=== PATIENT | female | born 1950 | race Caucasian/White ===

== ENCOUNTER 2017-06-04 15:52 | Emergency (ER) | payer MEDICARE ==
[2017-06-04] MEDS ORDERED: Amoxicillin/Clavulanate TAB* 875 MG PO ONE (16:38)
[2017-06-04] MEDS ORDERED: Tetan/Diph/Pertus SYR(Tdap)* 0.5 ML SYR(BOOSTRIX) use SYR IM ONE (16:38)
--- NOTE | 2017-06-04 16:38 | UC ---
Hand/Wrist HPI - HPI Summary HPI Summary: right 5th finger stepped on by a horse at 3pm after patient fell - History Of Current Complaint Chief Complaint: UCUpperExtremity Stated Complaint: FINGER LAC Time Seen by Provider: 06/04/17 16:20 Hx Obtained From: Patient ?: No Mechanism Of Injury: crush injury at 3pm today Onset/Duration: Sudden Onset Severity Initially: Moderate Severity Currently: Moderate Pain Intensity: 8 Pain Scale Used: 0-10 Numeric Character Of Pain: Aching, Throbbing Aggravating Factor(s): Movement Alleviating: Nothing Related History: Dominant Hand Right - Allergies/Home Medications Allergies/Adverse Reactions: Allergies Allergy/AdvReac Type Severity Reaction Status Date / Time No Known Allergies Allergy Verified 06/04/17 15:58 PMH/Surg Hx/FS Hx/Imm Hx Previously Healthy: No Psychological History: Anxiety, Other Other Psychological History: Chronic pain - Surgical History Surgical History: Yes Surgery Procedure, Year, and Place: 1983-ECTOPIC . 1984- BROKEN ARM. 1985- RECONSTRUCTION SURG FOR LUMBAR W/ RIB BONE. 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 Lives: With Family Alcohol Use: Occasionally Alcohol Amount: 3-4 PER WEEK Substance Use Type: None Substance Use Comment - Amount & Last Used: oxycodone Smoking Status (MU): Former Smoker Type: Cigarettes Amount Used/How Often: OFF AND ON - 1/2 PPD X 15 YEARS When Did the Patient Quit Smoking/Using Tobacco: 35 years ago - Immunization History Most Recent Influenza Vaccination: DOES NOT GET Most Recent Tetanus Shot: 7 YEARS AGO Most Recent Pneumonia Vaccination: 2014 Review of Systems Constitutional: Negative Skin: Negative Eyes: Negative ENT: Negative Respiratory: Negative Cardiovascular: Negative Gastrointestinal: Negative Genitourinary: Negative Motor: Negative Neurovascular: Negative Musculoskeletal: Arthralgia - right 5th finger Neurological: Negative Psychological: Negative Is Patient Immunocompromised?: No All Other Systems Reviewed And Are Negative: Yes Physical Exam Triage Information Reviewed: Yes Appearance: Well-Appearing, Well-Nourished, Pain Distress Vital Signs: Initial Vital Signs Temp 98 F 06/04/17 16:00 Pulse 77 06/04/17 16:00 Resp 16 06/04/17 16:00 Pulse Ox 99 06/04/17 16:00 Vital Signs Reviewed: Yes Eye Exam: Normal Eyes: Positive: Conjunctiva Clear ENT Exam: Normal ENT: Positive: Normal ENT inspection, Hearing grossly normal. Negative: Trismus , Muffled/hoarse voice Dental Exam: Normal Neck exam: Normal Neck: Positive: Supple, Nontender Respiratory Exam: Normal Respiratory: Positive: Chest non-tender, No respiratory distress, No accessory muscle use Cardiovascular Exam: Normal Cardiovascular: Positive: RRR, Pulses Normal, Brisk Capillary Refill Musculoskeletal Exam: Normal Musculoskeletal: Positive: ROM Intact, No Edema, Strength Limited @ - 5th finger , Other: - tip of finger missing Neurological Exam: Normal Neurological: Positive: Alert, Muscle Tone Normal Psychological Exam: Normal Skin Exam: Other Skin: Positive: Other - skin and left finger tip avulsion Diagnostics - Radiology No standard instances Xray Interpretation: Positive (See Comments) - distal soft tissue avulsion, no fracture Radiology Interpretation Completed By: ED Physician Re-Evaluation - Re-Evaluation First Eval Change: Improved - Dr. Escalante in to see patient--see Ortho Progress note, digital block with 5cc of 0.25% Marcaine with excellent pain control wound soaked in betadine and saline, xeroform gauze, and tube gauze dressing with splint for protection, patient tolerated well, no bleeding Hand/Wrist Course/Dx - Course Course Of Treatment: Up date tetanus, Augmentin, pain med keep dressing on and follow up with Dr. Ford on Wednesday for an appointment on Wednesday - Differential Dx/Diagnosis Differential Diagnosis/HQI/PQRI: Foreign Body, Infection, Sprain, Other - soft tissue avulsion Provider Diagnoses: soft tissue avulsion right 5th finger, exposed tuft - Physician Notifications Discussed Patient Care With: Rachel Escalante Time Discussed With Above Provider: 16:30 Instructed by Provider To: MD Will See In ED Discharge - Discharge Plan Condition: Stable Disposition: HOME Prescriptions: Amoxicillin/Clavulanate TAB* [Augmentin TAB 875*] 875 mg PO BID #19 tab Hydrocodone-Acetaminophen [Hydrocodone/Acetaminophen 5-325 mg] 1 tab PO Q4H #24 tab MDD 6 Patient Education Materials: Diphtheria/Acellular Pertussis/Tetanus Booster Vaccine (By injection), Skin Avulsion (ED) Referrals: Carlos Ford MD [Medical Doctor] - 06/07/17 Additional Instructions: Call Dr. Ford office on Wednesday for an appointment on Wednesday Do not change dressing reinforce if it bleeds through the gauze
[2017-06-04] MEDS ORDERED: Bupivacaine 0.5% SDV PF* 30 ML VIAL INJ ONE (16:53)
[2017-06-04] MEDS ORDERED: Bupivacaine 0.25% SDV* 30 ML INJ ONE (17:00)
[2017-06-04] MEDS ORDERED: Bupivacaine 0.25% MDV* 50 ML VIAL ONE (17:05)
--- NOTE | 2017-06-04 17:06 | RAD ---
Indication: Crush injury RIGHT fifth finger. Severe distal soft tissue injury. Comparison: No relevant prior exams available on the [facility] PACS for comparison. Technique: 3 views RIGHT fifth finger. Report: Significant distal soft tissue avulsion with open wound to the tuft of the distal phalanx. Negative for fracture. No conspicuous foreign body evident. Mild to moderate osteoarthritis at the interphalangeal joints. IMPRESSION: Distal soft tissue avulsion with open wound to the tuft of the distal phalanx without associated fracture.
[2017-06-04 18:06] VITALS: BP 136/78
--- NOTE | 2017-06-08 04:04 | CONS ---
CONSULTATION REPORT: DATE OF CONSULT: 06/04/17 - [facility] CHIEF COMPLAINT: Right pinky finger crush injury and pain. HISTORY OF PRESENT ILLNESS: Ms. 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 She immediately noted exposed bone and loss of her nail. She had 8/10 pain in the fingertip. She had increased pain with any movement of the finger and decreased pain with immobilization. She was seen at convenient care and they contacted me for further instruction. I was next door and agreed to come over to see the patient's finger in person. PAST MEDICAL HISTORY: Depression, osteoarthritis, colon polyps, GERD, chronic back pain, hypercholesterolemia, basal cell cancer right calf. PAST SURGICAL HISTORY: Right total knee arthroplasty in July 2015, lower lumbar surgery unspecified type, oophorectomy, lysis of adhesions, right knee arthroscopy. FAMILY HISTORY: None. 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 8 glasses of wine per week. No tobacco or recreational drug use. Right hand dominant. REVIEW OF SYSTEMS: Fourteen systems reviewed with the patient. Positive for some chronic back pain, depression, GERD, right pinky finger pain. Otherwise, the patient reports review of systems negative or not relevant. PHYSICAL EXAM: General: Patient is a well-nourished female, in no apparent distress. Alert and oriented x3. Pleasant mood and appropriate affect. Right upper extremity, patient's pinky finger has avulsion of the tip. She has no visible nail, no visible nail bed. Dorsally along the finger, there is an exposed distal phalanx. She can flex and extend the DIP joint without any obvious lag. Some decreased sensation to light touch along the very tip. Her fingertip along the palmar aspect distally has less than 3 seconds of cap refill but it is sluggish on the skin and has a slightly blue color. Proximally , no other tenderness to palpation with 2+ palpable radial pulse. DIAGNOSTIC STUDIES/LAB DATA: Radiographs: Multiple plain films of the right finger show no obvious distal fracture. It does show the soft tissue damage. ASSESSMENT AND PLAN: Ms. Lockhart is a 67-year-old right-hand dominant female with a right pinky finger avulsion injury of her fingertip. This is her dominant hand involving her pinky finger. I do think that the nail and nail bed are not salvageable at this point. Patient's finger was soaked in Betadine. I saw no gross dirt or debris. I did place 2 small nylon interrupted sutures to bring the lacerated fingertip pulp back together along the palmar surface. She is dressed with Xeroform and some dry sterile gauze. The patient asked whether she can work with the horses and I recommended strongly that she does not do this. She requests to see Dr. Ford in followup and this will be set up at his first available clinic appointment on Wednesday a.m., 06/08/17. The patient understands this. She is given an antibiotic today and does have up-to- date tetanus. She understands I defer to our hand specialists' recommendations regarding surgical debridement and revision of the fingertip injury. The patient questions were answered and she agrees with the treatment plan. [id number]/[facility] #: [id number] MTDD
== END 2017-06-04 17:56 | disposition home or self-care (01) ==
LOC: UCEAST 15:52
DX: S61.216A Laceration without foreign body of right little finger without damage to nail, initial encounter (principal); W55.19XA Other contact with horse, initial encounter; Y93.9 Activity, unspecified; Y92.79 Other farm location as the place of occurrence of the external cause; Y99.0 Civilian activity done for income or pay; Z23 Encounter for immunization; F41.9 Anxiety disorder, unspecified; Z87.891 Personal history of nicotine dependence
CPT/HCPCS: 12001; 73140; 90471; 90715; 99212; A9270-GY; G0463

== ENCOUNTER 2017-06-10 13:02 | Day surgery (SDC) | payer MEDICARE ==
[2017-06-10] MEDS ORDERED: Bupivacaine 0.25% SDV* 30 ML ONE ×2 (14:33→16:05)
[2017-06-10 17:30] VITALS: BP 128/72
--- NOTE | 2017-06-11 09:04 | OP ---
DATE OF OPERATION: 06/10/17 - [facility] DATE OF : 48 SURGEON: Carlos Ford MD FAMILY DENTIST: RL Mars ANESTHESIOLOGIST: None. ANESTHESIA: Local only with digital block with 0.25% plain Marcaine. PRE-OP DIAGNOSIS: Fingertip crush injury with significant soft tissue loss, right small finger. POST-OP DIAGNOSIS: Fingertip crush injury with significant soft tissue loss, right small finger. OPERATIVE PROCEDURE: Revision amputation, right small finger. INDICATIONS: Anette had a horse hoof come down on the right small finger tip and avulsed off the dorsal part of the soft tissue. I have seen her in the office and given the amount of hematoma, I was unable to get a sense of exactly how much soft tissue loss there was dorsally. I told her that we would assess in the operating room when we had it nice and clean and tourniquet on and if there was adequate soft tissue, we would just shorten the fingertip a little bit and close it, but if the majority of the dorsal soft tissue was gone, then I would do a reverse cross finger flap with skin grafting. We have talked about both surgery. She wanted to proceed. ESTIMATED BLOOD LOSS: 2 mL. COMPLICATIONS: None. FINDINGS: There was enough dorsal sterile matrix left that I could get the finger close simply by shortening it about 4 mm. DESCRIPTION OF PROCEDURE: Anette was seen in the preoperative holding area. The correct site, side, and procedure were identified. We had the time-out and we anesthetized the finger with 0.25% plain Marcaine. She was brought back to the operating room, and the finger was prepped and draped in the usual fashion. I exsanguinated the finger with the tourniquet and this was left on proximally as the tourniquet throughout the case. I then used a microcurette to debride off the hematoma and disorganized soft tissue. Once I had everything completely clean, I assessed the status of the dorsal soft tissue. There was enough sterile matrix that remained that was viable and healthy proximally that I could get the fingertip close simply by shortening it about 4 or 5 mm. She was wide awake and so I therefore talked to her about this and we decided to just shorten the finger slightly so that we get the volar flap of the soft tissue up and the wound closed. I went ahead and used a [place] blade to excise the distal shredded portion of the sterile matrix. The soft tissue was released circumferentially around the tip of the distal phalanx. I used the bone cutter to perform the osteotomy and the distal finger tip was sent off to the lab as a specimen. I removed a couple of the stitches that ran from her trip to the ED. The flap was raised. There was some contamination, this was all cut out sharply with tenotomy scissors. The skin margins were cut back sharply with a knife and with the scissors until nothing but clean, healthy, viable tissue remained. I contoured the skin flap. The flap was brought up and closed distally and radially with 4-0 nylon simple interrupted sutures. The central portion of the flap was then brought up and a 4-0 nylon suture was placed and this was brought back dorsal to the sterile matrix and through the nail fold exiting dorsally. Two stitches were placed and these were tied up to bring the central portion of the flap up and close the wound. I had previously opened the nail fold up with a Blain elevator as it gotten quite stuck down in it and was closing up. Once this was all cleaned up, I contoured a piece of the chromic gut suture wrapper and placed this into the nail fold. This was secured with two 4-0 nylon sutures, one proximally and one distally. Once I had the wound all closed and the nail fold splinted, I went ahead and let off the tourniquet, the finger pinked up immediately. The wound was dressed with Xeroform, some Bo, and Coban dressing. She was taken to the recovery room in stable condition. [id number]/[facility] #: [id number] LINDSAY
== END 2017-06-10 17:32 | disposition home or self-care (01) ==
LOC: OREAST 13:02
PROVIDERS: ATTEND Orthopaedic Surgery Hand Surgery
DX: S67.196A Crushing injury of right little finger, initial encounter (principal); W55.12XA Struck by horse, initial encounter; Y92.9 Unspecified place or not applicable; F41.9 Anxiety disorder, unspecified; K21.9 Gastro-esophageal reflux disease without esophagitis
CPT/HCPCS: 88304; 88311

== ENCOUNTER 2018-02-16 12:30 | Emergency (ER) | payer MEDICARE ==
[2018-02-16 13:30] VITALS: BP 130/65
--- NOTE | 2018-02-16 14:01 | UC ---
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 PT STEPPED FORWARD WELL AND ENDED UP STEPPING OFF THE PLATFORM. SHE LACERATED HER LEFT THIGH SUPERFICIALLY ON A STEP. WASHED IT OUT AND WRAPPED IT. UTD TETANUS WITHIN THE LAST YEAR. - History Of Current Complaint Chief Complaint: UCLaceration Stated Complaint: LEG LAC Time Seen by Provider: 02/16/18 13:44 Hx Obtained From: Patient Laceration Location: Thigh - LEFT LATERAL Mechanism Of Injury: Sharp Trauma Onset/Duration: Sudden Onset, Lasting Hours - 24 HRS Severity: Moderate Pain Intensity: 4 Pain Scale Used: 0-10 Numeric Aggravating Factors: Nothing - Allergies/Home Medications Allergies/Adverse Reactions: Allergies Allergy/AdvReac Type Severity Reaction Status Date / Time No Known Allergies Allergy Verified 02/16/18 13:30 PMH/Surg Hx/FS Hx/Imm Hx - Additional Past Medical History Additional PMH: CHRONIC BACK PAIN - Surgical History Surgical History: Yes Surgery Procedure, Year, and Place: 1983-ECTOPIC . 1984- BROKEN ARM. 1985- RECONSTRUCTION SURG FOR LUMBAR W/ RIB BONE. 2008-Rt KNEE ARTHROSCOPIC - Family History Known Family History: Positive: None Negative: Hypertension - Social History Alcohol Use: Weekly Alcohol Amount: 3 DRINKS Substance Use Type: None Substance Use Comment - Amount & Last Used: oxycodone Smoking Status (MU): Former Smoker Type: Cigarettes Amount Used/How Often: OFF AND ON - 1/2 PPD X 15 YEARS Have You Smoked in the Last Year: No When Did the Patient Quit Smoking/Using Tobacco: 35 years ago - Immunization History Most Recent Influenza Vaccination: DOES NOT GET Most Recent Tetanus Shot: 7 YEARS AGO Most Recent Pneumonia Vaccination: 2014 Review of Systems Constitutional: Negative Skin: Bruising, Other - LACERATION/ABRASION Respiratory: Negative Cardiovascular: Negative Gastrointestinal: Negative All Other Systems Reviewed And Are Negative: Yes Physical Exam Triage Information Reviewed: Yes Appearance: Well-Appearing, No Pain Distress, Well-Nourished Vital Signs: Initial Vital Signs Temp 98.2 F 02/16/18 13:25 Pulse 72 02/16/18 13:25 Resp 18 02/16/18 13:25 BP 130/65 02/16/18 13:25 Pulse Ox 98 02/16/18 13:25 Vital Signs Reviewed: Yes Eyes: Positive: Conjunctiva Clear ENT: Positive: Hearing grossly normal Neck: Positive: Supple Respiratory: Positive: No respiratory distress, No accessory muscle use Cardiovascular: Positive: Pulses Normal Abdomen Description: Positive: Soft Musculoskeletal: Positive: No Edema Neurological: Positive: Alert Psychological: Positive: Age Appropriate Behavior Skin: Positive: Other - 28CM X 17CM AREA OF BRUISING SURROUNDING 10CM X 6CM AREA OF ABRADED SKIN. 8CM SUPERFICIAL LINEAR LACERATION LOCATED CENTRAL TO THE WOUND. Laceration Course/Dx - Differential Dx - Laceration/Wound Provider Diagnoses: 1. LACERATION LEFT THIGH - NO REPAIR. 2. ABRASION Discharge - Sign-Out/Discharge Documenting (check all that apply): Discharge/Admit/Transfer - Discharge Plan Condition: Stable Disposition: HOME Prescriptions: Cephalexin CAP* [Keflex 500 CAP*] 1,000 mg PO BID #28 cap Patient Education Materials: Abrasion (ED), Laceration Without Closure (ED) Referrals: Jyoti Ocasio MD [Primary Care Provider] - If Needed Additional Instructions: YOUR WOUND LOOKS LIKE IT HAS ALREADY BEGUN THE HEALING PROCESS. NO INDICATION FOR CLOSURE TODAY. APPLY THIN LAYER ANTIBIOTIC OINTMENT UNDER NONSTICK BANDAGE. CHANGE BANDAGE DAILY AND NEEDED IF IT BECOMES SOILED OR WET. SEEK FOLLOW-UP IF YOU DEVELOP SPREADING REDNESS OF THE SKIN, PURULENT DRAINAGE, FEVER, INCREASED PAIN OR ANY OTHER CONCERNING SYMPTOMS. - Billing Disposition and Condition Condition: STABLE Disposition: HOME
== END 2018-02-16 14:35 | disposition home or self-care (01) ==
LOC: UCEAST 12:30
DX: S71.112A Laceration without foreign body, left thigh, initial encounter (principal); S70.312A Abrasion, left thigh, initial encounter; W26.8XXA Contact with other sharp object(s), not elsewhere classified, initial encounter; Y93.89 Activity, other specified; Y92.71 Barn as the place of occurrence of the external cause; Z87.891 Personal history of nicotine dependence
CPT/HCPCS: 99212; G0463

== ENCOUNTER 2019-05-04 05:19 | Emergency (ER) | payer MEDICARE ==
--- OUTSIDE RECORDS SUMMARY | 2019-05-04 05:29 | XMS REPORT | Continuity of Care Document ---
:1950 External Reference #:[id number] Author Name LoisAl alba Care Team Providers Name Role Phone Jyoti Ocasio MD Primary Care Physician Unavailable Payers Date Identification Numbers Payment Provider Subscriber Policy Number: [id number] [employer] Kathleen Downinge PayID: [id number] [address] [place] [address] Effective: 2015 Policy Number: [id number] Medicare Blue Ppo Kathleen Colindres Lowe Expires: 2018 Group Number: [id number] [address] PayID: [id number] [place] [address] Effective: 2011 Policy Number: [id number] Facets Kathleen Colindres Lowe Expires: 2013 PayID: [id number] [address] [place] [address] Effective: 2005 Policy Number: [id number] [facility] Ppo Kathleen Colindres Lowe Expires: 2011 Group Name: [employer] [place] [address] PayID: [id number] [place]in [address] Effective: 2013 Policy Number: [id number] BS Facets Kathleen Colindres Lowe Expires: 2014 PayID: [id number] [address] [address] [place] [address] Problems Active Problems Provider Date Gastroesophageal reflux disease Ela Peck NOdalys Onset: 08/14/2011 Depressive disorder Ela Peck N.P. Onset: 08/14/2011 Localized, primary osteoarthritis Rachel Escalante M.D. Onset: 08/12/2015 Localized, primary osteoarthritis of the Rachel Escalante M.D. Onset: 12/06/2015 pelvic region and thigh Crushing injury of finger Carlos Ford MD Onset: 06/08/2017 Tubular adenoma Jyoti Ocasio M.D. Onset: 03/15/2013 Note: repeat in 2019 showed no high grade dysplasia q 5 yr Family History Date Family Member(s) Observation Comments General Heart Disease General Breast Cancer General Thyroid Disease General Alzheimer's Disease Onset: (age 84 Years) Father Alzheimer's Disease Mother Thyroid Disease age 83 Siblings 1 Brother - - Suicide Social History Type Date Description Comments Sex Unknown Lives With Boyfriend Occupation [employer] ETOH Use Currently consumes 2 - 4 glasses of alcohol wine per week Tobacco Use Start: Unknown End: Patient is a former smoked from age 12 Unknown smoker to 27 Recreational Drug Use Denies Drug Use Smoking Status Reviewed: 04/18/19 Patient is a former smoked from age 12 smoker to 27 Exercise Type/Frequency 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 Capsules dental or gi procedure Naproxen Sodium ER 1 by mouth twice 60tabs Sid Jacob M.D. 02/11/2015 daily prn 500mg Tablets ER 24HR Prilosec OTC uses prn Unknown 20mg Tablets DR Vizcarra Unknown 30mg Tablets Miralax 17 grams by mouth Unknown Powder every day as needed Diclofenac Sodium apply 2 grams to Unknown 1% affected area Gel twice daily Tylenol as needed Unknown 325mg Tablets Clonazepam prn at bedtime Olesya, 0.5mg Ashanti Galindo, Tablets ROSA, RN Oxycodone HCL 1 tab by mouth Unknown 5mg twice a day as Tablets needed Gabapentin 1-3 capsules by 90caps Rachel Escalante, 100mg mouth up to 3 M.D. Capsules times per day. Propranolol HCL 1 tablet twice 30tabs Olesya, 10mg daily as needed Ashanti Galindo, Tablets for anxiety STREET [employer]GR[employer]-R, RN History Medications Cosyntropin 250mcg 1units R11.0 Lamine Hanna MD 08/17/2018 - 0.25mg intramuscular once 09/27/2018 Solution Rec in office Ventolin HFA 2 puffs 4 times a 8gm R05 Sri 06/24/2018 - day as needed Nirav Mays 09/27/2018 108(90Base) mcg/Act Aerosol Azithromycin 2 tabs by mouth on 6tabs R05 Sri 06/24/2018 - 250mg day 1; 1 tab by Nirav Mays 08/16/2018 Tablets mouth every day on days 2-5 Shingrix intramuscular x 1 1units Jyoti Ocasio, 04/12/2018 - 50mcg then repeat in 4 M.D. 05/23/2018 Suspension Rec months X1 Ranitidine 150 ( Not Taking) one 60tabs K21.9 Ela Peck, 08/04/2017 - Maximum Strength by mouth twice a N.P. 01/23/2019 day 150mg Tablets Amoxicillin/Clavulan 1 tab by mouth 14tabs Carlos Ford, 06/10/2017 - ate Potassium twice a day 06/24/2017 875-125mg Tablets Tramadol 1-2 tab by mouth 30tabs Carlos Ford, 06/10/2017 - Hydrochloride/Acetam every 4-6 hours as 03/22/2018 inophen needed 37.5-325mg Tablets Azithromycin 2 tabs by mouth 6tabs J20.9 Calvin Soriano NP 11/18/2016 - 250mg every day x1 day, 1 11/24/2016 Tablets tab by mouth every day x 4 days Ventolin HFA 1-2 puffs every 4-6 1units J20.9 Calvin Soriano NP 11/18/2016 - hours as needed for 11/24/2016 108(90Base) mcg/Act shortness of Aerosol breath. Nitrofurantoin 1 by mouth twice a 14caps N39.0 Jyoti Ocasio, 06/09/2016 - Macrocrystal day X 7 days M.D. 11/18/2016 100mg Capsules Nexium 1 by mouth every 90caps K21.9 Ela Calixeleazar, 06/09/2016 - 20mg Capsules day as needed N.P. 03/22/2018 DR Monreal 1 tab by mouth 2tabs B37.89 Jyoti Ocasio, 06/09/2016 - 100mg daily x 2 days M.D. 11/18/2016 Tablets Bonine Jyoti Ocasio, 01/28/2016 - 25mg Chewtabs M.D. 11/18/2016 Nexium 1 by mouth every 60caps K21.9 Jyoti Ocasio, 01/28/2016 - 40mg Capsules day M.D. 06/09/2016 DR Baugh HFA 2 puffs by mouth 8.5units J01.90 Keira Cortes, 12/27/2015 - four times a day as M.D. 01/28/2016 108(90Base) mcg/Act needed Aerosol Levaquin 1 by mouth everyday 10tabs J20.9 Keira Cortes, 12/27/2015 - 500mg M.D. 01/28/2016 Tablets Ventolin HFA 2 puffs by mouth 8.5units J20.9 Keira Cortes, 12/27/2015 - four times a day as M.D. 12/27/2015 108(90Base) mcg/Act needed Aerosol Levaquin 1 by mouth everyday 10tabs J20.9 Keira Cortes, 12/27/2015 - 500mg M.D. 12/27/2015 Tablets Nexium 1 by mouth every 30caps K21.9 Ela Calixeleazar, 12/11/2015 - 20mg Capsules day N.P. 01/28/2016 Percocet 1-2 by mouth every 90tabs Jackelin 08/19/2015 - 5-325mg 4 to 6 hours as KYAW Reece 10/28/2015 Tablets needed pain Oxycodone HCL 1-2 tabs by mouth 30caps Jackelin 08/19/2015 - 5mg q4-6 hours as KYAW Reece 09/30/2015 Capsules needed for breakthrough pain Coumadin take 1-3 tabs at 60tabs Kaylene 08/19/2015 - 2mg Tablets dinnertime as Nirav Meraz 10/28/2015 directed Omeprazole 1 by mouth every 90caps K21.9 Ela Calixeleazar, 08/02/2015 - 20mg day N.P. 12/11/2015 Capsules Sertraline HCL 1 by mouth every 30tabs F32.9 Other Ordering 08/02/2015 - 50mg day Provider 01/28/2016 Tablets Naproxen 1 tablet by mouth 60tabs 715.96 Sid Jacob, 02/11/2015 - 500mg twice a day as M.D. 02/11/[address] needed Naproxen Kit 1 tablet by mouth 60tabs 715.96 Sid Jacob, 02/11/2015 - 500mg twice a day as M.D. 01/28/2016 Tablets needed Voltaren apply twice a day 1tube Sid Jacob, 07/04/2014 - 1% Gel as needed to M.D. 01/28/2016 affected area Percocet 1/2 to 1 by mouth 80tabs Sid Jacob, 04/30/2014 - 5-325mg every 6 hours as M.D. 10/28/2015 Tablets needed pain Omeprazole one daily or twice 90caps Ene Shepard, 10/26/2011 - 20mg daily as needed M.D., FACP 08/30/2012 Capsules Celebrex 1 capsule twice a 60caps Ene Shepard, 08/14/2011 - 200mg day as needed M.D., FACP 08/30/2012 Capsules Clonazepam 1 po in am and 1 60tabs Unknown - 0.5mg po prn hs 11/08/2014 Tablets Cymbalta 1 po qd 30caps Unknown - 20mg Caps 07/16/2014 Part Oxcarbazepine 1/2 po am and 1 po 120tabs Unknown - 300mg hs 07/04/2014 Tablets Trubiotics qd Unknown - Capsules 07/24/2014 Magnesium po qd Unknown - Capsules 01/28/2016 Glucosamine po qd Unknown - Chondroitin Complex 08/30/2012 Capsules Krill Oil Milton-3 W/ po qd Unknown - D 01/28/2016 300mg Capsules Klonopin Unknown - 01/28/2015 Tramadol HCL Unknown - 10/03/2014 Tums as needed Unknown - 500mg Chewtabs 06/07/2017 Biotin per package Unknown - 8000mg instructions(last 08/16/2018 taken 05/23/18) Vitamin C 1 by mouth every Unknown - W/Vitamin E day 03/22/2018 [id number] Capsules Vit D take two Unknown - 1000Unit capsule/tablet 05/23/2018 Tablets daily by mouth as vitamin d3 Dexilant by mouth every day 30caps Ela Peck, - 60mg as needed N.P. 01/28/2015 Capsules Vitamin E 1 po qd Unknown - 100Unit 08/30/2012 Capsules Vitamin B Complex W/ 1 po qd Unknown - C 03/22/2018 Capsules Glucosamine 1-2 po qd Unknown - Chondroitin &MSM 01/28/[id number] Tablets [place] 3,6,9 1 po qd Unknown - 01/28/2016 Lorazepam 1/2 tablet tid prn 20tabs Unknown - 0.5mg 08/30/2012 Tablets Wellbutrin SR 1 po bid 180tabs Unknown - 200mg 08/30/2012 Tablets ER 12HR Lyrica 1 po tid 90caps Unknown - 50mg Capsules 08/30/2012 Nexium Take 1 Capsule By 90capmohit Shepard, - 40mg Capsules Mouth Once Daily M.D., FACP 08/14/2011 Nexium take 1 capsule by 90unted Shepard, - 40mg CPDR mouth once daily M.D., FACP 10/26/2011 Lamictal 1 tablet twice 30tabs Unknown - 25mg Tablets daily 08/14/2011 Cymbalta 1 tablet twice 34caps Unknown - 20mg Caps DR daily 08/14/2011 Part Gabapentin 1-6 daily 90caps Ene Shepard, - 300mg [place].DZenia, FACP 08/14/2011 Capsules Medications Administered in Office Medication SIG Qnty Indications Ordering Provider Date Depomedrol 40MG Rachel Escalante M.D. 06/29/2016 Injection Depomedrol 40MG Sid Jacob M.D. 04/08/2016 Injection Depomedrol 40MG Rachel Escalante M.D. 12/06/2015 Injection Depomedrol 80MG Sid Jacob M.D. 05/22/2015 Injection Synvisc Or Synvisc-One Sid Jacob M.D. 04/01/2015 Injection 1 MG Injection Depomedrol 80MG Sid Jacob M.D. 02/11/2015 Injection Depomedrol 80MG Sid Jacob M.D. 11/12/2014 Injection Depomedrol 80MG IVIS Coats 07/25/2014 Injection Depomedrol 80MG Sid Jacob M.D. 07/25/2014 Injection Depomedrol 80MG Sid Jacob M.D. 03/12/2014 Injection Depomedrol 80MG Sid Jacob M.D. 08/10/2013 Injection Depomedrol 80MG Sid Jacob M.D. 04/07/2013 Injection Depomedrol 80MG Sid Jacob M.D. 04/07/2013 Injection Depomedrol 80MG Sid Jacob M.D. 02/08/2012 Injection Depomedrol 80MG Sid Jacob M.D. 02/08/2012 Injection Depomedrol 40MG Sid Jacob M.D. 02/11/2011 Injection Depomedrol 80MG Santy Herrera, 06/26/2010 Injection R.S.A.-O Depomedrol 80MG Santy Herrera, 02/13/2010 Injection R.S.A.-O Depomedrol 40MG Santy Herrera, 02/13/2010 Injection R.S.A.-O Marybelomedrol 40MG Sid Jacob M.D. 11/22/2009 Injection Depomedrol 40MG Sid Jacob M.D. 09/18/2009 Injection Immunizations CPT Code Status Date Vaccine Lot # [id number] Given 11/18/2016 Pneumonia Vaccine [id number] Given 08/02/2015 Pneumococcal Conjugate Vaccine 13 Valent For [id number] Intramuscular Use 44821 Given 08/30/2012 Zoster (Zostavax) [id number] 10023 Given 02/08/2008 Tdap - Tetanus/Diptheria/Acellular Pertussis Vital Signs Date Vital Result Comment 04/18/2019 3:18pm Height 61.5 inches 5'1.50" Weight 140.00 lb BP Systolic 122 mmHg BP Diastolic 72 mmHg Respiratory Rate 20 /min Pain Level 8 BMI (Body Mass Index) 26.0 kg/m2 01/23/2019 2:23pm Height 61.5 inches 5'1.50" Weight 140.00 lb Heart Rate 71 /min BP Systolic 140 mmHg BP Diastolic 80 mmHg Body Temperature 99.0 F O2 % BldC Oximetry 98 % BMI (Body Mass Index) 26.0 kg/m2 11/10/2018 3:35pm Height 61.5 inches 5'1.50" Weight 131.00 lb Heart Rate 81 /min BP Systolic Sitting 105 mmHg BP Diastolic Sitting 67 mmHg Body Temperature 98.7 F O2 % BldC Oximetry 97 % BMI (Body Mass Index) 24.3 kg/m2 08/17/2018 9:01am Height 61.5 inches 5'1.50" Weight 137.00 lb w/ boots Heart Rate 71 /min BP Systolic Sitting 127 mmHg BP Diastolic Sitting 82 mmHg BMI (Body Mass Index) 25.5 kg/m2 06/24/2018 10:58am Height 61.5 inches 5'1.50" Weight 138.00 lb Heart Rate 63 /min BP Systolic 109 mmHg BP Diastolic 69 mmHg Body Temperature 98.1 F O2 % BldC Oximetry 97 % BMI (Body Mass Index) 25.6 kg/m2 05/24/2018 9:02am Height 61.5 inches 5'1.50" Weight 138.00 lb w/ shoes Heart Rate 73 /min BP Systolic Sitting 124 mmHg BP Diastolic Sitting 79 mmHg BMI (Body Mass Index) 25.6 kg/m2 04/12/2018 1:37pm Weight 134.00 lb Heart Rate 64 /min BP Systolic Sitting 104 mmHg BP Diastolic Sitting 62 mmHg O2 % BldC Oximetry 96 % 03/22/2018 12:21pm Height 59.25 inches 4'11.25" Weight 138.00 lb Heart Rate 73 /min BP Systolic Sitting 130 mmHg BP Diastolic Sitting 82 mmHg O2 % BldC Oximetry 97 % BMI (Body Mass Index) 27.6 kg/m2 02/28/2018 2:04pm Height 59.25 inches 4'11.25" Weight 138.00 lb Heart Rate 78 /min BP Systolic 132 mmHg BP Diastolic 74 mmHg Respiratory Rate 12 /min Pain Level 5 BMI (Body Mass Index) 27.6 kg/m2 08/13/2017 8:59am Height 59.25 inches 4'11.25" Weight 135.00 lb BP Systolic 120 mmHg BP Diastolic 76 mmHg Respiratory Rate 18 /min Pain Level 2 BMI (Body Mass Index) 27.0 kg/m2 08/04/2017 1:30pm Height 59.25 inches 4'11.25" Weight 135.00 lb Heart Rate 77 /min BP Systolic 128 mmHg BP Diastolic 84 mmHg Body Temperature 99.1 F O2 % BldC Oximetry 96 % BMI (Body Mass Index) 27.0 kg/m2 06/25/2017 9:57am Heart Rate 68 /min Respiratory Rate 16 /min Body Temperature 96.7 F 06/16/2017 3:37pm Height 51 inches 4'3" Weight 142.00 lb BP Systolic 112 mmHg BP Diastolic 72 mmHg Respiratory Rate 14 /min Body Temperature 97.7 F Pain Level 2 BMI (Body Mass Index) 38.4 kg/m2 06/08/2017 8:23am Height 51 inches 4'3" Weight 142.00 lb Heart Rate 74 /min BP Systolic Sitting 118 mmHg BP Diastolic Sitting 72 mmHg Respiratory Rate 12 /min Pain Level 6 BMI (Body Mass Index) 38.4 kg/m2 11/18/2016 4:35pm Weight 143.00 lb Heart Rate 68 /min BP Systolic 120 mmHg BP Diastolic 70 mmHg Body Temperature 98.1 F O2 % BldC Oximetry 98 % 06/29/2016 8:40am Heart Rate 71 /min BP Systolic 104 mmHg BP Diastolic 75 mmHg Pain Level 9 06/09/2016 1:36pm Weight 142.00 lb Heart Rate 75 /min BP Systolic Sitting 122 mmHg BP Diastolic Sitting 82 mmHg Body Temperature 99.4 F O2 % BldC Oximetry 97 % 04/08/2016 1:43pm Height 61 inches 5'1" Weight 140.00 lb Heart Rate 80 /min BP Systolic 119 mmHg BP Diastolic 84 mmHg BMI (Body Mass Index) 26.4 kg/m2 01/28/2016 2:45pm Weight 141.00 lb Heart Rate 80 /min BP Systolic Sitting 138 mmHg BP Diastolic Sitting 88 mmHg Body Temperature 98.4 F O2 % BldC Oximetry 98 % 12/27/2015 10:28am Weight 143.00 lb Heart Rate 63 /min BP Systolic Sitting 128 mmHg BP Diastolic Sitting 82 mmHg Respiratory Rate 15 /min Body Temperature 98.1 F O2 % BldC Oximetry 98 % 12/06/2015 2:37pm Height 59.5 inches 4'11.50" Weight 135.00 lb Pain Level 5 BMI (Body Mass Index) 26.8 kg/m2 10/30/2015 8:10am Height 59.5 inches 4'11.50" Weight 135.00 lb Pain Level 1 BMI (Body Mass Index) 26.8 kg/m2 09/16/2015 8:15am Height 59.75 inches 4'11.75" Weight 135.00 lb Pain Level 1 BMI (Body Mass Index) 26.6 kg/m2 08/28/2015 11:01am Height 59.75 inches 4'11.75" Weight 135.00 lb Body Temperature 96.3 F BMI (Body Mass Index) 26.6 kg/m2 08/12/2015 9:37am Height 59.75 inches 4'11.75" Weight 135.00 lb BMI (Body Mass Index) 26.6 kg/m2 08/07/2015 9:36am Height 59.75 inches 4'11.75" Weight 135.00 lb BMI (Body Mass Index) 26.6 kg/m2 08/02/2015 9:11am Height 59.75 inches 4'11.75" Weight 141.50 lb Heart Rate 63 /min BP Systolic Sitting 121 mmHg BP Diastolic Sitting 77 mmHg Body Temperature 98.2 F O2 % BldC Oximetry 98 % BMI (Body Mass Index) 27.9 kg/m2 05/22/2015 9:42am Height 61 inches 5'1" Weight 138.00 lb Pain Level 6 BMI (Body Mass Index) 26.1 kg/m2 05/06/2015 8:41am Height 61 inches 5'1" Weight 138.00 lb Pain Level 5 BMI (Body Mass Index) 26.1 kg/m2 04/25/2015 2:50pm Height 61 inches 5'1" Weight 138.00 lb Pain Level 4 BMI (Body Mass Index) 26.1 kg/m2 04/01/2015 3:07pm Height 61 inches 5'1" Weight 138.00 lb Pain Level 3 BMI (Body Mass Index) 26.1 kg/m2 02/11/2015 11:13am Height 61 inches 5'1" Weight 138.00 lb Pain Level 7 BMI (Body Mass Index) 26.1 kg/m2 01/28/2015 9:10am Height 61 inches 5'1" Weight 138.00 lb Heart Rate 82 /min BP Systolic 106 mmHg BP Diastolic 73 mmHg Body Temperature 99.1 F BMI (Body Mass Index) 26.1 kg/m2 11/19/2014 3:42pm Height 61 inches 5'1" Weight 133.00 lb Pain Level 8 BMI (Body Mass Index) 25.1 kg/m2 11/12/2014 10:29am Height 61 inches 5'1" Weight 133.00 lb Pain Level 6 BMI (Body Mass Index) 25.1 kg/m2 07/25/2014 3:34pm Height 61 inches 5'1" Weight 133.00 lb Heart Rate 69 /min BMI (Body Mass Index) 25.1 kg/m2 04/30/2014 2:28pm Height 61 inches 5'1" Weight 141.00 lb Heart Rate 59 /min BP Systolic 116 mmHg BP Diastolic 71 mmHg BMI (Body Mass Index) 26.6 kg/m2 03/12/2014 11:30am Height 61 inches 5'1" Weight 141.00 lb Heart Rate 66 /min BP Systolic 129 mmHg BP Diastolic 82 mmHg BMI (Body Mass Index) 26.6 kg/m2 01/12/2014 10:13am Height 61 inches 5'1" Weight 143.00 lb Heart Rate 69 /min BP Systolic 129 mmHg BP Diastolic 80 mmHg BMI (Body Mass Index) 27.0 kg/m2 09/05/2012 1:02pm Height 60.25 inches 5'0.25" Weight 142.50 lb Heart Rate 72 /min BP Systolic Sitting 124 mmHg BP Diastolic Sitting 70 mmHg BMI (Body Mass Index) 27.6 kg/m2 08/30/2012 10:53am Height 61.75 inches 5'1.75" Weight 145.00 lb Heart Rate 64 /min BP Systolic Sitting 138 mmHg BP Diastolic Sitting 82 mmHg BMI (Body Mass Index) 26.7 kg/m2 08/14/2011 9:02am Height 61.75 inches 5'1.75" Weight 141.00 lb Heart Rate 60 /min BP Systolic Sitting 120 mmHg l BP Diastolic Sitting 78 mmHg l BMI (Body Mass Index) 26.0 kg/m2 07/21/2010 9:11am Weight 150.00 lb Heart Rate 68 /min BP Systolic 124 mmHg BP Diastolic 80 mmHg Results Test Date Facility Test Result H/L Range Note Laboratory test [facility] Surgical SEE RESULT 1 finding [address] [place] [address] [phone] Laboratory test [facility] Cortisol 27.84 g/dL 2 finding [address] [place], [place] [id number] [phone] Urine Culture And [facility] Urine Culture SEE RESULT 3 Sensitivities [address] [place] [address] [phone] Drug Abuse 20 Urine [facility] Urine Negative [address] Amphetamine ng/mL [place], [place] [id number] [phone] Urine Barbiturates Negative ng/mL 5 Urine Benzodiazepines Negative ng/mL 6 Urine Cocaine Negative ng/mL 7 Urine Phencyclidine Negative ng/mL Cutoff: 25 Urine Tetrahydrocannabinol Presumptive Posi <SEE NOTE> Abnormal Cutoff: 50 8 ng/mL Creatinine, Urine 25.9 mg/dL Specific [place] 1.002 pH 7.4 Oxidants Negative 9 Adulterants Comment Normal Codeine, Ur Not Detected ng/mL Cutoff: 25 10 Zuyybvo-5-pwtm-glucuronide, Ur Not Detected ng/mL 11 Morphine, Ur Not Detected ng/mL Cutoff: 25 12 Woiohocq-4-zqaa-glucuronide, U Not Detected ng/mL 13 6-monoacetylmorphine, Ur Not Detected ng/mL Cutoff: 25 14 Hydrocodone, Ur Not Detected ng/mL Cutoff: 25 15 Norhydrocodone, Ur Not Detected ng/mL Cutoff: 25 16 Dihydrocodeine, Ur Not Detected ng/mL Cutoff: 25 17 Hydromorphone, Ur Not Detected ng/mL Cutoff: 25 18 Bzswuwddgtjuh6nixrrpqqsorkofb Not Detected ng/mL 19 Oxycodone, Ur Not Detected ng/mL Cutoff: 25 20 Noroxycodone, Ur Present ng/mL Abnormal Cutoff: 25 21 Oxymorphone, Ur Not Detected ng/mL Cutoff: 25 22 Fnvcoqrqdzf-6-coyx-glucuronide Present ng/mL Abnormal 23 Noroxymorphone, Ur Not Detected ng/mL Cutoff: 25 24 Fentanyl, Ur Not Detected ng/mL Cutoff: 2 25 Norfentanyl, Ur Not Detected ng/mL Cutoff: 2 26 Meperidine, Ur Not Detected ng/mL Cutoff: 25 27 Normeperidine, Ur Not Detected ng/mL Cutoff: 25 28 Naloxone, Ur Not Detected ng/mL Cutoff: 25 29 Fwzxsvyz-0-pfxm-glucuronide, U Not Detected ng/mL 30 Methadone, Ur Not Detected ng/mL Cutoff: 25 31 Eddp, Ur Not Detected ng/mL Cutoff: 25 32 Propoxyphene, Ur Not Detected ng/mL Cutoff: 25 33 Norpropoxyphene, Ur Not Detected ng/mL Cutoff: 25 34 Tramadol, Ur Not Detected ng/mL Cutoff: 25 35 O-desmethyltramadol, Ur Not Detected ng/mL Cutoff: 25 36 Tapentadol, Ur Not Detected ng/mL Cutoff: 25 37 N-desmethyltapentadol, Ur Not Detected ng/mL Cutoff: 50 38 Bopyspdjjh-zcrb-ebfwqzszusc, U Not Detected ng/mL 39 Buprenorphine, Ur See Comment ng/mL Cutoff: 5 40 Norbuprenorphine, Ur Not Detected ng/mL Cutoff: 5 41 Norbuprenorphine glucuronide Not Detected ng/mL Cutoff: 20 42 Opioid Interpretation See Comment 43 THC Confirmation 06/09/2018 [facility] Urine Carboxy 309 ng/mL [address] [place] [address] [phone] Urine THC Interpretation Positive. 45 Creatinine 24HR 05/26/2018 [facility] Urine Collection 24 hr Urine [address] [place] [address] [phone] Urine Total Volume 2200 mL Urine Random Creatinine 40.10 mg/dL Urine Creatinine/24HR 882.20 mg/24Hr N 600-1800 Calcium,24 05/26/2018 [facility] Urine Calcium 176 mg/24h < 200 46 Hour,Urine [address] [place] [address] [phone] Urine Collection Duration 24 h Urine Volume 2200 mL Urine Calcium Conc 8 mg/dL 47 Pthi 05/24/2018 [facility] Calcium (PTH Intact) 10.5 mg/dL High 8.6-10.[address] [place] [address] [phone] PTH Intact 6.5 pmol/L N 1.3-9.3 Laboratory test finding 05/24/2018 [facility] Albumin 4.1 g/dL N 3.2-5.[address] [place] [address] [phone] Magnesium 2.0 mg/dL N 1.9-2.7 Alkaline Phosphatase 89 U/L N 34-104 Phosphorus 2.4 mg/dL Low 2.5-5.0 Comp Metabolic Panel 05/24/2018 [facility] Sodium 136 mmol/L N 135-[address] [place] [address] [phone] Potassium 4.2 mmol/L N 3.5-5.0 Chloride 104 mmol/L N 101-111 Co2 Carbon Dioxide 25 mmol/L N 22-32 Anion Gap 7 mmol/L N 2-11 Glucose 136 mg/dL High 70-100 Blood Urea Nitrogen 13 mg/dL N 6-24 Creatinine 0.82 mg/dL N 0.51-0.95 BUN/Creatinine Ratio 15.9 N 8-20 Calcium 10.5 mg/dL High 8.6-10.3 Total Protein 6.7 g/dL N 6.4-8.9 Globulin 2.6 g/dL N 2-4 Albumin/Globulin Ratio 1.6 N 1-3 Total Bilirubin 0.40 mg/dL N 0.2-1.0 Alt 12 U/L N 7-52 Ast 20 U/L N 13-39 Egfr Non- 69.1 >60 Egfr 83.6 >60 48 Laboratory test 04/25/2018 [facility] PTH Related 0.6 pmol/L <2.[address] [place] [address] [phone] Vitamin D Total 25(Oh) 35.3 ng/mL N 20-50 Protein 04/25/2018 [facility] Total 7.0 g/dL 6.3 - Electrophoresis [address] Protein(Pep) 7.9 [place] [address] [phone] Albumin 3.3 g/dL Abnormal 3.4-4.7 Alpha-1 Globulin 0.3 g/dL 0.1-0.3 Alpha-2 Globulin 1.0 g/dL 0.6-1.0 Beta Globulin 1.4 g/dL Abnormal 0.7-1.2 Gamma Globulin 1.1 g/dL 0.6-1.6 Albumin/Globulin Ratio 0.87 Impression See Comment 50 Laboratory test 04/25/2018 [facility] Vitamin D, 76 pg/mL 18- 78 [address] 1,25 [place] [address] [phone] Pthi 04/18/2018 [facility] Calcium (PTH 10.8 High 8.6-10.[address] Intact) mg/[place] [address] [phone] PTH Intact 7.8 pmol/L N 1.3-9.3 Laboratory test 04/18/2018 [facility] Vitamin D 32.0 ng/mL N 20-[address] Total 25(Oh) [place] [address] [phone] TSH (Thyroid Stim Horm) 4.06 mcIU/mL N 0.34-5.60 Calcium Ionized 5.62 mg/dL High 4.65-5.28 T3 Free 3.50 pg/mL N 2.5-3.9 Free T4 (Free Thyroxine) 1.05 ng/dL N 0.61-1.12 CBC Auto Diff 03/23/2018 [facility] White Blood 8.4 10^3/uL N 3.5-10.[address] [place] [address] [phone] Red Blood Count 4.08 10^6/uL N 4.00-5.40 Hemoglobin 13.1 g/dL N 12.0-16.0 Hematocrit 38 % N 35-47 Mean Corpuscular Volume 92 fL N 80-97 Mean Corpuscular Hemoglobin 32 pg High 27-31 Mean Corpuscular HGB Conc 35 g/dL N 31-36 Red Cell Distribution Width 14 % N 10.5-15 Platelet Count 223 10^3/uL N 150-450 Mean Platelet Volume 11.6 um3 High 7.4-10.4 Abs Neutrophils 4.6 10^3/uL N 1.5-7.7 Abs Lymphocytes 2.6 10^3/uL N 1.0-4.8 Abs Monocytes 0.8 10^3/uL N 0-0.8 Abs Eosinophils 0.3 10^3/uL N 0-0.6 Abs Basophils 0.1 10^3/uL N 0-0.2 Abs Nucleated RBC 0 10^3/uL Granulocyte % 54.7 % N 38-83 Lymphocyte % 30.4 % N 25-47 Monocyte % 9.7 % High 0-7 Eosinophil % 4.0 % N 0-6 Basophil % 1.2 % N 0-2 Nucleated Red Blood Cells % 0 Laboratory test 03/23/2018 [facility] TSH (Thyroid 5.57 mcIU/mL N 0.34-5.60 [address] Stim Horm) [place] [address] [phone] Basic Metabolic 03/23/2018 [facility] Sodium 137 mmol/L N 135- [address] [place] [address] [phone] Potassium 4.6 mmol/L N 3.5-5.0 Chloride 103 mmol/L N 101-111 Co2 Carbon Dioxide 27 mmol/L N 22-32 Anion Gap 7 mmol/L N 2-11 Glucose 92 mg/dL N 70-100 Blood Urea Nitrogen 22 mg/dL N 6-24 Creatinine 0.72 mg/dL N 0.51-0.95 BUN/Creatinine Ratio 30.6 High 8-20 Calcium 10.7 mg/dL High 8.6-10.3 Egfr Non- 80.3 >60 Egfr 97.2 >60 53 Comp Metabolic Panel 08/02/2017 [facility] Sodium 135 mmol/L N 133-145 [address] [place] [address] [phone] Potassium 4.2 mmol/L N 3.5-5.0 Chloride 104 mmol/L N 101-111 Co2 Carbon Dioxide 27 mmol/L N 22-32 Anion Gap 4 mmol/L N 2-11 Glucose 95 mg/dL N 70-100 Blood Urea Nitrogen 17 mg/dL N 6-24 Creatinine 0.64 mg/dL N 0.51-0.95 BUN/Creatinine Ratio 26.6 High 8-20 Calcium 10.3 mg/dL N 8.6-10.3 Total Protein 6.8 g/dL N 6.4-8.9 Albumin 3.8 g/dL N 3.2-5.2 Globulin 3.0 g/dL N 2-4 Albumin/Globulin Ratio 1.3 N 1-3 Total Bilirubin 0.40 mg/dL N 0.2-1.0 Alkaline Phosphatase 70 U/L N 34-104 Alt 12 U/L N 7-52 Ast 16 U/L N 13-39 Egfr Non- 92.3 N >60 Egfr 118.7 N >60 54 Lipid Profile 08/02/2017 [facility] Triglycerides 125 mg/dL N 55 (Trig/Chol/HDL) [address] [place] [address] [phone] Cholesterol 171 mg/dL N 56 HDL Cholesterol 69.8 mg/dL N 57 LDL Cholesterol 76 mg/dL N 58 Laboratory test 06/10/2017 [facility] Surgical SEE RESULT 59, [address] [place] [address] [phone] Urine Culture And 06/09/2016 [facility] Urine Culture SEE RESULT [address] [place] [address] [phone] Ua Routine 06/09/2016 [facility] Ua Specific 1.000 [place] Ua PH 7 Ua Color lt yellow Ua Appera cloudy Ua WBC ++ Ua Protein neg Ua Glucose neg Ua Ketones neg Ua Bilirubin neg Ua Urobilinogen normal Ua Nitrite neg Ua Occult Blood large CBC Auto Diff 01/28/2016 [facility] White Blood 9.1 10^3/uL N 3.5-10.[address] [place] [address] [phone] Red Blood Count 4.39 10^6/uL N 4.0-5.4 Hemoglobin 13.2 g/dL N 12.0-16.0 Hematocrit 40 % N 35-47 Mean Corpuscular Volume 92 fL N 80-97 Mean Corpuscular Hemoglobin 30 pg N 27-31 Mean Corpuscular HGB Conc 33 g/dL N 31-36 Red Cell Distribution Width 15 % N 10.5-15 Platelet Count 254 10^3/uL N 150-450 Mean Platelet Volume 11 um3 High 7.4-10.4 Abs Neutrophils 5.2 10^3/uL N 1.5-7.7 Abs Lymphocytes 2.6 10^3/uL N 1.0-4.8 Abs Monocytes 0.8 10^3/uL N 0-0.8 Abs Eosinophils 0.3 10^3/uL N 0-0.6 Abs Basophils 0.1 10^3/uL N 0-0.2 Abs Nucleated RBC 0.01 10^3/uL N Granulocyte % 57.7 % N 38-83 Lymphocyte % 29.2 % N 25-47 Monocyte % 8.7 % N 1-9 Eosinophil % 3.2 % N 0-6 Basophil % 1.2 % N 0-2 Nucleated Red Blood Cells % 0.1 N Laboratory test 01/28/2016 [facility] Lipase 31 U/L N 11.0- 82.[address] [place] [address] [phone] Liver Function 01/28/2016 [facility] Total Protein 7.5 g/dL N 6.4-8.[address] [place] [address] [phone] Albumin 4.5 g/dL N 3.2-5.2 Globulin 3.0 g/dL N 2-4 Albumin/Globulin Ratio 1.5 N 1-3 Total Bilirubin 0.50 mg/dL N 0.2-1.0 Direct Bilirubin 0.10 mg/dL N 0.03-0.18 Indirect Bilirubin 0.4 mg/dL N 0.3-1.0 Alkaline Phosphatase 76 U/L N 34-104 Alt 18 U/L N 7-52 Ast 23 U/L N 13-39 Laboratory test 01/28/2016 [facility] Amylase 30 U/L N 29-[address] [place] [address] [phone] CBC Auto Diff 01/17/2016 [facility] White Blood 10.9 High 3.5- 10.[address] Count 10^3/[place] [address] [phone] Red Blood Count 4.65 10^6/uL N 4.0-5.4 Hemoglobin 13.9 g/dL N 12.0-16.0 Hematocrit 42 % N 35-47 Mean Corpuscular Volume 91 fL N 80-97 Mean Corpuscular Hemoglobin 30 pg N 27-31 Mean Corpuscular HGB Conc 33 g/dL N 31-36 Red Cell Distribution Width 14 % N 10.5-15 Platelet Count 318 10^3/uL N 150-450 Mean Platelet Volume 11 um3 High 7.4-10.4 Abs Neutrophils 8.9 10^3/uL High 1.5-7.7 Abs Lymphocytes 1.2 10^3/uL N 1.0-4.8 Abs Monocytes 0.7 10^3/uL N 0-0.8 Abs Eosinophils 0 10^3/uL N 0-0.6 Abs Basophils 0.1 10^3/uL N 0-0.2 Abs Nucleated RBC 0.01 10^3/uL N Granulocyte % 81.7 % N 38-83 Lymphocyte % 11.3 % Low 25-47 Monocyte % 6.1 % N 1-9 Eosinophil % 0.1 % N 0-6 Basophil % 0.8 % N 0-2 Nucleated Red Blood Cells % 0.1 N Comp Metabolic Panel 01/17/2016 [facility] Sodium 136 mmol/L N 133-[address] [place] [address] [phone] Potassium 3.3 mmol/L Low 3.5-5.0 Chloride 104 mmol/L N 101-111 Co2 Carbon Dioxide 19 mmol/L Low 22-32 Anion Gap 13 mmol/L High 2-11 Glucose 124 mg/dL High 70-100 Blood Urea Nitrogen 14 mg/dL N 6-24 Creatinine 0.70 mg/dL N 0.51-0.95 BUN/Creatinine Ratio 20.0 N 8-20 Calcium 10.3 mg/dL N 8.6-10.3 Total Protein 7.6 g/dL N 6.4-8.9 Albumin 4.5 g/dL N 3.2-5.2 Globulin 3.1 g/dL N 2-4 Albumin/Globulin Ratio 1.5 N 1-3 Total Bilirubin 1.10 mg/dL High 0.2-1.0 Alkaline Phosphatase 75 U/L N 34-104 Alt 15 U/L N 7-52 Ast 20 U/L N 13-39 Egfr Non- 83.7 N >60 Egfr 107.7 N >60 62 Urinalysis Profile 01/17/2016 [facility] Urine Color Yellow N [address] [facility] [address] [phone] Urine Appearance Clear N Urine Specific [place] 1.016 N 1.010-1.030 Urine pH 8.0 N 5-9 Urine Urobilinogen Negative N Negative Urine Ketones 2+ Abnormal Negative Urine Protein 1+(30 mg/dL) Abnormal Negative Urine Leukocytes Negative N Negative Urine Blood Negative N Negative Urine Nitrite Negative N Negative Urine Bilirubin Negative N Negative Urine Glucose Negative N Negative Urine White Blood Cell Trace(0-5/hpf) N Absent Urine Red Blood Cell Trace(0-2/hpf) N Absent Urine Bacteria Absent N Absent Urine Squamous Epithelial Cell Present Abnormal Absent Urinalysis Profile 08/07/2015 [facility] Urine Color Straw N [address] [place] [address] [phone] Urine Appearance Clear N Urine Specific [place] 1.004 Low 1.010-1.030 Urine pH 6.0 N 5-9 Urine Urobilinogen Negative N Negative Urine Ketones Negative N Negative Urine Protein Negative N Negative Urine Leukocytes Negative N Negative Urine Blood Negative N Negative Urine Nitrite Negative N Negative Urine Bilirubin Negative N Negative Urine Glucose Negative N Negative Type & Screen 08/07/2015 [facility] Patient Blood Type A Positive N [address] [place] [address] [phone] Antibody Screen NEGATIVE N Basic Metabolic Panel 08/07/2015 [facility] Sodium 135 mmol/L N 133-145 [address] [place] [address] [phone] Potassium 3.9 mmol/L N 3.5-5.0 Chloride 101 mmol/L N 101-111 Co2 Carbon Dioxide 27 mmol/L N 22-32 Anion Gap 7 mmol/L N 2-11 Glucose 86 mg/dL N 70-100 Blood Urea Nitrogen 16 mg/dL N 6-24 Creatinine 0.63 mg/dL N 0.51-0.95 BUN/Creatinine Ratio 25.4 High 8-20 Calcium 10.4 mg/dL High 8.6-10.3 Egfr Non- 94.5 N >60 Egfr 121.6 N >60 63 Inr/Protime 08/07/2015 [facility] Inr 0.90 N 0.89-1.11 64 [address] [place] [address] [phone] CBC No Diff 08/07/2015 [facility] White Blood 7.8 10^3/uL N 4.8-10.[address] [place] [address] [phone] Red Blood Count 4.01 10^6/uL N 4.0-5.4 Hemoglobin 12.0 g/dL N 12.0-16.0 Hematocrit 37 % N 35-47 Mean Corpuscular Volume 92 fL N 80-97 Mean Corpuscular Hemoglobin 30 pg N 27-31 Mean Corpuscular HGB Conc 33 g/dL N 31-36 Red Cell Distribution Width 13 % N 10.5-15 Platelet Count 228 10^3/uL N 150-450 Mean Platelet Volume 11 um3 High 7.4-10.4 Laboratory test 04/26/2015 [facility] Erythrocyte Sed 47 mm/Hr High 0-[address] [place] [address] [phone] CRP High Sensitivity 23.71 mg/L N 65 Lyme Disease Serology Negative N Negative 66 CBC Auto Diff 04/26/2015 [facility] White Blood 8.6 10^3/uL N 4.8-10.[address] [place] [address] [phone] Red Blood Count 3.89 10^6/uL Low 4.0-5.4 Hemoglobin 11.7 g/dL Low 12.0-16.0 Hematocrit 36 % N 35-47 Mean Corpuscular Volume 92 fL N 80-97 Mean Corpuscular Hemoglobin 30 pg N 27-31 Mean Corpuscular HGB Conc 33 g/dL N 31-36 Red Cell Distribution Width 13 % N 10.5-15 Platelet Count 296 10^3/uL N 150-450 Mean Platelet Volume 10 um3 N 7.4-10.4 Abs Neutrophils 4.8 10^3/uL N 1.5-7.7 Abs Lymphocytes 2.3 10^3/uL N 1.0-4.8 Abs Monocytes 0.8 10^3/uL N 0-0.8 Abs Eosinophils 0.5 10^3/uL N 0-0.6 Abs Basophils 0.1 10^3/uL N 0-0.2 Abs Nucleated RBC 0.01 10^3/uL N Granulocyte % 56.3 % N 38-83 Lymphocyte % 27.3 % N 25-47 Monocyte % 9.3 % High 1-9 Eosinophil % 6.0 % N 0-6 Basophil % 1.1 % N 0-2 Nucleated Red Blood Cells % 0.1 N Laboratory 01/28/2015 [facility] TSH (Thyroid 3.06 N 0.34- 5.[address] Stimulating Horm) IU/[place] [address] [phone] Lipid Profile 01/23/2015 [facility] Triglycerides 218 N 67, (Trig/Chol/HDL DRIVE mg/dL 68 ) [place] [address] [phone] Cholesterol 169 mg/dL N 69 HDL Cholesterol 47.5 mg/dL N 70 LDL Cholesterol 78 mg/dL N 71 Comp Metabolic Panel 01/23/2015 [facility] Sodium 138 mmol/L N 133-[address] [place] [address] [phone] Potassium 4.5 mmol/L N 3.5-5.0 Chloride 102 mmol/L N 101-111 Co2 Carbon Dioxide 31 mmol/L N 22-32 Anion Gap 5 mmol/L N 2-11 Glucose 77 mg/dL N 70-100 Blood Urea Nitrogen 16 mg/dL N 6-24 Creatinine 0.67 mg/dL N 0.51-0.95 BUN/Creatinine Ratio 23.9 High 8-20 Calcium 10.2 mg/dL N 8.6-10.3 Total Protein 6.6 g/dL N 6.4-8.9 Albumin 4.0 g/dL N 3.2-5.2 Globulin 2.6 g/dL N 2-4 Albumin/Globulin Ratio 1.5 N 1-3 Total Bilirubin 0.20 mg/dL N 0.2-1.0 Alkaline Phosphatase 80 U/L N 34-104 Alt 17 U/L N 7-52 Ast 20 U/L N 13-39 Egfr Non- 88.3 N >60 Egfr 113.6 N >60 72 Surgical Pathology 09/22/2013 [facility] S RUN DATE: [address] 09/25/ <[place] [address] NOTE> [phone] Comp Metabolic 10/17/2012 [facility] Sodium 139 mmol/L 133- [address] [place] [address] [phone] Potassium 4.2 mmol/L 3.5-5.0 Chloride 108 mmol/L 101-111 Co2 Carbon Dioxide 26.0 mmol/L 22-32 Anion Gap 5.0 mmol/L 2-11 Glucose 88 mg/dL 70-100 Blood Urea Nitrogen 12 mg/dL 6-24 Creatinine 0.70 mg/dL 0.50-1.40 BUN/Creatinine Ratio 17.1 8-20 Calcium 9.8 mg/dL 8.1-9.9 Total Protein 5.9 g/dL Low 6.2-8.1 Albumin 3.7 g/dL 3.2-5.2 Globulin 2.2 g/dL 2-4 Albumin/Globulin Ratio 1.7 1-3 Total Bilirubin 0.6 mg/dL 0.4-1.5 Alkaline Phosphatase 74 U/L 30-110 Alt 14 U/L 14-54 Ast 18 U/L 12-42 Egfr Non- 84.5 >60 Egfr 108.7 >60 74 Laboratory 10/17/2012 [facility] TSH (Thyroid 3.15 0.34-5.[address] Stimulating Horm) miu/[place] [address] [phone] Lipid Profile 10/17/2012 [facility] Triglycerides 118 mg/dL 40-200 (Trig/Chol/HDL [address] ) [place], [place] [address] [phone] Cholesterol 186 mg/dL Less than 200 HDL Cholesterol 60 mg/dL 40-60 76 Cholesterol/HDL Ratio 3.1 Average 1-4.44 LDL Cholesterol 102.4 mg/dL High Less Than 100 77 Ua Routine 09/05/2012 [facility] Ua Specific [place] 1.005 Ua PH 6 Ua Color pale Ua Appera clear Ua WBC neg Ua Protein neg Ua Glucose neg Ua Ketones neg Ua Bilirubin neg Ua Urobilinogen neg Ua Nitrite neg Ua Occult Blood neg Laboratory test 09/05/2012 [facility] Cytology RUN DATE: [address] <[place] [address] NOTE> [phone] Clotest 11/02/2011 [facility] [address] ---- <[place] [address] NOTE> [phone] Surgical 11/02/2011 [facility] Surgical [address] Pathology ---- <[place] [address] NOTE> [phone] Laboratory test 09/17/2011 [facility] TSH 3.89 MIU/ML 0.34-[address] [place] [address] [phone] Comp Metabolic 09/17/2011 [facility] Sodium 139 mmol/L 135- [address] 5 [place] [address] [phone] Potassium 4.5 mmol/L 3.5-5.0 Chloride 106 mmol/L 101-111 Co2 (Carbon Dioxide) 26.0 mmol/L 22-32 Anion Gap 7.0 mmol/L 2-11 81 Glucose 100 mg/dL 70-100 BUN 16 mg/dL 6-24 Creatinine 0.7 mg/dL 0.50-1.40 One Over Creatinine 1.42 BUN/Creatinine Ratio 22.9 High 8-20 Calcium 9.6 mg/dL 8.1-9.9 Total Protein 6.7 GM/DL 6.2-8.1 Albumin 3.8 GM/DL 3.2-5.2 Globulin 2.9 GM/DL 2-4 Albumin/Globulin Ratio 1.3 1-3 Bilirubin Total 0.8 mg/dL 0.4-1.5 82 Alkaline Phosphatase 87 U/L 30-110 Alt (SGPT) 19 U/L 14-54 Ast (Sgot) 23 U/L 12-42 eGFR Non- 84.8 > 60 eGFR 109.0 > 60 83 Lipid Profile 09/17/2011 [facility] Triglyceride 65 mg/dL 40- 200 (Trig/Chol/HDL) [address] [place] [address] [phone] Cholesterol 209 mg/dL High Less Than 200 84 High Density Lipoprotein 83 mg/dL High 40-60 85 Low Density Lipoprotein 113 mg/dL High Less Than 100 86 Cholesterol/HDL Ratio 2.52 AVERAGE 1-4.44 Laboratory test 08/14/2011 [facility] Cytology <SEE [address] NOTE> [place] [address] [phone] 1 SEE RESULT BELOW Name: NAGIKATHLEEN S : [address]: Katia Goodwin MD Acct: [id number] Unit: [id number] AGE: 68 Location: ENDO Re10/12/18 SEX: F Status: DEP REF SPEC: [id number] HARIKA: 10/12/[address] [facility] DR: Katia Unger MD REQ: [id number] RECD: 10/12/18 STATUS: LINDA CROWELL DR: Jyoti Ocasio MD _ ORDERED: LEVEL 4/2 THIS IS A CORRECTED REPORT 10/17/18-1110 Corrected Report FINAL DIAGNOSIS 1. Colon, ascending, biopsy: --Sessile serrated adenomatous polyp. -- No high-grade dysplasia identified. 2. Colon, sigmoid, biopsy: -- Benign colonic mucosa with no significant pathologic abnormalities. -- No evidence of active, chronic, or microscopic colitis. Comment: Multiple level sections were examined in the evaluation of part 1. CLINICAL HISTORY History of polyp POST-OPERATIVE DIAGNOSIS Colonoscopy: internal and external hemorrhoids; to terminal ileum; good prep ; 8 mm- 10 mm ascending flat polyp piece meal cold snare and jumbo; moderate diverticulosis - very sensitive erythema spots - biopsy; with luminal distortion; unknown hematoma GROSS DESCRIPTION 1. The specimen is received in formalin labeled, Ascending Colon Polyp, and consists of a 0.9 x 0.9 x 0.4 cm aggregate of pabon-pink irregular to polypoid soft tissue fragments which is submitted entirely in one cassette. CONTINUED ON NEXT PAGE DEPARTMENT OF PATHOLOGY, [address] [place] [address] Jl Zhang M.D. Director [facility] # [id number] RUN DATE: 10/17/18 [facility] LAB LIVE PAGE 2 Patient: KATHLEEN LOCKHART [id number] (Continued) GROSS DESCRIPTION (Continued) 2. The specimen is received in formalin labeled, Biopsy Sigmoid Mucosa, and consists of two pabon-pink irregular to polypoid soft tissue fragments measuring 0.3 x 0.2 x 0.1 cm and 0.3 x 0.3 x 0.2 cm which are submitted entirely in one cassette. Signed by and Reported on: Jl Zhang MD 1112 END OF REPORT DEPARTMENT OF PATHOLOGY, [address] [place] [address] Jl Zhang M.D. Director [facility] # [id number] 2 AM 8.7-22.4 PM <10 3 SEE RESULT BELOW Name: KATHLEEN LOCKHART : [address]: Lamine Hanna MD Acct: [id number] Unit: [id number] AGE: 68 Location: LAB Re08/17/18 SEX: F Status: REG REF SPEC: [id number] HARIKA: 08/17/18-[address]: Lamine Hanna MD REQ: [id number] RECD: 08/17/185 STATUS: COMP _ SOURCE: URINE SPDESC: ORDERED: Urine Culture QUERIES: Urine Source: Clean Catch Procedure Result Reported Site Urine Culture Final 08/26/18- 1444 ML Organism 1 STREP GROUP B [place] Count 50-75,000 (Many) CFU/ML Organism 2 NORMAL PRINCE [place] Count 10-25,000 (Moderate) CFU/ML Susceptibility testing of penicillins and other B-lactams approved by FDA for treatment of Streptococcus pyogenes (Group A Strep) and Streptococcus agalactiae (Group B Strep) is not necessary for clinical purposes and need not be done routinely, since as with vancomycin, resistant strains have not been recognized. (CLSI J843-N46;p.66) Positive isolates will be saved for one week. Please call the Microbiology Laboratory if further susceptibility testing is needed. * ML - Main Lab . END OF REPORT DEPARTMENT OF PATHOLOGY, [address] [place] [address] Jl Zhang M.D. Director [facility] # [id number] 4 REFERENCE VALUE Cutoff: 500 5 REFERENCE VALUE Cutoff: 200 6 REFERENCE VALUE Cutoff: 100 7 REFERENCE VALUE Cutoff: 150 8 Presumptive Positive Drug confirmation to follow. Presumptive Positive means that the screening method is positive, but the test needs to be run by a confirmatory method before being finalized. ADDITIONAL INFORMATION This report is intended for use in clinical monitoring or management of patients. It is not intended for use in employment-related testing. 9 REFERENCE VALUE Cutoff: 200 mg/L 10 Tylenol 3 11 Metabolite of codeine REFERENCE VALUE Cutoff: 100 12 Prisca Sr, Contin; Also a minor metabolite (10%) of codeine and can be seen in low concentrations (<2,000 ng/mL) with poppy seed ingestion. 13 Metabolite of morphine REFERENCE VALUE Cutoff: 100 14 Metabolite of heroin 15 Lortab, [place], Vicodin; Also a very minor metabolite of codeine and impurity (<1%) of oxycodone. 16 Metabolite of hydrocodone 17 Metabolite of hydrocodone 18 Dilaudid, Exalgo; Also a metabolite of hydrocodone and a minor (<5%) metabolite of morphine. 19 Metabolite of hydromorphone REFERENCE VALUE Cutoff: 100 20 Endocet, Percocet, Oxycontin 21 Metabolite of oxycodone 22 Numorphan, Opana; Also a metabolite of oxycodone. 23 Metabolite of oxymorphone REFERENCE VALUE Cutoff: 100 24 Metabolite of oxymorphone 25 Actiq, Duragesic, Fentora 26 Metabolite of fentanyl 27 Demerol 28 Metabolite of meperidine 29 Narcan 30 Metabolite of naloxone REFERENCE VALUE Cutoff: 100 31 Dolophine 32 Metabolite of methadone 33 Darvon, Darvocet 34 Metabolite of propoxyphene 35 Tradol, Ultram, Ultracet 36 Metabolite of tramadol 37 Nucynta 38 Metabolite of tapentadol 39 Metabolite of tapentadol REFERENCE VALUE Cutoff: 100 40 Buprenorphine results not available due to analyte specific failure. 41 Metabolite of buprenorphine 42 Metabolite of buprenorphine 43 Test detected the presence of [id number]-glucuronide (metabolite of oxymorphone) and noroxycodone (metabolite of oxycodone). Suspect use of oxymorphone and oxycodone within the past three days. ADDITIONAL INFORMATION This test was developed and its performance characteristics determined by [facility] in a manner consistent with CLIA requirements. This test has not been cleared or approved by the U.S. Food and Drug Administration. Test Performed by: [facility] - [address] [address] 44 REFERENCE VALUE Cutoff: 3.0 45 ADDITIONAL INFORMATION This report is intended for use in clinical monitoring and management of patients. It is not intended for use in employment-related testing. This test was developed and its performance characteristics determined by [facility] in a manner consistent with CLIA requirements. This test has not been cleared or approved by the U.S. Food and Drug Administration. Test Performed by: [facility] - [address] [address] 46 ADDITIONAL INFORMATION This test has been modified from the eligibility and occupancy interviewer's instructions. Its performance characteristics were determined by [facility] in a manner consistent with CLIA requirements. This test has not been cleared or approved by the U.S. Food and Drug Administration. 47 Test Performed by: [facility] - [address] [address] 48 Because ethnic data is not always readily available, this report includes an eGFR for both -Americans and non- Americans. The National Kidney Disease Education Program (NKDEP) does not endorse the use of the MDRD equation for patients that are not between the ages of 18 and 70, are , have extremes of body size, muscle mass, or nutritional status, or are non- or non-. According to the National Kidney Foundation, irrespective of diagnosis, the stage of the disease is based on the level of kidney function: Stage Description GFR(mL/min/1.73 m(2)) 1 Kidney damage with normal or decreased GFR 90 2 Kidney damage with mild decrease in GFR 60-89 3 Moderate decrease in GFR 30-59 4 Severe decrease in GFR 15-29 5 Kidney failure <15 (or dialysis) 49 ADDITIONAL INFORMATION This test was developed and its performance characteristics determined by [facility] in a manner consistent with CLIA requirements. This test has not been cleared or approved by the U.S. Food and Drug Administration. Test Performed by: [facility] - [address] [address] 50 RESULT: No apparent monoclonal protein on serum electrophoresis. Test Performed by: [facility] - [address] [address] 51 ADDITIONAL INFORMATION This test was developed and its performance characteristics determined by [facility] in a manner consistent with CLIA requirements. This test has not been cleared or approved by the U.S. Food and Drug Administration. Test Performed by: [facility] - [address] [address] 52 FASTING 10 HOUR 53 Because ethnic data is not always readily available, this report includes an eGFR for both -Americans and non- Americans. The National Kidney Disease Education Program (NKDEP) does not endorse the use of the MDRD equation for patients that are not between the ages of 18 and 70, are , have extremes of body size, muscle mass, or nutritional status, or are non- or non-. According to the National Kidney Foundation, irrespective of diagnosis, the stage of the disease is based on the level of kidney function: Stage Description GFR(mL/min/1.73 m(2)) 1 Kidney damage with normal or decreased GFR 90 2 Kidney damage with mild decrease in GFR 60-89 3 Moderate decrease in GFR 30-59 4 Severe decrease in GFR 15-29 5 Kidney failure <15 (or dialysis) 54 Because ethnic data is not always readily available, this report includes an eGFR for both -Americans and non- Americans. The National Kidney Disease Education Program (NKDEP) does not endorse the use of the MDRD equation for patients that are not between the ages of 18 and 70, are , have extremes of body size, muscle mass, or nutritional status, or are non- or non-. According to the National Kidney Foundation, irrespective of diagnosis, the stage of the disease is based on the level of kidney function: Stage Description GFR(mL/min/1.73 m(2)) 1 Kidney damage with normal or decreased GFR 90 2 Kidney damage with mild decrease in GFR 60-89 3 Moderate decrease in GFR 30-59 4 Severe decrease in GFR 15-29 5 Kidney failure <15 (or dialysis) 55 Desirable: <150 Borderline High: 150-199 High: 200-499 Very High: >500 56 Desirable: <200 Borderline High: 200-239 High: >239 57 Low: <40 Desirable: 40-60 High: >60 58 Desirable: <100 Near Optimal: 100-129 Borderline High: 130-159 High: 160-189 Very High: >189 59 [id number] SEE RESULT BELOW Name: KATHLEEN LOCKHART : [address]: Carlos Ford MD Acct: [id number] Unit: [id number] AGE: 67 Location: [facility] Re06/10/17 SEX: F Status: MARYBEL GARCIA SPEC: [id number] HARIKA: 06/10/17-[address] [facility] DR: Carlos Ford MD REQ: [id number] RECD: 06/11/17 STATUS: SOUT _ ORDERED: Ananth, LEVEL 3 COMMENTS: [id number] FINAL DIAGNOSIS Bone, right small finger distal phalanx, resection: -- Devitalized bone and soft tissue with reactive bone and marrow changes. PRE-OPERATIVE DIAGNOSIS Right small finger crush injury. GROSS DESCRIPTION The specimen is received in formalin labeled, Right Small Finger Distal Phalanx, and consists of a 0.6 x 0.4 x 0.4 cm pabon-pink shaggy irregular bone fragment which is bisected and submitted entirely in one cassette following decalcification. Signed (signature on file) Jl Zhang MD 1538 END OF REPORT * ML=Testing performed at Main Lab DEPARTMENT OF PATHOLOGY, [address] [place] [address] Jl Zhang M.D. Director [facility] # [id number] 61 SEE RESULT BELOW Name: KATHLEEN LOCKHART : [address]: Jyoti Ocasio MD Acct: [id number] Unit: [id number] AGE: 66 Location: [facility] Re06/09/16 SEX: F Status: REG REF SPEC: [id number] HARIKA: 06/09/16-[address] [facility] DR: Jyoti Ocasio MD REQ: [id number] RECD: 06/09/16 STATUS: COMP _ SOURCE: URINE SPDESC: ORDERED: Urine Culture COMMENTS: [id number] Procedure Result Reported Site Urine Culture Final 06/11/16- 0822 ML Organism 1 ESCHERICHIA COLI [place] Count 50-75,000 (Many) CFU/ML 1. ESCHERICHIA COLI M.I.C. RX --------- ------ Ampicillin <=2 S Cefazolin <=4 S Cefepime <=1 S Ceftriaxone <=1 S Ciprofloxacin <=0.25 S Gentamicin <=1 S Levofloxacin <=0.12 S Meropenem <=0.25 S Nitrofurantoin <=16 S Tetracycline <=1 S Pipercillin/Tazobactam <=4 S Trimethoprim/Sulfamethoxazole <=20 S Amoxicillin/Clavulanic Acid <=2 S Aztreonam <=1 S Contact the Microbiology Department for any additional antibiotic reporting. * ML - MAIN LAB ([facility]) . END OF REPORT * ML=Testing performed at Main Lab DEPARTMENT OF PATHOLOGY, [address] [place] [address] Jl Zhang M.D. Director [facility] # [id number] 62 Because ethnic data is not always readily available, this report includes an eGFR for both -Americans and non- Americans. The National Kidney Disease Education Program (NKDEP) does not endorse the use of the MDRD equation for patients that are not between the ages of 18 and 70, are , have extremes of body size, muscle mass, or nutritional status, or are non- or non-. According to the National Kidney Foundation, irrespective of diagnosis, the stage of the disease is based on the level of kidney function: Stage Description GFR(mL/min/1.73 m(2)) 1 Kidney damage with normal or decreased GFR 90 2 Kidney damage with mild decrease in GFR 60-89 3 Moderate decrease in GFR 30-59 4 Severe decrease in GFR 15-29 5 Kidney failure <15 (or dialysis) 63 Because ethnic data is not always readily available, this report includes an eGFR for both -Americans and non- Americans. The National Kidney Disease Education Program (NKDEP) does not endorse the use of the MDRD equation for patients that are not between the ages of 18 and 70, are , have extremes of body size, muscle mass, or nutritional status, or are non- or non-. According to the National Kidney Foundation, irrespective of diagnosis, the stage of the disease is based on the level of kidney function: Stage Description GFR(mL/min/1.73 m(2)) 1 Kidney damage with normal or decreased GFR 90 2 Kidney damage with mild decrease in GFR 60-89 3 Moderate decrease in GFR 30-59 4 Severe decrease in GFR 15-29 5 Kidney failure <15 (or dialysis) 64 Effective immediately, due to a laboratory mean normal Protime change, the reference range for the INR has changed. 65 Low risk: <1.00 Average risk: 1.00-3.00 High risk: >3.00 66 Serologic response to B. burgdorferi infection is not detected, but cannot rule out early infection during which low or undetectable antibody levels to B. burgdorferi may be present. If clinically indicated, a new serum specimen should be submitted in 7-14 days. Test Performed by: [place] [address] Chief Wheelage Clerk: Sp Lara II, M.D., Ph.D. 67 FASTING 10 HOUR 68 Desirable <150 Borderline high 150-199 High 200-499 Very High >500 69 Desirable <200 Borderline high 200-239 High >239 70 Low <40 Desirable: 40-60 High: >60 71 Desirable: <100 mg/dL Near Optimal: 100-129 mg/dL Borderline High: 130-159 mg/dL High: 160-189 mg/dL Very High: >189 mg/dL 72 Because ethnic data is not always readily available, this report includes an eGFR for both -Americans and non- Americans. The National Kidney Disease Education Program (NKDEP) does not endorse the use of the MDRD equation for patients that are not between the ages of 18 and 70, are , have extremes of body size, muscle mass, or nutritional status, or are non- or non-. According to the National Kidney Foundation, irrespective of diagnosis, the stage of the disease is based on the level of kidney function: Stage Description GFR(mL/min/1.73 m(2)) 1 Kidney damage with normal or decreased GFR 90 2 Kidney damage with mild decrease in GFR 60-89 3 Moderate decrease in GFR 30-59 4 Severe decrease in GFR 15-29 5 Kidney failure <15 (or dialysis) 73 RUN DATE: 09/25/13 [facility] LAB LIVE PAGE 1 RUN TIME: 1443 [address] [facility], [place], [place] [address] Specimen Inquiry Name: KATHLEEN LOCKHART : [address]: Gonzalez Currie MD Acct: [id number] Unit: [id number] AGE: 63 Location: ENDO Re09/22/13 SEX: F Status: REG REF SPEC: [id number] HARIKA: 09/22/13- SUBM DR: Gonzalez Currie MD REQ: [id number] RECD: 09/22/131428 STATUS: LINDA CROWELL DR: Ela Shepard MD _ ORDERED: LEVEL IV FINAL DIAGNOSIS Colon, cecum, biopsy: A. Tubular adenoma. B. No high grade dysplasia or malignancy. CLINICAL HISTORY Screening colonoscopy with change in bowel habits POST-OPERATIVE DIAGNOSIS Screening colonoscopy into cecum, prep good - small cecal polyp removed, mild sigmoid diverticulosis GROSS DESCRIPTION The specimen is received in formalin labeled Kathleen Changsri, Biopsy Cecal Polyp, and consists of two pabon, irregular soft tissue fragments measuring 0.3 x 0.2 x 0.2 cm. and 0.6 x 0.3 x 0.3 cm. Submitted entirely, one cassette. Signed (signature on file) Jl Zhang MD 1449 END OF REPORT * ML=Testing performed at Main Lab DEPARTMENT OF PATHOLOGY, [facility] [address], [place] [address] Jl Zhang M.D. Director [facility] Permit #[id number] 74 Because ethnic data is not always readily available, this report includes an eGFR for both -Americans and non- Americans. The National Kidney Disease Education Program (NKDEP) does not endorse the use of the MDRD equation for patients that are not between the ages of 18 and 70, are , have extremes of body size, muscle mass, or nutritional status, or are non- or non-. According to the National Kidney Foundation, irrespective of diagnosis, the stage of the disease is based on the level of kidney function: Stage Description GFR(mL/min/1.73 m(2)) 1 Kidney damage with normal or decreased GFR 90 2 Kidney damage with mild decrease in GFR 60-89 3 Moderate decrease in GFR 30-59 4 Severe decrease in GFR 15-29 5 Kidney failure <15 (or dialysis) 75 PT IS FASTING 76 HDL Interpretation: Undesirable: High Risk: Less than 40 MG/DL Desirable: Low Risk: Greater than 60 MG/DL 77 LDL Interpretation: Low Risk Optimal Level: LDL Less than 100 MG/DL Near or Above Optimal: LDL 100-129 MG/DL Borderline High Risk: LDL 130-159 MG/DL High Risk: LDL 160-189 MG/DL Very High Risk: LDL Greater than 189 MG/DL 78 RUN DATE: 09/06/12 [facility] LAB LIVE PAGE 1 RUN TIME: 1231 [address] [place], [place] [address] Specimen Inquiry Name: KATHLEEN LOCKHART : [address]: Ela Peck Acct: [id number] Unit: [id number] AGE: 62 Location: [facility] Re09/05/12 SEX: F Status: REG REF SPEC: [id number] HARIKA: 09/05/12-[address]: Ela Peck REQ: [id number] RECD: 09/06/12 STATUS: SOUT _ ORDERED: IMAGE ANALYSIS Negative for Intraepithelial lesion or Malignancy A. Ectocervical/Endocervical Specimen Adequacy: Satisfactory of evaluation Transformation zone component cannot be definitely identified due to presence of atrophy or other hormonal changes Patient Information: HPV: Thin Layer Pap Test w/reflex to high risk HPV DNA testing when ASCUS Actual Specimen Date: 09/05/12 LMP If Unknown: age 49 Cautery: N IUD: N ?: N Post Menopausal?: N Hysterectomy?: N Lesion, grossly demonstrate: N Previous Abnormal Pap Smears?:N Signed (signature on file) CANDELARIA Flores (ASCP) 09/06/12 1231 This Pap test was evaluated with the assistance of the Jasper WirelessPrep Test Imaging System. Due to cytologic findings at the customer experience professional microscope, comprehensive manual rescreening by a Oxidation Operator may be required. The Pap Smear is a screening test designed to aid in the detection of premalignant and malignant conditions of the uterine cervix. It is not a diagnostic procedure and should not be used as the sole means of detecting cervical cancer. Both false- positive and false- negative reports do occur. Depending on your risk status, a Pap smear shoudl be obtained and evaluated every 1-3 years. END OF REPORT * ML=Testing performed at Main Lab DEPARTMENT OF PATHOLOGY, [address] [place] [address] Jl Zhang M.D. Director [facility] Permit #[id number] RUN DATE: 11/03/11 [facility] NMI LIVE PAGE 1 RUN TIME: 08 Specimen Inquiry RUN USER: INTERFACE Name: CHANGSriKATHLEEN S Status: REG REF Re11/02/11 Age/Sex: 61/F Unit#: [id number] Location: END : [birth year] SPEC #: [id number] HARIKA: 11/02/11 STATUS: COMP REQ #: [id number] RECD: 11/02/[address] [facility] DR: Kush KC,Gonzalez Valladares SOURCE: CLOTEST ENTR: 11/02/[address]: Ela Mora [facility]: ORDERED: CLOTEST ACT WKST: MISC 11/03/11 #1 Procedure Result Verified Site > CLOTEST Final 11/03/11- 0805 ML CLOTEST NEGATIVE ML - [facility] Permit #[id number] [address] [place], [place] [id number] DEPARTMENT OF PATHOLOGY, [address] [place] [address] [facility] Permit #[id number] Nirav Sinha M.D. Hydraulics Teacher 80 ---- RUN DATE: 11/03/11 [facility] NMI LIVE PAGE 1 RUN TIME: 1409 Specimen Inquiry RUN USER: INTERFACE -- Name[id number] Status: REG REF Re11/02/11 Age/Sex: 61/F Unit#: [id number] Location: [facility]. : [birth year] -- Specimen: [id number] SOUT Spec Date: 11/02/[address]: Gonzalez sams MD Spec Type: SURGICAL P Received: 11/02/11-3949 Copies to: Ela Peck [facility] SPECIMEN BIOPSY ANTRAL GASTRITIS HISTORY POST-OP DIAGNOSIS: Esophagus - normal, no erosions; stomach - mild antral gastritis, biopsied; duodenum - small erosions in duodenal bulb, normal 2nd and 3rd portions CLINICAL INFORMATION: Gastroesophageal reflux disease GROSS DESCRIPTION The specimen is received in formalin labelled Kathleen Lockhart, Biopsy Antral Gastritis, and consists of multiple pabon, soft tissue fragments measuring 0.5 x 0.3 x 0.2 cm. in aggregate. Submitted entirely, one cassette. DIAGNOSIS Stomach, antrum, biopsy: A. Gastric antral type mucosa with mild to moderate diffuse chronic inflammation with eosinophilia. B. No active gastritis nor Helicobacter pylori-like organisms are identified. Signed Electronically by: JL ZHANG MD 11/03/11 1406 -- -- DEPARTMENT OF PATHOLOGY, [address] [place] [address] [facility] Permit #[id number] Jl Zhang M.D. Director Toño García M.D. Supervisor Denture Department Dir jose -- 81 Anion gap measurement may be of limited value in the presence of any alkalosis, especially in a combined acid base disorder. . 82 A metabolite of Naproxen, O-desmethylnaproxen, has been shown to interfere with the [place]rass[place] method for measuring total bilirubin. Samples from patients who have taken Naproxen have shown spurious elevation in total bilirubin levels. 83 Because ethnic data is not always readily available, this report includes an eGFR for both -Americans and non- Americans. The National Kidney Disease Education Program (NKDEP) does not endorse the use of the MDRD equation for patients that are not between the ages of 18 and 70, are , have extremes of body size, muscle mass, or nutritional status, or are non- or non-. According to the National Kidney Foundation, irrespective of diagnosis, the stage of the disease is based on the level of kidney function: Stage Description GFR(mL/min/1.73 m(2)) 1 Kidney damage with normal or decreased GFR 90 2 Kidney damage with mild decrease in GFR 60-89 3 Moderate decrease in GFR 30-59 4 Severe decrease in GFR 15-29 5 Kidney failure <15 (or dialysis) 84 CHOLESTEROL INTERPRETATION: Desirable: Less than 200 MG/DL Borderline-High Risk: 200-239 MG/DL High-Risk: 240 MG/DL and over 85 HDL INTERPRETATION: Undesirable: High Risk: Less than 40 MG/DL Desirable: Low Risk: Greater than 60 MG/DL 86 LDL INTERPRETATION: Low Risk Optimal Level: LDL Less than 100 MG/DL Near or Above Optimal: LDL 100-129 MG/DL Borderline High Risk: LDL 130-159 MG/DL High Risk: LDL 160-189 MG/DL Very High Risk: LDL Greater than 189 MG/DL 87 ---- RUN DATE: 08/17/11 [facility] NMI LIVE PAGE 1 RUN TIME: 1223 Specimen Inquiry RUN USER: INTERFACE -- Name: KATHLEEN LOCKHART Status: REG REF Re08/15/11 Age/Sex: 61/F Unit#: [id number] Location: [facility] : [birth year] -- Specimen: [id number] SOUT Spec Date: 08/14/[address]: Ela BLANK Spec Type: CYTOLOGY Received: 08/17/11-0858 Copies to: SOURCE ECTOCERVICAL/ENDOCERVICAL Thin Prep with Reflex HPV Test PATIENT INFORMATION ACTUAL COLLECTION DATE: 08/14/11 ? No POST MENOPAUSAL? Yes HYSTERECTOMY? No PREVIOUS ABNORMAL PAP SMEARS No PATIENT HISTORY: Last menstrual period at age 51, Prior not available. ADEQUACY OF SPECIMEN Satisfactory for evaluation * Transformation zone component identified * Scanty epithelial component * See note. DIAGNOSIS NEGATIVE FOR INTRAEPITHELIAL LESION OR MALIGNANCY * NOTE Lubricant-like material (personal use versus used during examination) present hampering specimen cellularity. Lubricant use is not recommended. This Pap test was evaluated with the assistance of the Jasper WirelessPrep Pap Test Imaging System. The Pap Smear is a screening test designed to aid in the detection of premalign ant and malignant conditions of the uterine cervix. It is not a diagnostic procedure a nd should not be used as the sole means of detecting cervical cancer. Both false- positiv e and false-negative reports do occur. Depending on your risk status, a Pap smear jose carlos uld be obtained and evaluated every one to three years. -- DEPARTMENT OF PATHOLOGY, [address] [place] [address] [facility] Permit #[id number] Jl Zhang M.D. Director Toño García M.D. Supervisor Denture Department Dir jose -- -- RUN DATE: 08/17/11 [facility] NMI LIVE PAGE 2 RUN TIME: 1223 Specimen Inquiry RUN USER: INTERFACE -- Name: KATHLEEN LOCKHART Status: REG REF Re08/15/11 Age/Sex: 61/F Unit#: [id number] Location: [facility]. : [birth year] -- -- CONTINUED -- Final Interpretation electronically signed by: Juhi FONTANEZ([facility]) 08/17/11 122 2 -- -- DEPARTMENT OF PATHOLOGY, [address] [place] [address] [facility] Permit #[id number] Jl Zhang M.D. Director Toño García M.D. Supervisor Denture Department jose -- Procedures Date Code Description Status 04/18/2019 Inject/Drain Joint/Bursa Major W/O US Completed 10/12/2018 [id number] Colonoscopy Completed 06/09/2018 [id number] Bone Mineral Density Test Completed 12/27/2017 [id number] Mammogram Completed 06/10/2017 43701 Amputation,Finger Or Thumb,Prim Or Secondary Any JT Or Completed Phalanx 06/10/2017 37076 Amputation,Finger Or Thumb,Prim Or Secondary Any JT Or Completed Phalanx 06/29/2016 Inject/Drain Joint/Bursa Major W/O US Completed 04/08/2016 Inject/Drain Joint/Bursa Major W/O US Completed 12/06/2015 Inject/Drain Joint/Bursa Major W/O US Completed 08/15/2015 03959 TKR Total Knee Replacement Completed 08/15/2015 14663 TKR Total Knee Replacement Completed 08/15/2015 56408 TKR Total Knee Replacement Completed 08/07/2015 96411 EKG, Interpretation Only Completed 05/22/2015 Inject/Drain Joint/Bursa Major W/O US Completed 04/01/2015 Inject/Drain Joint/Bursa Major W/O US Completed 04/01/2015 Inject/Drain Joint/Bursa Major W/O US Completed 02/11/2015 Inject/Drain Joint/Bursa Major W/O US Completed 11/12/2014 Inject/Drain Joint/Bursa Major W/O US Completed 09/22/2014 [id number] Colonoscopy Completed 07/25/2014 Inject/Drain Joint/Bursa Major W/O US Completed 07/25/2014 Inject/Drain Joint/Bursa Major W/O US Completed 03/12/2014 70077 Xray Knee 3 Views Completed 03/12/2014 65886 Rad Exam; Knee, Ap&L Completed 03/12/2014 Inject/Drain Joint/Bursa Major W/O US Completed 08/10/2013 Inject/Drain Joint/Bursa Major W/O US Completed 04/07/2013 Inject/Drain Joint/Bursa Major W/O US Completed 04/07/2013 Inject/Drain Joint/Bursa Major W/O US Completed 04/07/2013 17872 Rad Exam; Both Knees, Standing Ap Completed 03/02/2013 77910 Rad Exam; Fingers Completed 10/27/2012 [id number] Mammogram Completed 02/08/2012 75092 Xray Knee 3 Views Completed 02/08/2012 33754 Xray Knee 3 Views Completed 02/08/2012 50861 Rad Exam; Knee, Ap&L Completed 02/08/2012 75757 Rad Exam; Knee, Ap&L Completed 02/08/2012 Inject/Drain Joint/Bursa Major W/O US Completed 02/08/2012 Inject/Drain Joint/Bursa Major W/O US Completed 09/17/2011 [id number] Mammogram Completed 08/14/2011 14345 EKG Tracing & Interpretation Completed 02/11/2011 Inject/Drain Joint/Bursa Major W/O US Completed 07/23/2010 55091 Rad Exam; Knee, Ap&L Completed 07/23/2010 55375 Xray Knee 3 Views Completed 07/23/2010 10005 Rad Exam; Knee Comp Completed 06/26/2010 Inject/Drain Joint/Bursa Major W/O US Completed 06/26/2010 Inject/Drain Joint/Bursa Major W/O US Completed 02/13/2010 Inject/Drain Joint/Bursa Major W/O US Completed 02/13/2010 Inject/Drain Joint/Bursa Major W/O US Completed 02/13/2010 Inject/Drain Joint/Bursa Major W/O US Completed 11/22/2009 Inject/Drain Joint/Bursa Major W/O US Completed 11/22/2009 73976 Rad Exam; Knee Comp Completed 09/18/2009 23802 Rad Shoulder Comp, Min. 2 Views Completed 09/18/2009 Inject/Drain Joint/Bursa Major W/O US Completed 07/30/2009 90423 Arthroscopy,Knee,Meniscectomy Medial Or Lateral Completed 09/03/2008 [id number] Colonoscopy Completed 08/31/2008 37200 EKG Tracing & Interpretation Completed 08/07/2008 20227523 Mammogram Completed 01/25/2006 658203447 Bone Mineral Density Test Completed 04/23/2005 35646 Echocardiogram Completed 04/23/2005 87798 Pulse Doppler & Continuous Wave Completed 04/23/2005 43479 Color Doppler Completed 01/26/2003 53839 Echocardiogram Completed 01/26/2003 70858 Pulse Doppler & Continuous Wave Completed 01/26/2003 77195 Color Doppler Completed Encounters Type Date Location Provider Dx Diagnosis Office Visit 01/23/2019 [facility] Internal Sebastian Jenkins Z01.818 Encounter for other 2:20p Santosh Lawrence M.D. preprocedural examination M51.36 Other intervertebral disc degeneration, lumbar region K21.9 Gastro-esophageal reflux disease without esophagitis E83.52 Hypercalcemia M54.5 Low back pain Office Visit 11/10/2018 [facility] Internal Sri J18.9 Pneumonia, 3:40p Santosh Mays M.D. unspecified organism Office Visit 08/17/2018 James Hanna E83.52 Hypercalcemia 9:20a and Endocrinology of [facility] R11.0 Nausea Office Visit 06/24/2018 [facility] Internal Sri R05 Cough 10:40a Santosh Mays M.D. Office Visit 05/24/2018 James Hanna E83.52 Hypercalcemia 9:00a and Endocrinology of [facility] Office Visit 04/12/2018 DoNotUse [facility] Jyoti H81.13 Benign paroxysmal 1:40p Internal Nirav Ocasio vertigo, bilateral MedicineShantal E83.52 Hypercalcemia Office Visit 03/22/2018 [employer] [facility] Internal Jyoti H81.13 Benign 12:10p Jazmin Ocasio M.D. paroxysmal vertigo, bilateral F43.0 Acute stress reaction F51.02 Adjustment insomnia R42 Dizziness and giddiness Z86.010 Personal history of colonic polyps Office Visit 02/28/2018 1:15p Orthopedic Bert Browne S70.12xA Contusion of Services Of MD Erin left thigh, C.M.A. initial encounter S71.112A Laceration without foreign body, left thigh, init encntr Office Visit 06/08/2017 8:00a Orthopedic Carlos S67.196A Crushing injury Services Of [facility] MD Liliana of right little AT [place] finger, initial encounter Office Visit 06/04/2017 8:30a Orthopedic Rachel Escalante S67.196A Crushing injury Services Of Nirav of right little C.M.A. 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 M.DZenia knee M25.561 Pain in right knee M17.12 Unilateral primary osteoarthritis, left knee Z96.651 Presence of right artificial knee joint M25.462 Effusion, left knee Office Visit 06/09/2016 Jean-Pierre [facility] Internal Jyoti N39.0 Urinary tract 1:20p Jazmin Ocasio M.D. infection, site not specified R35.0 Frequency of micturition K21.9 Gastro-esophageal reflux disease without esophagitis B37.89 Other sites of candidiasis K59.09 Other constipation Office Visit 04/08/2016 1:30p Orthopedic Sid Jacob, M75.31 Calcific Services Of M.D. tendinitis of C.M.A. right shoulder Office Visit 01/28/2016 2:20p [facility] Internal Jyoti R11.0 Nausea Medicine - Amalia Ocasio M.D. K21.9 Gastro-esophageal reflux disease without esophagitis Office Visit 12/27/2015 10:20a [facility] Internal Keira Cortes, J01.90 Acute sinusitis, Medicine - Nirav unspecified Ccmob J20.9 Acute bronchitis, unspecified Office Visit 12/06/2015 2:15p Orthopedic Services Rachel Escalante, M25.552 Pain in left Of C.M.A. M.D. hip M16.12 Unilateral primary osteoarthritis, left hip M70.62 Trochanteric bursitis, left hip Office Visit 08/12/2015 Orthopedic Rachel M17.11 Unilateral primary 9:45a Services Of Nirav Escalante osteoarthritis, right C.M.A. knee M25.561 Pain in right knee M25.461 Effusion, right knee Office Visit 05/06/2015 Orthopedic Sid Jacob 715.96 Osteoarthrosis 8:15a Services Of Nirav Unspec Genlzd Or C.M.A. Localized Lower Leg Office Visit 04/25/2015 Orthopedic Azul 715.96 Osteoarthrosis 2:15p Services Of IVIS Tavares Unspec Genlzd Or C.M.A. Localized Lower Leg 719.06 Effusion Joint Lower Leg Office Visit 02/11/2015 11:45a Orthopedic Sid Jacob 715.96 Osteoarthrosis Services Of Nirav Unspec Genlzd Or C.M.A. Localized Lower Leg 715.16 Osteoarthrosis Localized Prim Lower Leg Office Visit 01/28/2015 9:00a [facility] Internal Ela Liv, 272.4 Hyperlipidemia Other Medicine - N.P. 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 Office Visit 07/25/2014 Orthopedic Azul 715.96 Osteoarthrosis 10:00a Services Of TIARA TavaresC Unspec Genlzd Or C.M.A. Localized Lower Leg 844.9 Sprains & Strains Knee & Leg Unspec 719.46 Pain Joint Lower Leg 719.06 Effusion Joint Lower Leg Office Visit 04/30/2014 2:00p Orthopedic Sid Jacob 715.96 Osteoarthrosis Services Of [place].DZenia Unspec Genlzd Or C.M.A. Localized Lower Leg 844.9 Sprains & Strains Knee & Leg Unspec 719.46 Pain Joint Lower Leg Office Visit 03/12/2014 11:00a Orthopedic Sid Jacob 715.96 Osteoarthrosis Services Of [place].Tegan Unspec Genlzd Or C.M.A. Localized Lower Leg 844.9 Sprains & Strains Knee & Leg Unspec 719.46 Pain Joint Lower Leg Office Visit 01/12/2014 Orthopedic Carlos 719.47 Pain Joint Ankle & 9:30a Services Of Nirav Ortiz Foot C.M.A. Office Visit 08/10/2013 Jon Jacob 715.96 Osteoarthrosis 1:15p Services Of Nirav Unspec Genlshannon Or C.M.A. Localized Lower Leg 716.96 Arthropathy Unspec Lower Leg Office Visit 04/07/2013 10:00a Orthopedic Sid Jacob 715.96 Osteoarthrosis Services Of Nirav Unspec Genlzd Or C.M.A. Localized Lower Leg 716.96 Arthropathy Unspec Lower Leg Office Visit 03/02/2013 Orthopedic Kaylene 842.13 Sprains & Strains 8:45a Services Of Nirav eMraz Hand Interphalangeal C.M.A. (Joint) Office Visit 09/05/2012 [facility] Internal Ela Peck, V70.0 Examination General 1:00p Medicine - Ccmob N.P. Medical Routine AT Health Care Facility V72.31 Routine Humid System Operator Examination V76.10 Screening For Malignant Neoplasm Breast 530.81 Esophageal Reflux 311 Depressive Disorder Not Elsewhere Spec 272.4 Hyperlipidemia Other Unspec Office Visit 08/30/2012 10:40a [facility] Internal Ela Peck, 724.5 Backache Unspec Medicine - Ccmob N.P. V04.89 Need For Prophylactic Vaccination & Inoculation Other Virus Office Visit 02/08/2012 8:30a Orthopedic Sid Jacob 715.96 Osteoarthrosis Services Of M.D. Unspec Genlzd Or C.M.A. Localized Lower Leg 716.96 Arthropathy Unspec Lower Leg Office Visit 08/14/2011 DO Not Use Ela Peck, V70.0 Examination 9:00a Tanya N.P. General Medical Routine AT Health Care Facility V72.31 Routine Humid System Operator Examination 530.81 Esophageal Reflux 311 Depressive Disorder Not Elsewhere Spec V76.10 Screening For Malignant Neoplasm Breast 272.4 Hyperlipidemia Other Unspec Office Visit 02/11/2011 8:45a Orthopedic Sid Jacob 716.96 Arthropathy Unspec Services Of M.DZenia Lower Leg C.M.A. 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 R.S.A.-O 726.2 Shoulder Region Affections Other Not Elsewhere Class Office Visit 04/30/2010 8:45a DO Not Use Ela Peck, 723.1 Cervicalgia Tanya N.P. 724.2 Lumbago Office Visit 02/13/2010 Orthopedic Javier 726.2 Shoulder Region 2:00p Services Of Santy, Affections Other C.M.A. R.S.A.-O Not Elsewhere Class 716.96 Arthropathy Unspec Lower Leg Office Visit 11/22/2009 12:15p Orthopedic Services Sid Jacob, 844.9 Sprains & Of C.M.A. M.D. Strains Knee & Leg Unspec 716.96 Arthropathy Unspec Lower Leg Office Visit 09/18/2009 1:30p Orthopedic Sid Jacob, 726.10 Bursae & Tendon Services Of C.M.A. M.D. Disorders Shoulder Region Unspec 840.9 Sprains & Strains Shoulder & Upper Arm Unspec Office Visit 09/04/2009 9:15a DO Not Use Ela Peck, 719.41 Pain Joint Heel [facility] N.PZenia Shoulder Region 786.52 Painful Respiration 724.2 Lumbago Office Visit 07/22/2009 9:30a Orthopedic Sharona Yun, 836.0 Dislocation Knee Services Of Emilia SHINE Tear Of Medial Cartilage Or Meniscus Curr Office Visit 07/12/2009 10:00a Orthopedic Sid Jacob, 836.0 Dislocation Knee Services Of Emilia Gastelum Tear Of Medial Cartilage Or Meniscus Curren 724.4 Neuritis Or Radiculitis Thoracic Or Lumbosacral Unspec 716.96 Arthropathy Unspec Lower Leg 729.5 Pain In Limb Office Visit 04/23/2009 Neurosurgery Michael Gautam 719.46 Pain Joint Lower 2:15p Services Of Tip Holman M.D. Leg Office Visit 04/08/2009 DO Not Use Brooke 724.3 Sciatica 2:00p Tanya Jane M.D. Office Visit 08/31/2008 DO Not Use Ela Vareleazar, V70.0 Examination 10:30a [facility] N.P. General Medical Routine AT [facility] 424.0 Mitral Valve Disorder Office Visit 04/04/2008 DO Not Use Ela Varn, 882.0 Open Wound Hand 10:30a [facility] [facility] Except Finger(S) W/O Complication Office Visit 02/08/2008 DO Not Use Ela Varn, 882.0 Open Wound Hand 11:30a [facility] [facility] Except Finger(S) W/O Complication Office Visit 09/05/2007 Neurosurgery Heron Lawton 724.2 Lumbago 3:00p Services Of Tip Bales M.D. Office Visit 08/02/2007 DO Not Use Ene Shepard 724.2 Lumbago 11:45a Tanya Gastelum, FACP Office Visit 01/11/2007 DO Not Use Ela Varn, 466.0 Bronchitis Acute 4:00p [facility] [facility] Office Visit 12/23/2006 DO Not Use Ela Varn, 461.9 Sinusitis Acute 11:00a [facility] [facility] Unspec 466.0 Bronchitis Acute Office Visit 09/06/2006 11:00a DO Not Use Ela Peck, 719.41 Pain Joint [facility] N.PZenia Shoulder Region 723.1 Cervicalgia 724.1 Pain Thoracic Spine Plan of Treatment 04/18/2019 - Rita Ortega, MDM25.562 Pain in left kneeNew Xrays:Knee Left 4+ VWS , Ordered: 04/18/19M17.12 Unilateral primary osteoarthritis, left kneeFollow up: Follow up: as needed
[2019-05-04] MEDS ORDERED: NS 0.9% 1000 ML** 1,000 ML IV ONE (05:42)
[2019-05-04] MEDS ORDERED: Ondansetron INJ* 2 MG/ML VIAL IV ONE ×2 (05:43→10:00)
--- NOTE | 2019-05-04 05:55 | ED ---
Abdominal Pain/Female - HPI Summary HPI Summary: Pt. is a 69 y.o female who presents to the ER for diffuse abdominal pain/ distention x several weeks. Pt. noted two episodes of vomiting today. Pt. notes she has a hx of back surgery and chronic pain and has been taking oxycodone usp. She notes intermittent constipation. She denies fever, cp, sob. Pt. denies significant past medical hx. Pt. reportedly had an colonoscopy in September and had polyps removed. Pt. states she was suppose to go back for follow up with GI, but never did. Sxs are moderate in severity. No current modifying factors. - History of Current Complaint Chief Complaint: EDAbdPain Stated Complaint: ABD PAIN PER PT Time Seen by Provider: 05/04/19 05:37 Hx Obtained From: Patient Pain Intensity: 3 Allergies/Adverse Reactions: Allergies Allergy/AdvReac Type Severity Reaction Status Date / Time No Known Allergies Allergy Verified 01/17/19 09:07 Home Medications: Home Medications Gabapentin [Neurontin] 200 mg PO Q4HR 05/04/19 [History Confirmed 05/04/19] PMH/Surg Hx/FS Hx/Imm Hx Previously Healthy: Yes Endocrine/Hematology History: Denies: Hx Diabetes, Hx Thyroid Disease Cardiovascular History: Denies: Hx Hypertension, Hx Pacemaker/ICD Respiratory History: Denies: Hx Asthma, Hx Chronic Obstructive Pulmonary Disease (COPD) GI History: Reports: Hx Gastroesophageal Reflux Disease, Other GI Disorders - CONSTIPATION- MIRALAX NEEDED Denies: Hx Ulcer History: Denies: Hx Renal Disease Musculoskeletal History: Reports: Hx Arthritis, Hx Back Problems, Hx Osteoporosis Sensory History: Reports: Hx Cataracts - BILATERAL, Hx Contacts or Glasses Denies: Hx Hearing Aid Opthamlomology History: Reports: Hx Cataracts - BILATERAL, Hx Contacts or Glasses Neurological History: Reports: Other Neuro Impairments/Disorders - PAIN CLINIC PATIENT Psychiatric History: Reports: Hx Anxiety - PYSCHIATRIC NURSE- COUNSELING- SEEING HER FOR 8 YEARS, Hx Depression, Hx Panic Disorder - TAKES MEDICATION FOR ANXIETY, Hx Bipolar Disorder - Cancer History Hx Chemotherapy: No Hx Radiation Therapy: No - Surgical History Surgery Procedure, Year, and Place: 1983-ECTOPIC . 1984- BROKEN ARM. 1985- RECONSTRUCTION SURG FOR LUMBAR W/ RIB BONE. 2008-Rt KNEE ARTHROSCOPIC. right knee replacement Hx Anesthesia Reactions: Yes - VOMITING Infectious Disease History: No Infectious Disease History: Denies: Hx Clostridium Difficile, Hx Hepatitis, Hx Human Immunodeficiency Virus (HIV), Hx of Known/Suspected MRSA, Hx Shingles, Hx Tuberculosis, Hx Known/ Suspected VRE, Hx Known/Suspected VRSA, History Other Infectious Disease, Traveled Outside the [place] in Last 30 Days - Family History Known Family History: Positive: None, Non-Contributory Negative: Hypertension - Social History Occupation: Retired Lives: With Family Alcohol Use: Weekly Alcohol Amount: 5 glasses of wine a week Substance Use Type: Reports: None Substance Use Comment - Amount & Last Used: oxycodone Smoking Status (MU): Former Smoker Type: Cigarettes Amount Used/How Often: OFF AND ON - 1/2 PPD X 15 YEARS Have You Smoked in the Last Year: No Review of Systems Constitutional: Negative Negative: Fever, Chills Cardiovascular: Negative Negative: Palpitations, Chest Pain Respiratory: Negative Negative: Shortness Of Breath, Cough Positive: Abdominal Pain, Vomiting, Nausea, Other - constipation Genitourinary: Negative Negative: dysuria Neurological: Negative All Other Systems Reviewed And Are Negative: Yes Physical Exam Triage Information Reviewed: Yes Vital Signs On Initial Exam: Initial Vitals Temp Pulse Resp BP Pulse Ox 97.6 F 73 20 128/85 98 05/04/19 05:20 05/04/19 05:20 05/04/19 05:20 05/04/19 05:20 05/04/19 05:20 Vital Signs Reviewed: Yes Appearance: Positive: Well-Appearing - Pt. lying in bed in NAD. Anxious. Tearful at times. Skin: Positive: Warm, Dry Head/Face: Positive: Normal Head/Face Inspection Eyes: Positive: Normal, EOMI Neck: Positive: Supple Respiratory/Lung Sounds: Positive: Clear to Auscultation, Breath Sounds Present Cardiovascular: Positive: Normal, RRR Abdomen Description: Positive: Other: - Mildly distended. Hypoactive bowel sounds. Diffuse pain on palpation. Musculoskeletal: Positive: Normal, Strength/ROM Intact Neurological: Positive: Normal, CN Intact II-III Psychiatric: Positive: Affect/Mood Appropriate Diagnostics - Vital Signs Vital Signs Temp Pulse Resp BP Pulse Ox 05/04/19 05:20 97.6 F 73 20 128/85 98 - Laboratory Result Diagrams: 05/04/19 05:52 05/04/19 05:52 Lab Statement: Any lab studies that have been ordered have been reviewed, and results considered in the medical decision making process. Abdominal Pain Fem Course/Dx - Course Course Of Treatment: Pt. presenting with abd. pain and distention. Vomiting started today. She is afebrile with stable VS. Pt. started on IV fluids and zofran. Pt. takes oxycodone for chronic back pain and does not want any further pain meds in ED. Labs and CT ordered. ECG done at 0550 shows a sinus rhtyhm of 72bpm, left axis deviation, no STEMI. Blood work is unremarkable. CT read per radiology: IMPRESSION: 1. THICKENING OF THE WALL OF THE DISTAL ESOPHAGUS SEEN ON THE UPPERMOST IMAGES OF THIS. SCAN. RECOMMEND A CT OF THE CHEST AND CONSIDER ENDOSCOPY FOR FURTHER EVALUATION. 2. MODERATE SIZE HIATAL HERNIA. 3. MODERATE AMOUNT OF ASCITES WITH MESENTERIC EDEMA. THE POSSIBILITY OF OMENTAL CAKING. CANNOT BE RULED OUT. CT findings concerning for a metastatic process. Results discussed with pt. She is crying in bed secondary to pain. She now agrees to pain medication and was given morphine. Case discussed with GI, Dr. Benavides, and he feels pt. will need an endoscopy to start but feels this can be done on an outpt. basis if pain is controlled. Pt. still in pain after morphine , another dose of pain meds ordered. Case discussed with Dr. Flores, hospitalist , and she does not feel pt. meets admission criteria for pain control at this time. She recommends trying GI medications. Pt. give GI cocktail and pepcid which did improve her pain. Pt. walked to bathroom without difficulty. Pt. comfortable going home. Will rx zofran and protonix. Can continue home pain medication. Pt. to call GI today for an apt. SARIKA. To return to ER if sxs change or worsen. Pt. understands and agrees with plan. - Diagnoses Differential Diagnosis: Positive: Appendicitis, Bowel Obstruction, Constipation , Diverticulitis, Hepatitis Provider Diagnoses: Ascites, Abdominal pain Discharge - Sign-Out/Discharge Documenting (check all that apply): Patient Departure Patient Received Moderate/Deep Sedation with Procedure: No - Discharge Plan Condition: Improved Disposition: HOME Prescriptions: Ondansetron TAB* [Zofran 4 MG Tab*] 4 mg PO Q6H PRN #12 tab PRN Reason: Nausea Pantoprazole TAB * [Protonix TAB*] 40 mg PO DAILY #30 tab Patient Education Materials: Gastritis (ED), Ascites (ED) Referrals: Erick Benavides MD [Medical Doctor] - Jyoti Ocasio MD [Primary Care Provider] - Additional Instructions: Call Dr. Benavides's office today to schedule a follow up appointment as soon as possible for further evaluation Take medication as directed Can continue home medications as directed Return to ER if symptoms change or worsen - Billing Disposition and Condition Condition: IMPROVED Disposition: Home
[2019-05-04 06:06] LABS: ABS Basophils 0.1 10^3/ul (0-0.2); ABS Eosinophils 0.1 10^3/ul (0-0.6); ABS Lymphocytes 1.2 10^3/ul (1.0-4.8); ABS Monocytes 0.9 10^3/ul (0-0.8); Eosinophil % 1.4 %; Hematocrit 36 % (35-47); Hemoglobin 12.2 g/dL (12.0-16.0); Lymphocyte % 11.8 %; Mean Corpuscular HGB Conc 34 g/dL (31-36); Mean Corpuscular Hemoglobin 31 pg (27-31); Mean Corpuscular Volume 90 fL (80-97); Mean Platelet Volume 9.9 fL (7.4-10.4); Platelet Count 289 10^3/uL (150-450); Red Blood Count 3.97 10^6 /uL (3.70-4.87); Red Cell Distribution Width 13 % (10-15); White Blood Count 10.3 10^3/uL (3.5-10.8)
[2019-05-04 06:26] LABS: Albumin 3.5 g/dL (3.2-5.2); Albumin/Globulin Ratio 1.2 (1-3); BUN/Creatinine Ratio 22.6 (8-20); C Reactive Protein 53.2 mg/L (<8.01); Calcium 9.6 mg/dL (8.6-10.3); EGFR African American 115.1 (>60); EGFR Non-African American 95.2 (>60); Globulin 2.9 g/dL (2-4); Magnesium 2.2 mg/dL (1.9-2.7); Potassium 3.8 mmol/L (3.5-5.0); Total Bilirubin 0.4 mg/dL (0.2-1.0); Total Protein 6.4 g/dL (6.4-8.9)
[2019-05-04 06:28] LABS: Troponin I 0.01 ng/mL (<0.04)
[2019-05-04] MEDS ORDERED: Iohexol 300* (CONTRAST) 10 ML SDV IV ONE (08:05)
[2019-05-04 08:33] LABS: Urine Appearance Clear; Urine Bilirubin Negative (Negative); Urine Blood Negative (Negative); Urine Color Straw; Urine Glucose Negative (Negative); Urine Ketones Negative (Negative); Urine Nitrite Negative (Negative); Urine Protein Negative (Negative); Urine Specific Gravity 1.003 (1.010-1.030); Urine Urobilinogen Negative (Negative)
[2019-05-04] MEDS ORDERED: Morphine 4 MG/ML VIAL (1 ml) 4 MG/ML VIAL IV ONE (09:50)
[2019-05-04] MEDS ORDERED: HYDROmorphone INJ1* 1 MG/ML SYRINGE IV ONE (10:33)
[2019-05-04] MEDS ORDERED: Al Hydrox/Mg Hydrox/Simet LIQ* 30 ML UDC PO ONE (10:55)
[2019-05-04] MEDS ORDERED: Lidocaine 2% VISCOUS* 15 ML UDC PO ONE (10:55)
[2019-05-04] MEDS ORDERED: Famotidine TAB* 20 MG PO ONE (10:56)
[2019-05-04 12:40] VITALS: BP 132/64
== END 2019-05-04 12:38 | disposition home or self-care (01) ==
LOC: ED 05:19
DX: R18.8 Other ascites (principal); R10.9 Unspecified abdominal pain; K21.9 Gastro-esophageal reflux disease without esophagitis; Z87.891 Personal history of nicotine dependence; Z79.899 Other long term (current) drug therapy; K44.9 Diaphragmatic hernia without obstruction or gangrene
CPT/HCPCS: 36415; 74177; 80053; 81003; 83605; 83690; 83735; 84484; 85025; 86140; 86304; 93005; 96361; 96374; 96375; 96376; 99285; A9270-GY; J1170; J2270; J2405; Q9967

== ENCOUNTER 2019-05-12 14:46 | Emergency (ER) | payer MEDICARE ==
[2019-05-12 17:10] LABS: ABS Basophils 0.1 10^3/ul (0-0.2); ABS Eosinophils 0.2 10^3/ul (0-0.6); ABS Lymphocytes 1.5 10^3/ul (1.0-4.8); ABS Monocytes 0.9 10^3/ul (0-0.8); Eosinophil % 2.3 %; Hematocrit 37 % (35-47); Hemoglobin 12.5 g/dL (12.0-16.0); Lymphocyte % 15.2 %; Mean Corpuscular HGB Conc 34 g/dL (31-36); Mean Corpuscular Hemoglobin 30 pg (27-31); Mean Corpuscular Volume 90 fL (80-97); Nucleated Red Blood Cells % 0.1; Platelet Count 294 10^3/uL (150-450); Red Blood Count 4.11 10^6 /uL (3.70-4.87); Red Cell Distribution Width 13 % (10-15); White Blood Count 9.7 10^3/uL (3.5-10.8)
[2019-05-12 18:01] LABS: Albumin 3.2 g/dL (3.2-5.2); CO2 Carbon Dioxide 21 mmol/L (22-32); Calcium 9.9 mg/dL (8.6-10.3); Chloride 104 mmol/L (101-111); Sodium 133 mmol/L (135-145)
[2019-05-12 18:07] LABS: ALT 9 U/L (7-52); Albumin/Globulin Ratio 1.2 (1-3); Alkaline Phosphatase 72 U/L (34-104); BUN/Creatinine Ratio 13.3 (8-20); Blood Urea Nitrogen 10 mg/dL (6-24); C Reactive Protein 58.86 mg/L (<8.01); EGFR African American 92.4 (>60); EGFR Non-African American 76.4 (>60); Globulin 2.6 g/dL (2-4); Glucose 85 mg/dL (70-100); Total Protein 5.8 g/dL (6.4-8.9)
[2019-05-12 18:09] LABS: Anion Gap 8 mmol/L (2-11)
[2019-05-12 18:55] LABS: Activated Partial Thrombo Time 32.8 seconds (26.0-38.0); INR 0.96 (0.82-1.09)
[2019-05-12 18:59] LABS: Potassium Redraw 4.4 mmol/L (3.5-5.0)
--- NOTE | 2019-05-12 20:02 | ED ---
Abdominal Pain/Female - HPI Summary HPI Summary: This pt is a 69 Y/O F presenting to [facility] accompanied by her and a CC of diffuse abdominal pain. She states that she had a colonoscopy on 01/06/[address] scan of her abdomen on 05/10/19. The colonoscopy was normal but the CT scan showed that she had fluid retention. On 05/10/19 she had bile removed from her stomach. She stated that she called the x-ray administrative support technician on 01/09/19 and wasnt able to find any new findings. Buddy recommended that the pt came in today for further work-ups. She states that she has abdominal pain which is rated a 6/10 in severity and is described as a shooting and burning sensation. She states that she has bile filling up in her stomach. She also reports SOB. She denies any CP, N/V, fevers, coughs, and headaches. She stated that after the fluid got removed she lost 4 pounds but recently has been gaining the weight back. - History of Current Complaint Chief Complaint: Sheri Stated Complaint: FLUID ON TOP OF ABDOMEN/PAIN PER PT Time Seen by Provider: 05/12/19 19:27 Hx Obtained From: Patient Onset/Duration: Gradual Onset, Lasting Weeks - 1, Still Present Timing: Constant Severity Initially: Mild Severity Currently: Moderate Pain Intensity: 7 Pain Scale Used: 0-10 Numeric Location: Diffuse Radiates: No Character: Sharp, Burning Aggravating Factor(s): Movement, Other: - palpation Alleviating Factor(s): Nothing Associated Signs and Symptoms: Positive: Negative - headaches, Other: - POSITIVE : SOB. Negative: Fever, Cough, Chest Pain, Nausea, Vomiting Allergies/Adverse Reactions: Allergies Allergy/AdvReac Type Severity Reaction Status Date / Time No Known Allergies Allergy Verified 05/12/19 15:35 Home Medications: Home Medications Gabapentin CAP(*) [Neurontin 100 mg CAP(*)] 200 mg PO Q4HR 05/12/19 [History Confirmed 05/12/19] Multivitamins/Minerals TAB* [Theragran/minerals TAB*] 1 tab PO MOWEFR 05/12/19 [ History Confirmed 05/12/19] PMH/Surg Hx/FS Hx/Imm Hx Previously Healthy: No Endocrine/Hematology History: Denies: Hx Diabetes, Hx Thyroid Disease Cardiovascular History: Denies: Hx Hypertension, Hx Pacemaker/ICD Respiratory History: Denies: Hx Asthma, Hx Chronic Obstructive Pulmonary Disease (COPD) GI History: Reports: Hx Gastroesophageal Reflux Disease, Other GI Disorders - CONSTIPATION- MIRALAX NEEDED Denies: Hx Ulcer History: Denies: Hx Renal Disease Musculoskeletal History: Reports: Hx Arthritis, Hx Back Problems, Hx Osteoporosis Sensory History: Reports: Hx Cataracts - BILATERAL, Hx Contacts or Glasses Denies: Hx Hearing Aid Opthamlomology History: Reports: Hx Cataracts - BILATERAL, Hx Contacts or Glasses Neurological History: Reports: Other Neuro Impairments/Disorders - PAIN CLINIC PATIENT Psychiatric History: Reports: Hx Anxiety - PYSCHIATRIC NURSE- COUNSELING- SEEING HER FOR 8 YEARS, Hx Depression, Hx Panic Disorder - TAKES MEDICATION FOR ANXIETY, Hx Bipolar Disorder - Cancer History Hx Chemotherapy: No Hx Radiation Therapy: No - Surgical History Surgery Procedure, Year, and Place: 1983-ECTOPIC . 1984- BROKEN ARM. 1985- RECONSTRUCTION SURG FOR LUMBAR W/ RIB BONE. 2008-Rt KNEE ARTHROSCOPIC. right knee replacement Hx Anesthesia Reactions: Yes - VOMITING - Immunization History Immunizations Up to Date: Yes Infectious Disease History: No Infectious Disease History: Denies: Hx Clostridium Difficile, Hx Hepatitis, Hx Human Immunodeficiency Virus (HIV), Hx of Known/Suspected MRSA, Hx Shingles, Hx Tuberculosis, Hx Known/ Suspected VRE, Hx Known/Suspected VRSA, History Other Infectious Disease, Traveled Outside the [place] in Last 30 Days - Family History Known Family History: Negative: Hypertension - Social History Alcohol Use: Occasionally Alcohol Amount: 5 glasses of wine a week Substance Use Type: Reports: Marijuana Substance Use Comment - Amount & Last Used: oxycodone Smoking Status (MU): Former Smoker Type: Cigarettes Amount Used/How Often: OFF AND ON - 1/2 PPD X 15 YEARS Have You Smoked in the Last Year: No Review of Systems Negative: Fever Negative: Chest Pain Positive: Shortness Of Breath. Negative: Cough Positive: Abdominal Pain - diffuse. Negative: Vomiting, Nausea Negative: Headache All Other Systems Reviewed And Are Negative: Yes Physical Exam - Summary Physical Exam Summary: Appearance: Well appearing, no pain distress Skin: warm, dry, reflects adequate perfusion Head/face: normal Eyes: EOMI, FELISA ENT: normal Neck: supple, non-tender Respiratory: CTA, breath sounds present Cardiovascular: RRR, pulses symmetrical Abdomen: Diffuse tenderness of the abdomen, soft Musculoskeletal: normal, strength/ROM intact Neuro: normal, sensory motor intact, A&Ox3 Triage Information Reviewed: Yes Vital Signs On Initial Exam: Initial Vitals Temp Pulse Resp BP Pulse Ox 98.1 F 80 16 139/90 97 05/12/19 15:28 05/12/19 15:28 05/12/19 15:28 05/12/19 15:28 05/12/19 15:28 Vital Signs Reviewed: Yes Diagnostics - Vital Signs Vital Signs Temp Pulse Resp BP Pulse Ox 05/12/19 19:21 76 114/78 94 05/12/19 19:00 79 96 05/12/19 18:51 85 122/93 96 05/12/19 17:17 98.2 F 82 16 135/83 94 05/12/19 15:28 98.1 F 80 16 139/90 97 - Laboratory Lab Results: Lab Results 05/12/19 05/12/19 05/12/19 Range/Units 17:03 17:03 17:03 WBC 9.7 (3.5-10.8) 10^3/uL RBC 4.11 (3.70-4.87) 10^6 /uL Hgb 12.5 (12.0-16.0) g/dL Hct 37 (35-47) % MCV 90 (80-97) fL MCH 30 (27-31) pg MCHC 34 (31-36) g/dL RDW 13 (10-15) % Plt Count 294 (150-450) 10^3/uL MPV 10.0 (7.4-10.4) fL Neut % (Auto) 72.3 % Lymph % (Auto) 15.2 % [place] % (Auto) 9.3 % Eos % (Auto) 2.3 % Baso % (Auto) 0.9 % Absolute Neuts (auto) 7.0 (1.5-7.7) 10^3/ul Absolute Lymphs (auto) 1.5 (1.0-4.8) 10^3/ul Absolute Monos (auto) 0.9 H (0-0.8) 10^3/ul Absolute Eos (auto) 0.2 (0-0.6) 10^3/ul Absolute Basos (auto) 0.1 (0-0.2) 10^3/ul Absolute Nucleated RBC 0.0 10^3/ul Nucleated RBC % 0.1 INR (Anticoag Therapy) (0.82-1.09) APTT (26.0-38.0) seconds Sodium 133 L (135-145) mmol/L Potassium TNP Chloride 104 (101-111) mmol/L Carbon Dioxide 21 L (22-32) mmol/L Anion Gap 8 (2-11) mmol/L BUN 10 (6-24) mg/dL Creatinine 0.75 (0.51-0.95) mg/dL Est GFR ( Amer) 92.4 (>60) Est GFR (Non-Af Amer) 76.4 (>60) BUN/Creatinine Ratio 13.3 (8-20) Glucose 85 (70-100) mg/dL Lactic Acid 0.6 (0.5-2.0) mmol/L Calcium 9.9 (8.6-10.3) mg/dL Total Bilirubin 0.30 (0.2-1.0) mg/dL AST TNP ALT 9 (7-52) U/L Alkaline Phosphatase 72 (34-104) U/L C-Reactive Protein 58.86 H (<8.01) mg/L Total Protein 5.8 L (6.4-8.9) g/dL Albumin 3.2 (3.2-5.2) g/dL Globulin 2.6 (2-4) g/dL Albumin/Globulin Ratio 1.2 (1-3) Lipase 12 (11.0-82.0) U/L 05/12/19 05/12/19 Range/Units 18:37 18:37 WBC (3.5-10.8) 10^3/uL RBC (3.70-4.87) 10^6 /uL Hgb (12.0-16.0) g/dL Hct (35-47) % MCV (80-97) fL MCH (27-31) pg MCHC (31-36) g/dL RDW (10-15) % Plt Count (150-450) 10^3/uL MPV (7.4-10.4) fL Neut % (Auto) % Lymph % (Auto) % [place] % (Auto) % Eos % (Auto) % Baso % (Auto) % Absolute Neuts (auto) (1.5-7.7) 10^3/ul Absolute Lymphs (auto) (1.0-4.8) 10^3/ul Absolute Monos (auto) (0-0.8) 10^3/ul Absolute Eos (auto) (0-0.6) 10^3/ul Absolute Basos (auto) (0-0.2) 10^3/ul Absolute Nucleated RBC 10^3/ul Nucleated RBC % INR (Anticoag Therapy) 0.96 (0.82-1.09) APTT 32.8 (26.0-38.0) seconds Sodium (135-145) mmol/L Potassium 4.4 Chloride (101-111) mmol/L Carbon Dioxide (22-32) mmol/L Anion Gap (2-11) mmol/L BUN (6-24) mg/dL Creatinine (0.51-0.95) mg/dL Est GFR ( Amer) (>60) Est GFR (Non-Af Amer) (>60) BUN/Creatinine Ratio (8-20) Glucose (70-100) mg/dL Lactic Acid (0.5-2.0) mmol/L Calcium (8.6-10.3) mg/dL Total Bilirubin (0.2-1.0) mg/dL AST 15 ALT (7-52) U/L Alkaline Phosphatase (34-104) U/L C-Reactive Protein (<8.01) mg/L Total Protein (6.4-8.9) g/dL Albumin (3.2-5.2) g/dL Globulin (2-4) g/dL Albumin/Globulin Ratio (1-3) Lipase (11.0-82.0) U/L Result Diagrams: 05/12/19 17:03 05/12/19 18:37 Lab Statement: Any lab studies that have been ordered have been reviewed, and results considered in the medical decision making process. Re-Evaluation - Re-Evaluation First Eval Re-Evaluation Time: 20:27 Change: Improved Comment: Pt was informed that Dr. Cline wanted to schedule an appointment on Wednesday and that she should consider being admitted to [facility] [place]. She denied addmittance but stated that she would follow up on Wednesday. 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 Abdominal Pain Fem Course/Dx - Course Course Of Treatment: This pt is a 69 Y/O F presenting to [facility] accompanied by her and a CC of abdominal pain. She states that she has abdominal pain which is rated a 6/10 in severity and is described as a shooting and burning sensation. Her PE found that she had diffuse abdominal tenderness. Dr. Berlin Unger, Gastroenterology, was contacted at 2001 and stated that the on-call doctor for Oncology should be contacted. Dr. Cline, Oncology, was contacted at 2014 and he stated that the pt should see be admitted and then see Dr. Cline on Wednesday. The pt was informed of Dr. Cline's decision and that she had maligment cells in her abdomen. The pt stated that she did not want to be admitted and would rather just see Dr. Cline on Wednesday. Pt will be discahrged home with a Dx of abdominal pain. - Diagnoses Provider Diagnoses: Abdominal pain Discharge - Sign-Out/Discharge Documenting (check all that apply): Patient Departure - discharged Patient Received Moderate/Deep Sedation with Procedure: No - Discharge Plan Condition: Stable Disposition: HOME Patient Education Materials: Abdominal Pain (ED) Referrals: Jyoti Ocasio MD [Primary Care Provider] - 2 Days Chato Cline MD [Medical Doctor] - 05/15/19 Additional Instructions: Please follow up with Dr. Cline on Wednesday and with your primary care physician in 1-3 days. Return to the emergency department for any new or worsening symptoms. - Billing Disposition and Condition Condition: STABLE Disposition: Home - Attestation Statements Document Initiated by Paulina: Yes Documenting Scribe: Brody Leo Provider For Whom Paulina is Documenting (Include Credential): Sagar Teran MD Scribe Attestation: Brody Malhotra, scribed for Sagar Teran MD on 05/12/19 at 2113. Scribe Documentation Reviewed: Yes Provider Attestation: The documentation as recorded by the Brody ortiz accurately reflects the service I personally performed and the decisions made by Sagar higginbotham MD Status of Scribe Document: Viewed Consult Consult: Dr. Goodwin, Gastroenterology, was contacted at 2001 and stated that the on- call doctor for Oncology should be contacted. Dr. Cline, Oncology, was contacted at 2014 and he stated that the pt should see be admitted and then see Dr. Cline on Wednesday.
[2019-05-12 20:44] VITALS: BP 149/95
== END 2019-05-12 20:43 | disposition home or self-care (01) ==
LOC: ED 14:46
DX: R10.84 Generalized abdominal pain (principal); R06.02 Shortness of breath; F41.9 Anxiety disorder, unspecified; Z96.651 Presence of right artificial knee joint; Z87.891 Personal history of nicotine dependence
CPT/HCPCS: 36415; 80053; 83605; 83690; 85025; 85610; 85730; 86140; 99283

== ENCOUNTER 2019-05-26 07:41 | Emergency (ER) | payer MEDICARE ==
--- NOTE | 2019-05-26 08:10 | ED ---
Abdominal Pain/Female - HPI Summary HPI Summary: Patient is a 69 y/o F presenting to ED with complaints of lower abdominal pain and nausea. Vomiting is denied. Per medical records, she was seen by Dr. Calvillo on 05/16/19 for paracentesis, Hx of ascites. There are concerns that the patient may have ovarian cancer. She states that she went to [facility] for evaluation in the past few weeks and states that her plan of care is still to be determined. Patient notes that the last time she was evaluated at [facility] [place], it was found that she had a hiatal hernia. Patient reports that her nausea and abdominal pain had worsened today. Patient states that she has been compliant with her nausea and pain medications. She states that it is as if she has a "goldfish bowl" on her abdomen. Pain is at lower abdomen and is rated 8-9/10 in intensity. Patient notes that she is to follow up again with Stan on May 31. On triage, nothing is noted to aggravate/alleviate Sx and it is reported that the patient took oxycodone prior to arrival. Home medications and allergies are reviewed. - History of Current Complaint Chief Complaint: EDAbdPain Stated Complaint: STOMACH PAIN, WEAKNESS PER PT Time Seen by Provider: 05/26/19 07:50 Hx Obtained From: Patient Onset/Duration: Still Present, Worse Since Timing: Constant Severity Initially: Moderate Severity Currently: Severe Pain Intensity: 9 Pain Scale Used: 0-10 Numeric Location: Other - lower Aggravating Factor(s): Nothing Alleviating Factor(s): Nothing Associated Signs and Symptoms: Positive: Nausea. Negative: Vomiting Allergies/Adverse Reactions: Allergies Allergy/AdvReac Type Severity Reaction Status Date / Time morphine Allergy Nausea Verified 05/26/19 07:50 Home Medications: Home Medications Pantoprazole TAB * [Protonix TAB*] 40 mg PO QAM 05/26/19 [History Confirmed ] clonazePAM TAB(*) [KlonoPIN TAB(*)] 0.25 mg PO QAM 05/26/19 [History Confirmed 05/26/19] PMH/Surg Hx/FS Hx/Imm Hx Endocrine/Hematology History: Denies: Hx Diabetes, Hx Thyroid Disease Cardiovascular History: Denies: Hx Hypertension, Hx Pacemaker/ICD Respiratory History: Denies: Hx Asthma, Hx Chronic Obstructive Pulmonary Disease (COPD) GI History: Reports: Hx Gastroesophageal Reflux Disease, Other GI Disorders - CONSTIPATION- MIRALAX NEEDED Denies: Hx Ulcer History: Denies: Hx Renal Disease Musculoskeletal History: Reports: Hx Arthritis, Hx Back Problems, Hx Osteoporosis Sensory History: Reports: Hx Cataracts - BILATERAL, Hx Contacts or Glasses Denies: Hx Hearing Aid Opthamlomology History: Reports: Hx Cataracts - BILATERAL, Hx Contacts or Glasses Neurological History: Reports: Other Neuro Impairments/Disorders - PAIN CLINIC PATIENT Psychiatric History: Reports: Hx 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 1984- BROKEN ARM. 1985- RECONSTRUCTION SURG FOR LUMBAR W/ RIB BONE. 2008-Rt KNEE ARTHROSCOPIC. right knee replacement Hx Anesthesia Reactions: Yes - VOMITING Infectious Disease History: No Infectious Disease History: Denies: Hx Clostridium Difficile, Hx Hepatitis, Hx Human Immunodeficiency Virus (HIV), Hx of Known/Suspected MRSA, Hx Shingles, Hx Tuberculosis, Hx Known/ Suspected VRE, Hx Known/Suspected VRSA, History Other Infectious Disease, Traveled Outside the [place] in Last 30 Days - Family History Known Family History: Negative: Hypertension - Social History Alcohol Use: Occasionally Alcohol Amount: 5 glasses of wine a week Substance Use Type: Reports: Marijuana Substance Use Comment - Amount & Last Used: oxycodone Smoking Status (MU): Former Smoker Type: Cigarettes Amount Used/How Often: OFF AND ON - 1/2 PPD X 15 YEARS Have You Smoked in the Last Year: No Review of Systems Negative: Fever - on vitals, temp is 98 F Positive: Abdominal Pain, Nausea. Negative: Vomiting All Other Systems Reviewed And Are Negative: Yes Physical Exam - Summary Physical Exam Summary: VITAL SIGNS: Reviewed. GENERAL: Patient is a well-developed and nourished female who is lying comfortable in the stretcher. Patient is not in any acute respiratory distress. HEAD AND FACE: No signs of trauma. No ecchymosis, hematomas or skull depressions. No sinus tenderness. EYES: PERRLA, EOMI x 2, No injected conjunctiva, no nystagmus. EARS: Hearing grossly intact. Ear canals and tympanic membranes are within normal limits. MOUTH: Oropharynx within normal limits. NECK: Supple, trachea is midline, no adenopathy, no JVD, no carotid bruit, no c- spine tenderness, neck with full ROM. CHEST: Symmetric, no tenderness at palpation. LUNGS: Clear to auscultation bilaterally. No wheezing or crackles. CVS: Regular rate and rhythm, S1 and S2 present, no murmurs or gallops appreciated. ABDOMEN: Soft. Lower abdominal tenderness is noted. No signs of distention. No rebound, no guarding, and no masses palpated. Bowel sounds are normal. EXTREMITIES: FROM in all major joints, no edema, no cyanosis or clubbing. NEURO: Alert and oriented x 3. No acute neurological deficits. Speech is normal and follows commands. SKIN: Dry and warm. Triage Information Reviewed: Yes Vital Signs On Initial Exam: Initial Vitals Temp Pulse Resp BP Pulse Ox 98 F 98 16 133/88 96 05/26/19 07:44 05/26/19 07:44 05/26/19 07:44 05/26/19 07:44 05/26/19 07:44 Vital Signs Reviewed: Yes Diagnostics - Vital Signs Vital Signs Temp Pulse Resp BP Pulse Ox 05/26/19 07:44 98 F 98 16 133/88 96 - Laboratory Result Diagrams: 05/26/19 08:39 05/26/19 08:39 Lab Statement: Any lab studies that have been ordered have been reviewed, and results considered in the medical decision making process. - Radiology Abdomen XR Radiology Interpretation Completed By: Radiologist Summary of Radiographic Findings: Nonobstructive bowel gas pattern. Dr. Zuleta has reviewed this radiology report. - EKG 0907 Cardiac Rate: NL - 84 BPM EKG Rhythm: Sinus Rhythm ST Segment: Normal Ectopy: None Summary of EKG Findings: NSR at 84 BPM, no ST elevations. Re-Evaluation - Re-Evaluation First Eval Re-Evaluation Time: 11:00 Change: Improved Comment: Discussed results with patient. Patient reports feeling better. Patient will be discharged home w dx of lower abdominal pain and instructions to follow-up with Dr. Calvillo in his office. Patient understands and agrees with this plan. Abdominal Pain Fem Course/Dx - Course Course Of Treatment: Patient is a 69 y/o F presenting to ED with complaints of lower abdominal pain and nausea. Vomiting is denied. Per medical records, she was seen by Dr. Calvillo on 05/16/19 for paracentesis, Hx of ascites. There are concerns that the patient may have ovarian cancer. She states that she went to [facility] for evaluation in the past few weeks and states that her plan of care is still to be determined. Patient notes that the last time she was evaluated at [facility] [place], it was found that she had a hiatal hernia. Patient reports that her nausea and abdominal pain had worsened today. Patient states that she has been compliant with her nausea and pain medications. She states that it is as if she has a "goldfish bowl" on her abdomen. Pain is at lower abdomen and is rated 8-9/ 10 in intensity. Patient notes that she is to follow up again with [facility] on May 31. On triage, nothing is noted to aggravate/alleviate Sx and it is reported that the patient took oxycodone prior to arrival. Home medications and allergies are reviewed. Bloodwork revealed WBCs of 12.1, sodium 133, glucose is 110, magnesium 1.6, CRP of 121. In the ED course the patient was given IV fluids for rehydration, magnesium IV for the hypomagnesemia, she was given Zofran for nausea and fentanyl for the pain. Abdomen x-ray impression: Non- obstructive bowel gas pattern. I discussed my physical exam and findings with Dr. Kwong covering for Dr. Calvillo from oncology and since the patient is feeling better, she is hungry and she wants to eat and he recommends for the patient to be discharged home on follow-up with Dr. Calvillo in the next couple days. I discussed the findings test results and the plan with the patient and she agrees. She reports that she is feeling better. At this time the patient is hemodynamically stable alert and oriented 3. - Diagnoses Provider Diagnoses: Lower abdominal pain - Provider Notifications Discussed Care Of Patient With: Matthew Kwong Time Discussed With Above Provider: 10:56 Instructed by Provider To: Have Pt Call For Appt. - Discussed patient case with Dr. Kwong, heme/onc, who stated that the patient can be discharged home to follow up with Dr. Calvillo. Discharge ED - Sign-Out/Discharge Documenting (check all that apply): Patient Departure - Discharge Patient Received Moderate/Deep Sedation with Procedure: No - Discharge Plan Condition: Stable Disposition: HOME Patient Education Materials: Acute Abdominal Pain (ED) Referrals: Jyoti Ocasio MD [Primary Care Provider] - 3 Days Chato Calvillo MD [Medical Doctor] - 3 Days Additional Instructions: FOLLOW UP WITH YOUR PRIMARY CARE PROVIDER IN [address]LLOW UP WITH DR. CALVILLO, ONCOLOGIST, IN 3 DAYS. RETURN TO THE ED FOR ANY WORSENING OR NEW SYMPTOMS. - Billing Disposition and Condition Condition: STABLE Disposition: Home - Attestation Statements Document Initiated by Scribe: Yes Documenting Scribe: Aubrey Sherwood Provider For Whom Paulina is Documenting (Include Credential): Sebastian Zuleta MD Scribe Attestation: IAubrey, scribed for Sebastian Zuleta MD on 05/26/19 at 1842. Scribe Documentation Reviewed: Yes Provider Attestation: The documentation as recorded by the Aubrey ortiz accurately reflects the service I personally performed and the decisions made by me, Sebastian Zuleta MD Status of Scribe Document: Viewed
[2019-05-26] MEDS ORDERED: NS 0.9% 1000 ML** 1,000 ML IV ONE (08:13)
[2019-05-26] MEDS ORDERED: Ondansetron INJ* 2 MG/ML VIAL IV ONE (08:13)
[2019-05-26] MEDS ORDERED: fentaNYL* 50 MCG/ML 2 ML VIAL (100 MCG VIAL) IV SLOW PU ONE ×2 (08:14→11:40)
[2019-05-26 08:56] LABS: ABS Eosinophils 0.1 10^3/ul (0-0.6); ABS Lymphocytes 1.1 10^3/ul (1.0-4.8); ABS Monocytes 1.3 10^3/ul (0-0.8); ABS Neutrophils 9.6 10^3/ul (1.5-7.7); Eosinophil % 0.9 %; Hematocrit 38 % (35-47); Hemoglobin 12.6 g/dL (12.0-16.0); Mean Corpuscular HGB Conc 33 g/dL (31-36); Mean Corpuscular Hemoglobin 29 pg (27-31); Mean Corpuscular Volume 87 fL (80-97); Mean Platelet Volume 10.2 fL (7.4-10.4); Nucleated Red Blood Cells % 0.1; Platelet Count 314 10^3/uL (150-450); Red Blood Count 4.33 10^6 /uL (3.70-4.87); Red Cell Distribution Width 13 % (10-15); White Blood Count 12.1 10^3/uL (3.5-10.8)
[2019-05-26 09:19] LABS: ALT 8 U/L (7-52); AST 17 U/L (13-39); Albumin 2.7 g/dL (3.2-5.2); Alkaline Phosphatase 77 U/L (34-104); Anion Gap 5 mmol/L (2-11); BUN/Creatinine Ratio 14.7 (8-20); Blood Urea Nitrogen 10 mg/dL (6-24); C Reactive Protein 121.25 mg/L (<8.01); CO2 Carbon Dioxide 27 mmol/L (22-32); Calcium 9.5 mg/dL (8.6-10.3); Chloride 101 mmol/L (101-111); Creatine Kinase 175 U/L (10-223); EGFR African American 103.5 (>60); EGFR Non-African American 85.5 (>60); Globulin 2.6 g/dL (2-4); Glucose 110 mg/dL (70-100); Magnesium 1.6 mg/dL (1.9-2.7); Potassium 4.5 mmol/L (3.5-5.0); Sodium 133 mmol/L (135-145); Total Protein 5.3 g/dL (6.4-8.9)
[2019-05-26 10:52] LABS: Urine Appearance Cloudy; Urine Bilirubin Negative (Negative); Urine Blood Negative (Negative); Urine Color Yellow; Urine Glucose Negative (Negative); Urine Ketones 2+ (Negative); Urine Nitrite Negative (Negative); Urine Protein Negative (Negative); Urine Specific Gravity 1.018 (1.010-1.030); Urine Urobilinogen Negative (Negative)
[2019-05-26] MEDS ORDERED: Magnesium Sulfate 1 GM IV* 1 GM/100 ML BAG IV ONE (11:11)
[2019-05-26 12:20] VITALS: BP 114/74
== END 2019-05-26 12:19 | disposition home or self-care (01) ==
LOC: ED 07:41
DX: R10.30 Lower abdominal pain, unspecified (principal); K21.9 Gastro-esophageal reflux disease without esophagitis; F41.9 Anxiety disorder, unspecified; F31.9 Bipolar disorder, unspecified; Z87.891 Personal history of nicotine dependence; Z79.899 Other long term (current) drug therapy; Z79.891 Long term (current) use of opiate analgesic; Z88.5 Allergy status to narcotic agent
CPT/HCPCS: 36415; 74019; 80053; 81003; 82550; 83605; 83690; 83735; 85025; 86140; 93005; 96361; 96365; 96375; 96376; 99283; J2405; J3010; J3475

== ENCOUNTER 2019-06-03 07:28 | Emergency (ER) | payer MEDICARE ==
--- NOTE | 2019-06-03 08:14 | ED ---
Abdominal Pain/Female - HPI Summary HPI Summary: This patient is a 69 year old F presenting to ED with a chief complaint of abdominal pain since one month ago. The CC is described as aching and sharp. Patient recently had a biopsy done in [place] for potential ovarian cancer. Patient states shes been having this pain for the past four weeks. During these weeks, she has had the abdominal pain, is unable to eat without vomiting, and has had to have paracentesis, drawing 1-4L each time. She reports the last time she had a paracentesis, they "saw cancer cells." Patient reports having "little, tiny bowel movements, approaching on constipation" with the last movement happening yesterday. She states she has not had a bowel blockage before but was "close" after having back surgery. The patient rates the pain 8/ 10 in severity. Symptoms aggravated by nothing. Symptoms alleviated by oxycodone. Patient denies fevers, chills. - History of Current Complaint Chief Complaint: EDAbdPain Stated Complaint: ABD PAIN PER PT Time Seen by Provider: 06/03/19 07:45 Hx Obtained From: Patient Onset/Duration: Lasting Weeks - Since 4 weeks, Still Present Timing: Constant Severity Initially: Severe Severity Currently: Severe Pain Intensity: 8 Pain Scale Used: 0-10 Numeric Character: Sharp, Other: - Aching Aggravating Factor(s): Nothing Alleviating Factor(s): Medications - Oxycodone Associated Signs and Symptoms: Positive: Negative - Chills, Constipation, Decreased Appetite. Negative: Fever Allergies/Adverse Reactions: Allergies Allergy/AdvReac Type Severity Reaction Status Date / Time morphine AdvReac Severe Nausea Verified 06/03/19 07:34 Home Medications: Home Medications Propranolol TAB* 10 mg BID 06/03/19 [History Confirmed 06/03/19] PMH/Surg Hx/FS Hx/Imm Hx Endocrine/Hematology History: Denies: Hx Diabetes, Hx Thyroid Disease Cardiovascular History: Denies: Hx Hypertension, Hx Pacemaker/ICD Respiratory History: Denies: Hx Asthma, Hx Chronic Obstructive Pulmonary Disease (COPD) GI History: Reports: Hx Gastroesophageal Reflux Disease, Hx Hiatal Hernia, Other GI Disorders - CONSTIPATION- MIRALAX NEEDED Denies: Hx Ulcer History: Denies: Hx Renal Disease Musculoskeletal History: Reports: Hx Arthritis, Hx Back Problems, Hx Osteoporosis Sensory History: Reports: Hx Cataracts - BILATERAL, Hx Contacts or Glasses Denies: Hx Hearing Aid Opthamlomology History: Reports: Hx Cataracts - BILATERAL, Hx Contacts or Glasses Neurological History: Reports: Other Neuro Impairments/Disorders - PAIN CLINIC PATIENT Psychiatric History: Reports: Hx 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 1984- BROKEN ARM. 1985- RECONSTRUCTION SURG FOR LUMBAR W/ RIB BONE. 2008-Rt KNEE ARTHROSCOPIC. right knee replacement. bilateral laminectomy Hx Anesthesia Reactions: Yes - VOMITING Infectious Disease History: No Infectious Disease History: Denies: Hx Clostridium Difficile, Hx Hepatitis, Hx Human Immunodeficiency Virus (HIV), Hx of Known/Suspected MRSA, Hx Shingles, Hx Tuberculosis, Hx Known/ Suspected VRE, Hx Known/Suspected VRSA, History Other Infectious Disease, Traveled Outside the [place] in Last 30 Days - Family History Known Family History: Negative: Hypertension - Social History Alcohol Use: Occasionally Alcohol Amount: 5 glasses of wine a week Hx Substance Use: Yes Substance Use Type: Reports: Marijuana Substance Use Comment - Amount & Last Used: oxycodone Hx Tobacco Use: Yes Smoking Status (MU): Former Smoker Type: Cigarettes Amount Used/How Often: OFF AND ON - 1/2 PPD X 15 YEARS Have You Smoked in the Last Year: No Review of Systems Negative: Fever, Chills Gastrointestinal: Other - Decreased appetite Positive: Abdominal Pain All Other Systems Reviewed And Are Negative: Yes Physical Exam - Summary Physical Exam Summary: GENERAL: Patient is a well-developed and nourished F who is lying comfortable in the stretcher. Patient is not in any acute respiratory distress. HEAD AND FACE: Normocephalic EYES: PERRLA, EOMI x 2. EARS: Hearing grossly intact. MOUTH: Oropharynx within normal limits. NECK: Supple, trachea is midline, no adenopathy, no JVD, no carotid bruit. CHEST: Symmetric, no tenderness at palpation LUNGS: Clear to auscultation bilaterally. No wheezing or crackles. CVS: Regular rate and rhythm, S1 and S2 present, no murmurs or gallops appreciated. ABDOMEN: Diffuse tender to palpation, worse in the mid-abdomen, no rebound or guarding. EXTREMITIES: Full ROM in all major joints, no edema, no cyanosis or clubbing. NEURO: Alert and oriented x 3. No acute neurological deficits. Speech is normal and follows commands. SKIN: Dry and warm Triage Information Reviewed: Yes Vital Signs On Initial Exam: Initial Vitals Temp Pulse Resp BP Pulse Ox 97.4 F 83 16 137/92 96 06/03/19 07:29 06/03/19 07:29 06/03/19 07:29 06/03/19 07:29 06/03/19 07:29 Vital Signs Reviewed: Yes Diagnostics - Vital Signs Vital Signs Temp Pulse Resp BP Pulse Ox 06/03/19 07:29 97.4 F 83 16 137/92 96 - Laboratory Result Diagrams: 06/03/19 08:38 06/03/19 08:38 Lab Statement: Any lab studies that have been ordered have been reviewed, and results considered in the medical decision making process. - CT A/P CT Interpretation Completed By: Radiologist Summary of CT Findings: #. Circumferential mural thickening of the visualized distal thoracic esophagus without significant change. #. Negative for bowel obstruction. #. Colonic diverticulosis primarily at the sigmoid colon without suggestion of acute inflammatory change. Moderately large volume of ascites similar to the prior exam. Negative for free air. #. Heterogeneous density at the greater omentum and gastrosplenic ligament similar to the prior exam concerning for potential metastatic implants. #. Negative for obstructive uropathy. Dr. Velasquez has reviewed this radiology report. - EKG 0800 Cardiac Rate: NL - 77 BPM EKG Rhythm: Sinus Rhythm EKG Comparison: No Significant Change Summary of EKG Findings: NSR 77 BPM, LAFB, similar to EKG done on 05/26/19. Re-Evaluation - Re-Evaluation First Eval Re-Evaluation Time: 12:27 Change: Improved Comment: Patient reports feeling better after the paracentesis. Discussed results with patient. Patient has an appointment with oncology scheduled for 06/05. Strict return precautions were given (fevers, chills, etc.). Patient feels comfortable going home. Patient will be discharged home with dx of generalized abdominal pain and ascites. Patient understands and agrees with this plan. Abdominal Pain Fem Course/Dx - Course Course Of Treatment: This patient is a 69 year old F presenting to ED with a chief complaint of abdominal pain since one month ago. Patient potentially has ovarian cancer and is awaiting biopsy results. She has previously been treated with paracentesis. In the ED course, patient received fentanyl, Zofran, and fluids. EKG at 0800 revealed NSR 77 BPM, LAFB, similar to EKG done on 05/26/19. Blood work obtained without abnormality except for WBC 13.5, Hgb 11.5, absolute neutrophils 10.5, absolute monocytes 1.3, glucose 101, CRP 103.17, total protein 5.0, albumin 2.5, sodium 134. UA without abnormality except 1+ urine protein, trace ketones, trace leukocyte esterase, 2+ urine RBC, and present squamous epithelial cells. CT A/P revealed #. Circumferential mural thickening of the visualized distal thoracic esophagus without significant change. #. Negative for bowel obstruction. #. Colonic diverticulosis primarily at the sigmoid colon without suggestion of acute inflammatory change. Moderately large volume of ascites similar to the prior exam. Negative for free air. #. Heterogeneous density at the greater omentum and gastrosplenic ligament similar to the prior exam concerning for potential metastatic implants. #. Negative for obstructive uropathy. Discussed patient case with RL Sen, who performed the patient's last paracentesis. She will perform the paracentesis here. At 1210, discussed patient case with Akhil Tang, who performed a paracentesis in the ED. She jak off 1.5L of fluid. Patient tolerated the procedure well and will follow-up with oncology as an outpatient. I discussed results with patient, and she reports feeling better. She is hemodynamically stable and safe for discharge. Strict return precautions given and she will otherwise follow up with her PCP. Patient will be discharged home with dx of abdominal pain and ascites. Patient understands and agrees with this plan. - Diagnoses Provider Diagnoses: Abdominal pain, Ascites - Provider Notifications Discussed Care Of Patient With: Akhil Tang Time Discussed With Above Provider: 08:59 Instructed by Provider To: Other - Discussed patient case with RL Sen, who performed the patient's last paracentesis. She stated she will look out for the patient's CT. At 1210, discussed patient case with Akhil Tang, who performed a paracentesis in the ED. She jak off 1.5L of fluid. Patient tolerated the procedure well and will follow-up with oncology as an outpatient. Patient already has an appointment scheduled with oncology. Discharge ED - Sign-Out/Discharge Documenting (check all that apply): Patient Departure - Discharge Patient Received Moderate/Deep Sedation with Procedure: No - Discharge Plan Condition: Stable Disposition: HOME Patient Education Materials: Ascites (ED), Abdominal Pain (ED), Paracentesis ( DC) Referrals: Jyoti Ocasio MD [Primary Care Provider] - - Billing Disposition and Condition Condition: STABLE Disposition: Home - Attestation Statements Document Initiated by Scribe: Yes Documenting Scribe: Aubrey Sherwood Provider For Whom Scribe is Documenting (Include Credential): Reji Velasquez MD Scribe Attestation: Aubrey Malhotra, scribed for Reji Velasquez MD on 06/03/19 at 1556. Scribe Documentation Reviewed: Yes Provider Attestation: The documentation as recorded by the Aubrey ortiz accurately reflects the service I personally performed and the decisions made by , Reji Velasquez MD Status of Scribe Document: Viewed
[2019-06-03] MEDS ORDERED: Ondansetron INJ* 2 MG/ML VIAL IV ONE (08:20)
[2019-06-03] MEDS ORDERED: fentaNYL* 50 MCG/ML 2 ML VIAL (100 MCG VIAL) IV SLOW PU ONE ×2 (08:20→11:34)
[2019-06-03] MEDS ORDERED: NS 0.9% 1000 ML** 1,000 ML IV ONE (08:20)
[2019-06-03 09:00] LABS: ABS Basophils 0.1 10^3/ul (0-0.2); ABS Eosinophils 0.2 10^3/ul (0-0.6); ABS Lymphocytes 1.5 10^3/ul (1.0-4.8); ABS Monocytes 1.3 10^3/ul (0-0.8); ABS Neutrophils 10.5 10^3/ul (1.5-7.7); Eosinophil % 1.4 %; Hematocrit 35 % (35-47); Hemoglobin 11.5 g/dL (12.0-16.0); Lymphocyte % 10.8 %; Mean Corpuscular HGB Conc 33 g/dL (31-36); Mean Corpuscular Hemoglobin 29 pg (27-31); Mean Corpuscular Volume 87 fL (80-97); Mean Platelet Volume 9.3 fL (7.4-10.4); Nucleated Red Blood Cells % 0.1; Platelet Count 303 10^3/uL (150-450); Red Blood Count 4.02 10^6 /uL (3.70-4.87); Red Cell Distribution Width 13 % (10-15); White Blood Count 13.5 10^3/uL (3.5-10.8)
[2019-06-03 09:08] LABS: Activated Partial Thrombo Time 26.5 seconds (26.0-38.0); INR 1.01 (0.82-1.09)
[2019-06-03 09:13] LABS: Albumin 2.5 g/dL (3.2-5.2); BUN/Creatinine Ratio 15.9 (8-20); C Reactive Protein 103.17 mg/L (<8.01); Calcium 8.9 mg/dL (8.6-10.3); EGFR Non-African American 93.4 (>60); Globulin 2.5 g/dL (2-4); Magnesium 1.9 mg/dL (1.9-2.7); Potassium 3.8 mmol/L (3.5-5.0); Total Bilirubin 0.2 mg/dL (0.2-1.0)
[2019-06-03] MEDS ORDERED: Iohexol 300* (CONTRAST) 10 ML SDV IV ONE (09:36)
[2019-06-03 09:49] LABS: Urine Appearance Cloudy; Urine Bacteria Absent (Absent); Urine Bilirubin Negative (Negative); Urine Blood Negative (Negative); Urine Color Amber; Urine Glucose Negative (Negative); Urine Ketones Trace (Negative); Urine Nitrite Negative (Negative); Urine Protein 1+(30 mg/dL) (Negative); Urine Red Blood Cell 2+(6-10/hpf) (Absent); Urine Specific Gravity 1.023 (1.010-1.030); Urine Squamous Epithelial Cell Present (Absent); Urine Urobilinogen Negative (Negative); Urine White Blood Cell Trace(0-5/hpf) (Absent)
--- NOTE | 2019-06-03 12:14 | BRIEFOPN ---
Brief Operative/Procedure Note - Operation Details Pre-Op Diagnosis: malignant ascites Post-Op Diagnosis: malignant ascites Procedures: therapeutic paracentesis Surgeon(s)/Proceduralists: Akhil Tang PA-C Anesthesia: 1% lidocaine, 3ml Estimated Blood Loss: <1ml Findings: blood tinged peritoneal fluid Specimen(s)/Culture(s) Description: ~1.2 peritoneal fluid - sent for cell count , culture Complications: None
[2019-06-03 12:22] VITALS: BP 127/72
--- NOTE | 2019-06-03 12:23 | PN ---
Progress Note - Progress Note Date of Service: 06/03/19 SOAP: Subjective: [Anette presented to the ER with c/o abd pain and inability to tolerate much by mouth. She has required freq paracentesis over the last couple of weeks for symptomatic malignant ascites. She was seen at [facility] earlier this week for peritoneal bx which she states was successful. Over the last couple of days she has developed increased abd pain and distention. Unable to keep solid foods down. No fevers. Symptoms feels similar to when she has required paracentesis in the past.] Objective: [ Vital Signs: Temp Pulse Resp BP Pulse Ox 97.4 F 86 20 117/76 96 06/03/19 07:29 06/03/19 11:40 06/03/19 11:39 06/03/19 09:48 06/03/19 11:40 Laboratory Results - last 24 hr 06/03/19 06/03/19 06/03/19 08:17 08:38 08:38 WBC 13.5 H RBC 4.02 Hgb 11.5 L Hct 35 MCV 87 MCH 29 MCHC 33 RDW 13 Plt Count 303 MPV 9.3 Neut % (Auto) 77.7 Lymph % (Auto) 10.8 Rolette % (Auto) 9.4 Eos % (Auto) 1.4 Baso % (Auto) 0.7 Absolute Neuts (auto) 10.5 H Absolute Lymphs (auto) 1.5 Absolute Monos (auto) 1.3 H Absolute Eos (auto) 0.2 Absolute Basos (auto) 0.1 Absolute Nucleated RBC 0.0 Nucleated RBC % 0.1 INR (Anticoag Therapy) 1.01 APTT 26.5 Sodium Potassium Chloride Carbon Dioxide Anion Gap BUN Creatinine Est GFR ( Amer) Est GFR (Non-Af Amer) BUN/Creatinine Ratio Glucose Lactic Acid 0.7 Calcium Magnesium Total Bilirubin AST ALT Alkaline Phosphatase Ammonia Troponin I C-Reactive Protein Total Protein Albumin Globulin Albumin/Globulin Ratio Lipase Urine Color Urine Appearance Urine pH Ur Specific Burke Urine Protein Urine Ketones Urine Blood Urine Nitrate Urine Bilirubin Urine Urobilinogen Ur Leukocyte Esterase Urine WBC (Auto) Urine RBC (Auto) Ur Squamous Epith Cells Urine Bacteria Urine Glucose 06/03/19 06/03/19 06/03/19 08:38 08:38 09:21 WBC RBC Hgb Hct MCV MCH MCHC RDW Plt Count MPV Neut % (Auto) Lymph % (Auto) Rolette % (Auto) Eos % (Auto) Baso % (Auto) Absolute Neuts (auto) Absolute Lymphs (auto) Absolute Monos (auto) Absolute Eos (auto) Absolute Basos (auto) Absolute Nucleated RBC Nucleated RBC % INR (Anticoag Therapy) APTT Sodium 134 L Potassium 3.8 Chloride 102 Carbon Dioxide 27 Anion Gap 5 BUN 10 Creatinine 0.63 Est GFR ( Amer) 113.0 Est GFR (Non-Af Amer) 93.4 BUN/Creatinine Ratio 15.9 Glucose 101 H Lactic Acid Calcium 8.9 Magnesium 1.9 Total Bilirubin 0.20 AST 13 ALT 7 Alkaline Phosphatase 81 Ammonia 37 Troponin I 0.00 C-Reactive Protein 103.17 H Total Protein 5.0 L Albumin 2.5 L Globulin 2.5 Albumin/Globulin Ratio 1.0 Lipase 61 Urine Color Fartun Urine Appearance Cloudy Urine pH 5.0 Ur Specific Burke 1.023 Urine Protein 1+(30 mg/dl) A Urine Ketones Trace A Urine Blood Negative Urine Nitrate Negative Urine Bilirubin Negative Urine Urobilinogen Negative Ur Leukocyte Esterase Trace A Urine WBC (Auto) Trace(0-5/hpf) Urine RBC (Auto) 2+(6-10/hpf) A Ur Squamous Epith Cells Present A Urine Bacteria Absent Urine Glucose Negative Exam: Gen: mildly uncomfortable appearing 69 yo female CV: RRR Resp: CTA Abd: distended, diffusely TTP Ext: no edema] Assessment: [This is a 69 yo female with a 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 Review of labs and imaging shows no new acute process, but she does have a significant amount of ascites noted on imaging and is quite symptomatic on exam. Recommended therapeutic paracentesis which was performed at bedside.] Plan: [1. Malignant ascites - therapeutic paracentesis performed at bedside, 1.2L of blood tinged peritoneal fluid successfully drained (see separate procedure report) - fluid sent for cell count and culture, but low suspicion for SBP - no empiric abx recommended Dispo: patient is appropriate for dc from the ER. She has follow up next week in the oncology clinic. She can call the oncology service with new/worsening symptoms. Case reviewed with ER physician, Dr Velasquez.]
[2019-06-03 12:56] LABS: Body Fluid Source Peritonial Fluid
[2019-06-03 14:52] LABS: Body Fluid Mono 49 %
--- NOTE | 2019-06-05 17:35 | PN ---
Progress Note - Progress Note Date of Service: 06/03/19 Note: Urine culture growing small amount of GBS, 25-50k. Pt. without urinary complaints according to ER note. Pt. seen for ascites. Will note treat at this time. Pt. f.u with oncology.
== END 2019-06-03 12:45 | disposition home or self-care (01) ==
LOC: ED 07:28
DX: R10.9 Unspecified abdominal pain (principal); R18.8 Other ascites; Z87.891 Personal history of nicotine dependence
CPT/HCPCS: 36415; 49082; 74177; 80053; 81003; 81015; 82140; 83605; 83690; 83735; 84484; 85025; 85610; 85730; 86140; 87040; 87077; 87086; 87205; 89051; 93005; 96361; 96374; 96375; 99232; 99283; J2405; J3010; Q9967

== ENCOUNTER 2019-06-21 08:35 | Inpatient (IN) | payer MEDICARE ==
[2019-06-21] MEDS ORDERED: Ondansetron INJ* 2 MG/ML VIAL IV ONE (09:02)
[2019-06-21] MEDS ORDERED: fentaNYL* 50 MCG/ML 2 ML VIAL (100 MCG VIAL) IV SLOW PU ONE (09:02)
[2019-06-21 09:26] LABS: Hematocrit 36 % (35-47); Mean Corpuscular HGB Conc 33 g/dL (31-36); Mean Corpuscular Hemoglobin 29 pg (27-31); Mean Corpuscular Volume 86 fL (80-97); Mean Platelet Volume 9.4 fL (7.4-10.4); Platelet Count 611 10^3/uL (150-450); Red Blood Count 4.21 10^6 /uL (3.70-4.87); Red Cell Distribution Width 14 % (10-15); White Blood Count 13.2 10^3/uL (3.5-10.8)
--- NOTE | 2019-06-21 09:26 | ED ---
Abdominal Pain/Female - HPI Summary HPI Summary: Patient is a 69-year-old female with newly diagnosed malignancy of unknown origin presenting by EMS with CC of abdominal pain, n/v. She has been seen by Dr. Cline and RL Sen at [facility]. She has required therpeutic paracentesis in the process, last one was Wednesday at [facility]. On arrival into the ED, pt appears confused, unable to answer questions appropriately and continues to need redirection. C/o abd pain, nausea and vomiting. Denies eating anything in the past 24 hours. States she is SOB. Denies fevers, sweats or chills. Denies urinary symptoms or back pain, hematuria. Denies cough or congestion. Has been feeling unwell x 2 weeks, however has not called her oncologist. Pt unsure of next appt or last paracentesis. Denies ever having these symptoms before. - History of Current Complaint Chief Complaint: EDAbdPain Stated Complaint: GENERAL ILLNESS PER EMS Time Seen by Provider: 06/21/19 08:41 Hx Obtained From: Patient ?: No Onset/Duration: Sudden Onset Timing: Constant Severity Initially: Severe Severity Currently: Severe Pain Intensity: 10 Pain Scale Used: 0-10 Numeric Location: Diffuse Radiates: No Character: Cramping Aggravating Factor(s): Nothing Alleviating Factor(s): Nothing Associated Signs and Symptoms: Positive: Negative - Risk Factors Ectopic Risk Factor: Negative Allergies/Adverse Reactions: Allergies Allergy/AdvReac Type Severity Reaction Status Date / Time morphine AdvReac Severe Nausea Verified 06/03/19 07:34 Home Medications: Home Medications Gabapentin CAP(*) [Neurontin 100 mg CAP(*)] 100 mg PO TID 06/21/19 [History Confirmed 06/21/19] Naproxen Sodium [Naproxen 220 mg] 220 mg PO DAILY 06/21/19 [History Confirmed ] Ondansetron HCl [Zofran 4 MG TAB] 4 mg PO Q4HR PRN 06/21/19 [History Confirmed 06/21/19] Propranolol HCl 10 mg PO BID 06/21/19 [History Confirmed 06/21/19] PMH/Surg Hx/FS Hx/Imm Hx Previously Healthy: Yes Endocrine/Hematology History: Denies: Hx Diabetes, Hx Thyroid Disease Cardiovascular History: Denies: Hx Hypertension, Hx Pacemaker/ICD Respiratory History: Denies: Hx Asthma, Hx Chronic Obstructive Pulmonary Disease (COPD) GI History: Reports: Hx Gastroesophageal Reflux Disease, Hx Hiatal Hernia, Other GI Disorders - CONSTIPATION- MIRALAX NEEDED Denies: Hx Ulcer History: Denies: Hx Renal Disease Musculoskeletal History: Reports: Hx Arthritis, Hx Back Problems, Hx Osteoporosis Sensory History: Reports: Hx Cataracts - BILATERAL, Hx Contacts or Glasses Denies: Hx Hearing Aid Opthamlomology History: Reports: Hx Cataracts - BILATERAL, Hx Contacts or Glasses Neurological History: Reports: Other Neuro Impairments/Disorders - PAIN CLINIC PATIENT Psychiatric History: Reports: Hx 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 1984- BROKEN ARM. 1985- RECONSTRUCTION SURG FOR LUMBAR W/ RIB BONE. 2008-Rt KNEE ARTHROSCOPIC. right knee replacement. bilateral laminectomy Hx Anesthesia Reactions: Yes - VOMITING - Immunization History Hx Pertussis Vaccination: No Immunizations Up to Date: Yes Infectious Disease History: No Infectious Disease History: Denies: Hx Clostridium Difficile, Hx Hepatitis, Hx Human Immunodeficiency Virus (HIV), Hx of Known/Suspected MRSA, Hx Shingles, Hx Tuberculosis, Hx Known/ Suspected VRE, Hx Known/Suspected VRSA, History Other Infectious Disease, Traveled Outside the [place] in Last 30 Days - Family History Known Family History: Negative: Hypertension - Social History Occupation: Employed Full-time Lives: With Family Alcohol Use: Occasionally Alcohol Amount: 5 glasses of wine a week Hx Substance Use: Yes Substance Use Type: Reports: Marijuana Substance Use Comment - Amount & Last Used: oxycodone Hx Tobacco Use: Yes Smoking Status (MU): Former Smoker Type: Cigarettes Amount Used/How Often: OFF AND ON - 1/2 PPD X 15 YEARS Have You Smoked in the Last Year: No Review of Systems Negative: Fever, Chills, Fatigue, Skin Diaphoresis Negative: Palpitations, Chest Pain Negative: Shortness Of Breath, Cough Positive: Abdominal Pain, Vomiting, Diarrhea, Nausea Genitourinary: Negative Positive: no symptoms reported, see HPI Negative: Arthralgia, Myalgia Neurological: Negative All Other Systems Reviewed And Are Negative: Yes Physical Exam Triage Information Reviewed: Yes Vital Signs On Initial Exam: Initial Vitals Temp Pulse Resp BP Pulse Ox 98.7 F 88 25 160/95 99 06/21/19 08:38 06/21/19 08:38 06/21/19 08:38 06/21/19 08:38 06/21/19 08:38 Vital Signs Reviewed: Yes Appearance: Positive: Ill-Appearing Skin: Positive: Warm, Skin Color Reflects Adequate Perfusion Head/Face: Positive: Normal Head/Face Inspection Eyes: Positive: EOMI, FELISA, Conjunctiva Clear Neck: Positive: Supple, No Lymphadenopathy Respiratory/Lung Sounds: Positive: Other - tachypnic Cardiovascular: Positive: RRR, Pulses are Symmetrical in both Upper and Lower Extremities Abdomen Description: Positive: Distended, Guarding, Peritoneal Signs Bowel Sounds: Positive: Present Musculoskeletal: Positive: Normal, Strength/ROM Intact Neurological: Positive: Other - confused Diagnostics - Vital Signs Vital Signs Temp Pulse Resp BP Pulse Ox 06/21/19 09:18 30 06/21/19 08:38 98.7 F 88 25 160/95 99 - Laboratory Result Diagrams: 06/22/19 06:10 06/22/19 06:10 Lab Statement: Any lab studies that have been ordered have been reviewed, and results considered in the medical decision making process. Abdominal Pain Fem Course/Dx - Course Course Of Treatment: Course of treatment, the patient's evaluated for severe abdominal pain, nausea, vomiting. Patient appears confused on arrival and states she has never had this abdominal pain in the past. However upon rereading her previous records, she has had multiple complaints of abdominal pain, nausea, vomiting which has required therapeutic paracentesis. She is a metastatic cancer patient, but states she is unsure what kind of cancer. She is currently been diagnosed and is currently being treated. She is not on chemotherapy at this time. She has received treatment through [facility] [place] as well as our [facility] oncology. Current patient of Dr. Cline. She is given fentanyl and Zofran without much relief. On reexamination, she was given Reglan as well as a sentinel patch. She continues to endorse nausea, however has not had any vomiting. She is also stating she feels that she must have a bowel movement, but continues to not be able to. Denies any urinary symptoms or back pain. On physical examination, patient appears ill, nondiaphoretic, however pale in appearance. Lungs CTA, RRR. She is very tachypneic. Breath sounds equal bilaterally. Abdomen soft but distended with some guarding. She does have some peritoneal signs. Discussed case with Dr. Kwong. Cecelia trivedi to see patie attempted many times to get the patient up and over to the clinic for paracentesis. We were unable to do so. Patient will be admitted at this time through oncology. - Diagnoses Provider Diagnoses: Abdominal pain - Provider Notifications Discussed Care Of Patient With: Matthew Kwong Instructed by Provider To: Admit As Inpatient Discharge ED - Sign-Out/Discharge Documenting (check all that apply): Patient Departure All imaging exams completed and their final reports reviewed: Yes Patient Received Moderate/Deep Sedation with Procedure: No - Discharge Plan Condition: Fair Disposition: ADMITTED TO [facility] - Billing Disposition and Condition Condition: FAIR Disposition: Admitted to [facility]
[2019-06-21 09:37] LABS: Albumin 2.7 g/dL (3.2-5.2); BUN/Creatinine Ratio 18.5 (8-20); C Reactive Protein 35.99 mg/L (<8.01); Calcium 9.3 mg/dL (8.6-10.3); EGFR Non-African American 111.6 (>60); Globulin 2.8 g/dL (2-4); Magnesium 1.9 mg/dL (1.9-2.7); Total Bilirubin 0.5 mg/dL (0.2-1.0); Total Protein 5.5 g/dL (6.4-8.9)
[2019-06-21 09:39] LABS: Troponin I 0.01 ng/mL (<0.04)
[2019-06-21 10:02] LABS: ABS Lymphocytes 1.3 10^3/ul (1.0-4.8); ABS Monocytes 0.8 10^3/ul (0-0.8); Lymphocyte % 10.1 %; Nucleated Red Blood Cells % 0.1
[2019-06-21] MEDS ORDERED: Metoclopramide IV* 5 MG/ML 2 ML VIAL IV ONE (10:38)
[2019-06-21] MEDS ORDERED: fentaNYL PATCH 50 MCG/HR TRANSDERM ONE (11:10)
[2019-06-21] MEDS ORDERED: fentaNYL PATCH 25 MCG/HR TRANSDERM ONE (11:13)
[2019-06-21] MEDS ORDERED: fentaNYL PATCH 12 MCG/HR TRANSDERM ONE (11:36)
[2019-06-21] MEDS ORDERED: NS 0.9% 1000 ML** 1,000 ML IV.FLUID IV ONE (12:09)
[2019-06-21] MEDS ORDERED: Piperacillin/Tazobac ADVAN(*) 3.375 GM in NS 0.9% 100 ML* 100 ML IVPB ONE (12:09)
[2019-06-21] MEDS ORDERED: LORazepam INJ* 2 MG/ML 1 ML VIAL IV PUSH ONE (13:36)
[2019-06-21] MEDS ORDERED: Lorazepam PYXIS KEY PRN (13:36)
[2019-06-21] MEDS ORDERED: KCL 20 MEQ/100 ML IVPREMIX* 20 MEQ/100 ML BAG IV ONE (13:40)
[2019-06-21] MEDS ORDERED: Morphine INJ* 2 MG/ML 1 ML SYRINGE (TWO MG - NEW SYRINGE VERSION) IV PRN (13:41)
[2019-06-21] MEDS ORDERED: Lorazepam PYXIS KEY ONE (13:47)
[2019-06-21 14:30] LABS: Urine Appearance Cloudy; Urine Bilirubin Negative (Negative); Urine Blood Negative (Negative); Urine Color Straw; Urine Glucose Negative (Negative); Urine Ketones 1+ (Negative); Urine Nitrite Negative (Negative); Urine Protein Negative (Negative); Urine Specific Gravity 1.008 (1.010-1.030); Urine Urobilinogen Negative (Negative)
[2019-06-21] MEDS: NS 0.9% w/ 40 Meq KCL 1000 ML* 1,000 ML IV SCH (15:48)
[2019-06-21] MEDS: fentaNYL Patch Check Q Shift 1 NOTE FOLLOW UP SCH (18:54)
[2019-06-21] MEDS: Propranolol TAB* 10 MG PO SCH (22:09)
[2019-06-21] MEDS: Famotidine IV* 10 MG/ML 2 ML (20 mg) IV SLOW PU SCH (22:10)
[2019-06-22] MEDS: NS 0.9% w/ 40 Meq KCL 1000 ML* 1,000 ML IV SCH ×3 (01:39→16:16)
[2019-06-22] MEDS: fentaNYL Patch Check Q Shift 1 NOTE FOLLOW UP SCH ×2 (05:53→19:28)
[2019-06-22 06:24] LABS: Hematocrit 30 % (35-47); Hemoglobin 9.9 g/dL (12.0-16.0); Mean Corpuscular HGB Conc 34 g/dL (31-36); Mean Corpuscular Hemoglobin 29 pg (27-31); Mean Corpuscular Volume 86 fL (80-97); Mean Platelet Volume 9.2 fL (7.4-10.4); Platelet Count 432 10^3/uL (150-450); Red Blood Count 3.42 10^6 /uL (3.70-4.87); Red Cell Distribution Width 14 % (10-15); White Blood Count 10.5 10^3/uL (3.5-10.8)
[2019-06-22 06:40] LABS: Albumin 2.1 g/dL (3.2-5.2); BUN/Creatinine Ratio 12.8 (8-20); Calcium 8.1 mg/dL (8.6-10.3); EGFR African American 158.5 (>60); Globulin 2.2 g/dL (2-4); Magnesium 1.7 mg/dL (1.9-2.7); Potassium 3.5 mmol/L (3.5-5.0); Total Bilirubin 0.3 mg/dL (0.2-1.0); Total Protein 4.3 g/dL (6.4-8.9)
[2019-06-22] MEDS ORDERED: Magnesium Sulfate 2 GM IV* 2 GM/50 ML BAG IVPB ONE (08:52)
[2019-06-22] MEDS: Famotidine IV* 10 MG/ML 2 ML (20 mg) IV SLOW PU SCH ×2 (09:21→20:41)
[2019-06-22] MEDS: Ondansetron ODT TAB* 4 MG SL PRN ×2 (09:23→20:49)
[2019-06-22] MEDS: Propranolol TAB* 10 MG PO SCH ×2 (09:25→20:41)
--- NOTE | 2019-06-22 10:36 | PN ---
Progress Note - Progress Note Date of Service: 06/22/19 SOAP: Subjective: [Anette was admitted yesterday with intractable nausea and diarrhea with confusion yesterday following an exploratory laparoscopy of her abdomen at [facility] on Wednesday of this week. She reportedly had a large burden of disease within the abdomen with pathology pending. Pathology from ascites was reported as adenocarcinoma with suspicion for ovarian v primary peritoneal carcinoma. Per patient and her significant other she appears better today. Less confusion , but she has become very disoriented according to nursing staff on 2 occasions this morning. The first was she requested help back in to bed while she was lying in bed and it look the nurse several minutes to convince her she was in bed. The second occasion was when she was trying to drink from a spoon in a cup as if it was a straw. She adamantly denies any confusion and feels like she is mentally sharp. No nausea. Some abdominal pain. She also reports that she has been coughing and thought she may have had hemoptysis this morning. No cough or hemoptysis was observed by nursing staff. Her SO reported a cough at home the last few days when lying down, but thought it was better today.] Objective: [ Famotidine (Pepcid Iv*) 20 mg IV SLOW PU BID [facility] Last Admin: 06/22/19 09:21 Dose: 20 mg Fentanyl (Duragesic Patch 12 Mcg/Hr *) 12 mcg TRANSDERM Q72H [facility] Potassium Chloride/Sodium Chloride (Ns 0.9% W/ 40 Meq Kcl 1000 Ml*) 1,000 mls @ 60 mls/hr IV PER RATE [facility] Lorazepam (Ativan Inj*) 0.5 mg IV PUSH Q4H PRN PRN Reason: Anxiety/uncontrolled nausea Miscellaneous (Ativan Pyxis Weston) 1 ea N/A .ATIVAN IV WESTON PRN PRN Reason: PYXIS WESTON Morphine Sulfate (Morphine Inj (Syringe))*) 2 mg IV Q2H PRN PRN Reason: PAIN - SEVERE Last Admin: 06/21/19 23:20 Dose: 2 mg Ondansetron HCl (Zofran Odt Tab*) 4 mg SL Q6H PRN PRN Reason: NAUSEA/VOMITING Last Admin: 06/22/19 09:23 Dose: 4 mg Pharmacy Profile Note (Fentanyl Patch Check Q Shift) 1 note FOLLOW UP 0700, 1900 [facility] Last Admin: 06/22/19 05:53 Dose: 1 note Prochlorperazine Edisylate (Compazine Inj*) 5 mg IV Q6H PRN PRN Reason: NAUSEA/VOMITING Propranolol HCl (Inderal Tab*) 10 mg PO BID [facility] Last Admin: 06/22/19 09:25 Dose: 10 mg Laboratory Results - last 24 hr 06/21/19 06/22/19 06/22/19 14:19 06:10 06:10 WBC 10.5 RBC 3.42 L Hgb 9.9 L Hct 30 L MCV 86 MCH 29 MCHC 34 RDW 14 Plt Count 432 MPV 9.2 Sodium 136 Potassium 3.5 Chloride 107 Carbon Dioxide 25 Anion Gap 4 BUN 6 Creatinine 0.47 L Est GFR ( Amer) 158.5 Est GFR (Non-Af Amer) 131.0 BUN/Creatinine Ratio 12.8 Glucose 88 Calcium 8.1 L Magnesium 1.7 L Total Bilirubin 0.30 AST 12 L ALT 6 L Alkaline Phosphatase 66 Total Protein 4.3 L Albumin 2.1 L Globulin 2.2 Albumin/Globulin Ratio 1.0 Urine Color Straw Urine Appearance Cloudy Urine pH 8.0 Ur Specific [place] 1.008 L Urine Protein Negative Urine Ketones 1+ A Urine Blood Negative Urine Nitrate Negative Urine Bilirubin Negative Urine Urobilinogen Negative Ur Leukocyte Esterase Negative Urine Glucose Negative Vital Signs: Temp Pulse Resp BP Pulse Ox 98.1 F 71 18 129/76 97 06/22/19 07:54 06/22/19 07:54 06/22/19 08:00 06/22/19 07:54 06/22/19 07:54 Exam: Gen: comfortable appearing 69 yo female lying in bed and in NAD, accompanied by her HEENT: MMM CV: RRR, no m/r/g Resp: CTA, no w/c/r Abd: soft, mildly distended, diffusely TTP Ext: trace LE edema Skin: no rash Psych: alert, oriented and appropriate in conversation but does not remember much of the details of the last several days] Assessment: [This is a 69 yo female with a new malignancy of unclear etiology who was admitted for intractable nausea and confusion following an exploratory laparoscopy earlier this week at [facility]. She has had similar, intermittent symptoms over the last few weeks. No clinical signs of infection, she appears slightly improved with hydration overnight. No signs of an obstructive pattern on XR. ] Plan: [1. Delirium - she has no focal neurologic deficits, but has been intermittently confused over the last couple of weeks - it was difficult to discern whether this was medication v acute illness related, but evaluation for MAINTENANCE CRAFTSMAN malignancy has not been completed as of yet - check MRI brain with and without contrast to eval for MAINTENANCE CRAFTSMAN disease - if MRI negative can consider LP if delirium continues 2. Nausea/ascites - her GI complaints are likely due to peritoneal disease appreciated on recent ex lap - cont supportive measures and will attempt to advance her diet today 3. Malignancy - final pathology pending from [facility] - will consider inpatient treatment based on final pathology and clinical course 4. Anemia - likely dilutional, but will check stool for occult blood given recent c/o diarrhea and known malignancy Dispo: cont inpatient level care, clear discharge plan has not been established at this time]
[2019-06-22] MEDS ORDERED: Gadoteridol* (CONTRAST) 279.3 MG/ML 10 ML IV ONE (11:18)
[2019-06-22] MEDS: PROCHLORPERAZINE INJ 5 MG/ML 2 ML VIAL IV PRN (12:27)
[2019-06-22] MEDS: Pantoprazole IV* 40 MG IV SCH ×2 (12:54→20:41)
[2019-06-23] MEDS: Ondansetron ODT TAB* 4 MG SL PRN ×2 (01:49→09:46)
[2019-06-23 06:08] LABS: Hematocrit 33 % (35-47); Hemoglobin 11.2 g/dL (12.0-16.0); Mean Corpuscular HGB Conc 34 g/dL (31-36); Mean Corpuscular Hemoglobin 29 pg (27-31); Mean Corpuscular Volume 86 fL (80-97); Mean Platelet Volume 9.2 fL (7.4-10.4); Platelet Count 472 10^3/uL (150-450); Red Blood Count 3.87 10^6 /uL (3.70-4.87); Red Cell Distribution Width 14 % (10-15); White Blood Count 10.5 10^3/uL (3.5-10.8)
[2019-06-23 06:22] LABS: Albumin 2.2 g/dL (3.2-5.2); Albumin/Globulin Ratio 0.9 (1-3); Calcium 8.5 mg/dL (8.6-10.3); EGFR African American 147.6 (>60); Globulin 2.4 g/dL (2-4); Magnesium 2.1 mg/dL (1.9-2.7); Potassium 3.8 mmol/L (3.5-5.0); Total Bilirubin 0.4 mg/dL (0.2-1.0); Total Protein 4.6 g/dL (6.4-8.9)
[2019-06-23] MEDS: fentaNYL Patch Check Q Shift 1 NOTE FOLLOW UP SCH ×2 (07:18→19:46)
--- NOTE | 2019-06-23 09:27 | PN ---
Progress Note - Progress Note Date of Service: 06/23/19 SOAP: Subjective: []Still with abdominal pain and nausea. Nothing is good to eat, nausea all the time. Abdominal pain is sever. Has diarrhea. Urinating frequently. Famotidine (Pepcid Iv*) 20 mg IV SLOW PU BID [facility] Last Admin: 06/22/19 20:41 Dose: 20 mg Fentanyl (Duragesic Patch 12 Mcg/Hr *) 12 mcg TRANSDERM Q72H [facility] Potassium Chloride/Sodium Chloride (Ns 0.9% W/ 40 Meq Kcl 1000 Ml*) 1,000 mls @ 60 mls/hr IV PER RATE [facility] Last Admin: 06/22/19 16:16 Dose: 60 mls/hr Lorazepam (Ativan Inj*) 0.5 mg IV PUSH Q4H PRN PRN Reason: Anxiety/uncontrolled nausea Miscellaneous (Ativan Pyxis Weston) 1 ea N/A .ATIVAN IV WESTON PRN PRN Reason: PYXIS WESTON Morphine Sulfate (Morphine Inj (Syringe))*) 2 mg IV Q2H PRN PRN Reason: PAIN - SEVERE Last Admin: 06/21/19 23:20 Dose: 2 mg Ondansetron HCl (Zofran Odt Tab*) 4 mg SL Q6H PRN PRN Reason: NAUSEA/VOMITING Last Admin: 06/23/19 01:49 Dose: 4 mg Pantoprazole Sodium (Protonix Iv*) 40 mg IV BID [facility] Last Admin: 06/22/19 20:41 Dose: 40 mg Pharmacy Profile Note (Fentanyl Patch Check Q Shift) 1 note FOLLOW UP 0700, 1900 [facility] Last Admin: 06/23/19 07:18 Dose: 1 note Prochlorperazine Edisylate (Compazine Inj*) 5 mg IV Q6H PRN PRN Reason: NAUSEA/VOMITING Last Admin: 06/22/19 12:27 Dose: 5 mg Propranolol HCl (Inderal Tab*) 10 mg PO BID [facility] Last Admin: 06/22/19 20:41 Dose: 10 mg Exam: Gen: no distress HEENT: MMM CV: RRR, no m/r/g Resp: CTA, no w/c/r Abd: soft, mildly distended, diffusely TTP. no discrete masses Ext: trace LE edema Skin: no rash Psych: alert, oriented and appropriate in conversation, poor recall but able to recount symptoms and evaluation to date. 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 MRI: small lesions, question embolic infarcts. no metastatic disease Assessment: [This is a 69 yo female with a new malignancy of unclear etiology who was admitted for intractable nausea and confusion following an exploratory laparoscopy earlier this week at [facility]. Pathology with a low grade ovarian cancer. Discussed diagnosis and her symptoms of disease. Cancer not curable but goal of therapy is to improve QOL. There are multiple therapies that can be used. First line treatment is Carbo/Taxol. SE and risks discussed, hair loss , nausea, low blood counts and infection, neuropathy. 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 2. Serous/clear cell cancer - Carbo AUC 6 and Taxol 175 mg/m2 stating today. 3. Nausea. - Aloxi and Dex with chemotherapy - Zofran not working - Try Reglan prn 4. Diarrhea. - Mandoley second to her cancer, PPI may be contributing - Follow for now, change protonix to 40 mg po daily 5. Anemia - stool guiac pending and follow. 6. Disp possible d/c after chemotherapy. - change to po prn pain medication, Dilaudid.
[2019-06-23] MEDS ORDERED: Metoclopramide TAB* 10 MG PO PRN (09:31)
[2019-06-23] MEDS ORDERED: Aspirin 81 mg CHEW TAB* 81 MG TAB.CHEW ONE (09:43)
[2019-06-23] MEDS: Propranolol TAB* 10 MG PO SCH ×2 (09:46→19:37)
[2019-06-23] MEDS: Famotidine IV* 10 MG/ML 2 ML (20 mg) IV SLOW PU SCH ×3 (09:47→19:37)
[2019-06-23] MEDS: HYDROmorphone TAB* 4 MG PO PRN (09:48)
[2019-06-23] MEDS: Aspirin 81 mg CHEW TAB* 81 MG TAB.CHEW PO ONE ×2 (10:56→14:20)
[2019-06-23] MEDS: PROCHLORPERAZINE INJ 5 MG/ML 2 ML VIAL IV PRN ×2 (11:22→19:37)
[2019-06-23] MEDS ORDERED: Famotidine IV * 20 MG in PREMIX* 0 ML IVPB ONE (11:30)
[2019-06-23] MEDS ORDERED: diPHENhydraMINE IV* 50 MG in PREMIX* 0 ML IVPB ONE (11:30)
[2019-06-23] MEDS ORDERED: Palonosetron* 0.25 MG in PREMIX* 0 ML IVPB ONE (11:30)
[2019-06-23] MEDS ORDERED: DEXAMETHASONE IVPB ONE (11:30)
[2019-06-23] MEDS ORDERED: APREPITANT IV* 130 MG in PREMIX* 0 ML IVPB ONE (11:30)
[2019-06-23] MEDS ORDERED: PACLITAXEL IVPB ONE (12:00)
[2019-06-23] MEDS ORDERED: NS 0.9% IVPB ONE ×2 (12:00→15:00)
[2019-06-23] MEDS: Pantoprazole IV* 40 MG IV SCH (13:56)
[2019-06-23] MEDS ORDERED: fentaNYL PATCH 12 MCG/HR ONE (14:16)
[2019-06-23] MEDS: Pantoprazole TAB * 40 MG TAB PO SCH (14:20)
[2019-06-23] MEDS: fentaNYL PATCH 12 MCG/HR TRANSDERM SCH (14:21)
[2019-06-23] MEDS ORDERED: CARBOPLATIN IVPB ONE (15:00)
--- NOTE | 2019-06-23 15:23 | ECHO ---
*[facility]* [place] [address] Fax #: [phone] Transthoracic Echocardiogram Patient: Anette Lockhart : 1950 Study Date: 06/23/2019 Age: 69 Gender: F HR: 64 bpm Height: 61 in /154.9 cm BSA: 1.57 m^2 Weight: 129.7 lb /59 kg BMI: 24.6 kg/m^2 *Folder Stitcher Operator: * Casie Baeza [facility] *Referring Physician: * Chato Cline *Reading Physician: * Ab Cabello MD Indications: CVA. History: The patient has a malignancy and is undergoingchemotherapy. Hiatal hernia. Risk factors: Current tobacco use. Conclusions Summary: - Left ventricle: The cavity size is normal. Wall thickness is normal. Systolic function is at the lower limits of normal. The estimated ejection fraction is 50-55%. - Left atrium: The atrium is moderately dilated. - Right atrium: The atrium is mildly dilated. - Mitral valve: There is mild to moderate regurgitation. - Tricuspid valve: There is mild regurgitation. - No previous echocardiogram available. Study data: Transthoracic echocardiogram. Procedure: Transthoracic echocardiography was performed. Image quality was fair. The study was technically limited due to poor acoustic window availability. Complete 2D, spectral Doppler, and color flow Doppler. Location: Bedside. Patient status: Inpatient. Patient room number: 416-1. Rhythm: Normal sinus rhythm. Findings Left ventricle: The cavity size is normal. Wall thickness is normal. Systolic function is at the lower limits of normal. The estimated ejection fraction is 50-55%. Wall motion is normal; there are no regional wall motion abnormalities. There is no consistent Doppler evidence of clinically significant diastolic dysfunction. Right ventricle: The cavity size is mildly dilated. Systolic function is normal. Systolic pressure is within the normal range. Left atrium: The atrium is moderately dilated. Right atrium: The atrium is mildly dilated. Mitral valve: The leaflets are mildly thickened. There is no evidence of stenosis. There is mild to moderate regurgitation. Aortic valve: The valve is trileaflet. The leaflets are mildly thickened. There is no evidence of stenosis. There is trace regurgitation. Tricuspid valve: The leaflets are normal thickness. There is no evidence of stenosis. There is mild regurgitation. Pulmonic valve: The leaflets are normal thickness. There is no evidence of stenosis. There is trace regurgitation. Aorta: Ascending aorta: The ascending aorta is appears normal. The aortic root appears normal. The aortic arch appears normal. Pericardium: There is no significant pericardial effusion. Pulmonary arteries: The main pulmonary artery is normal-sized. Systolic pressure is within the normal range. Systemic veins: Inferior vena cava: The vessel is normal in size. There is (>= 50%) respiratory change in the IVC dimension. Measurements Left ventricle Value Ref Aortic valve continued Value Ref TYLER, LAX 4.8 cm 3.8 - 5.2 VTI, S 31.9 cm ----- ESD, LAX 3.1 cm 2.2 - 3.5 Mean grad, S 5.0 mm Hg ----- FS, LAX 35 % 27 - 45 Peak grad, S 10.0 mm Hg ----- PW, ED, LAX 0.8 cm 0.6 - 0.9 LVOT/AV, VTI ratio 0.72 ----- FS 35 % 27 - 45 PW, ED 0.8 cm 0.6 - 0.9 Mitral valve Value Ref E', lat mynor, TDI 10.8 cm/sec >=10.0 Peak E 0.77 m/sec - ---- E/e', lat mynor, 7 Peak A 0.89 m/sec ---- - TDI Decel time 257 ms ----- E', med mynor, TDI 7.5 cm/sec >=7.0 Peak grad, D 2.4 mm Hg - ---- E/e', med mynor, 10 Peak E/A ratio 0.9 ---- - TDI MR alias velocity 0.46 m/sec ----- E', avg, TDI 9.2 cm/sec MR PISA radius 0.4 cm ---- - E/e', avg, TDI 8 <=14 Max MR v 5.31 m/sec - ---- Regurg VTI 205.0 cm ----- LVOT Value Ref ERO, PISA 0.09 cm^2 ----- Peak roldan, S 1.13 m/sec MR vol, PISA 17 ml ----- VTI, S 23.0 cm Peak grad, S 5 mm Hg Pulmonic valve Value Ref Mean grad, S 2 mm Hg Peak v, S 0.77 m/sec ----- Peak grad, S 2.0 mm Hg ----- Ventricular septum Value Ref IVS, ED 0.8 cm 0.6 - 0.9 Tricuspid valve Value Ref TR peak v 2.6 m/sec <=2.8 Right ventricle Value Ref Peak RV-RA grad, S 27 mm Hg ----- TYLER, LAX 1.8 cm TYLER minor ax, A4C (H) 4.5 cm 1.9 - 3.5 Aortic root Value Ref mid Root diam 2.6 cm <3.8 Pressure, S 30 mm Hg Ascending aorta Value Ref Left atrium Value Ref AAo AP diam, S 2.7 cm ----- AP dim, ES 3.20 cm 2.70 - 3.80 Aortic arch Value Ref ML dim, A4C 4.1 cm Arch diam 2.7 cm ----- SI dim, A4C 6.0 cm Vol/bsa, ES, 1-p 37 ml/m^2 11 - 40 Decending aorta Value Ref A4C Viktor peak roldan 0.69 m/sec ----- Vol/bsa, ES, A/L (H) 43 ml/m^2 16 - 34 Pulmonary artery Value Ref Right atrium Value Ref Pressure, S 28.0 mm Hg ----- SI dim, ES 4.9 cm 3.4 - 5.3 ML dim, ES, A4C (H) 4.6 cm 2.6 - 4.4 Inferior vena cava Value Ref SI dim, ES, A4C 4.9 cm 3.4 - 5.3 Diam 1.5 cm ----- Estimated RAP 3 mm Hg Aortic valve Value Ref Mynor diam, ED 1.7 cm Peak v, S 1.59 m/sec Legend: (L) and (H) parris values outside specified reference range. Prepared and electronically signed by Ab Cabello MD 06/23/2019 15:23
[2019-06-23] MEDS: LORazepam INJ* 2 MG/ML 1 ML VIAL IV PUSH PRN (17:03)
[2019-06-23] MEDS ORDERED: Haloperidol INJ IV/IM* 5 MG/ML AMP IV SLOW PU ONE ×2 (18:40→19:02)
[2019-06-23] MEDS ORDERED: Haloperidol INJ IV/IM* 5 MG/ML AMP ONE (18:47)
[2019-06-24] MEDS ORDERED: Haloperidol INJ IV/IM* 5 MG/ML AMP IV SLOW PU ONE (00:10)
[2019-06-24] MEDS: LORazepam INJ* 2 MG/ML 1 ML VIAL IV PUSH PRN ×4 (00:30→21:45)
--- NOTE | 2019-06-24 01:19 | PROCNOTE ---
- Assessment for Patient Restraint Evaluation of the Patient's Immediate Situation: Pt is in 4 point restraints, lying in bed, appears comfortable. 1:[address] Patient's Reaction to Intervention: see above Evaluate Need for Continued Restraint: Continue
[2019-06-24] MEDS: HYDROmorphone TAB* 4 MG PO PRN ×3 (05:40→12:56)
[2019-06-24 06:53] LABS: Albumin 2.4 g/dL (3.2-5.2); CO2 Carbon Dioxide 17 mmol/L (22-32); Calcium 8.6 mg/dL (8.6-10.3); Chloride 102 mmol/L (101-111); Sodium 130 mmol/L (135-145)
[2019-06-24 06:58] LABS: BUN/Creatinine Ratio 14.3 (8-20); Blood Urea Nitrogen 8 mg/dL (6-24); EGFR African American 129.5 (>60); Glucose 137 mg/dL (70-100)
--- NOTE | 2019-06-24 07:14 | PN ---
Progress Note - Progress Note Date of Service: 06/24/19 SOAP: Subjective: very rough 24 hours requiring both chemical and physical restraints to safely keep patient in hospital this am very calm but clearly confused. does not know what building she is in. can give some details on why, but vague. cooperative this am. reports abdominal discomfort. wants to try to eat today. in further questioning, admits a long standing history of bipolar disorder that she sees Dr. Ashanti Ellis for. She reports they have tried mood stabilizers in the past but she has not "tolerated" them. In speaking with nursing, her boyfriend "Adrian" and friend yesterday reported that she has been "crazy" for a long time. when called about her agitation last night they even recommended "just sedating her". Objective: Vital Signs Temp Pulse Resp BP Pulse Ox 97.3 F 78 18 157/86 100 06/24/19 03:15 06/24/19 03:15 06/24/19 05:40 06/24/19 03:15 06/24/19 03:15 sitting up, clearly confused but calm perr eomi op moist cta s1 s2 nl relatively soft and nontender, well healing port site no le edema alert, oriented to "portable building with wood gao", grossly nonfunctional Laboratory Results - last 24 hr 06/24/19 06:09 Sodium 130 L Chloride 102 Carbon Dioxide 17 L BUN 8 Creatinine 0.56 Est GFR ( Amer) 129.5 Est GFR (Non-Af Amer) 107.0 BUN/Creatinine Ratio 14.3 Glucose 137 H Calcium 8.6 Total Bilirubin 0.40 Albumin 2.4 L Famotidine (Pepcid Iv*) 20 mg IV SLOW PU BID [facility] Last Admin: 06/23/19 19:37 Dose: 20 mg Fentanyl (Duragesic Patch 12 Mcg/Hr *) 12 mcg TRANSDERM Q72H [facility] Last Admin: 06/23/19 14:21 Dose: 12 mcg Hydromorphone HCl (Dilaudid Tab*) 4 mg PO Q4H PRN PRN Reason: PAIN - SEVERE Last Admin: 06/24/19 05:40 Dose: 4 mg Potassium Chloride/Sodium Chloride (Ns 0.9% W/ 40 Meq Kcl 1000 Ml*) 1,000 mls @ 60 mls/hr IV PER RATE [facility] Last Admin: 06/22/19 16:16 Dose: 60 mls/hr Lorazepam (Ativan Inj*) 0.5 mg IV PUSH Q4H PRN PRN Reason: Anxiety/uncontrolled nausea Last Admin: 06/24/19 00:30 Dose: 0.5 mg Metoclopramide HCl (Reglan Tab*) 10 mg PO Q6H PRN PRN Reason: NAUSEA Last Admin: 06/23/19 11:23 Dose: 10 mg Miscellaneous (Ativan Pyxis Kennedy) 1 ea N/A .ATIVAN IV KENNEDY PRN PRN Reason: PYXIS KENNEDY Ondansetron HCl (Zofran Odt Tab*) 4 mg SL Q6H PRN PRN Reason: NAUSEA/VOMITING Last Admin: 06/23/19 09:46 Dose: 4 mg Pantoprazole Sodium (Protonix Tab*) 40 mg PO DAILY [facility] Last Admin: 06/23/19 14:20 Dose: 40 mg Pharmacy Profile Note (Fentanyl Patch Check Q Shift) 1 note FOLLOW UP 0700, 1900 [facility] Last Admin: 06/23/19 19:46 Dose: 1 note Prochlorperazine Edisylate (Compazine Inj*) 5 mg IV Q6H PRN PRN Reason: NAUSEA/VOMITING Last Admin: 06/23/19 19:37 Dose: 5 mg Propranolol HCl (Inderal Tab*) 10 mg PO BID [facility] Last Admin: 06/23/19 19:37 Dose: 10 mg Assessment: 69 yo F w newly diagnosed advanced ovarian cancer, admitted with intractable abdominal pain, nausea and inability to tolerate PO. Hospital course complicated by "waxing and waning" mental status, now better defined as confusion and periods of nichole agitation (rather than fluctuating levels of consciousness). She clearly cannot make appropriate medical decisions this am ( she cannot even tell me where she is). I suspect there is a level of underlying psychiatric illness exacerbated by toxic metabolic encephalopathy. At this time she is calm enough to be removed from physical restraints. She will clearly need a psych consult and better medication management. Plan: Ovarian Cancer: had cycle 1 of carbo/taxol yesterday. If she can tolerate POs reliably (which she has not) and pain is controlled (which it is), she could probably be discharged home tomorrow from a medical perspective diarrhea: likely functional from cancer anemia: she was guaiac positive, though has had stable Hb. will d/w Dr. Cline on Wednesday if he wants to pursue GI evaluation. At this point with stable Hb I do not want to expose her to anesthesia with her confusion cont PPI AMS: as per above 1:1 for safety does not have consent to leave hospital urgent psych consult full code no DVt prophylaxis given guaiac positive stools
[2019-06-24] MEDS: fentaNYL Patch Check Q Shift 1 NOTE FOLLOW UP SCH ×2 (07:30→18:50)
[2019-06-24 08:06] LABS: Hematocrit 38 % (35-47); Hemoglobin 12.9 g/dL (12.0-16.0); Mean Corpuscular HGB Conc 34 g/dL (31-36); Mean Corpuscular Hemoglobin 29 pg (27-31); Mean Corpuscular Volume 86 fL (80-97); Red Blood Count 4.45 10^6 /uL (3.70-4.87); Red Cell Distribution Width 14 % (10-15); White Blood Count 10.8 10^3/uL (3.5-10.8)
[2019-06-24 08:08] LABS: Anion Gap 11 mmol/L (2-11)
[2019-06-24 08:16] LABS: ABS Lymphocytes 0.9 10^3/ul (1.0-4.8); ABS Monocytes 0.3 10^3/ul (0-0.8); ABS Neutrophils 9.5 10^3/ul (1.5-7.7); Eosinophil % 0.1 %; Lymphocyte % 8.7 %
[2019-06-24] MEDS: Propranolol TAB* 10 MG PO SCH ×2 (08:17→21:42)
[2019-06-24] MEDS: Pantoprazole TAB * 40 MG TAB PO SCH (08:17)
[2019-06-24] MEDS: Ondansetron ODT TAB* 4 MG SL PRN (08:17)
[2019-06-24] MEDS: Famotidine IV* 10 MG/ML 2 ML (20 mg) IV SLOW PU SCH ×2 (08:19→21:45)
[2019-06-24 08:38] LABS: Albumin 3.1 g/dL (3.2-5.2); Calcium 9.6 mg/dL (8.6-10.3); Potassium 4.4 mmol/L (3.5-5.0); Total Bilirubin 0.5 mg/dL (0.2-1.0)
[2019-06-24 08:44] LABS: Albumin/Globulin Ratio 1.1 (1-3); BUN/Creatinine Ratio 14.8 (8-20); EGFR African American 117.3 (>60); Globulin 2.9 g/dL (2-4)
[2019-06-24] MEDS: fentaNYL PATCH 12 MCG/HR TRANSDERM SCH (10:34)
[2019-06-24] MEDS: Haloperidol INJ IV/IM* 5 MG/ML AMP IV SLOW PU PRN (16:03)
[2019-06-25 06:52] LABS: ABS Lymphocytes 1.4 10^3/ul (1.0-4.8); ABS Monocytes 0.3 10^3/ul (0-0.8); ABS Neutrophils 10.2 10^3/ul (1.5-7.7); Eosinophil % 0.1 %; Hematocrit 31 % (35-47); Hemoglobin 10.2 g/dL (12.0-16.0); Mean Corpuscular HGB Conc 33 g/dL (31-36); Mean Corpuscular Hemoglobin 29 pg (27-31); Mean Corpuscular Volume 86 fL (80-97); Mean Platelet Volume 10.5 fL (7.4-10.4); Platelet Count 278 10^3/uL (150-450); Red Blood Count 3.55 10^6 /uL (3.70-4.87); Red Cell Distribution Width 14 % (10-15)
[2019-06-25 06:54] LABS: Albumin 2.3 g/dL (3.2-5.2); BUN/Creatinine Ratio 21.1 (8-20); Calcium 8.6 mg/dL (8.6-10.3); EGFR African American 126.9 (>60); EGFR Non-African American 104.9 (>60); Globulin 2.4 g/dL (2-4); Potassium 3.6 mmol/L (3.5-5.0); Total Bilirubin 0.4 mg/dL (0.2-1.0); Total Protein 4.7 g/dL (6.4-8.9)
--- NOTE | 2019-06-25 07:25 | PN ---
Progress Note - Progress Note Date of Service: 06/25/19 SOAP: Subjective: continues to be very confused, but calmer yesterday than the day before and only needed one dose of haldol. mild abdominal pain. unfortunately never seen by psychiatry Objective: Vital Signs Temp Pulse Resp BP Pulse Ox 97.6 F 75 20 102/67 100 06/25/19 03:10 06/25/19 03:10 06/25/19 03:10 06/25/19 03:10 06/24/19 19:33 lying on side in nad perr eomi op moist cta bl s1 s2 nl soft, +port sites w scar tissue, min ttp, +bs no le edema oriented to "i am in a [employer]" b/c "i suppose we are trying to buy it". pleasant and cooperative Laboratory Results - last 24 hr 06/24/19 06/24/19 06/24/19 06:09 07:57 08:09 WBC 10.8 RBC 4.45 Hgb 12.9 Hct 38 MCV 86 MCH 29 MCHC 34 RDW 14 Plt Count MPV [employer] Neut % (Auto) 88.3 Lymph % (Auto) 8.7 [place] % (Auto) 2.5 Eos % (Auto) 0.1 Baso % (Auto) 0.4 Absolute Neuts (auto) 9.5 H Absolute Lymphs (auto) 0.9 L Absolute Monos (auto) 0.3 Absolute Eos (auto) 0.0 Absolute Basos (auto) 0.0 Absolute Nucleated RBC 0.0 Nucleated RBC % 0.0 Sodium 130 L 132 L Potassium TNP 4.4 Chloride 102 98 L Carbon Dioxide 17 L 26 Anion Gap 11 8 BUN 8 9 Creatinine 0.56 0.61 Est GFR ( Amer) 129.5 117.3 Est GFR (Non-Af Amer) 107.0 97.0 BUN/Creatinine Ratio 14.3 14.8 Glucose 137 H 160 H Calcium 8.6 9.6 Magnesium TNP 2.0 Total Bilirubin 0.40 0.50 AST TNP 20 ALT TNP 10 Alkaline Phosphatase TNP 97 Total Protein TNP 6.0 L Albumin 2.4 L 3.1 L Globulin TNP 2.9 Albumin/Globulin Ratio TNP 1.1 06/25/19 06/25/19 06:13 06:13 WBC 12.0 H RBC 3.55 L Hgb 10.2 L Hct 31 L MCV 86 MCH 29 MCHC 33 RDW 14 Plt Count 278 MPV 10.5 H Neut % (Auto) 85.1 Lymph % (Auto) 12.0 [place] % (Auto) 2.6 Eos % (Auto) 0.1 Baso % (Auto) 0.2 Absolute Neuts (auto) 10.2 H Absolute Lymphs (auto) 1.4 Absolute Monos (auto) 0.3 Absolute Eos (auto) 0.0 Absolute Basos (auto) 0.0 Absolute Nucleated RBC 0.0 Nucleated RBC % 0.0 Sodium 136 Potassium 3.6 Chloride 104 Carbon Dioxide 28 Anion Gap 4 BUN 12 Creatinine 0.57 Est GFR ( Amer) 126.9 Est GFR (Non-Af Amer) 104.9 BUN/Creatinine Ratio 21.1 H Glucose 90 Calcium 8.6 Magnesium 2.0 Total Bilirubin 0.40 AST 13 ALT 7 Alkaline Phosphatase 64 Total Protein 4.7 L Albumin 2.3 L Globulin 2.4 Albumin/Globulin Ratio 1.0 Famotidine (Pepcid Iv*) 20 mg IV SLOW PU BID [facility] Last Admin: 06/24/19 21:45 Dose: 20 mg Fentanyl (Duragesic Patch 12 Mcg/Hr *) 12 mcg TRANSDERM Q72H [facility] Last Admin: 06/24/19 10:34 Dose: Not Given Haloperidol Lactate (Haldol Inj Iv/Im*) 1 mg IV SLOW PU Q8H PRN PRN Reason: AGITATION Last Admin: 06/24/19 16:03 Dose: 1 mg Hydromorphone HCl (Dilaudid Tab*) 4 mg PO Q4H PRN PRN Reason: PAIN - SEVERE Last Admin: 06/24/19 12:56 Dose: 4 mg Lorazepam (Ativan Inj*) 0.5 mg IV PUSH Q4H PRN PRN Reason: Anxiety/uncontrolled nausea Last Admin: 06/24/19 21:45 Dose: 0.5 mg Metoclopramide HCl (Reglan Tab*) 10 mg PO Q6H PRN PRN Reason: NAUSEA Last Admin: 06/23/19 11:23 Dose: 10 mg Miscellaneous (Ativan Pyxis Kennedy) 1 ea N/A .ATIVAN IV KENNEDY PRN PRN Reason: PYXIS KENNEDY Ondansetron HCl (Zofran Odt Tab*) 4 mg SL Q6H PRN PRN Reason: NAUSEA/VOMITING Last Admin: 06/24/19 08:17 Dose: 4 mg Pantoprazole Sodium (Protonix Tab*) 40 mg PO DAILY [facility] Last Admin: 06/24/19 08:17 Dose: 40 mg Pharmacy Profile Note (Fentanyl Patch Check Q Shift) 1 note FOLLOW UP 0700, 1900 [facility] Last Admin: 06/24/19 18:50 Dose: 1 note Prochlorperazine Edisylate (Compazine Inj*) 5 mg IV Q6H PRN PRN Reason: NAUSEA/VOMITING Last Admin: 06/23/19 19:37 Dose: 5 mg Propranolol HCl (Inderal Tab*) 10 mg PO BID [facility] Last Admin: 06/24/19 21:42 Dose: 10 mg Assessment: 69 yo F w newly diagnosed advanced ovarian cancer, admitted with intractable abdominal pain, nausea and inability to tolerate PO. Hospital course complicated by "waxing and waning" mental status, now better defined as confusion and periods of nichole agitation (rather than fluctuating levels of consciousness). Unfortunately she has not been seen by psych as of yet. From a medical standpoint I do think she would be stable for discharge, but she has no capacity or clear ability to care for self. I have left messages for Dr. Waddell to see patient today for some guidance and medical medication management. Plan: Ovarian Cancer: C1D3 Carbo/Taxol diarrhea: likely functional from cancer anemia: she was guaiac positive, though has had stable Hb. will d/w Dr. Cline on Wednesday if he wants to pursue GI evaluation. At this point with stable Hb I do not want to expose her to anesthesia with her confusion cont PPI AMS, h/o bipolar disorder: as per above 1:1 for safety does not have consent to leave hospital urgent psych consult pending full code no DVt prophylaxis given guaiac positive stools
[2019-06-25] MEDS: fentaNYL Patch Check Q Shift 1 NOTE FOLLOW UP SCH ×2 (07:59→18:40)
[2019-06-25] MEDS: Famotidine IV* 10 MG/ML 2 ML (20 mg) IV SLOW PU SCH ×2 (11:09→22:10)
[2019-06-25] MEDS: Pantoprazole TAB * 40 MG TAB PO SCH (11:10)
[2019-06-25] MEDS: Propranolol TAB* 10 MG PO SCH ×2 (11:10→22:09)
[2019-06-25] MEDS: LORazepam INJ* 2 MG/ML 1 ML VIAL IV PUSH PRN (22:10)
[2019-06-26] MEDS: fentaNYL Patch Check Q Shift 1 NOTE FOLLOW UP SCH ×2 (07:27→19:14)
[2019-06-26] MEDS ORDERED: Acetaminophen TAB* 325 MG PO PRN (08:14)
--- NOTE | 2019-06-26 09:33 | PN ---
Progress Note - Progress Note Date of Service: 06/26/19 SOAP: Subjective: []Admitted 06/21 with confusion and abd. pain following Laparotomy @ [place]. On presentation complained of severe abd. pain which has been on-going for the last several weeks with work-up for advanced ovarian cancer (confirmed with path @ [facility]). On admission infection ruled out and no episode for SBO. On admission we added a low dose Fentanyl patch. An MRI of the head on 06/22 revealed no evidence for cancer, however question of emboli and echo 06/23 was essentially negative. On 06/23 she received C1D1 Carbo/Taxol and by that evening she developed significant agitation and confusion. Psych consult pending this AM. This AM she is still complaining of abd. discomfort, but denies nausea. Medications: Acetaminophen (Tylenol Tab*) 650 mg PO Q6H PRN PRN Reason: PAIN - MILD Famotidine (Pepcid Iv*) 20 mg IV SLOW PU BID [facility] Last Admin: 06/25/19 22:10 Dose: 20 mg Fentanyl (Duragesic Patch 12 Mcg/Hr *) 12 mcg TRANSDERM Q72H [facility] Last Admin: 06/24/19 10:34 Dose: Not Given Haloperidol Lactate (Haldol Inj Iv/Im*) 1 mg IV SLOW PU Q8H PRN PRN Reason: AGITATION Last Admin: 06/24/19 16:03 Dose: 1 mg Hydromorphone HCl (Dilaudid Tab*) 4 mg PO Q4H PRN PRN Reason: PAIN - SEVERE Last Admin: 06/24/19 12:56 Dose: 4 mg Lorazepam (Ativan Inj*) 0.5 mg IV PUSH Q4H PRN PRN Reason: Anxiety/uncontrolled nausea Last Admin: 06/25/19 22:10 Dose: 0.5 mg Metoclopramide HCl (Reglan Tab*) 10 mg PO Q6H PRN PRN Reason: NAUSEA Last Admin: 06/23/19 11:23 Dose: 10 mg Miscellaneous (Ativan Pyxis [place]on) 1 ea N/A .ATIVAN IV WESTON PRN PRN Reason: PYXIS WESTON Ondansetron HCl (Zofran Odt Tab*) 4 mg SL Q6H PRN PRN Reason: NAUSEA/VOMITING Last Admin: 06/24/19 08:17 Dose: 4 mg Pantoprazole Sodium (Protonix Tab*) 40 mg PO DAILY [facility] Last Admin: 06/25/19 11:10 Dose: 40 mg Pharmacy Profile Note (Fentanyl Patch Check Q Shift) 1 note FOLLOW UP 0700, 1900 [facility] Last Admin: 06/26/19 07:27 Dose: 1 note Prochlorperazine Edisylate (Compazine Inj*) 5 mg IV Q6H PRN PRN Reason: NAUSEA/VOMITING Last Admin: 06/23/19 19:37 Dose: 5 mg Propranolol HCl (Inderal Tab*) 10 mg PO BID [facility] Last Admin: 06/25/19 22:09 Dose: 10 mg Objective: [] Vital Signs Temp Pulse Resp BP Pulse Ox 98.1 F 73 16 120/81 98 06/26/19 07:31 06/26/19 07:31 06/26/19 07:31 06/26/19 07:31 06/26/19 07:31 Alert and oriented to self, location, and majority of situation. Had difficulty with time, but recalls president and re-orients easily. HRR, S1S2 LS clear, resp. even and non-labored +BS, soft with mild tenderness to RLQ, no diffuse tenderness or rebound tenderness Assessment: []69 yo female with newly diagnosed ovarian cancer now s/p C1 Carbo/Taxol (day 4 today) with course complicated by acute confusion with history of mood disorder and question of manic episode secondary to Benadryl and Dexamethasone and possibly exacerbated by Reglan given the same day. I do not feel her confusion and agitation was from the Fentanyl patch due to the sudden agitation with prior psychiatric history as well as the combination of steroid and anti- cholinergics. Plan: []- d/c Reglan (has not been receiving anyway) - PT/OT consults to assist with dispo planning - psych consult pending, appreciate input - repeat labs in AM Dispo: medically stable for d/c, however remains confused and I'm concerned about her mental state and ability to manage independently therefore we need to cont. to monitor as inpt.
[2019-06-26] MEDS: Pantoprazole TAB * 40 MG TAB PO SCH (10:20)
[2019-06-26] MEDS: Propranolol TAB* 10 MG PO SCH (10:20)
[2019-06-26] MEDS: Famotidine IV* 10 MG/ML 2 ML (20 mg) IV SLOW PU SCH (10:21)
[2019-06-26] MEDS: QUEtiapine TAB* 25 MG PO SCH (10:21)
[2019-06-26] MEDS: PROCHLORPERAZINE INJ 5 MG/ML 2 ML VIAL IV PRN (10:44)
--- NOTE | 2019-06-26 12:22 | CONS ---
PSYCHIATRIC CONSULTATION REPORT: DATE OF CONSULT: 06/26/19 ATTENDING PHYSICIAN: Dr. Lesa Ramirez. CONSULTING PHYSICIAN: Dr. Gage Pelaez. REASON FOR CONSULT: Agitated behavior and capacity to decline subacute rehab placement. 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 In addition to agitation, she also displays confusion and there are questions about her ability to take care of herself in the home setting. The primary team is wondering about perhaps pursuing placement temporarily in a subacute rehab setting. When I meet with the patient, she has no recollection of her agitative behaviors, which occurred late on the evening of 06/23/19 and early on the morning of 06/24/19. She was given several doses of Haldol as well as Ativan at that time and at one point required physical restraint to keep staff members safe. The patient appears embarrassed about these behaviors and I should say that throughout our visit she is calm and cooperative, although she makes vague unrelated statements when asked particular questions about her history. For example, when I ask her simply what her diagnosis is, she cannot identify ovarian cancer as her main pathology. Interestingly, although she is completely disoriented to time, stating that today is Wednesday, July 16 and year that she does not know, she is actually quite oriented to place, knowing the hospital, town, county, state and 4th floor that she is on. I called her current boyfriend, whose name is Adrian, who states that he has known her to be emotionally labile in the past and can be verbally aggressive towards others, but he never knew her to be physically assaultive or out of control with her behavior. He feels that she is going through a lot including hospitalization, not being able to take care of her horses and an ongoing cancer diagnosis. The patient has had chemotherapy, although her cancer appears to be spreading. There are now questions related to an MRI of her brain that perhaps she may have metastatic brain lesions, although these are poorly described. Apparently, Ms. Lockhart had revealed to the primary team that she has a diagnosis of bipolar and has tried medications such as lithium in the past, but tends not to take them because of troubling side effects. I did try to reach out to her psychiatric nurse practitioner, Ashanti Dacosta and I left several messages for this clinician. The patient denies suicidal or homicidal ideations. She mostly presents as fatigued and confused and I did not get the sense that she understood the necessity of subacute rehab placement given the fact that she could not identify her diagnosis, nor the treatment that she needs at this time, nor how she would take care of herself in an independent setting within her own home. PAST PSYCHIATRIC HISTORY: The patient states that she has received diagnoses of "mild" bipolar disorder as well as borderline personality disorder. She states that she has been on several medications, but when I asked her to identify any of these, she could not recall them. I asked about suicidal behavior in the past and she indicates that during her teens and early 20s there were several intentional overdoses that she states were mostly to gather attention. She denies ever being psychiatrically hospitalized in the past. Currently, she sees Ashanti Ellis and states that she has a followup appointment with this clinician next week, although I am unable to confirm that at this time. SUBSTANCE ABUSE HISTORY: Significant for remote abuse of alcohol which she stopped doing several decades ago. She also states that she has tried cannabis in the past, but does not tend to use this regularly. She quit cigarette smoking approximately 30 years ago. PAST MEDICAL HISTORY: Significant for chronic back pain, osteoarthritis, and peritoneal adenocarcinoma. HOME MEDICATIONS: Include: 1. Propranolol. 2. Protonix. 3. Oxycodone. 4. Klonopin. 5. Zofran. 6. Naprosyn. 7. Neurontin. ALLERGIES: She is allergic to MORPHINE. FAMILY HISTORY: She states that her mother was diagnosed with manic depressive disorder which was a precursor to the bipolar diagnosis. SOCIAL HISTORY: The patient was born and raised in [place], [place]. At a very young age, her mother left her father and wanted to someone else , so she sent the patient to live with her maternal grandmother. The patient moved with her grandmother to the [facility] at the age of 7. 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 She has been 3 times, twice, and she is currently from her current [place]. Simultaneously, she has been dating a man named Adrian for several years now. The patient has 1 son who is age 50 and has 2 grandchildren. She has no significant history of legal problems, was never in the , and identifies as spiritual but not rastafari. MENTAL STATUS EXAM: The patient is a fatigued-looking white female with long brown hair with graying streaks, who was dressed in a patient gown, lying down on her side. She was initially sleeping, but is fairly easy to arouse. She repositions herself in the bed several times to get comfortable. The patient is calm and cooperative throughout our conversation, although at times she makes odd statements, for example telling me at one time about a bizarre episode in which she was in [place] but did not realize where she was. Speech is slow and halting at times, but otherwise is fluent in [place]. Mood appears to be euthymic currently with a full affect. Thought process is organized, but nonlinear at times. Thought content is significant for her desire to see her boyfriend, Adrian. She is denying suicidal or homicidal ideations. She auditory or visual hallucinations. She does not appear to be overtly paranoid. Insight and judgement are limited given her difficulty acknowledging problems with activities of daily living where she to return to her home setting. Cognitively she is awake, but lethargic. She is completely disoriented to time , although fully oriented to place. She has deficits in attention and delayed recall as well as mild deficits in command following. DIAGNOSES: [place] I: Delirium secondary to metastatic cancer. Bipolar disorder by history. [place] II: Deferred. 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 Additional concerns are that she wants to go home, but there is limited support to help with ADLs in that setting and the primary team is feeling like subacute rehab will be helpful. I do not believe that the patient has capacity to refuse subacute rehab at this time given her lack of knowledge about her diagnosis and her inability to identify the risks associated with refusing [facility] placement. RECOMMENDATIONS: The patient appears better in terms of agitation and I do not believe that she requires one-to-one observations at this time. I do not think BSU hospitalization would be particularly helpful. Psychiatry does feel like low-dose Seroquel for her underlying mood disorder as well as for delirium would be helpful and we will start a trial of Seroquel 50 mg p.o. twice daily which the patient agreed to. I am still awaiting collateral information from outpatient provider, Ashanti Dacosta, to see if there are any other interventions that may be helpful. Psychiatry is recommending subacute rehab placement given the patient's demonstrated deficits in terms of self care and cognitive functioning. Psychiatry will continue to follow the patient with you. Thank you for the interesting consult. [id number]/[id number] #: [id number] LINDSAY
[2019-06-27] MEDS: Propranolol TAB* 10 MG PO SCH ×3 (00:07→22:52)
[2019-06-27] MEDS: QUEtiapine TAB* 25 MG PO SCH ×3 (00:08→22:53)
[2019-06-27] MEDS: PROCHLORPERAZINE INJ 5 MG/ML 2 ML VIAL IV PRN ×2 (00:09→15:30)
[2019-06-27] MEDS: Famotidine IV* 10 MG/ML 2 ML (20 mg) IV SLOW PU SCH ×3 (00:10→22:52)
[2019-06-27] MEDS: fentaNYL Patch Check Q Shift 1 NOTE FOLLOW UP SCH (07:07)
[2019-06-27 09:37] LABS: ABS Basophils 0.1 10^3/ul (0-0.2); ABS Eosinophils 0.3 10^3/ul (0-0.6); ABS Lymphocytes 1.2 10^3/ul (1.0-4.8); ABS Monocytes 0.1 10^3/ul (0-0.8); ABS Neutrophils 8.8 10^3/ul (1.5-7.7); Eosinophil % 2.8 %; Hematocrit 32 % (35-47); Hemoglobin 10.9 g/dL (12.0-16.0); Lymphocyte % 11.1 %; Mean Corpuscular HGB Conc 34 g/dL (31-36); Mean Corpuscular Hemoglobin 29 pg (27-31); Mean Corpuscular Volume 86 fL (80-97); Mean Platelet Volume 10.5 fL (7.4-10.4); Platelet Count 252 10^3/uL (150-450); Red Blood Count 3.79 10^6 /uL (3.70-4.87); Red Cell Distribution Width 14 % (10-15); White Blood Count 10.4 10^3/uL (3.5-10.8)
--- NOTE | 2019-06-27 09:51 | PN ---
Progress Note - Progress Note Date of Service: 06/27/19 SOAP: Subjective: []She is not agitated today. Has little memory of weekend, "only the most horrible things". Reports continued pain and pain medication is not working well at all. She is not hungry, trying to eat a little, did not want breakfast this am. Acetaminophen (Tylenol Tab*) 650 mg PO Q6H PRN PRN Reason: PAIN - MILD Last Admin: 06/26/19 10:20 Dose: 650 mg Famotidine (Pepcid Iv*) 20 mg IV SLOW PU BID [facility] Last Admin: 06/27/19 00:10 Dose: 20 mg Fentanyl (Duragesic Patch 12 Mcg/Hr *) 12 mcg TRANSDERM Q72H [facility] Last Admin: 06/24/19 10:34 Dose: Not Given Haloperidol Lactate (Haldol Inj Iv/Im*) 1 mg IV SLOW PU Q8H PRN PRN Reason: AGITATION Last Admin: 06/24/19 16:03 Dose: 1 mg Hydromorphone HCl (Dilaudid Tab*) 4 mg PO Q4H PRN PRN Reason: PAIN - SEVERE Last Admin: 06/24/19 12:56 Dose: 4 mg Ondansetron HCl (Zofran Odt Tab*) 4 mg SL Q6H PRN PRN Reason: NAUSEA/VOMITING Last Admin: 06/24/19 08:17 Dose: 4 mg Pantoprazole Sodium (Protonix Tab*) 40 mg PO DAILY [facility] Last Admin: 06/26/19 10:20 Dose: 40 mg Pharmacy Profile Note (Fentanyl Patch Check Q Shift) 1 note FOLLOW UP 0700, 1900 [facility] Last Admin: 06/27/19 07:07 Dose: 1 note Prochlorperazine Edisylate (Compazine Inj*) 5 mg IV Q6H PRN PRN Reason: NAUSEA/VOMITING Last Admin: 06/27/19 00:09 Dose: 5 mg Propranolol HCl (Inderal Tab*) 10 mg PO BID [facility] Last Admin: 06/27/19 00:07 Dose: 10 mg Quetiapine Fumarate (Seroquel Tab*) 50 mg PO BID [facility] Last Admin: 06/27/19 00:08 Dose: 50 mg Objective: [] Vital Signs Temp Pulse Resp BP Pulse Ox 98.0 F 72 16 102/66 94 06/27/19 03:32 06/27/19 03:32 06/27/19 03:32 06/27/19 03:32 06/27/19 03:[address], time or condition, can be oriented no hallucinations, delusions. HEENT : pale, OM dry, no lesions HRR, S1S2 LS clear, resp. even and non-labored ABD: +BS, soft with mild tenderness to RLQ, no diffuse tenderness or rebound tenderness Assessment: []69 yo female with newly diagnosed ovarian cancer now s/p C1 Carbo/Taxol (day 5 today) with course complicated by acute delirium, question of manic episode. Likely secondary to Benadryl and Dexamethasone as well as narcotic pain medication and Ativan. Today she is cooperative but not oriented. Plan: 1. Delirium/Pain control. Psychiatrist input appreciated. - Continue Seroquel. - Stop Ativan - Decrease Dilaudid to 2 mg prn - Use Haldol for agitation - Stop Fentanyl and try Oxycontin 10 mg po bid - Celebrex 100 mg po bid - Open window shades, orient frequently - Currently lacks capacity. 2. Ovarian Cancer - Follow after C1 chemotherapy - Check CA 125 3. Anemia. Check iron and B12 4. Disp. Current acute stay for uncontrolled pain and delirium. No candidate for NHP, plan for d/c home with [facility].
[2019-06-27 09:56] LABS: Albumin 2.5 g/dL (3.2-5.2); BUN/Creatinine Ratio 19.1 (8-20); Calcium 8.6 mg/dL (8.6-10.3); EGFR African American 158.5 (>60); Globulin 2.4 g/dL (2-4); Potassium 3.4 mmol/L (3.5-5.0); Total Bilirubin 0.6 mg/dL (0.2-1.0); Total Protein 4.9 g/dL (6.4-8.9)
[2019-06-27] MEDS: oxyCODONE SR TAB(*) 10 MG TAB.SR PO SCH ×2 (10:23→22:53)
[2019-06-27] MEDS: Pantoprazole TAB * 40 MG TAB PO SCH (10:23)
[2019-06-27] MEDS: celeCOXIB CAP* 100 MG PO SCH ×2 (10:24→22:52)
--- NOTE | 2019-06-27 11:35 | CONSULT ---
Identification - Patient Identification Reason for Psychiatric Consultation: Violent Behavior -: Patient is a 69 year old, F admitted on 06/22/19. - MHU Identification Employment Status: Employed Hx Psychiatric Hospitalization: No History - Objective HPI: Alexandra is seen with her current boyfriend, Adrian Francisco, and , [place], from whom she is legally . They mutually indicate that she is doing better today compared to yesterday and seems to be getting back to her baseline in terms of her thinking and behavior. She is still somewhat disoriented to time, believing the date to be August 27. 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 Adrian notes that she has many bottles of old medications at home that are disorganized and not current. He is advised to discard these in the hospital's medicine receptacle adjacent to the front entrance. This clinician did speak with outpatient psychiatric nurse practitioner Ashanti Dacosta, who reports that the patient's most recent psychotropics included low dose gabapentin, clonazepam and propranolol, all for anxiety. The patient can f/u with Ashanti after discharge. There have been no further episodes of agitation and she appears to be tolerating quetiapine well. Exam Appearance: Well Developed/Nourished Hygiene: Normal Grooming: Well Kept Psychomotor Activities: Normal Exhibits Abnormal Movement: No Attitude and Relatedness: Cooperative Eye Contact: Good - Speech Quality: Unpressured Latencies: Long Quantity: Terse Patient's Decription of Mood: "Okay" Observed Affect: Fair Affect Consistent with: Euthymia Patient's Thought Process: Coherent Thought Content: No Passive Wish, No Suicidal Planning, No Homicidal Ideation, No Paranoid Ideation Experiencing Hallucinations: No, Sensorium is Clear Type of Hallucinations: Visual: No, Auditory: No, Command: No Level of Consciousness: Lethargic Orientation: Yes Orientated to Place, Yes Orientated to Person, No Intact, No Orientated to Time Impulse Control: Tenuous Insight and Judgement: Fair Impression - Impression Clinical Impression: 69 y.o. , white female with a history of bipolar disorder and ovarian cancer admitted to the medical service for pelvic pain who developed delirium and agitation during hospitalization. Inpatient DSM-V Dx: F41.0 Merits Inpatient Hospitalization: No BSU: Problem List - Patient Problems (1) Delirium Current Visit: Yes Status: Acute Priority: Medium Code(s): R41.0 - DISORIENTATION, UNSPECIFIED SNOMED Code(s): 5199753 Plan - Treatment Plan Treatment Plan: We have started a trial of quetiapine 50mg PO BID for both mood stabilization and improvement of encephalopathy. Agree with d/c of benzodiazepines and corticosteroids. Her outpatient psychiatric f/u will be with [facility], Ashanti Dacosta. Psychiatry will continue to follow. Continued Medication Management: Different Medication Medications: Current Medications Acetaminophen (Tylenol Tab*) 650 mg PO Q6H PRN PRN Reason: PAIN - MILD Last Admin: 06/26/19 10:20 Dose: 650 mg Celecoxib (Celebrex Cap*) 100 mg PO BID [facility] Last Admin: 06/27/19 10:24 Dose: 100 mg Famotidine (Pepcid Iv*) 20 mg IV SLOW PU BID [facility] Last Admin: 06/27/19 10:24 Dose: 20 mg Haloperidol Lactate (Haldol Inj Iv/Im*) 1 mg IV SLOW PU Q8H PRN PRN Reason: AGITATION Last Admin: 06/24/19 16:03 Dose: 1 mg Hydromorphone HCl (Dilaudid Tab*) 2 mg PO Q4H PRN PRN Reason: PAIN - SEVERE Ondansetron HCl (Zofran Odt Tab*) 4 mg SL Q6H PRN PRN Reason: NAUSEA/VOMITING Last Admin: 06/24/19 08:17 Dose: 4 mg Oxycodone HCl (Oxycontin(*)) 10 mg PO BID [facility] Last Admin: 06/27/19 10:23 Dose: 10 mg Pantoprazole Sodium (Protonix Tab*) 40 mg PO DAILY [facility] Last Admin: 06/27/19 10:23 Dose: 40 mg Pharmacy Profile Note (Fentanyl Patch Check Q Shift) 1 note FOLLOW UP 0700, 1900 [facility] Last Admin: 06/27/19 07:07 Dose: 1 note Prochlorperazine Edisylate (Compazine Inj*) 5 mg IV Q6H PRN PRN Reason: NAUSEA/VOMITING Last Admin: 06/27/19 00:09 Dose: 5 mg Propranolol HCl (Inderal Tab*) 10 mg PO BID [facility] Last Admin: 06/27/19 10:24 Dose: 10 mg Quetiapine Fumarate (Seroquel Tab*) 50 mg PO BID [facility] Last Admin: 06/27/19 10:24 Dose: 50 mg - Discharge Plan Discharge Plan: Outpatient Follow Up Outpatient Program: Private Clinician(s)
[2019-06-27 12:21] LABS: % Iron Saturation 54 % (15-55); Iron 100 ug/dL (50-212); Total Iron Binding Capacity 186 mcg/dL (250-450); Transferrin 133 mg/dL (203-362)
[2019-06-27 12:42] LABS: Ferritin 530.5 ng/mL (11-307)
[2019-06-27] MEDS: HYDROmorphone TAB* 2 MG PO PRN (15:27)
[2019-06-27] MEDS: Haloperidol INJ IV/IM* 5 MG/ML AMP IV SLOW PU PRN (17:34)
[2019-06-27] MEDS ORDERED: Haloperidol INJ IV/IM* 5 MG/ML AMP ONE (18:43)
[2019-06-27] MEDS ORDERED: Haloperidol INJ IV/IM* 5 MG/ML AMP IV SLOW PU ONE (19:00)
[2019-06-28] MEDS: HYDROmorphone TAB* 2 MG PO PRN ×2 (04:00→14:30)
[2019-06-28] MEDS: PROCHLORPERAZINE INJ 5 MG/ML 2 ML VIAL IV PRN (04:02)
[2019-06-28 07:34] LABS: ABS Basophils 0.1 10^3/ul (0-0.2); ABS Eosinophils 0.2 10^3/ul (0-0.6); ABS Lymphocytes 0.9 10^3/ul (1.0-4.8); ABS Monocytes 0.2 10^3/ul (0-0.8); ABS Neutrophils 6.6 10^3/ul (1.5-7.7); Eosinophil % 2.8 %; Hematocrit 30 % (35-47); Hemoglobin 9.9 g/dL (12.0-16.0); Lymphocyte % 11.7 %; Mean Corpuscular HGB Conc 34 g/dL (31-36); Mean Corpuscular Hemoglobin 29 pg (27-31); Mean Corpuscular Volume 85 fL (80-97); Mean Platelet Volume 10.8 fL (7.4-10.4); Platelet Count 214 10^3/uL (150-450); Red Blood Count 3.47 10^6 /uL (3.70-4.87); Red Cell Distribution Width 14 % (10-15)
[2019-06-28 07:46] LABS: Albumin 2.5 g/dL (3.2-5.2); Albumin/Globulin Ratio 1.1 (1-3); BUN/Creatinine Ratio 23.3 (8-20); Calcium 8.6 mg/dL (8.6-10.3); EGFR African American 175.7 (>60); EGFR Non-African American 145.2 (>60); Globulin 2.2 g/dL (2-4); Potassium 3.5 mmol/L (3.5-5.0); Total Bilirubin 0.6 mg/dL (0.2-1.0); Total Protein 4.7 g/dL (6.4-8.9)
[2019-06-28] MEDS: Pantoprazole TAB * 40 MG TAB PO SCH (08:38)
[2019-06-28] MEDS: QUEtiapine TAB* 25 MG PO SCH ×2 (08:39→20:04)
[2019-06-28] MEDS: Famotidine IV* 10 MG/ML 2 ML (20 mg) IV SLOW PU SCH ×2 (08:39→20:06)
[2019-06-28] MEDS: oxyCODONE SR TAB(*) 10 MG TAB.SR PO SCH ×2 (08:39→20:04)
[2019-06-28] MEDS: Propranolol TAB* 10 MG PO SCH ×2 (08:39→20:04)
[2019-06-28] MEDS: celeCOXIB CAP* 100 MG PO SCH ×2 (09:18→20:05)
--- NOTE | 2019-06-28 11:20 | CONSULT ---
Identification - Patient Identification Reason for Psychiatric Consultation: Incapacitating Symptoms -: Patient is a 69 year old, F admitted on 06/22/19. - MHU Identification Employment Status: Employed Hx Psychiatric Hospitalization: No History - Objective HPI: Alexandra is seen for f/u on the 4th floor where she is ambulating along the hallway in the presence of an aide and trying to get her strength back. I read the nursing notes from last night which documented an episode of confusion and agitation last night when she attempted to enter a peer's room. She received prn haldol and was thereafter unarousable for HS meds. This morning she is polite and cooperative, not seeming to have any recollection of the prior evening's events. She also cannot recall seeing the Oncology attending, Akhil Tang, despite having just met with that clinician. She continues to demonstrate deficits in delayed recall and situational/temporal orientation. Exam Appearance: Well Developed/Nourished Hygiene: Normal Grooming: Well Kept Psychomotor Activities: Normal Exhibits Abnormal Movement: No Attitude and Relatedness: Cooperative Eye Contact: Good - Speech Quality: Unpressured Latencies: Long Quantity: Terse Patient's Decription of Mood: "Okay" Observed Affect: Fair Affect Consistent with: Euthymia Patient's Thought Process: Coherent Thought Content: No Passive Wish, No Suicidal Planning, No Homicidal Ideation, No Paranoid Ideation Experiencing Hallucinations: No, Sensorium is Clear Type of Hallucinations: Visual: No, Auditory: No, Command: No Level of Consciousness: Lethargic Orientation: Yes Orientated to Place, Yes Orientated to Person, No Intact, No Orientated to Time Impulse Control: Tenuous Insight and Judgement: Fair Impression - Impression Clinical Impression: 69 y.o. , white female with a history of bipolar disorder and ovarian cancer admitted to the medical service for pelvic pain who developed delirium and agitation during hospitalization. Inpatient DSM-V Dx: F41.0 Merits Inpatient Hospitalization: No BSU: Problem List - Patient Problems (1) Delirium Current Visit: Yes Status: Acute Priority: Medium Code(s): R41.0 - DISORIENTATION, UNSPECIFIED SNOMED Code(s): 5277161 Plan - Treatment Plan Treatment Plan: The patient remains encephalopathic, likely from some combination of stress, ovarian cancer leading to probable metastatic brain disease and receipt of anticholinergic and corticosteroid medications earlier in this hospitalization. We have started a trial of quetiapine 50mg PO BID for both mood stabilization and improvement of encephalopathy. We still await med-effect. Her outpatient psychiatric f/u will be with Ashanti CARVAJAL. Psychiatry will continue to follow. Continued Medication Management: Start Medication Medications: Current Medications Acetaminophen (Tylenol Tab*) 650 mg PO Q6H PRN PRN Reason: PAIN - MILD Last Admin: 06/26/19 10:20 Dose: 650 mg Celecoxib (Celebrex Cap*) 100 mg PO BID [facility] Last Admin: 06/28/19 09:18 Dose: 100 mg Famotidine (Pepcid Iv*) 20 mg IV SLOW PU BID [facility] Last Admin: 06/28/19 08:39 Dose: 20 mg Haloperidol Lactate (Haldol Inj Iv/Im*) 1 mg IV SLOW PU Q8H PRN PRN Reason: AGITATION Last Admin: 06/27/19 17:34 Dose: 1 mg Hydromorphone HCl (Dilaudid Tab*) 2 mg PO Q4H PRN PRN Reason: PAIN - SEVERE Last Admin: 06/28/19 04:00 Dose: 2 mg Ondansetron HCl (Zofran Odt Tab*) 4 mg SL Q6H PRN PRN Reason: NAUSEA/VOMITING Last Admin: 06/24/19 08:17 Dose: 4 mg Oxycodone HCl (Oxycontin(*)) 10 mg PO BID [facility] Last Admin: 06/28/19 08:39 Dose: 10 mg Pantoprazole Sodium (Protonix Tab*) 40 mg PO DAILY [facility] Last Admin: 06/28/19 08:38 Dose: 40 mg Prochlorperazine Edisylate (Compazine Inj*) 5 mg IV Q6H PRN PRN Reason: NAUSEA/VOMITING Last Admin: 06/28/19 04:02 Dose: 5 mg Propranolol HCl (Inderal Tab*) 10 mg PO BID [facility] Last Admin: 06/28/19 08:39 Dose: 10 mg Quetiapine Fumarate (Seroquel Tab*) 50 mg PO BID [facility] Last Admin: 06/28/19 08:39 Dose: 50 mg - Discharge Plan Discharge Plan: Outpatient Follow Up
--- NOTE | 2019-06-28 11:28 | PN ---
Progress Note - Progress Note Date of Service: 06/28/19 SOAP: Subjective: [Reports she is feeling well today. Pain is well controlled. Remains confused. Nursing notes from this overnight reports she was difficult to orient and wandering around the unit. No agitation.] Objective: [ Vital Signs: Temp Pulse Resp BP Pulse Ox 97 F 78 16 124/68 99 06/28/19 07:15 06/28/19 07:15 06/28/19 08:39 06/28/19 07:15 06/28/19 07:15 Acetaminophen (Tylenol Tab*) 650 mg PO Q6H PRN PRN Reason: PAIN - MILD Last Admin: 06/26/19 10:20 Dose: 650 mg Celecoxib (Celebrex Cap*) 100 mg PO BID [facility] Last Admin: 06/28/19 09:18 Dose: 100 mg Famotidine (Pepcid Iv*) 20 mg IV SLOW PU BID [facility] Last Admin: 06/28/19 08:39 Dose: 20 mg Haloperidol Lactate (Haldol Inj Iv/Im*) 1 mg IV SLOW PU Q8H PRN PRN Reason: AGITATION Last Admin: 06/27/19 17:34 Dose: 1 mg Hydromorphone HCl (Dilaudid Tab*) 2 mg PO Q4H PRN PRN Reason: PAIN - SEVERE Last Admin: 06/28/19 04:00 Dose: 2 mg Ondansetron HCl (Zofran Odt Tab*) 4 mg SL Q6H PRN PRN Reason: NAUSEA/VOMITING Last Admin: 06/24/19 08:17 Dose: 4 mg Oxycodone HCl (Oxycontin(*)) 10 mg PO BID [facility] Last Admin: 06/28/19 08:39 Dose: 10 mg Pantoprazole Sodium (Protonix Tab*) 40 mg PO DAILY [facility] Last Admin: 06/28/19 08:38 Dose: 40 mg Prochlorperazine Edisylate (Compazine Inj*) 5 mg IV Q6H PRN PRN Reason: NAUSEA/VOMITING Last Admin: 06/28/19 04:02 Dose: 5 mg Propranolol HCl (Inderal Tab*) 10 mg PO BID [facility] Last Admin: 06/28/19 08:39 Dose: 10 mg Quetiapine Fumarate (Seroquel Tab*) 50 mg PO BID [facility] Last Admin: 06/28/19 08:39 Dose: 50 mg Laboratory Results - last 24 hr 06/27/19 06/27/19 06/28/19 09:07 09:07 06:28 WBC 8.0 RBC 3.47 L Hgb 9.9 L Hct 30 L MCV 85 MCH 29 MCHC 34 RDW 14 Plt Count 214 MPV 10.8 H Neut % (Auto) 82.7 Lymph % (Auto) 11.7 [place] % (Auto) 2.1 Eos % (Auto) 2.8 Baso % (Auto) 0.7 Absolute Neuts (auto) 6.6 Absolute Lymphs (auto) 0.9 L Absolute Monos (auto) 0.2 Absolute Eos (auto) 0.2 Absolute Basos (auto) 0.1 Absolute Nucleated RBC 0.0 Nucleated RBC % 0.0 Sodium Potassium Chloride Carbon Dioxide Anion Gap BUN Creatinine Est GFR ( Amer) Est GFR (Non-Af Amer) BUN/Creatinine Ratio Glucose Calcium Iron 100 TIBC 186 L % Saturation 54 Unsat Iron Binding < 171 Transferrin 133 L Ferritin 530.5 H Total Bilirubin AST ALT Alkaline Phosphatase Total Protein Albumin Globulin Albumin/Globulin Ratio CA 125 Antigen 295 H Vitamin B12 325 06/28/19 06:28 WBC RBC Hgb Hct MCV MCH MCHC RDW Plt Count MPV Neut % (Auto) Lymph % (Auto) [place] % (Auto) Eos % (Auto) Baso % (Auto) Absolute Neuts (auto) Absolute Lymphs (auto) Absolute Monos (auto) Absolute Eos (auto) Absolute Basos (auto) Absolute Nucleated RBC Nucleated RBC % Sodium 134 L Potassium 3.5 Chloride 102 Carbon Dioxide 28 Anion Gap 4 BUN 10 Creatinine 0.43 L Est GFR ( Amer) 175.7 Est GFR (Non-Af Amer) 145.2 BUN/Creatinine Ratio 23.3 H Glucose 100 Calcium 8.6 Iron TIBC % Saturation Unsat Iron Binding Transferrin Ferritin Total Bilirubin 0.60 AST 20 ALT 11 Alkaline Phosphatase 68 Total Protein 4.7 L Albumin 2.5 L Globulin 2.2 Albumin/Globulin Ratio 1.1 CA 125 Antigen Vitamin B12 Exam: Gen: appears well, working with PT to go for a walk - she needs constant re- direction to participate in putting on her socks, shoes and exit the room HEENT : pale, OM dry, no lesions HRR, S1S2 LS clear, resp. even and non-labored ABD: +BS, soft with mild tenderness to RLQ, no diffuse tenderness or rebound tenderness Assessment: []69 yo female with newly diagnosed ovarian cancer now s/p C1 Carbo/Taxol (day 6 today) with course complicated by acute delirium, question of manic episode. Likely secondary to Benadryl and Dexamethasone as well as narcotic pain medication and Ativan. Today she is much more cooperative, but is not oriented and frequently distracted. Plan: 1. Delirium - Psychiatrist input appreciated. - Continue Seroquel. - benzos discontinued - Decreased Dilaudid to 2 mg prn - cont Haldol prn for acute agitation - cont Oxycontin 10 mg po bid for pain control - Celebrex 100 mg po bid - Open window shades, orient frequently - Currently lacks capacity. 2. Ovarian Cancer - C1D1 carbo/taxol 06/23 3. Anemia. - adequate iron and B12 Dispo: Cont inpatient stay, anticipate dc home in the near future
[2019-06-28] MEDS: Haloperidol INJ IV/IM* 5 MG/ML AMP IV SLOW PU PRN (14:30)
[2019-06-28] MEDS ORDERED: LORazepam INJ* 2 MG/ML 1 ML VIAL IV PUSH ONE ×2 (16:30→17:05)
[2019-06-28] MEDS ORDERED: Haloperidol INJ IV/IM* 5 MG/ML AMP IV SLOW PU ONE ×2 (16:30→17:05)
[2019-06-28] MEDS ORDERED: Lorazepam PYXIS KEY PRN (17:03)
[2019-06-28] MEDS ORDERED: diPHENhydraMINE IV* 50 MG/ML 1 ml VIAL (BENADRYL) IV ONE (17:05)
[2019-06-29] MEDS: oxyCODONE SR TAB(*) 10 MG TAB.SR PO SCH ×2 (09:40→22:32)
[2019-06-29] MEDS: Pantoprazole TAB * 40 MG TAB PO SCH (09:41)
[2019-06-29] MEDS: Famotidine IV* 10 MG/ML 2 ML (20 mg) IV SLOW PU SCH ×2 (09:41→22:32)
[2019-06-29] MEDS: celeCOXIB CAP* 100 MG PO SCH ×2 (09:41→22:36)
[2019-06-29] MEDS: QUEtiapine TAB* 25 MG PO SCH ×2 (09:41→22:31)
[2019-06-29] MEDS: Propranolol TAB* 10 MG PO SCH ×2 (09:41→22:31)
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
[2019-06-29] MEDS ORDERED: Haloperidol INJ IV/IM* 5 MG/ML AMP IV SLOW PU PRN (10:36)
[2019-06-29 12:22] LABS: Activated Partial Thrombo Time 25.9 seconds (26.0-38.0); INR 0.94 (0.82-1.09)
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
[2019-06-29] MEDS ORDERED: Midazolam* 1 MG/ML 5 ML VIAL (5 MG) ONE (12:53)
[2019-06-29 14:46] LABS: Body Fluid Source Cerebral Spinal
[2019-06-29 16:23] LABS: TSH (Thyroid Stimulating Horm) 4.57 mcIU/mL (0.34-5.60)
--- NOTE | 2019-06-29 17:29 | CONS ---
NEUROLOGY CONSULTATION NOTE: DATE OF CONSULT: 06/29/19 CONSULTING PROVIDER: Cecelia Ansari NP REASON FOR CONSULT: Confusion and abnormal MRI. CHIEF COMPLAINT: "I've had memory problems." HISTORY OF PRESENT ILLNESS: Ms. Anette Lockhart is a 69-year-old right-handed female who has had multiple ER visits and hospitalizations over the period of 6 weeks. The patient presented initially to the ED on 05/04/19 with abdominal pain and vomiting. She presented again on 05/12/19 with the same complaint. 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 She presented multiple times again on 06/03/19 and eventually she was hospitalized on 06/21/19 with abdominal pain, nausea, vomiting, and confusion. Dr. Zuleta evaluated the patient in the ED and described the patient to be confused and having memory problems. Dr. Pelaez was consulted and he evaluated the patient on 06/26/19 for episodes of delirium. Antipsychotic therapy with Seroquel and intermittently with Haldol has been initiated. Today, the patient is awake and alert. She is very pleasant. She knows that she is in [facility], today is , and the month is June. She did confuse the year and said it was 191, but then quickly corrected herself and said 2019. She recognized that she was extremely agitated over the last few days. She underwent a lumbar puncture to check for any [employer] infection, leptomeningeal disease, or paraneoplastic and autoimmune disorders. The patient does not have any complaints currently. 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 She is and has had a boyfriend for 4 years. She has noticed trouble with her memory and word- finding over the last few weeks. She does not have any abdominal pain or nausea , vomiting lately. 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 The patient had an MRI completed on 06/22/19 that showed scattered punctate foci of restricted diffusion within the cerebral hemisphere bilaterally, malignant disease in the differential, but this is most likely related to acute to subacute embolic strokes. There is a 0.8 cm enhancing lesion in the left falx consistent with a meningioma. There are multifocal elevated T2/FLAIR signal within the periventricular and subcortical white matter. PAST MEDICAL HISTORY: Chronic back pain, osteoarthritis, peritoneal adenocarcinoma. HOME MEDICATIONS: 1. Clonazepam 0.5 mg p.o. b.i.d. 2. Oxycodone 5 mg p.o. q.4 hours as needed. 3. Pantoprazole 40 mg p.o. q.a.m. 4. Gabapentin 100 mg p.o. t.i.d. 5. Naproxen 220 mg p.o. daily. 6. Ondansetron 4 mg p.o. every 4 hours. 7. Propranolol 10 mg p.o. b.i.d. ALLERGIES: MORPHINE. FAMILY HISTORY: No family history of stroke or seizures. Mother was diagnosed with manic depressive disorder. SOCIAL HISTORY: The patient is and she currently stays with her boyfriend. She denied tobacco use. She drinks 2 glasses of wine or vodka every other day. REVIEW OF SYSTEMS: A 14-point review of systems was obtained and otherwise negative except for what was mentioned in the HPI. PHYSICAL EXAM: Temperature of 98.9, heart rate of 78, respiratory rate of 20, oxygen saturation of 99%, blood pressure of 128/77. General: Well-nourished, well- developed, frail female who has mild psychomotor slowing, but no agitation. Head: Atraumatic, normocephalic without any obvious abnormality. Neck is supple and symmetrical without any carotid bruits. Eyes: Conjunctivae/ corneas are clear. Cardiovascular: Regular rate and rhythm with normal S1, S2. Respiratory: Clear to auscultation bilaterally with no wheezing or rhonchi. Extremities: Normal range of motion with no cyanosis or edema. The patient does have deformed hands. Skin: No skin lesions or lacerations. Psych: Flat affect and slightly depressed mood. She denied any suicidal or homicidal ideation. Neurological Examination: Mental Status: Awake, alert, and oriented to person, place, time, and general circumstances. The patient has mild aphasia with word-finding difficulty and mild psychomotor slowing. Cranial Nerves: Pupils are equal, round, and reactive to light. Extraocular muscles are intact. There is no facial asymmetry. Tongue is symmetrical and midline with no atrophy or fasciculation. Normal sensation in the face bilaterally. Motor Examination: 5/5 strength in the upper and lower extremities bilaterally. Reflexes 2+ in the upper extremities, 1+ in the lower extremities , 0 at the ankles bilaterally. Downgoing plantar responses. Sensation intact to light touch throughout. Coordination: Normal [id number] and heel-to- batista testing. Gait: Slightly unsteady, but wide based, required 1 person assist. No ataxia. No falls. LABORATORY DATA: WBC of 8.0, hemoglobin of 9, hematocrit of 30. INR is 0.94. Sodium of 134, chloride of 102, carbon dioxide of 28, BUN of 10, creatinine 0.43 , glucose of 100, magnesium of 2. Vitamin B12 of 325. Cerebrospinal fluid is pending, but the fluid WBC is 1 with clear appearing fluid. ASSESSMENT AND RECOMMENDATIONS: Ms. Anette Lockhart is a 69-year-old female with a history of intraperitoneal malignancy, suspected ovarian cancer, status post carbo and Taxol day 7 treatment, who has had increased episodes of agitation and delirium. 1. Acute encephalopathy manifesting as cognitive impairment and hyperactive delirium - she is slowly responding to antipsychotic therapy. I was amazed on the differences between the described behavior in the progress notes compared to the patient's interview. It was a significant difference. I suspect the delirium is multifactorial and can be related to paradoxical effect of medications that she has received during this hospitalization, hospital-related delirium, stroke, as well as an underlying paraneoplastic disorder. The latter is less likely since she seems to be hopefully improving without any steroid therapy. She does not have any ophthalmoplegia to suspect thiamine deficiency. Continue recommendations per Psychiatry. 2. Diffuse acute and chronic embolic strokes seen on MRI- ESUS (embolic stroke of undetermined significance). Patients with malignancy can have a hypercoagulable state of malignancy, but usually their strokes are much larger and involve the supra and infratentorium. She does have a moderately dilated left atrium; therefore, cardioembolic source of emboli is a consideration. However, I would be reluctant and less inclined to start her on anticoagulation therapy at this time. I would recommend starting her on aspirin 81 mg therapy. I have ordered a lipid panel. I would hold off on any aggressive statin therapy given her fragile state, ongoing intraperitoneal malignancy, and the concern that there could be some interaction with statin therapy. Plus, there are reports that statin therapy can induce and worsen delirium in a small group of hospitalized patients. I would recommend repeating a TTE to obtain a bubble study (did not see a bubble study done). This would be important to rule out any potential paradoxical emboli for the strokes. Ultimately, a transesophageal echo would be a better study to look at the left atrium. I would hold off on any further aggressive testing at this time though given her overall morbidity. Other differential diagnosis include vasculitis, but she does not have any headaches.. I do not think these are malignant metastases since they do not enhance on MRI and there is no evidence of vasogenic edema. I will continue to follow. Continue PT/OT to evaluate and treat. Please perform a bedside dysphagia screen. Stroke education completed with the patient at bedside. 3. Intraperitoneal malignancy - the patient is at risk of paraneoplastic autoimmune NMDA receptor encephalitis. However, these patients typically manifest with seizures, and therefore, it is less likely the cause of the patient's confusion. Leptomeningeal carcinomatosis usually manifests with isolated cranial neuropathies, headaches, and will not improve with antipsychotic therapy. However, pending further LP evaluation which is the appropriate step to do to further evaluate the patient's encephalopathy. I have ordered serum paraneoplastic as well as CSF paraneoplastic workup. I also ordered a TSH, MIGUEL, and ESR to further evaluate for any reversible causes of encephalopathy. I have ordered an EEG to be done tomorrow to evaluate the degree of the encephalopathy. Continue neuro checks every 4 hours. If she continues to improve cognitively, then most likely her symptoms are either related again to delirium related to the hospitalization, medication reaction, and in addition to the small embolic strokes. Neurology will continue to follow. [id number]/[facility] #: [id number] LINDSAY
[2019-06-29 19:06] LABS: HDL Cholesterol 52.7 mg/dL
[2019-06-30 01:16] LABS: CSF Glucose 63 mg/dL (40-70)
[2019-06-30 07:43] VITALS: BP 97/70
[2019-06-30] MEDS: oxyCODONE SR TAB(*) 10 MG TAB.SR PO SCH (09:12)
[2019-06-30] MEDS: Pantoprazole TAB * 40 MG TAB PO SCH (09:13)
[2019-06-30] MEDS: Propranolol TAB* 10 MG PO SCH (09:13)
[2019-06-30] MEDS: QUEtiapine TAB* 25 MG PO SCH (09:13)
[2019-06-30] MEDS: Famotidine IV* 10 MG/ML 2 ML (20 mg) IV SLOW PU SCH (09:13)
[2019-06-30] MEDS: celeCOXIB CAP* 100 MG PO SCH (09:27)
--- NOTE | 2019-06-30 10:33 | PN ---
Subjective Date of Service: 06/30/19 Length of Stay: 9 Days Neurology is following for confusion and stroke. Interval History: She feels well today. She remembered from yesterday. She feels slightly unsteady and requires minimal assistance. She looks forward to going home to ride her horses. She denied any headaches, visual disturbance, focal weakness or paresthesia. CSF analysis: glucose: 63 Protein: 44 WBC: 1 Pending paraneoplastic panel LDL: 71 Review of Systems: Denied CP, SOB, or palpitations. Objective Active Medications: Acetaminophen (Tylenol Tab*) 650 mg PO Q6H PRN PRN Reason: PAIN - MILD Last Admin: 06/26/19 10:20 Dose: 650 mg Celecoxib (Celebrex Cap*) 100 mg PO BID [facility] Last Admin: 06/30/19 09:27 Dose: Not Given Famotidine (Pepcid Iv*) 20 mg IV SLOW PU BID [facility] Last Admin: 06/30/19 09:13 Dose: 20 mg Haloperidol Lactate (Haldol Inj Iv/Im*) 3 mg IV SLOW PU Q8H PRN PRN Reason: AGITATION Hydromorphone HCl (Dilaudid Tab*) 2 mg PO Q4H PRN PRN Reason: PAIN - SEVERE Last Admin: 06/28/19 14:30 Dose: 2 mg Miscellaneous (Ativan Pyxis Weston) 1 ea N/A .ATIVAN IV WESTON PRN PRN Reason: PYXIS WESTON Ondansetron HCl (Zofran Odt Tab*) 4 mg SL Q6H PRN PRN Reason: NAUSEA/VOMITING Last Admin: 06/24/19 08:17 Dose: 4 mg Oxycodone HCl (Oxycontin(*)) 10 mg PO BID [facility] Last Admin: 06/30/19 09:12 Dose: 10 mg Pantoprazole Sodium (Protonix Tab*) 40 mg PO DAILY [facility] Last Admin: 06/30/19 09:13 Dose: 40 mg Prochlorperazine Edisylate (Compazine Inj*) 5 mg IV Q6H PRN PRN Reason: NAUSEA/VOMITING Last Admin: 06/28/19 04:02 Dose: 5 mg Propranolol HCl (Inderal Tab*) 10 mg PO BID [facility] Last Admin: 06/30/19 09:13 Dose: 10 mg Quetiapine Fumarate (Seroquel Tab*) 100 mg PO BID [facility] Last Admin: 06/30/19 09:13 Dose: 100 mg Vital Signs 06/30/19 06/30/19 06/30/19 07:15 08:00 09:12 Temperature 97.8 F Pulse Rate 74 Respiratory 20 16 16 Rate Blood Pressure 97/70 (mmHg) O2 Sat by Pulse 100 Oximetry Intake and Output Last 24 Hours 06/28/19 06/29/19 06/30/19 07/01/19 06:59 06:59 06:59 06:59 Intake Total 120 400 120 120 Balance 120 400 120 120 Intake: Oral 120 400 120 120 Other: Estimated Void Large Large Large Date of Last Bowel [id number] Movement # Bowel Movements 1 0 Estimated Stool Amount Medium # Voids 2 2 0 Oxygen Devices in Use Now: None Neurology Exam: General: Frail chronically ill appearing female in no distress. HEENT: Normocephelic/atraumatic, sclera anicteric, mucous membranes moist Neck: Supple Chest: Clear to auscultation bilaterally Cardiovascular: Regular rate and rhythm without murmurs, rubs, gallops Extremities: No clubbing, cyanosis, or edema Neurological Findings: Awake, alert, and oriented to person, place, and time. Speech: fluent without dysarthria, repetition intact Cranial Nerve: PERRL, EOM intact, VFF, no nystagmus, face symmetric bilaterally , facial sensation intact, hearing intact to finger rub bilaterally, palate elevates symmetrically, tongue midline, SCM and Trapezius s/s. Motor: s/s throughout, proximal and distal extremities x4 tone/bulk normal Sensation: intact to LT/PP bilaterally upper and lower extremities Deep Tendon Reflex: 2+ symmetric in the upper/lower extremities, Babinski - down going Finger to nose, rapid alternating movements intact without tremor, no dysdiadochokinesia Gait: required minimal assist with a walker. No ataxia. Result Diagrams: 06/28/19 06:28 06/28/19 06:28 Microbiology and Other Data: Microbiology 06/29/19 13:37 CSF Gram Stain (Tube 3) - Final Cerebral Spinal Fluid 06/21/19 13:00 Aerobic Blood Culture - Final Blood Venous No Growth Day 5 Anaerobic Blood Culture - Final No Growth Day 5 06/21/19 12:55 Aerobic Blood Culture - Final Blood Venous Staphylococcus Epidermidis Anaerobic Blood Culture - Final No Growth Day 5 Blood MRSA/MSSA (PCR) - Final Mrsa Negative S.aureus Negative 06/22/19 09:42 Stool Culture - Final Stool Stool Gross Appearance - Final Shiga Toxin I & II - Final Stool Occult Blood (JOIE) - Final Assessment/Plan Mrs. Anette Lockhart is a 69-year-old female with a history of intrapereitoneal malignancy, suspected ovarian cancer, s/p carbo and taxol theray, who has had increased episodes of agitation and delirium. She had received steroids and Benadryl on admission which may have exacerbated her confusion. MRI brain showed diffuse acute and chronic embolic strokes of undetermined etiology. 1. Acute encephalopathy- resolved. Etiology: multifactorial and related to medication effect, undiagnosed psychiatric condition, hospital related delirium , and stroke. Given the normal CSF analysis and clinical improvement, I don't suspect a paraneoplastic syndrome or leptomeningeal disease. Continue recommendation per psychiatry. 2. Acute and chronic embolic strokes of undetermined significance: she needs a TTE w bubble to rule out PFO. Since she will be discharged today, this can be done as an outpatient. If it is positive for PFO, then please obtain a lower extremity venous duplex to check for DVTs. If positive, she will need anticoagulation therapy. Clinically, she does not have any calf tenderness. For now, the patient is on aspirin 81 mg daily (started during this hospitalization). She declined statin therapy once she heard of the potential side effects. I do recommend a follow-up with neurology. We will arrange an appointment. Stroke education was completed. We did not investigate for an LVO since her strokes appear embolic in nature. I encouraged her to come back to the ED immediately if she has any new signs of stroke which include: slurred speech, facial or limb weakness, headaches, visual disturbance, or paresthesias. 3. Intraperitoneal malignancy- please follow-up with CSF cytology and the serum /CSF paraneoplastic panel. I will sign off. Please contact me for any questions or concerns.
--- NOTE | 2019-06-30 12:35 | DS ---
CC: Dr. Ocasio; Ashanti Dacosta; Dr. Martinez * DISCHARGE SUMMARY: DATE OF ADMISSION: 06/21/19 DATE OF DISCHARGE: 06/30/19 PRIMARY CARE PROVIDER: Dr. Ocasio. PRIMARY ONCOLOGIST AND ATTENDING PHYSICIAN: Dr. Chato Cline.* (DICTATED BY RL PHELPS) CONSULTING PSYCHIATRIST: Dr. Pelaez. PRIMARY PSYCHIATRIC PROVIDER: Ashanti Dacosta. CONSULTING NEUROLOGIST: Dr. Martinez. DISCHARGING PROVIDER: RL Phelps PRIMARY DISCHARGE DIAGNOSES: 1. Acute encephalopathy with agitated delirium. 2. Ovarian cancer, status post cycle 1 carboplatin and Taxol, day 1, 06/23/19. 3. Anemia with adequate iron and B12 source. 4. 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 DISCHARGE MEDICATIONS: 1. Zofran 4 mg p.o. q.4 hours as needed for nausea and vomiting. 2. Oxycodone 5 mg p.o. q.4 hours as needed for pain. 3. Protonix 40 mg p.o. daily. 4. Propranolol 10 mg p.o. twice daily. 5. Aspirin 81 mg p.o. daily. 6. OxyContin 10 mg p.o. twice daily. 7. Seroquel 100 mg p.o. twice daily. HOSPITAL IMAGIN. Chest x-ray 06/21/19 shows no acute process. 2. Abdominal x-ray shows a nonobstructive bowel gas pattern and a large amount of stool throughout the colon. 3. MRI brain shows scattered punctate foci of restricted diffusion within the cerebral hemispheres bilaterally. Differential includes subacute nonhemorrhagic embolic infarct, although metastatic is within the differential thought to be less likely was an 8 mm enhancing lesion of the left anterior falx , most likely representing a small meningioma and multifocal elevated T2 signal within the periventricular and subcortical white matter without associated abnormal enhancement indicative of chronic small vessel ischemia. 4. Transthoracic echocardiogram shows a normal left ventricular ejection fraction and no valvular disease noted. HOSPITAL COURSE: This is a 69-year-old female who now has a new diagnosis of ovarian cancer but has been under the care of Dr. Cline with complaints of abdominal pain and bloating associated with ascites and adenocarcinoma seen on cytology of peritoneal fluid. The patient had no primary tumor on CT scan and was referred to [place], eventually receiving exploratory laparoscopy on . There was relatively large burden of disease appreciated on surgical exam and biopsy was successfully performed, which confirms diagnosis of ovarian cancer. The patient subsequently presented to the emergency department with increased confusion and abdominal pain. The patient had been having increased episodes of confusion over the preceding couple of weeks leading up to this hospitalization, but symptoms got to the point that she was unable to be managed at home. In addition to this, she had frequent episodes of nausea and vomiting. Initial labs were remarkable really only for mild anemia and hypokalemia. Initial chest x-ray and abdominal x-ray showed nonspecific findings and the patient received appropriate supportive measures, which did seem to improve at least her pain, nausea, and vomiting, although she did remain confused. Decision was made to initiate chemotherapy as an inpatient once her pathology from recent laparoscopy from [place] was confirmed and she received carboplatin and Taxol on 06/23/19. Over the subsequent couple of days, the patient developed agitated delirium and was quite combative with hospital staff and required chemical restraint. The patient was evaluated by psychiatry and underwent an MRI of the brain. She reportedly had a history of bipolar disorder , which was being managed by psychiatric nurse practitioner and she was receiving gabapentin and propranolol as well as p.r.n. benzodiazepines as an outpatient. The patient was subsequently started on Seroquel under the direction of Psychiatry. MRI of her brain demonstrated what appeared to be a small meningioma and a pattern of what was likely thought to be a small burden of multifocal infarct likely representing a subacute embolic CVA. She was seen by Neurology, who recommended starting an aspirin. She had a transthoracic echocardiogram, which was within normal limits but no bubble study done. Bubble study is recommended as an outpatient. Benzodiazepines use were limited as well as other medications that may contribute to encephalopathy, but patient continued to be quite agitated intermittently. She underwent lumbar puncture with concern regarding the possibility of leptomeningeal carcinomatosis contributing to her acute neurologic symptoms. Cell counts, protein, and glucose were all unremarkable. Cytology and perineoplastic panel are pending at the time of discharge. DISPOSITION AND FOLLOWUP PLAN: The patient is being discharged to home in stable condition. Her delirium appears to have improved in significant way and appears to be appropriate for outpatient management. We plan to continue Seroquel as listed above. She will follow up with her psychiatric nurse practitioner for additional psychiatric care. Aspirin has been started per the recommendation of Neurology with concern of subacute embolic CVA. Recommendation for bubble study, echocardiogram with bubble study and if PFO is found, then lower extremity Doppler to evaluate for DVT. If DVT is found, then certainly the patient's aspirin will be converted to anticoagulation but otherwise we will plan to continue aspirin indefinitely. Statin therapy was not recommended at this time as it can contribute to confusion. The patient will follow up with oncologist Dr. Cline on 07/03/19. We will plan to continue treatment for her newly diagnosed ovarian cancer with cycle 2 scheduled to start 07/14/19. She appears to have tolerated her first cycle with carboplatin and Taxol with few side effects apart from the delirium, which may or may not have been related as listed above. RL PHELPS [id number]/[facility] #: [id number] LINDSAY
--- NOTE | 2019-06-30 13:00 | CONSULT ---
Identification - Patient Identification Reason for Psychiatric Consultation: Incapacitating Symptoms -: Patient is a 69 year old, F admitted on 06/22/19. - MHU Identification Employment Status: Employed Hx Psychiatric Hospitalization: No History - Objective HPI: Anette is seen for follow up on the 4th floor where she presents as dramatically better oriented and less confused. She is able to state the date and location, as well as her diagnosis and recent treatment plan. Her boyfriend, Adrian, is present and feels like this is her baseline cognitively. I reviewed the notes from 4th floor staff for over the past 24-hour period and they reflect no episodes of agitation or confusion. I spoke with Oncology attending Akhil Tang, who feels the patient is medically ready for discharge and family is supportive of this. Anette agrees to f/u with outpatient psychiatric nurse practitioner Ashanti Dacosta within two weeks of discharge. Exam Appearance: Well Developed/Nourished Hygiene: Normal Grooming: Well Kept Psychomotor Activities: Normal Exhibits Abnormal Movement: No Attitude and Relatedness: Cooperative Eye Contact: Good - Speech Quality: Unpressured Latencies: Normal Quantity: Appropriate Patient's Decription of Mood: "Okay" Observed Affect: Fair Affect Consistent with: Euthymia Patient's Thought Process: Coherent Thought Content: No Passive Wish, No Suicidal Planning, No Homicidal Ideation, No Paranoid Ideation Experiencing Hallucinations: No, Sensorium is Clear Type of Hallucinations: Visual: No, Auditory: No, Command: No Level of Consciousness: Alert Orientation: Yes Intact, Yes Orientated to Time, Yes Orientated to Place, Yes Orientated to Person Impulse Control: Intact Insight and Judgement: Good Impression - Impression Clinical Impression: 69 y.o. , white female with a history of bipolar disorder and ovarian cancer admitted to the medical service for pelvic pain who developed delirium and agitation during hospitalization. Inpatient DSM-V Dx: F41.0 Merits Inpatient Hospitalization: No BSU: Problem List - Patient Problems (1) Delirium Status: Acute Priority: Medium Code(s): R41.0 - DISORIENTATION, UNSPECIFIED SNOMED Code(s): 7063133 Plan - Treatment Plan Treatment Plan: The patient's delirium has improved on 100mg PO BID and this will work as a mood stabilizer for her existing bipolar condition as well. Her outpatient psychiatric f/u will be with NPP, Ashanti Dacosta. Psychiatry is signing off. Thank you for allowing us to help you care for this patient. Continued Medication Management: Different Medication - Discharge Plan Discharge Plan: Outpatient Follow Up
[2019-06-30 15:17] LABS: Fluid Type, Glucose CSF
[2019-07-01 15:12] LABS: HSV 1 PCR, CSF Negative (Negative); HSV 2 PCR, CSF Negative (Negative)
[2019-07-03 16:27] LABS: CSF VDRL Negative (Negative)
[2019-07-10 11:56] LABS: Anti-Glial/Neuronal Nuc Ab-1 A Negative titer (<1:240); Anti-Neuronal Nuclear Ab Type1 Negative titer (<1:240); Anti-Neuronal Nuclear Ab Type2 Negative titer (<1:240); Anti-Neuronal Nuclear Ab Type3 Negative titer (<1:240); Anti-Striated Muscle Antibody Negative titer (<1:120); CRMP-5 IgG Antibody Negative titer (<1:240); Purkinje Cell Cytoplasm Typ Tr Negative titer (<1:240); Purkinje Cell Cytoplasm Type 1 Negative titer (<1:240); Purkinje Cell Cytoplasm Type 2 Negative titer (<1:240)
== END 2019-06-30 11:45 | disposition home health service (06) | DRG 70 ==
LOC: ED 08:35 → MED 13:36 → OBSVTOIN 06-22 10:36 → MED 06-27 17:55
PROVIDERS: ADMIT Internal Medicine Hematology & Oncology; ATTEND Internal Medicine Hematology & Oncology
PROC: 3E03305 Introduction of Other Antineoplastic into Peripheral Vein, Percutaneous Approach (ICD-10-PCS; 2019-06-23)
PROC: 009U3ZX Drainage of Spinal Canal, Percutaneous Approach, Diagnostic (ICD-10-PCS; principal; 2019-06-29 13:40)
DX: G93.40 Encephalopathy, unspecified (principal); I63.9 Cerebral infarction, unspecified; C78.6 Secondary malignant neoplasm of retroperitoneum and peritoneum; R18.0 Malignant ascites; C56.9 Malignant neoplasm of unspecified ovary; K21.9 Gastro-esophageal reflux disease without esophagitis; K44.9 Diaphragmatic hernia without obstruction or gangrene; M19.90 Unspecified osteoarthritis, unspecified site; M81.0 Age-related osteoporosis without current pathological fracture; F31.9 Bipolar disorder, unspecified; F41.0 Panic disorder [episodic paroxysmal anxiety]; H26.9 Unspecified cataract; M54.9 Dorsalgia, unspecified; E87.6 Hypokalemia; Z96.651 Presence of right artificial knee joint; D64.9 Anemia, unspecified; R19.7 Diarrhea, unspecified; G89.29 Other chronic pain; Z85.43 Personal history of malignant neoplasm of ovary; Z88.5 Allergy status to narcotic agent; Z72.89 Other problems related to lifestyle; Z87.891 Personal history of nicotine dependence; Z90.721 Acquired absence of ovaries, unilateral; Z78.1 Physical restraint status; Z79.82 Long term (current) use of aspirin
CPT/HCPCS: 36415; 62270; 70553; 71045; 74019; 80053; 80061; 81003; 82150; 82272; 82607; 82728; 82945; 83519; 83520; 83540; 83550; 83605; 83690; 83735; 84157; 84443; 84484; 85025; 85027; 85060; 85610; 85730; 86038; 86140; 86255; 86256; 86304; 86592; 87040; 87045; 87046; 87070; 87077; 87150; 87205; 87529; 87899; 89051; 93005; 93306; 96374; 96375; 99219; 99232; 99233; 99239; 99284; 99406; A9270-GY; A9579; G8978-GP-CJ; G8979-GP-CI; G8987-GO-CI; G8988-GO-CI; G8989-GO-CI; J0185; J0780; J1100; J1200; J1630; J2060; J2250; J2270; J2405; J2469; J2543; J2765; J3010; J3475; J3480; J9045; J9267

== ENCOUNTER 2019-07-19 09:11 | Inpatient (IN) | payer MEDICARE ==
--- NOTE | 2019-07-19 09:47 | ED ---
Complex/Multi-Sys Presentation - HPI Summary HPI Summary: 69 year old F brought in by EMS to [facility] complains of worsening abdominal pain, and nausea/vomiting for "a couple days." Pt is actively receiving chemotherapy for peritoneal cancer - increased confusion, level 5 caveat. Per nurse, patient is vomiting coffee-colored emesis. Pt reports constipation. States that last normal bowel movement was "a long time ago." Denies diarrhea. Nurse reports decreased appetite per EMS. States she hasn't taken any medications for the pain. Denies any other pain. Reports shortness of breath for "long enough." EMS reports increased confusion in the last several days. The patient rates the pain 10/10 in severity per nurse triage note. Symptoms aggravated by nothing. Symptoms alleviated by nothing. Recently diagnosed with cancer on 05/15/19. Patients medication reviewed this visit. - History Of Current Complaint Time Seen by Provider: 07/19/19 09:15 Hx Obtained From: Patient, EMS, Medical Records, Other: - nurse Onset/Duration: Lasting Days, Still Present Timing: Constant Severity Currently: Severe - 10/10 per nurse triage note Aggravating Factor(s): Nothing Alleviating Factor(s): Nothing Associated Signs And Symptoms: Positive: Other - coffee-colored emesis, constipation, decreased appetite shortness of breath, increased confusion; NEG: diarrhea - Allergies/Home Medications Allergies/Adverse Reactions: Allergies Allergy/AdvReac Type Severity Reaction Status Date / Time morphine AdvReac Severe Nausea Verified 06/03/19 07:34 Home Medications: Home Medications Quetiapine Fumarate [Seroquel 50 mg tab] 100 mg PO BEDTIME 07/19/19 [History Confirmed 07/19/19] Tapentadol(NF) [Nucynta(NF)] 50 mg PO BID 07/19/19 [History Confirmed 07/19/19] PMH/Surg Hx/FS Hx/Imm Hx Previously Healthy: No Endocrine/Hematology History: Denies: Hx Diabetes, Hx Thyroid Disease Cardiovascular History: Denies: Hx Hypertension, Hx Pacemaker/ICD Respiratory History: Denies: Hx Asthma, Hx Chronic Obstructive Pulmonary Disease (COPD) GI History: Reports: Hx Gastroesophageal Reflux Disease, Hx Hiatal Hernia, Other GI Disorders - CONSTIPATION- MIRALAX NEEDED Denies: Hx Ulcer History: Denies: Hx Renal Disease Musculoskeletal History: Reports: Hx Arthritis, Hx Back Problems, Hx Osteoporosis Sensory History: Reports: Hx Cataracts - BILATERAL, Hx Contacts or Glasses Denies: Hx Hearing Aid Opthamlomology History: Reports: Hx Cataracts - BILATERAL, Hx Contacts or Glasses Neurological History: Reports: Other Neuro Impairments/Disorders - PAIN CLINIC PATIENT Psychiatric History: Reports: Hx 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 1984- BROKEN ARM. 1985- RECONSTRUCTION SURG FOR LUMBAR W/ RIB BONE. 2008-Rt KNEE ARTHROSCOPIC. right knee replacement. bilateral laminectomy Hx Anesthesia Reactions: Yes - VOMITING Infectious Disease History: No Infectious Disease History: Denies: Hx Clostridium Difficile, Hx Hepatitis, Hx Human Immunodeficiency Virus (HIV), Hx of Known/Suspected MRSA, Hx Shingles, Hx Tuberculosis, Hx Known/ Suspected VRE, Hx Known/Suspected VRSA, History Other Infectious Disease, Traveled Outside the [place] in Last 30 Days - Family History Known Family History: Negative: Hypertension - Social History Alcohol Use: Occasionally Alcohol Amount: 5 glasses of wine a week Hx Substance Use: Yes Substance Use Type: Reports: Marijuana Substance Use Comment - Amount & Last Used: oxycodone Hx Tobacco Use: Yes Smoking Status (MU): Former Smoker Type: Cigarettes Amount Used/How Often: OFF AND ON - 1/2 PPD X 15 YEARS Have You Smoked in the Last Year: No Review of Systems - ROS Summary Review of Systems Summary: level V caveat - confusion Positive: Other - increased confusion Positive: Shortness Of Breath Positive: Abdominal Pain, Vomiting, Nausea, Other - coffee-colored emesis, constipation, decreased appetite. Negative: Diarrhea All Other Systems Reviewed And Are Negative: Yes Physical Exam - Summary Physical Exam Summary: Vital Signs Reviewed: Yes Alert to name and place - not president, no date, tired appearing, discomfort Eyes: Conjunctiva Clear, FELISA. EOM intact and full ENT: Hearing grossly normal , mmpasty, uvula midline, no exudate, no erythema Neck: Positive: Supple Respiratory: Positive: No respiratory distress, No accessory muscle use + CTA throughout no w/r Cardiovascular: RRR nl s1, s2 no m/r CBT <2 sec abd soft + diffusely distended and reports discomfort, decreased BS, TTP lower quad R>L, no guarding Musculoskeletal Exam: DERAS x 4 without difficulty Strength Intact, ROM Intact Neurological: Positive: Alert, no oriented, responds to voice Psychological: Positive: responds, to voice, not oriented - confusion Skin: Positive: no rash, no ecchymosis Triage Information Reviewed: Yes Vital Signs On Initial Exam: Initial Vitals Temp Pulse Resp BP Pulse Ox 98.4 F 82 25 147/91 100 07/19/19 09:25 07/19/19 09:25 07/19/19 09:25 07/19/19 09:25 07/19/19 09:25 Vital Signs Reviewed: Yes Procedures - Sedation Patient Received Moderate/Deep Sedation with Procedure: No Diagnostics - Vital Signs Vital Signs Temp Pulse Resp BP Pulse Ox 07/19/19 09:25 98.4 F 82 25 147/91 100 - Laboratory Result Diagrams: 07/21/19 06:23 07/21/19 06:23 Lab Statement: Any lab studies that have been ordered have been reviewed, and results considered in the medical decision making process. - Radiology CXR Radiology Interpretation Completed By: Radiologist Summary of Radiographic Findings: NO ACTIVE CARDIOPULMONARY DISEASE. ED physician has reviewed this report. - CT Abdomen/Pelvis CT Interpretation Completed By: Radiologist Summary of CT Findings: 1. LARGE AMOUNT OF ASCITES WITH OMENTAL NODULARITY CONSISTENT WITH PERITONEAL IMPLANTATION GIVEN THE HISTORY OF MALIGNANCY. 2. THERE IS A CALCIFIED MASS ADJACENT TO THE CECUM MEASURING UP TO 3 CM IN SIZE. RECOMMEND COMPARISON TO PREVIOUS IMAGING. 3. HIATAL HERNIA. ED physician has reviewed this report. Brain CT Interpretation Completed By: Radiologist Summary of CT Findings: NO ACUTE INTRACRANIAL PATHOLOGY. ED physician has reviewed this report. - EKG 0933 Cardiac Rate: NL - 79 BPM EKG Rhythm: Sinus Rhythm Summary of EKG Findings: no STEMI compared to 06/21/19 Re-Evaluation - Re-Evaluation First Eval Re-Evaluation Time: 11:20 Change: Unchanged Comment: patient vomited again. spoke to radiology. will do IV contrast when her labwork returns, no oral. pt's ex and friend present- reviewed plan. anticipate pt will be admitted today Second Eval Re-Evaluation Time: 11:29 Change: Unchanged Comment: labwork shows potassium and magnesium are low. will order potassium and magnesium replenishment. also ordered non contrast head CT for confusion for confusion. review of previous hospitalizations - pt has had episodes of confusion past admission Third Eval Re-Evaluation Time: 11:52 Change: Unchanged Comment: was asked by nurse to re-assess patient - concern for increased confusion. upon re-exam, patient has good strength, good ROM, limited ability to name objects, answer questions - not concern for significant change from other interactions today - head CT pending. finger stick BG 107. family members at bedside with patient. they were updated on plan of care. they state patient sees Dr. Cline. no hx ulcers. states patient has been getting fluid drained from abdomen. Bill states confusion started after her first round of chemotherapy. states patient was confused before dx cancer. Fourth Eval Re-Evaluation Time: 12:51 Change: Unchanged Comment: patient got out of bed and urinated in commode with assistance. patient had more coffee-colored emesis - awaiting gastrocult. await CT result Complex Multi-Symp Course/Dx Course Of Treatment: Pt presents to ED with reported increased abdominal pain, distension, confusion x 2-3 days per EMS / . Pt actively receiving chemotherapy for peritoneal cancer - last treatment approx 2 weeks ago, no fever. + emesis. On exam pt tired appearing with confusion. VSS - afebrile. Pt with abd distension with discomfort lower quad R>L. Pt with emesis - appears coffeeground. will check labs, gastrocult, abd imaging. antiemetic, analgesia. anticipate will need admission. not currently at bedside - Diagnoses Provider Diagnoses: Confusion, Weakness, Vomiting, Hypomagnesemia, Hypokalemia - Physician Notifications Discussed Care Of Patient With: Lesa Ramirez Time Discussed With Above Provider: 13:07 Instructed by Provider To: Other - Dr. Ramirez, oncology, recommends admission - Critical Care Time Critical Care Time: 30-74 min - 30 Discharge ED - Sign-Out/Discharge Documenting (check all that apply): Patient Departure - Admit - Discharge Plan Condition: Stable Disposition: ADMITTED TO [facility] - Billing Disposition and Condition Condition: STABLE Disposition: Admitted to [facility] - Attestation Statements Document Initiated by Scribe: Yes Documenting Scribe: Albertina Rendon Provider For Whom Scribe is Documenting (Include Credential): Ronda Nguyen MD Scribe Attestation: I, Albertina Rendon, scribed for Ronda Nguyen MD on 07/23/19 at 1621. Scribe Documentation Reviewed: Yes Provider Attestation: The documentation as recorded by the scribe, Albertina Rendon accurately reflects the service I personally performed and the decisions made by me, Ronda Nguyen MD Status of Scribe Document: Viewed
[2019-07-19] MEDS ORDERED: NS 0.9% 1000 ML** 1,000 ML IV ONE (10:13)
[2019-07-19] MEDS ORDERED: Ondansetron INJ* 2 MG/ML VIAL IV ONE (10:18)
[2019-07-19] MEDS ORDERED: Iohexol 300* (CONTRAST) 10 ML SDV IV ONE (10:29)
[2019-07-19 10:58] LABS: ABS Lymphocytes 0.6 10^3/ul (1.0-4.8); ABS Neutrophils 2.2 10^3/ul (1.5-7.7); Eosinophil % 0.2 %; Hematocrit 30 % (35-47); Hemoglobin 9.9 g/dL (12.0-16.0); Lymphocyte % 19.6 %; Mean Corpuscular HGB Conc 34 g/dL (31-36); Mean Corpuscular Hemoglobin 29 pg (27-31); Mean Corpuscular Volume 85 fL (80-97); Mean Platelet Volume 9.1 fL (7.4-10.4); Nucleated Red Blood Cells % 0.1; Platelet Count 265 10^3/uL (150-450); Red Blood Count 3.46 10^6 /uL (3.70-4.87); Red Cell Distribution Width 15 % (10-15); White Blood Count 2.8 10^3/uL (3.5-10.8)
[2019-07-19 11:16] LABS: Troponin I 0.01 ng/mL (<0.04)
[2019-07-19 11:21] LABS: Albumin/Globulin Ratio 0.9 (1-3); BUN/Creatinine Ratio 20.4 (8-20); Calcium 9.2 mg/dL (8.6-10.3); EGFR African American 151.1 (>60); EGFR Non-African American 124.9 (>60); Globulin 3.2 g/dL (2-4); Magnesium 1.5 mg/dL (1.9-2.7); Potassium 2.8 mmol/L (3.5-5.0); Total Bilirubin 0.7 mg/dL (0.2-1.0); Total Protein 6.2 g/dL (6.4-8.9)
[2019-07-19] MEDS ORDERED: Magnesium Sulfate 2 GM IV* 2 GM/50 ML BAG IVPB ONE ×2 (11:28→14:27)
[2019-07-19] MEDS ORDERED: Pantoprazole IV* 40 MG IV ONE (11:29)
[2019-07-19 11:57] LABS: Activated Partial Thrombo Time 27.7 seconds (26.0-38.0); INR 0.91 (0.82-1.09)
[2019-07-19] MEDS: KCL 20 MEQ/100 ML IVPREMIX* 20 MEQ/100 ML BAG IV SCH ×2 (13:04→15:08)
[2019-07-19 13:38] LABS: Urine Appearance Clear; Urine Bilirubin Negative (Negative); Urine Blood Negative (Negative); Urine Color Yellow; Urine Glucose Negative (Negative); Urine Ketones 2+ (Negative); Urine Nitrite Negative (Negative); Urine Protein Negative (Negative); Urine Specific Gravity 1.023 (1.010-1.030); Urine Urobilinogen Negative (Negative)
[2019-07-19] MEDS ORDERED: Magnesium Sulf 4 GM/100 ML IV* 4,000 MG/100 ML BAG IVPB ONE (13:49)
[2019-07-19] MEDS ORDERED: Enoxaparin(*) 40 MG/0.4 ML SYR SUBCUT SCH (14:00)
[2019-07-19 16:17] LABS: ABS Lymphocytes 0.6 10^3/ul (1.0-4.8); ABS Neutrophils 1.5 10^3/ul (1.5-7.7); Eosinophil % 0.7 %; Hematocrit 27 % (35-47); Hemoglobin 9.1 g/dL (12.0-16.0); Lymphocyte % 28.9 %; Mean Corpuscular HGB Conc 34 g/dL (31-36); Mean Corpuscular Hemoglobin 29 pg (27-31); Mean Corpuscular Volume 86 fL (80-97); Mean Platelet Volume 8.6 fL (7.4-10.4); Nucleated Red Blood Cells % 0.3; Platelet Count 224 10^3/uL (150-450); Red Blood Count 3.12 10^6 /uL (3.70-4.87); Red Cell Distribution Width 16 % (10-15); White Blood Count 2.2 10^3/uL (3.5-10.8)
[2019-07-19] MEDS: Pantoprazole* 80 mg IN NS 80 MG/250 ML BAG IV SCH (18:04)
[2019-07-19] MEDS: HYDROmorphone INJ* 0.5 MG/0.5 ML SYRINGE IV SLOW PU PRN (18:05)
[2019-07-19] MEDS: NS 0.9% w/ 40 Meq KCL 1000 ML* 1,000 ML IV SCH (18:27)
[2019-07-19] MEDS: Ondansetron INJ* 2 MG/ML VIAL IV PRN (18:33)
[2019-07-19 20:10] LABS: ABS Lymphocytes 0.8 10^3/ul (1.0-4.8); ABS Neutrophils 1.6 10^3/ul (1.5-7.7); Eosinophil % 0.8 %; Hematocrit 28 % (35-47); Hemoglobin 9.4 g/dL (12.0-16.0); Lymphocyte % 32.6 %; Mean Corpuscular HGB Conc 34 g/dL (31-36); Mean Corpuscular Hemoglobin 29 pg (27-31); Mean Corpuscular Volume 85 fL (80-97); Mean Platelet Volume 8.6 fL (7.4-10.4); Nucleated Red Blood Cells % 0.2; Platelet Count 231 10^3/uL (150-450); Red Blood Count 3.24 10^6 /uL (3.70-4.87); Red Cell Distribution Width 16 % (10-15); White Blood Count 2.5 10^3/uL (3.5-10.8)
[2019-07-19] MEDS ORDERED: QUEtiapine TAB* 100 MG PO SCH (21:00)
--- NOTE | 2019-07-19 22:20 | CONS ---
GASTROENTEROLOGY CONSULT REPORT: DATE OF CONSULT: 07/19/19 REASON FOR CONSULT: Hematemesis. HISTORY OF PRESENT ILLNESS: Ms. Lockhart is a 69-year-old woman with a history of peritoneal carcinomatosis, who is admitted from the ED for nausea, vomiting, and coffee-ground emesis. The patient was previously seen by GI in April. This was in the setting of new ascites and abdominal pain. A CT abdomen and pelvis during that time revealed ascites with possible omental caking. That was also made of esophageal thickening. She was scheduled for EGD and colonoscopy, which occurred in April. EGD demonstrated tortuous esophagus and faint gastric antral erosions. The patient was placed on b.i.d. PPI. Subsequently, she had a paracentesis that confirmed peritoneal carcinomatosis. She has been undergoing chemotherapy through Dr. Cline's office. Last chemotherapy was Wednesday. The patient was reportedly stable until several days ago when she had increasing abdominal pain. Pain was diffuse. Associated with nausea and vomiting. Emesis described as coffee-ground in consistency/color, although there were a few episodes where nichole blood was seen in the emesis. The patient has been fairly constipated recently. She has not seen any diarrhea or blood in the stool. Ascites remains an issue, although it is bit improved on chemotherapy. The patient's family has noted increased confusion recently. PAST MEDICAL HISTORY: 1. Peritoneal carcinomatosis. 2. Arthritis. 3. Osteoporosis. 4. GERD. 5. Anxiety, depression, panic, bipolar disorder. PAST SURGICAL HISTORY: Per H and P. The patient with history of an ectopic , broken arm, reconstructive surgery for lumbar spine, knee arthroscopy , knee replacements, and bilateral laminectomy. MEDICATIONS: Include: 1. Zofran 4 mg as needed. 2. Oxycodone 5 mg every 4 hours as needed. 3. Protonix 40 mg daily. 4. Propranolol 10 mg twice daily. 5. Seroquel 100 mg at bedtime. 6. Nucynta 50 mg twice daily. 7. Aspirin 81 mg daily. ALLERGIES: She is allergic to MORPHINE. FAMILY HISTORY: No known GI or liver disease. SOCIAL HISTORY: Occasional alcohol use. Marijuana use reported per H and P. Former smoker. PHYSICAL EXAM: Vital Signs: Afebrile, heart rate in 80s, blood pressure 130s to 140s systolic over 70s to 90s diastolic. General: Chronically ill-appearing woman, in mild distress. HEENT: Mucous membranes are moist. No dry blood seen around the patient's mouth or nose. Cardiovascular: Regular rate and rhythm. Pulmonary: Breathing comfortably. Abdomen: Softly distended with ascites. Mild tenderness diffusely, although this is more noticeable in the upper quadrant. No rebound tenderness or guarding. Extremities: No significant edema. Neuro: A and O x3, although the patient is a bit distractible and vague in responses. DIAGNOSTIC STUDIES/LAB DATA: Labs reviewed. White count 2.5, hemoglobin 9.4, hematocrit 28, platelet count 231. INR 0.91. Sodium 132, potassium 2.8, BUN 10 , creatinine 0.49, lactic acid 1.4, albumin is 3. Imaging: CT abdomen and pelvis performed this morning in the ED demonstrated large amount of ascites with omental nodularity consistent with peritoneal implantation. Calcified mass adjacent to the cecum measuring up to 3 cm. Hiatal hernia also seen. IMPRESSION AND RECOMMENDATION: Ms. Lockhart is a 69-year-old woman with a history of peritoneal carcinomatosis on chemotherapy, who is admitted with increasing abdominal pain, nausea, vomiting, and hematemesis. The patient is hemodynamically stable. Hemoglobin is in the 9 range, which is only slightly lower than it has been earlier this month. Last few Hgb levels since presenting to ED have been relatively stable, which is encouraging. Description of emesis is largely coffee-ground with some red blood having been seen at various times. Presentation is consistent with an upper gastrointestinal bleed. Differential is fairly broad at this point. A prior endoscopy in April did demonstrate faint erosions. It is possible she has had evolution into ulcers. Esophagitis possible. She did not have any varices on April EGD. - Would recommend PPI IV drip or push every 12 hours with an EGD tomorrow. - Please keep the patient n.p.o. with IV fluids. - In regard to the ascites, this is related to her peritoneal carcinomatosis. There is no rebound tenderness on exam. I do not have any suspicion for bacterial peritonitis at this point. - In regard to possible mass adjacent to the cecum noted on the CT abdomen and pelvis, I would recommend reviewing this with Radiology to see if a similar finding was present on prior studies. Unclear significance of this mass at this point. Thank you very much for the consult. GI will continue to follow. [id number]/[facility] #: [id number] [facility]
[2019-07-19] MEDS: PROCHLORPERAZINE INJ 5 MG/ML 2 ML VIAL IV PRN (22:55)
[2019-07-20 00:16] LABS: ABS Monocytes 0.1 10^3/ul (0-0.8); ABS Neutrophils 1.6 10^3/ul (1.5-7.7); Eosinophil % 1.3 %; Hematocrit 28 % (35-47); Hemoglobin 9.3 g/dL (12.0-16.0); Lymphocyte % 37.6 %; Mean Corpuscular HGB Conc 33 g/dL (31-36); Mean Corpuscular Hemoglobin 29 pg (27-31); Mean Corpuscular Volume 86 fL (80-97); Mean Platelet Volume 8.9 fL (7.4-10.4); Nucleated Red Blood Cells % 0.1; Platelet Count 222 10^3/uL (150-450); Red Blood Count 3.27 10^6 /uL (3.70-4.87); Red Cell Distribution Width 16 % (10-15); White Blood Count 2.8 10^3/uL (3.5-10.8)
[2019-07-20] MEDS: HYDROmorphone INJ* 0.5 MG/0.5 ML SYRINGE IV SLOW PU PRN (04:45)
[2019-07-20 05:55] LABS: ABS Lymphocytes 0.6 10^3/ul (1.0-4.8); ABS Neutrophils 1.2 10^3/ul (1.5-7.7); Eosinophil % 1.9 %; Hematocrit 26 % (35-47); Hemoglobin 8.9 g/dL (12.0-16.0); Lymphocyte % 31.3 %; Mean Corpuscular HGB Conc 34 g/dL (31-36); Mean Corpuscular Hemoglobin 29 pg (27-31); Mean Corpuscular Volume 85 fL (80-97); Mean Platelet Volume 8.6 fL (7.4-10.4); Nucleated Red Blood Cells % 0.1; Platelet Count 206 10^3/uL (150-450); Red Blood Count 3.07 10^6 /uL (3.70-4.87); Red Cell Distribution Width 16 % (10-15); White Blood Count 1.9 10^3/uL (3.5-10.8)
[2019-07-20 06:07] LABS: Magnesium 2.1 mg/dL (1.9-2.7)
[2019-07-20] MEDS: Pantoprazole* 80 mg IN NS 80 MG/250 ML BAG IV SCH ×2 (06:19→11:44)
[2019-07-20 07:48] LABS: Albumin 2.5 g/dL (3.2-5.2); Albumin/Globulin Ratio 0.9 (1-3); BUN/Creatinine Ratio 16.7 (8-20); Calcium 8.1 mg/dL (8.6-10.3); EGFR African American 180.5 (>60); EGFR Non-African American 149.2 (>60); Globulin 2.7 g/dL (2-4); Potassium 3.2 mmol/L (3.5-5.0); Total Bilirubin 0.4 mg/dL (0.2-1.0); Total Protein 5.2 g/dL (6.4-8.9)
--- NOTE | 2019-07-20 10:22 | PN ---
Progress Note - Progress Note Date of Service: 07/20/19 SOAP: Subjective: [Feeling better this morning. Minimal abdominal pain and no nausea at the moment. She acknowledges that she has not been doing well at home. She is home alone the majority of the day and unable to adequately take manage prn medications for management of chemotherapy related side effects. She would be willing to consider placement at a nursing facility as a temporary measure.] Objective: [ Vital Signs: Temp Pulse Resp BP Pulse Ox 98.3 F 73 20 145/82 100 07/20/19 07:11 07/20/19 07:11 07/20/19 07:17 07/20/19 07:11 07/20/19 07:11 Hydromorphone HCl (Dilaudid Inj*) 0.5 mg IV SLOW PU Q4H PRN PRN Reason: Pain - Moderate or severe Last Admin: 07/20/19 04:45 Dose: 0.5 mg Potassium Chloride/Sodium Chloride (Ns 0.9% W/ 40 Meq Kcl 1000 Ml*) 1,000 mls @ 100 mls/hr IV PER RATE [facility] Last Admin: 07/19/19 18:27 Dose: 100 mls/hr Pantoprazole Sodium (Protonix Iv Bag*) 80 mg in 250 mls @ 25 mls/hr IV Q10H [facility] Last Admin: 07/20/19 06:19 Dose: Not Given Potassium Chloride (Potassium Chloride 10 Meq/50 Ml Ivpremix*) 10 meq in 50 mls @ 50 mls/hr IV Q1H [facility] Stop: 07/20/19 12:59 Ondansetron HCl (Zofran Inj*) 4 mg IV Q4H PRN PRN Reason: NAUSEA/VOMITING Last Admin: 07/19/19 18:33 Dose: 4 mg Prochlorperazine Edisylate (Compazine Inj*) 5 mg IV Q6H PRN PRN Reason: NAUSEA/VOMITING Last Admin: 07/19/19 22:55 Dose: 5 mg Quetiapine Fumarate (Seroquel Tab*) 100 mg PO BEDTIME [facility] Laboratory Results - last 24 hr 07/19/19 07/19/19 07/19/19 10:39 10:39 10:39 WBC 2.8 L RBC 3.46 L Hgb 9.9 L Hct 30 L MCV 85 MCH 29 MCHC 34 RDW 15 Plt Count 265 MPV 9.1 Neut % (Auto) 78.1 Lymph % (Auto) 19.6 Osborne % (Auto) 1.5 Eos % (Auto) 0.2 Baso % (Auto) 0.6 Absolute Neuts (auto) 2.2 Absolute Lymphs (auto) 0.6 L Absolute Monos (auto) 0.0 Absolute Eos (auto) 0.0 Absolute Basos (auto) 0.0 Absolute Nucleated RBC 0.0 Nucleated RBC % 0.1 INR (Anticoag Therapy) APTT Sodium 132 L Potassium 2.8 L Chloride 94 L Carbon Dioxide 23 Anion Gap 15 H BUN 10 Creatinine 0.49 L Est GFR ( Amer) 151.1 Est GFR (Non-Af Amer) 124.9 BUN/Creatinine Ratio 20.4 H Glucose 116 H POC Glucose (mg/dL) Lactic Acid 1.4 Calcium 9.2 Magnesium 1.5 L Total Bilirubin 0.70 AST 26 ALT 12 Alkaline Phosphatase 104 Ammonia Troponin I 0.01 Total Protein 6.2 L Albumin 3.0 L Globulin 3.2 Albumin/Globulin Ratio 0.9 L Urine Color Urine Appearance Urine pH Ur Specific [place] Urine Protein Urine Ketones Urine Blood Urine Nitrate Urine Bilirubin Urine Urobilinogen Ur Leukocyte Esterase Urine Glucose 07/19/19 07/19/19 07/19/19 11:38 11:53 12:50 WBC RBC Hgb Hct MCV MCH MCHC RDW Plt Count MPV Neut % (Auto) Lymph % (Auto) Osborne % (Auto) Eos % (Auto) Baso % (Auto) Absolute Neuts (auto) Absolute Lymphs (auto) Absolute Monos (auto) Absolute Eos (auto) Absolute Basos (auto) Absolute Nucleated RBC Nucleated RBC % INR (Anticoag Therapy) 0.91 APTT 27.7 Sodium Potassium Chloride Carbon Dioxide Anion Gap BUN Creatinine Est GFR ( Amer) Est GFR (Non-Af Amer) BUN/Creatinine Ratio Glucose POC Glucose (mg/dL) 107 H Lactic Acid Calcium Magnesium Total Bilirubin AST ALT Alkaline Phosphatase Ammonia Troponin I Total Protein Albumin Globulin Albumin/Globulin Ratio Urine Color Yellow Urine Appearance Clear Urine pH 6.0 Ur Specific [place] 1.023 Urine Protein Negative Urine Ketones 2+ A Urine Blood Negative Urine Nitrate Negative Urine Bilirubin Negative Urine Urobilinogen Negative Ur Leukocyte Esterase Negative Urine Glucose Negative 07/19/19 07/19/19 07/19/19 13:01 13:03 16:06 WBC 2.2 L RBC 3.12 L Hgb 9.1 L Hct 27 L MCV 86 MCH 29 MCHC 34 RDW 16 H Plt Count 224 MPV 8.6 Neut % (Auto) 67.4 Lymph % (Auto) 28.9 Osborne % (Auto) 2.1 Eos % (Auto) 0.7 Baso % (Auto) 0.9 Absolute Neuts (auto) 1.5 Absolute Lymphs (auto) 0.6 L Absolute Monos (auto) 0.0 Absolute Eos (auto) 0.0 Absolute Basos (auto) 0.0 Absolute Nucleated RBC 0.0 Nucleated RBC % 0.3 INR (Anticoag Therapy) APTT Sodium Potassium Chloride Carbon Dioxide Anion Gap BUN Creatinine Est GFR ( Amer) Est GFR (Non-Af Amer) BUN/Creatinine Ratio Glucose POC Glucose (mg/dL) Lactic Acid 1.1 Calcium Magnesium Total Bilirubin AST ALT Alkaline Phosphatase Ammonia 19 Troponin I Total Protein Albumin Globulin Albumin/Globulin Ratio Urine Color Urine Appearance Urine pH Ur Specific [place] Urine Protein Urine Ketones Urine Blood Urine Nitrate Urine Bilirubin Urine Urobilinogen Ur Leukocyte Esterase Urine Glucose 07/19/19 07/19/19 07/20/19 20:05 23:55 05:42 WBC 2.5 L 2.8 L 1.9 L RBC 3.24 L 3.27 L 3.07 L Hgb 9.4 L 9.3 L 8.9 L Hct 28 L 28 L 26 L MCV 85 86 85 MCH 29 29 29 MCHC 34 33 34 RDW 16 H 16 H 16 H Plt Count 231 222 206 MPV 8.6 8.9 8.6 Neut % (Auto) 64.1 57.9 63.9 Lymph % (Auto) 32.6 37.6 31.3 Osborne % (Auto) 1.9 2.7 2.4 Eos % (Auto) 0.8 1.3 1.9 Baso % (Auto) 0.6 0.5 0.5 Absolute Neuts (auto) 1.6 1.6 1.2 L Absolute Lymphs (auto) 0.8 L 1.0 0.6 L Absolute Monos (auto) 0.0 0.1 0.0 Absolute Eos (auto) 0.0 0.0 0.0 Absolute Basos (auto) 0.0 0.0 0.0 Absolute Nucleated RBC 0.0 0.0 0.0 Nucleated RBC % 0.2 0.1 0.1 INR (Anticoag Therapy) APTT Sodium Potassium Chloride Carbon Dioxide Anion Gap BUN Creatinine Est GFR ( Amer) Est GFR (Non-Af Amer) BUN/Creatinine Ratio Glucose POC Glucose (mg/dL) Lactic Acid Calcium Magnesium Total Bilirubin AST ALT Alkaline Phosphatase Ammonia Troponin I Total Protein Albumin Globulin Albumin/Globulin Ratio Urine Color Urine Appearance Urine pH Ur Specific [place] Urine Protein Urine Ketones Urine Blood Urine Nitrate Urine Bilirubin Urine Urobilinogen Ur Leukocyte Esterase Urine Glucose 07/20/19 05:42 WBC RBC Hgb Hct MCV MCH MCHC RDW Plt Count MPV Neut % (Auto) Lymph % (Auto) Osborne % (Auto) Eos % (Auto) Baso % (Auto) Absolute Neuts (auto) Absolute Lymphs (auto) Absolute Monos (auto) Absolute Eos (auto) Absolute Basos (auto) Absolute Nucleated RBC Nucleated RBC % INR (Anticoag Therapy) APTT Sodium 137 Potassium 3.2 L Chloride 103 Carbon Dioxide 21 L Anion Gap 13 H BUN 7 Creatinine 0.42 L Est GFR ( Amer) 180.5 Est GFR (Non-Af Amer) 149.2 BUN/Creatinine Ratio 16.7 Glucose 82 POC Glucose (mg/dL) Lactic Acid Calcium 8.1 L Magnesium 2.1 Total Bilirubin 0.40 AST 19 ALT 10 Alkaline Phosphatase 87 Ammonia Troponin I Total Protein 5.2 L Albumin 2.5 L Globulin 2.7 Albumin/Globulin Ratio 0.9 L Urine Color Urine Appearance Urine pH Ur Specific [place] Urine Protein Urine Ketones Urine Blood Urine Nitrate Urine Bilirubin Urine Urobilinogen Ur Leukocyte Esterase Urine Glucose Exam: Gen: chronically ill but presently well appearing in NAD HEENT: alopecia, MMM CV: RRR, no m/r/g Resp: CTA, no w/c/r Abd: distended, quiet BS, nonTTP, positive fluid wave Ext: no edema] Assessment: [This is a 69 yo female with locally advanced ovarian CA who recently initiated treatment which has been complicated by acute on chronic mental status changes. She is now admitted with intractable nausea and vomiting with gastric fluid positive for occult blood, pending upper endoscopy.] Plan: [1. Upper GIB - cont Protonix drip - remains NPO with anticipated upper endoscopy today - Hgb has dropped ~1g/dl over 24h, which is likely dilutional - no clinical signs of continued bleeding or hemodynamic compromise 2. Intractable nausea and vomiting - likely secondary to chemotherapy chemotherapy 3. Ovarian CA - C2D1 carbo/taxol 07/14 4. Acute delirium - mental status appears near baseline today - question some chronic mild and generally compensated dementia - cont Seroquel 5. DVT prophylaxis - no chemical prophylaxis due to GIB Dispo: requested PT/OT consult, would benefit from PADILAL and augmented support at home
[2019-07-20] MEDS: KCL 10 MEQ/50 ML IVPREMIX* 10 MEQ/50 ML BAG IV SCH ×3 (10:27→17:29)
[2019-07-20] MEDS: NS 0.9% w/ 40 Meq KCL 1000 ML* 1,000 ML IV SCH (13:01)
[2019-07-20] MEDS ORDERED: fentaNYL* 50 MCG/ML 2 ML VIAL (100 MCG VIAL) ONE (13:05)
[2019-07-20] MEDS ORDERED: Midazolam* 1 MG/ML 10 ML VIAL (10 MG) ONE (13:05)
--- NOTE | 2019-07-20 14:14 | PN ---
Progress Note - Progress Note Date of Service: 07/20/19 Note: GI Brief EGD Note E: Severe LA-D ulcerative esophagitis. G: Marija Jolly at GEJ- oozing actively. Treated with bicap at 20W with good effect D: Normal Rec: BID PPI indefinitely Suspect above was from retching Feed as tolerated Updated HCP Bill by phone. No further interventions planned from GI JUDIT Corral DO 07/20/19 [id number]
[2019-07-20 17:58] LABS: Hematocrit 30 % (35-47)
[2019-07-20] MEDS: QUEtiapine TAB* 100 MG PO SCH (20:54)
--- NOTE | 2019-07-20 21:20 | PRO ---
CC: Dr. Ramirez; Dr. Jyoti Ocasio* ESOPHAGOGASTRODUODENOSCOPY REPORT: DATE OF PROCEDURE: 07/20/19 PROCEDURE PERFORMED: Complete esophagogastroduodenoscopy with biopsies. INDICATIONS: Hematemesis, acute blood loss anemia. MEDICATIONS GIVEN: Include: 1. 9 mg IV midazolam. 2. 75 mcg IV fentanyl. DESCRIPTION OF PROCEDURE: After the EGD procedure including the risks, benefits , and alternatives were explained to both the patient and the healthcare proxy, Sp, written informed consent was obtained from the healthcare proxy. Next , the patient was given IV sedation medication and a bite block was placed between the teeth. The adult Olympus gastroscope was then entered into the patient's oropharynx into the tubular esophagus. The tubular esophagus had severe LA-D erosive esophagitis. The scope was then advanced to the lower esophageal sphincter into the stomach. The direct views of the stomach were normal; however, on retroflexion at the GE junction a Marija-Jolly tear was visualized with scant oozing. I treated this with BiCAP therapy at 20 ya with good effect. The scope was then advanced through the widely patent pylorus into the duodenal bulb, C-loop, and distal duodenum. These were normal in appearance. The scope was then removed from the patient. She tolerated the procedure well. She returned to the recovery room in stable condition. IMPRESSION: 1. Complete esophagogastroduodenoscopy with biopsies. 2. Severe LA-D erosive esophagitis. 3. Oozing Marija-Jolly tear status post BiCAP therapy. 4. Otherwise normal esophagogastroduodenoscopy. RECOMMENDATIONS: Suspect the hematemesis was from the Marija-Jolly tear from retching after chemotherapy. Recommend b.i.d. PPI therapy for her severe ulcerative esophagitis. I would continue b.i.d. PPI therapy for 3 months' time. After 3 months, she should certainly be on once-a-day indefinitely. [id number]/[facility] #: [id number] [facility]
[2019-07-21] MEDS: NS 0.9% w/ 40 Meq KCL 1000 ML* 1,000 ML IV SCH ×3 (00:55→22:22)
[2019-07-21] MEDS: Pantoprazole* 80 mg IN NS 80 MG/250 ML BAG IV SCH ×3 (01:17→22:46)
[2019-07-21 06:43] LABS: ABS Eosinophils 0.1 10^3/ul (0-0.6); ABS Lymphocytes 1.1 10^3/ul (1.0-4.8); ABS Monocytes 0.1 10^3/ul (0-0.8); Eosinophil % 3.5 %; Hematocrit 29 % (35-47); Hemoglobin 9.4 g/dL (12.0-16.0); Lymphocyte % 47.6 %; Mean Corpuscular HGB Conc 33 g/dL (31-36); Mean Corpuscular Hemoglobin 29 pg (27-31); Mean Corpuscular Volume 88 fL (80-97); Mean Platelet Volume 8.6 fL (7.4-10.4); Nucleated Red Blood Cells % 0.3; Platelet Count 167 10^3/uL (150-450); Red Cell Distribution Width 17 % (10-15); White Blood Count 2.3 10^3/uL (3.5-10.8)
[2019-07-21 06:46] LABS: Albumin 2.6 g/dL (3.2-5.2); Albumin/Globulin Ratio 0.9 (1-3); BUN/Creatinine Ratio 12.2 (8-20); Calcium 8.6 mg/dL (8.6-10.3); EGFR African American 185.6 (>60); EGFR Non-African American 153.4 (>60); Globulin 2.8 g/dL (2-4); Magnesium 1.8 mg/dL (1.9-2.7); Potassium 3.9 mmol/L (3.5-5.0); Total Bilirubin 0.4 mg/dL (0.2-1.0); Total Protein 5.4 g/dL (6.4-8.9)
--- NOTE | 2019-07-21 09:45 | PN ---
Progress Note - Progress Note Date of Service: 07/21/19 SOAP: Subjective: []She feel better today. Eating, less abdominal pain. Still throat pain. She is oriented today. Says she does not want to go to a penitentiary. Hydromorphone HCl (Dilaudid Inj*) 0.5 mg IV SLOW PU Q4H PRN PRN Reason: Pain - Moderate or severe Last Admin: 07/20/19 04:45 Dose: 0.5 mg Potassium Chloride/Sodium Chloride (Ns 0.9% W/ 40 Meq Kcl 1000 Ml*) 1,000 mls @ 100 mls/hr IV PER RATE [facility] Last Admin: 07/21/19 00:55 Dose: 100 mls/hr Pantoprazole Sodium (Protonix Iv Bag*) 80 mg in 250 mls @ 25 mls/hr IV Q10H [facility] Last Admin: 07/21/19 01:17 Dose: 25 mls/hr Ondansetron HCl (Zofran Inj*) 4 mg IV Q4H PRN PRN Reason: NAUSEA/VOMITING Last Admin: 07/19/19 18:33 Dose: 4 mg Prochlorperazine Edisylate (Compazine Inj*) 5 mg IV Q6H PRN PRN Reason: NAUSEA/VOMITING Last Admin: 07/19/19 22:55 Dose: 5 mg Quetiapine Fumarate (Seroquel Tab*) 100 mg PO BEDTIME [facility] Last Admin: 07/20/19 20:54 Dose: 100 mg Exam: Vital Signs Temp Pulse Resp BP Pulse Ox 98.2 F 78 20 153/83 100 07/21/19 07:34 07/21/19 07:34 07/21/19 08:56 07/21/19 07:34 07/21/19 07:34 Gen: chronically ill but presently well appearing in NAD HEENT: alopecia, MMM, pale CV: RRR, no m/r/g Resp: CTA, no w/c/r Abd: distended, quiet BS, nonTTP, positive fluid wave Ext: no edema Assessment: [This is a 69 yo female with locally advanced ovarian CA who recently initiated treatment which has been complicated by acute on chronic mental status changes. She is now admitted with acute gastritis after C2 of chemotherapy and failure to thrive at home. Now improved on IV PPI. Plan: [1. Gastritis, Marija Jolly Tear - cont Protonix drip - encouraged pos - Hgb stable today, not acutely bleeding. 2. nausea and vomiting improved - likely secondary to chemotherapy and gastritis - Zofran PRN, 3. Ovarian CA - C2D1 carbo/taxol/avastin 07/14 4. Acute delirium - mental status appears near baseline today - question some chronic mild and generally compensated dementia - cont Seroquel 5. DVT prophylaxis - no chemical prophylaxis due to GIB 6. Disp. She does not want NH today. Will follow over weekend. Possible home with [facility] or support.
[2019-07-21] MEDS: Ondansetron INJ* 2 MG/ML VIAL IV PRN (21:15)
[2019-07-21] MEDS: QUEtiapine TAB* 100 MG PO SCH (21:26)
--- NOTE | 2019-07-22 08:50 | PN ---
Progress Note - Progress Note Date of Service: 07/22/19 SOAP: Subjective: vomited x 2 last night. feels "full up of fluid" requesting paracentesis. still confused admittedly. Objective: Vital Signs Temp Pulse Resp BP Pulse Ox 98.7 F 87 22 159/92 98 07/22/19 07:15 07/22/19 07:15 07/22/19 07:15 07/22/19 07:15 07/22/19 07:15 sitting up in nad perr eomi no thrush cta bl s1 s2 nl distended, mild fluid wave no le edema oriented to person, place, though still confused on details (I vomited in that big machine??), keeps referring to Dr. Ramirez speaking to her earlier in the week (meaning Dr Cline, her oncologist) Hydromorphone HCl (Dilaudid Inj*) 0.5 mg IV SLOW PU Q4H PRN PRN Reason: Pain - Moderate or severe Last Admin: 07/20/19 04:45 Dose: 0.5 mg Potassium Chloride/Sodium Chloride (Ns 0.9% W/ 40 Meq Kcl 1000 Ml*) 1,000 mls @ 100 mls/hr IV PER RATE [facility] Last Admin: 07/21/19 22:22 Dose: 100 mls/hr Pantoprazole Sodium (Protonix Iv Bag*) 80 mg in 250 mls @ 25 mls/hr IV Q10H [facility] Last Admin: 07/21/19 22:46 Dose: 25 mls/hr Ondansetron HCl (Zofran Inj*) 4 mg IV Q4H PRN PRN Reason: NAUSEA/VOMITING Last Admin: 07/21/19 21:15 Dose: 4 mg Prochlorperazine Edisylate (Compazine Inj*) 5 mg IV Q6H PRN PRN Reason: NAUSEA/VOMITING Last Admin: 07/22/19 00:00 Dose: 5 mg Quetiapine Fumarate (Seroquel Tab*) 100 mg PO BEDTIME [facility] Last Admin: 07/21/19 21:26 Dose: 100 mg Assessment: 69 yo female with locally advanced ovarian CA sp C2 Carbo/Taxol, c/b acute on chronic mental status changes and continued gastritis/nausea/vomiting, improved on IV PPI. She does not appear to have enough ascites on exam today to tap at bedside. will readdress on Wednesday Plan: 1. Gastritis, Marija Jolly Tear - cont Protonix drip - encouraged pos - Hgb stable 2. nausea and vomiting improved - likely secondary to chemotherapy and gastritis - Zofran/compazine PRN, hesitant to add reglan or ativan given psych/AMS issues 3. Ovarian CA - C2D1 carbo/taxol/avastin 07/14 4. Acute delirium - mental status appears near baseline - question some chronic mild and generally compensated dementia. has diagnosis of bipolar disorder - cont Seroquel 5. DVT prophylaxis - no chemical prophylaxis due to GIB 6. Disp. Will follow over weekend. Possible home with [facility] or support, though not sure this is realistic.
[2019-07-22] MEDS: PROCHLORPERAZINE INJ 5 MG/ML 2 ML VIAL IV PRN ×3 (09:25→16:17)
[2019-07-22] MEDS: NS 0.9% w/ 40 Meq KCL 1000 ML* 1,000 ML IV SCH (09:27)
[2019-07-22] MEDS: Pantoprazole* 80 mg IN NS 80 MG/250 ML BAG IV SCH ×2 (10:10→21:47)
[2019-07-22] MEDS: HYDROmorphone INJ* 0.5 MG/0.5 ML SYRINGE IV SLOW PU PRN (16:17)
[2019-07-22] MEDS: QUEtiapine TAB* 100 MG PO SCH (21:39)
[2019-07-22] MEDS: Acetaminophen TAB* 325 MG PO PRN (21:39)
[2019-07-23] MEDS: PROCHLORPERAZINE INJ 5 MG/ML 2 ML VIAL IV PRN ×2 (06:46→20:04)
[2019-07-23] MEDS: Acetaminophen TAB* 325 MG PO PRN ×2 (06:49→20:03)
[2019-07-23] MEDS: Pantoprazole* 80 mg IN NS 80 MG/250 ML BAG IV SCH ×2 (09:23→17:03)
[2019-07-23] MEDS: HYDROmorphone INJ* 0.5 MG/0.5 ML SYRINGE IV SLOW PU PRN (09:24)
[2019-07-23] MEDS: NS 0.9% w/ 40 Meq KCL 1000 ML* 1,000 ML IV SCH ×2 (10:28→22:37)
--- NOTE | 2019-07-23 16:05 | PN ---
Subjective Date of Service: 07/23/19 Interval History: Reports that she was agitated and thought she was in a dream last night and has a sitter at bedside. Reports that it has happened to her once before. But very lucid and oriented during the day today Objective Active Medications: Acetaminophen (Tylenol Tab*) 650 mg PO Q4H PRN PRN Reason: PAIN - MODERATE Last Admin: 07/23/19 06:49 Dose: 650 mg Hydromorphone HCl (Dilaudid Inj*) 0.5 mg IV SLOW PU Q4H PRN PRN Reason: Pain - Moderate or severe Last Admin: 07/23/19 09:24 Dose: 0.5 mg Potassium Chloride/Sodium Chloride (Ns 0.9% W/ 40 Meq Kcl 1000 Ml*) 1,000 mls @ 100 mls/hr IV PER RATE [facility] Last Admin: 07/23/19 10:28 Dose: 100 mls/hr Ondansetron HCl (Zofran Inj*) 4 mg IV Q4H PRN PRN Reason: NAUSEA/VOMITING Last Admin: 07/21/19 21:15 Dose: 4 mg Pantoprazole Sodium (Protonix Iv*) 40 mg IV BID [facility] Prochlorperazine Edisylate (Compazine Inj*) 5 mg IV Q6H PRN PRN Reason: NAUSEA/VOMITING Last Admin: 07/23/19 06:46 Dose: 5 mg Quetiapine Fumarate (Seroquel Tab*) 100 mg PO BEDTIME [facility] Last Admin: 07/22/19 21:39 Dose: 100 mg Vital Signs - 8 hr 07/23/19 07/23/19 07/23/19 09:24 11:07 11:18 Temperature 97.6 F Pulse Rate 89 Respiratory 18 16 18 Rate Blood Pressure 136/89 (mmHg) O2 Sat by Pulse 100 Oximetry Oxygen Devices in Use Now: None Eyes: No Scleral Icterus Ears/Nose/Mouth/Throat: NL Teeth, Lips, Gums Neck: NL Appearance and Movements; NL JVP Respiratory: Symmetrical Chest Expansion and Respiratory Effort Cardiovascular: NL Sounds; No Murmurs; No JVD Abdominal: - - some ascites,distended,no rebound no guarding Extremities: No Edema Neurological: Alert and Oriented x 3 Result Diagrams: 07/21/19 06:23 07/21/19 06:23 Microbiology and Other Data: Microbiology 10/23/19 10:39 Blood Culture - Preliminary Blood Venous No Growth Day 4 07/19/19 10:39 Aerobic Blood Culture - Preliminary Blood Venous No Growth Day 4 Anaerobic Blood Culture - Preliminary No Growth Day 4 07/19/19 13:45 Gastric Occult Blood - Final Gastric Fluid Assess/Plan/Problems-Billing Assessment: - Patient Problems (1) Upper GI bleed Current Visit: Yes Status: Acute Code(s): K92.2 - GASTROINTESTINAL HEMORRHAGE, UNSPECIFIED SNOMED Code(s): 03190215 Comment: sec to bleeding maikel yanez tear active oozing at GE junction s/p EGD and bicap cautery with good effect h/h stable will stop protonix drip switch to protonix bid indefinitely per gi rec will keep on iv now and when able to keep po down, switch to po (2) Ovarian cancer Current Visit: Yes Status: Acute Comment: on chemo plan per heme/onc carboplatin/ taxol/avastin therapy (3) Nausea & vomiting Current Visit: Yes Status: Acute Code(s): R11.2 - NAUSEA WITH VOMITING, UNSPECIFIED SNOMED Code(s): 50757353 Comment: sec to ca and gastritis continue prn zofran (4) Delirium Current Visit: Yes Status: Acute Code(s): R41.0 - DISORIENTATION, UNSPECIFIED SNOMED Code(s): 0555812 Comment: continue serequel sun downing will evaluate Status and Disposition: pt/ot eval for further d/c planning
[2019-07-23 18:35] LABS: Hematocrit 29 % (35-47); Hemoglobin 9.7 g/dL (12.0-16.0); Mean Corpuscular HGB Conc 33 g/dL (31-36); Mean Corpuscular Hemoglobin 28 pg (27-31); Mean Corpuscular Volume 86 fL (80-97); Mean Platelet Volume 8.4 fL (7.4-10.4); Platelet Count 138 10^3/uL (150-450); Red Cell Distribution Width 16 % (10-15); White Blood Count 2.1 10^3/uL (3.5-10.8)
[2019-07-23 18:41] LABS: ABS Eosinophils 0.1 10^3/ul (0-0.6); ABS Lymphocytes 1.1 10^3/ul (1.0-4.8); ABS Monocytes 0.4 10^3/ul (0-0.8); ABS Neutrophils 0.6 10^3/ul (1.5-7.7); Eosinophil % 4.5 %; Lymphocyte % 49.3 %; Nucleated Red Blood Cells % 0.2
[2019-07-23 18:51] LABS: BUN/Creatinine Ratio 13.6 (8-20); Calcium 8.6 mg/dL (8.6-10.3); EGFR African American 171.1 (>60); EGFR Non-African American 141.4 (>60); Potassium 4.1 mmol/L (3.5-5.0)
[2019-07-23] MEDS: QUEtiapine TAB* 100 MG PO SCH (20:03)
[2019-07-23] MEDS: Pantoprazole IV* 40 MG IV SCH (20:04)
[2019-07-24] MEDS: Pantoprazole IV* 40 MG IV SCH ×2 (07:45→10:11)
[2019-07-24] MEDS: HYDROmorphone INJ* 0.5 MG/0.5 ML SYRINGE IV SLOW PU PRN (07:45)
[2019-07-24 09:09] LABS: Hematocrit 30 % (35-47); Mean Corpuscular HGB Conc 33 g/dL (31-36); Mean Corpuscular Hemoglobin 29 pg (27-31); Mean Corpuscular Volume 86 fL (80-97); Mean Platelet Volume 8.4 fL (7.4-10.4); Platelet Count 141 10^3/uL (150-450); Red Blood Count 3.48 10^6 /uL (3.70-4.87); Red Cell Distribution Width 16 % (10-15); White Blood Count 1.7 10^3/uL (3.5-10.8)
[2019-07-24 09:20] LABS: ABS Eosinophils 0.1 10^3/ul (0-0.6); ABS Lymphocytes 0.7 10^3/ul (1.0-4.8); ABS Monocytes 0.4 10^3/ul (0-0.8); ABS Neutrophils 0.5 10^3/ul (1.5-7.7); Eosinophil % 4.5 %; Lymphocyte % 40.8 %; Nucleated Red Blood Cells % 0.1
[2019-07-24] MEDS ORDERED: Ondansetron ODT TAB* 4 MG PO PRN (09:23)
[2019-07-24 09:33] LABS: BUN/Creatinine Ratio 16.3 (8-20); Calcium 8.8 mg/dL (8.6-10.3); EGFR African American 175.7 (>60); EGFR Non-African American 145.2 (>60); Potassium 4.1 mmol/L (3.5-5.0)
--- NOTE | 2019-07-24 09:43 | PN ---
Progress Note - Progress Note Date of Service: 07/24/19 SOAP: Subjective: []She was confused last night but oriented this am. She comprehends situation but cannot think critically about plans and does not have realistic view of her capabilities. Sever esophageal pain remains. Difficulty swallowing most foods. Feels she is eating a little more every day. Both IVs hurt. Acetaminophen (Tylenol Tab*) 650 mg PO Q4H PRN PRN Reason: PAIN - MODERATE Last Admin: 07/23/19 20:03 Dose: 650 mg Hydromorphone HCl (Dilaudid Tab*) 2 mg PO Q3H PRN PRN Reason: PAIN - SEVERE Levofloxacin (Levaquin Tab*) 500 mg PO Q24H [facility]; Protocol Pantoprazole Sodium (Protonix Tab*) 40 mg PO BID [facility] Prochlorperazine (Compazine Tab*) 10 mg PO Q6HR PRN PRN Reason: NAUSEA Quetiapine Fumarate (Seroquel Tab*) 100 mg PO BEDTIME [facility] Last Admin: 07/23/19 20:03 Dose: 100 mg Sucralfate (Sucralfate Susp) 1 gm PO QID [facility] Objective: [] Vital Signs Temp Pulse Resp BP Pulse Ox 97.9 F 106 20 153/99 98 07/24/19 06:32 07/24/19 06:32 07/24/19 07:45 07/24/19 06:32 07/24/19 06:32 HEENT: OM dry and no lesions. pale. CTA RRR S1S2 +BS, she has marked distension, NT Ext Tr edema neuro AAOx 3 but difficulty with focus Assessment: 69 yo female with locally advanced ovarian CA sp C2 Carbo/Taxol, c/b acute on chronic mental status changes and continued gastritis/nausea/vomiting, improved on IV PPI. She does not appear to have enough ascites on exam today to tap at bedside. will readdress on Wednesday Plan: 1. Gastritis, Marija Jolly Tear - PO Protoinix - Add sucrafate - encouraged pos, nutrition consult. - Dilaudid prn 2. Protien-calorie malnutrition. nausea and vomiting improved - compazine 10 mg po prn 3. Ovarian CA - C2D1 carbo/taxol/avastin 07/14 4. Acute delirium - improving slowly, question of if can manage at home. - cont Seroquel 5. Grade IV neuropenia. Has standing fluid and high risk NF. - Levoquin 500 mg po daily x 5 days 6. DVT prophylaxis - Can go to [facility] 40 sq q d 7. Pain with IVs. Change to PO meds and d/c fluids 8. Hyponatremia. Follow, 3rd space fluids 6. Disp. Will follow over weekend. Possible home with [facility] or support, though not sure this is realistic.
[2019-07-24] MEDS: Prochlorperazine TAB* 10 MG PO PRN ×2 (10:08→19:43)
[2019-07-24] MEDS: Sucralfate SUSP 1 GM/10 ml 10 ML UDC PO SCH ×4 (10:22→19:43)
[2019-07-24] MEDS: Levofloxacin TAB* 500 MG PO SCH (11:56)
[2019-07-24] MEDS: Pantoprazole TAB * 40 MG TAB PO SCH (19:43)
[2019-07-24] MEDS: Senna TAB 8.6 mg* TAB PO PRN (19:43)
[2019-07-24] MEDS: QUEtiapine TAB* 100 MG PO SCH (19:44)
[2019-07-24] MEDS: Acetaminophen TAB* 325 MG PO PRN (19:44)
[2019-07-24] MEDS: Docusate CAP* 100 MG PO SCH (19:44)
[2019-07-25] MEDS: Prochlorperazine TAB* 10 MG PO PRN ×3 (07:38→19:54)
[2019-07-25] MEDS: HYDROmorphone TAB* 2 MG PO PRN (07:38)
[2019-07-25] MEDS: Levofloxacin TAB* 500 MG PO SCH (09:31)
[2019-07-25] MEDS: Pantoprazole TAB * 40 MG TAB PO SCH ×2 (09:31→19:54)
[2019-07-25] MEDS: Docusate CAP* 100 MG PO SCH ×2 (09:31→19:54)
[2019-07-25] MEDS: Sucralfate SUSP 1 GM/10 ml 10 ML UDC PO SCH ×5 (09:32→19:54)
[2019-07-25] MEDS: Acetaminophen TAB* 325 MG PO PRN ×2 (09:36→19:54)
[2019-07-25 12:08] LABS: Albumin 2.5 g/dL (3.2-5.2); Albumin/Globulin Ratio 0.9 (1-3); Calcium 8.7 mg/dL (8.6-10.3); EGFR African American 166.7 (>60); EGFR Non-African American 137.7 (>60); Globulin 2.7 g/dL (2-4); Potassium 3.6 mmol/L (3.5-5.0); Total Bilirubin 0.3 mg/dL (0.2-1.0); Total Protein 5.2 g/dL (6.4-8.9)
[2019-07-25 12:23] LABS: Hematocrit 30 % (35-47); Mean Corpuscular HGB Conc 34 g/dL (31-36); Mean Corpuscular Hemoglobin 29 pg (27-31); Mean Corpuscular Volume 85 fL (80-97); Mean Platelet Volume 8.7 fL (7.4-10.4); Platelet Count 155 10^3/uL (150-450); Red Blood Count 3.46 10^6 /uL (3.70-4.87); Red Cell Distribution Width 16 % (10-15)
[2019-07-25 14:17] LABS: ABS Lymphocytes 0.9 10^3/ul (1.0-4.8); ABS Monocytes 1.1 10^3/ul (0-0.8); Eosinophil % 0.4 %; Lymphocyte % 29.8 %; Nucleated Red Blood Cells % 0.2; Polychromasia 1+
[2019-07-25] MEDS: QUEtiapine TAB* 100 MG PO SCH (19:54)
[2019-07-25] MEDS: Senna TAB 8.6 mg* TAB PO PRN (19:54)
[2019-07-25] MEDS ORDERED: Lidocaine 2% VISCOUS* 15 ML UDC PO PRN ×2 (22:50→23:45)
[2019-07-26 05:11] LABS: Hematocrit 25 % (35-47); Hemoglobin 8.5 g/dL (12.0-16.0); Mean Corpuscular HGB Conc 34 g/dL (31-36); Mean Corpuscular Hemoglobin 29 pg (27-31); Mean Corpuscular Volume 86 fL (80-97); Mean Platelet Volume 8.2 fL (7.4-10.4); Platelet Count 136 10^3/uL (150-450); Red Blood Count 2.89 10^6 /uL (3.70-4.87); Red Cell Distribution Width 16 % (10-15); White Blood Count 3.1 10^3/uL (3.5-10.8)
[2019-07-26 05:33] LABS: BUN/Creatinine Ratio 22.2 (8-20); Calcium 8.2 mg/dL (8.6-10.3); EGFR African American 215.6 (>60); EGFR Non-African American 178.2 (>60); Potassium 3.1 mmol/L (3.5-5.0)
[2019-07-26 07:20] LABS: ABS Lymphocytes 0.8 10^3/ul (1.0-4.8); ABS Monocytes 1.1 10^3/ul (0-0.8); ABS Neutrophils 1.1 10^3/ul (1.5-7.7); Eosinophil % 0.8 %; Lymphocyte % 27.5 %; Nucleated Red Blood Cells % 0.2
[2019-07-26 07:40] LABS: Burr Cells 1+
[2019-07-26 07:41] LABS: Polychromasia 1+
[2019-07-26] MEDS: Pantoprazole TAB * 40 MG TAB PO SCH (08:44)
[2019-07-26] MEDS: Docusate CAP* 100 MG PO SCH ×2 (08:44→21:26)
[2019-07-26] MEDS: Prochlorperazine TAB* 10 MG PO PRN ×2 (08:45→15:01)
[2019-07-26] MEDS: Sucralfate SUSP 1 GM/10 ml 10 ML UDC PO SCH ×4 (08:48→21:28)
[2019-07-26] MEDS: Levofloxacin TAB* 500 MG PO SCH (10:13)
[2019-07-26] MEDS: Acetaminophen TAB* 325 MG PO PRN (10:13)
[2019-07-26] MEDS ORDERED: Magnesium CITRATE* 300 ML BTL PO ONE (11:10)
[2019-07-26] MEDS ORDERED: Bisacodyl SUPP* 10 MG SUPP PR ONE (11:11)
[2019-07-26 11:33] LABS: Magnesium 1.1 mg/dL (1.9-2.7)
[2019-07-26] MEDS ORDERED: Magnesium Sulf 4 GM/100 ML IV* 4,000 MG/100 ML BAG IVPB ONE ×2 (11:35→13:30)
--- NOTE | 2019-07-26 11:35 | PN ---
Progress Note - Progress Note Date of Service: 07/26/19 SOAP: Subjective: [Feeling ok this morning. Energy is improving slightly. She still finds it extremely painful to swallow and she is limited to just a few soft/liquid foods that she can tolerate. No BMs in several days. Still vomiting occasionally and it appears coffee ground.] Objective: [ Vital Signs: Temp Pulse Resp BP Pulse Ox 98.0 F 105 16 130/86 98 07/26/19 10:45 07/26/19 10:45 07/26/19 10:45 07/26/19 10:45 07/26/19 10:45 Acetaminophen (Tylenol Tab*) 650 mg PO Q4H PRN PRN Reason: PAIN - MODERATE Last Admin: 07/26/19 10:13 Dose: 650 mg Docusate Sodium (Colace Cap*) 100 mg PO BID [facility] Last Admin: 07/26/19 08:44 Dose: 100 mg Hydromorphone HCl (Dilaudid Tab*) 2 mg PO Q3H PRN PRN Reason: PAIN - SEVERE Last Admin: 07/25/19 07:38 Dose: 2 mg Potassium Chloride (Potassium Chloride 10 Meq/50 Ml Ivpremix*) 10 meq in 50 mls @ 50 mls/hr IV Q1H [facility] Stop: 07/26/19 14:59 Multi-Ingredient Mouthwash/Gargle (Magic Mouth Was-Brandt/Maal/Lido*) 5 ml SWISH SWAL QID [facility] Pantoprazole Sodium (Protonix Iv*) 40 mg IV BID [facility] Prochlorperazine (Compazine Tab*) 10 mg PO Q6HR PRN PRN Reason: NAUSEA Last Admin: 07/26/19 08:45 Dose: 10 mg Quetiapine Fumarate (Seroquel Tab*) 100 mg PO BEDTIME [facility] Last Admin: 07/25/19 19:54 Dose: 100 mg Senna (Senokot 8.6 Mg Tab*) 2 tab PO BID [facility] Sucralfate (Sucralfate Susp) 1 gm PO QID [facility] Last Admin: 07/26/19 08:48 Dose: 1 gm Laboratory Results - last 24 hr 07/25/19 07/25/19 07/26/19 11:35 11:35 04:39 WBC 3.0 L 3.1 L RBC 3.46 L 2.89 L Hgb 10.0 L 8.5 L Hct 30 L 25 L MCV 85 86 MCH 29 29 MCHC 34 34 RDW 16 H 16 H Plt Count 155 136 L MPV 8.7 8.2 Neut % (Auto) 33.8 35.5 Lymph % (Auto) 29.8 27.5 Elbert % (Auto) 35.7 36.0 Eos % (Auto) 0.4 0.8 Baso % (Auto) 0.3 0.2 Absolute Neuts (auto) Chairman 1.1 L Absolute Lymphs (auto) 0.9 L 0.8 L Absolute Monos (auto) 1.1 H 1.1 H Absolute Eos (auto) 0.0 0.0 Absolute Basos (auto) 0.0 0.0 Absolute Nucleated RBC 0.0 0.0 Immature Gran % 1.0 3.0 Neutrophils % 39.0 37.0 Band Neutrophils % 1.0 3.0 Lymphocytes % 26.0 43.0 Reactive Lymphs % 3.0 Monocytes % 31.0 17.0 Nucleated RBC % 0.2 0.2 Normal RBC Morphology Not Reportable Not Reportable Polychromasia 1+ 1+ Basophilic Stippling 1+ Anisocytosis 1+ 1+ Dorothy Cells 1+ Hem Pathologist Commnt Sodium 131 L Potassium 3.6 Chloride 101 Carbon Dioxide 20 L Anion Gap 10 BUN 9 Creatinine 0.45 L Est GFR ( Amer) 166.7 Est GFR (Non-Af Amer) 137.7 BUN/Creatinine Ratio 20.0 Glucose 111 H POC Glucose (mg/dL) Calcium 8.7 Total Bilirubin 0.30 AST 12 L ALT 8 Alkaline Phosphatase 87 Total Protein 5.2 L Albumin 2.5 L Globulin 2.7 Albumin/Globulin Ratio 0.9 L 07/26/19 07/26/19 04:39 08:20 WBC RBC Hgb Hct MCV MCH MCHC RDW Plt Count MPV Neut % (Auto) Lymph % (Auto) Elbert % (Auto) Eos % (Auto) Baso % (Auto) Absolute Neuts (auto) Absolute Lymphs (auto) Absolute Monos (auto) Absolute Eos (auto) Absolute Basos (auto) Absolute Nucleated RBC Immature Gran % Neutrophils % Band Neutrophils % Lymphocytes % Reactive Lymphs % Monocytes % Nucleated RBC % Normal RBC Morphology Polychromasia Basophilic Stippling Anisocytosis Dorothy Cells Hem Pathologist Commnt Sodium 130 L Potassium 3.1 L Chloride 102 Carbon Dioxide 22 Anion Gap 6 BUN 8 Creatinine 0.36 L Est GFR ( Amer) 215.6 Est GFR (Non-Af Amer) 178.2 BUN/Creatinine Ratio 22.2 H Glucose 96 POC Glucose (mg/dL) 93 Calcium 8.2 L Total Bilirubin AST ALT Alkaline Phosphatase Total Protein Albumin Globulin Albumin/Globulin Ratio Exam: HEENT: OM dry and no lesions. pale. Resp: CTA CV: RRR S1S2 Abd: +BS, she has moderate distension, NT Ext: Tr-1+ edema neuro: AAOx 3 Assessment: 69 yo female with locally advanced ovarian CA sp C2 Carbo/Taxol, c/b acute on chronic mental status changes and continued gastritis/nausea/vomiting, improved on IV PPI but with persistent dysphagia. Noted drop in Hgb overnight, but no new melena or large volume emesis. Plan: 1. Gastritis, Marija Jolly Tear - switch back to IV protonix and try to limit pills to decrease chemical irritation - cont sucrafate - start scheduled BMX to swallow - Dilaudid prn 2. Protien-calorie malnutrition. - encourage po intake as much as possible 3. Ovarian CA - C2D1 carbo/taxol/avastin 07/14 4. Acute delirium - improving slowly - cont Seroquel 5. Neutropenia - now resolved - stop prophylactic po Levaquin to limit any GI complications 6. Constipation - increase Senna - give Mag citrate and dulcolax suppository today 7. DVT prophylaxis - Lovenox 40 sq q d Dispo: cont inpatient care until assured Hgb is stable and able to tolerate adequate po intake. She has accepted a bed at [facility] with hopes of dc by the end of the week
[2019-07-26] MEDS ORDERED: KCL 10 MEQ/50 ML IVPREMIX* 10 MEQ/50 ML BAG IV SCH (12:00)
[2019-07-26] MEDS: Senna TAB 8.6 mg* TAB PO SCH ×2 (12:26→21:27)
[2019-07-26] MEDS: Magic Mouth Was-BEN/MAAL/LIDO SWISH SWAL SCH ×3 (12:27→21:29)
[2019-07-26] MEDS: KCL 10 MEQ/50 ML IVPREMIX* 10 MEQ/50 ML BAG IV SCH ×5 (15:46→23:57)
[2019-07-26] MEDS ORDERED: Dextran 70/Hypromellose Tears Eye Drops 15 ml BTL (for Artificials Tears) BOTH EYES PRN (18:35)
[2019-07-26] MEDS ORDERED: Sodium Phosphate ADULT ENEMA* 118 ml bottle PR ONE (18:45)
[2019-07-26] MEDS: QUEtiapine TAB* 100 MG PO SCH (21:27)
[2019-07-26] MEDS: Pantoprazole IV* 40 MG IV SCH (21:31)
[2019-07-27] MEDS: HYDROmorphone TAB* 2 MG PO PRN (00:35)
[2019-07-27] MEDS: Senna TAB 8.6 mg* TAB PO SCH ×2 (08:54→21:30)
[2019-07-27] MEDS: Prochlorperazine TAB* 10 MG PO PRN (08:54)
[2019-07-27] MEDS: Docusate CAP* 100 MG PO SCH ×2 (08:55→21:30)
[2019-07-27] MEDS: Magic Mouth Was-BEN/MAAL/LIDO SWISH SWAL SCH ×4 (08:55→21:30)
[2019-07-27] MEDS: Sucralfate SUSP 1 GM/10 ml 10 ML UDC PO SCH ×4 (08:56→21:32)
[2019-07-27] MEDS: Pantoprazole IV* 40 MG IV SCH ×2 (08:57→21:30)
[2019-07-27 10:18] LABS: ABS Lymphocytes 1.3 10^3/ul (1.0-4.8); ABS Monocytes 0.7 10^3/ul (0-0.8); ABS Neutrophils 1.2 10^3/ul (1.5-7.7); Eosinophil % 0.5 %; Hematocrit 27 % (35-47); Hemoglobin 9.1 g/dL (12.0-16.0); Lymphocyte % 39.2 %; Mean Corpuscular HGB Conc 33 g/dL (31-36); Mean Corpuscular Hemoglobin 29 pg (27-31); Mean Corpuscular Volume 87 fL (80-97); Mean Platelet Volume 8.1 fL (7.4-10.4); Nucleated Red Blood Cells % 0.1; Platelet Count 139 10^3/uL (150-450); Red Blood Count 3.15 10^6 /uL (3.70-4.87); Red Cell Distribution Width 17 % (10-15); White Blood Count 3.3 10^3/uL (3.5-10.8)
[2019-07-27 10:42] LABS: Albumin 2.3 g/dL (3.2-5.2); Calcium 8.9 mg/dL (8.6-10.3); EGFR African American 190.9 (>60); EGFR Non-African American 157.8 (>60); Magnesium 1.8 mg/dL (1.9-2.7); Potassium 3.7 mmol/L (3.5-5.0); Total Protein 4.7 g/dL (6.4-8.9)
[2019-07-27 10:43] LABS: Globulin 2.4 g/dL (2-4); Total Bilirubin 0.2 mg/dL (0.2-1.0)
[2019-07-27] MEDS ORDERED: Magnesium Sulf 4 GM/100 ML IV* 4,000 MG/100 ML BAG IVPB ONE (11:00)
--- NOTE | 2019-07-27 11:05 | PN ---
Progress Note - Progress Note Date of Service: 07/27/19 SOAP: Subjective: [Feeling better today. Ate some soft, but solid foods for breakfast. No vomiting. She was successful in having several BMs and her abd is feeling less full.] Objective: [ Vital Signs: Temp Pulse Resp BP Pulse Ox 97.1 F 107 20 136/94 97 07/27/19 08:11 07/27/19 08:11 07/27/19 08:11 07/27/19 08:11 07/27/19 08:11 Acetaminophen (Tylenol Tab*) 650 mg PO Q4H PRN PRN Reason: PAIN - MODERATE Last Admin: 07/26/19 10:13 Dose: 650 mg Artificial Tears (Natural Balance Tears Eye Drop) 1 drop BOTH EYES Q1H PRN PRN Reason: DRY EYES Last Admin: 07/26/19 21:34 Dose: 1 drop Docusate Sodium (Colace Cap*) 100 mg PO BID [facility] Last Admin: 07/27/19 08:55 Dose: 100 mg Hydromorphone HCl (Dilaudid Tab*) 2 mg PO Q3H PRN PRN Reason: PAIN - SEVERE Last Admin: 07/27/19 00:35 Dose: 2 mg Magnesium Sulfate (Magnesium Sulf 4 Gm/100 Ml Iv*) 4,000 mg in 100 mls @ 33.333 mls/hr IVPB ONCE ONE Stop: 07/27/19 13:59 Multi-Ingredient Mouthwash/Gargle (Magic Mouth Was-Brandt/Maal/Lido*) 5 ml SWISH SWAL QID [facility] Last Admin: 07/27/19 08:55 Dose: 5 ml Pantoprazole Sodium (Protonix Iv*) 40 mg IV BID [facility] Last Admin: 07/27/19 08:57 Dose: 40 mg Prochlorperazine (Compazine Tab*) 10 mg PO Q6HR PRN PRN Reason: NAUSEA Last Admin: 07/27/19 08:54 Dose: 10 mg Quetiapine Fumarate (Seroquel Tab*) 100 mg PO BEDTIME [facility] Last Admin: 07/26/19 21:27 Dose: 100 mg Senna (Senokot 8.6 Mg Tab*) 2 tab PO BID [facility] Last Admin: 07/27/19 08:54 Dose: 2 tab Sucralfate (Sucralfate Susp) 1 gm PO QID [facility] Last Admin: 07/27/19 08:56 Dose: 1 gm Laboratory Results - last 24 hr 07/26/19 07/26/19 07/27/19 04:39 17:19 01:07 WBC RBC Hgb Hct MCV MCH MCHC RDW Plt Count MPV Neut % (Auto) Lymph % (Auto) [place] % (Auto) Eos % (Auto) Baso % (Auto) Absolute Neuts (auto) Absolute Lymphs (auto) Absolute Monos (auto) Absolute Eos (auto) Absolute Basos (auto) Absolute Nucleated RBC Nucleated RBC % Sodium 130 L Potassium 3.1 L Chloride 102 Carbon Dioxide 22 Anion Gap 6 BUN 8 Creatinine 0.36 L Est GFR ( Amer) 215.6 Est GFR (Non-Af Amer) 178.2 BUN/Creatinine Ratio 22.2 H Glucose 96 POC Glucose (mg/dL) 114 H 94 Calcium 8.2 L Magnesium 1.1 L Total Bilirubin AST ALT Alkaline Phosphatase Total Protein Albumin Globulin Albumin/Globulin Ratio 07/27/19 07/27/19 10:10 10:10 WBC 3.3 L RBC 3.15 L Hgb 9.1 L Hct 27 L MCV 87 MCH 29 MCHC 33 RDW 17 H Plt Count 139 L MPV 8.1 Neut % (Auto) 37.1 Lymph % (Auto) 39.2 [place] % (Auto) 22.4 Eos % (Auto) 0.5 Baso % (Auto) 0.8 Absolute Neuts (auto) 1.2 L Absolute Lymphs (auto) 1.3 Absolute Monos (auto) 0.7 Absolute Eos (auto) 0.0 Absolute Basos (auto) 0.0 Absolute Nucleated RBC 0.0 Nucleated RBC % 0.1 Sodium 131 L Potassium 3.7 Chloride 101 Carbon Dioxide 25 Anion Gap 5 BUN 10 Creatinine 0.40 L Est GFR ( Amer) 190.9 Est GFR (Non-Af Amer) 157.8 BUN/Creatinine Ratio 25.0 H Glucose 110 H POC Glucose (mg/dL) Calcium 8.9 Magnesium 1.8 L Total Bilirubin 0.20 AST 11 L ALT 6 L Alkaline Phosphatase 84 Total Protein 4.7 L Albumin 2.3 L Globulin 2.4 Albumin/Globulin Ratio 1.0 Exam: HEENT: MMM Resp: CTA CV: RRR S1S2 Abd: +BS, she has moderate distension, NT Ext: Tr-1+ edema neuro: AAOx 3 Assessment: 69 yo female with locally advanced ovarian CA sp C2 Carbo/Taxol, c/b acute on chronic mental status changes and continued gastritis/nausea/vomiting, improved on IV PPI but with persistent dysphagia. Plan: 1. Gastritis, Marija Jolly Tear - Hgb now stable over last 24h without further episodes of vomiting - switched back to IV protonix and try to limit pills to decrease chemical irritation - cont sucrafate - cont scheduled BMX to swallow to help with dysphagia - Dilaudid prn 2. Protein-calorie malnutrition. - encourage po intake as much as possible, improving 3. Ovarian CA - C2D1 carbo/taxol/avastin 07/14 4. Acute delirium - improving slowly - cont Seroquel 5. Neutropenia - now resolved - stop prophylactic po Levaquin to limit any GI complications 6. Constipation - cont bowel regimen 7. DVT prophylaxis - Lovenox 40 sq qd Dispo: improving, plan for dc to [facility] tomorrow
[2019-07-27] MEDS: QUEtiapine TAB* 100 MG PO SCH (21:30)
[2019-07-28] MEDS: Prochlorperazine TAB* 10 MG PO PRN (03:31)
[2019-07-28 04:01] VITALS: BP 114/78
[2019-07-28] MEDS: Pantoprazole IV* 40 MG IV SCH (10:09)
[2019-07-28] MEDS: Senna TAB 8.6 mg* TAB PO SCH (10:10)
[2019-07-28] MEDS: Docusate CAP* 100 MG PO SCH (10:10)
[2019-07-28] MEDS: Sucralfate SUSP 1 GM/10 ml 10 ML UDC PO SCH (10:11)
--- NOTE | 2019-07-28 11:15 | DS ---
CC: Dr. Ocasio; Dr. Cline * DATE OF ADMISSION: 07/19/2019. DATE OF DISCHARGE: 07/28/2019. PRIMARY CARE PHYSICIAN: Dr. Ocasio. CONSULTING TITLE ATTORNEY: Dr. Goodwin. PRIMARY ONCOLOGIST: Dr. Chato Cline. ATTENDING PHYSICIAN: Dr. Lesa Ramirez * (dictated by RL Phelps). DISCHARGING PROVIDER: RL Phelps. PRIMARY DISCHARGE DIAGNOSES: 1. GI bleed secondary to erosive esophagitis and Marija-Jolly tear with intractable nausea and vomiting. 2. Protein calorie malnutrition. 3. Ovarian cancer, status post second cycle with Carboplatin, Paclitaxel, Avastin 07/14/2019. 4. Acute delirium, improved. 5. Neutropenia secondary to chemotherapy without fever, resolved. 6. Hypomagnesemia and hypokalemia secondary to GI loss repleted. DISCHARGE MEDICATIONS: 1. Zofran 4 mg p.o. q.6 hours as needed for nausea and vomiting. 2. Propranolol 10 mg p.o. twice daily. 3. Seroquel 100 mg p.o. at bedtime. 4. Colace 100 mg p.o. twice daily. 5. Dilaudid 2 mg p.o. q.3 hours as needed for severe pain. 6. Magic Mouthwash with Benadryl, Maalox and Lidocaine 5 ml swish and swallow 4 times daily. 7. Protonix 40 mg p.o. twice daily. 8. Compazine 10 mg p.o. q.6 hours as needed for nausea and vomiting. 9. Senna two tablets p.o. twice daily, hold for diarrhea. 10. Sucralfate 1 gm p.o. 4 times daily. HOSPITAL IMAGIN. Chest x-ray, 07/19/2019, shows no acute disease. 2. CT abdomen and pelvis, 07/19/2019, shows a large amount of ascites with omental nodularity consistent with peritoneal implantation. There is a calcified mass adjacent to the cecum measuring up to 3 cm in size with a hiatal hernia. 3. CT brain, 07/19/2019, shows no acute pathology. HOSPITAL COURSE: This is a 69-year-old female with a relatively recent diagnosis of ovarian cancer, received her second cycle of chemotherapy on July 14. The patient became acutely delirious during her infusion which was assumed to be related to Benadryl and she was taken home from the infusion suite by her significant other. The patient's confusion improved slightly, but she unfortunately developed severe nausea and vomiting which became intractable and the patient was responsible for managing her own medications and at least on one occasion was noted to have taken two days worth of her medications in one sitting. She was subsequently transported to the emergency department for evaluation. She had an initial hemoglobin on 9.9 which was just a slight drop from 10.5 measured the week prior. She had an initial mild hyponatremia, significant hypokalemia and hypomagnesemia and was subsequently admitted to the hospital for further evaluation. She developed emesis in the emergency department which had a coffee ground appearance and was tested for acute blood which was positive. The patient subsequently underwent EGD with Dr. Corral which demonstrated a Marija-Jolly tear which was oozing actively and subsequently cauterized during the procedure and also demonstrated severe ulcerative esophagitis. The patient was subsequently managed with IV Protonix with relative stability in her hemoglobin. She did not require a blood transfusion during this hospitalization. The patient's mental status has been waxing and waning over the last several weeks during this hospital stay. She was initially confused, but orientation improved throughout her stay. She had severe physical deconditioning and required assistance with ADL's and assistance with ambulation. It was felt that she would be best served in a subacute rehab setting for appropriate medication management at least initially and improvement in physical condition before returning home. DISPOSITION AND FOLLOW-UP PLAN: The patient is being discharged to [facility] in stable condition. She will be seen by Dr. Cline on July 31 and decision for timing on her third chemotherapy cycle will be made at that time based on improvement in nutritional status as she was still struggling with dysphagia at the time of discharge, but steadily improving. RL PHELPS [id number]/[facility] #: [id number] LINDSAY
[2019-07-28] MEDS: Magic Mouth Was-BEN/MAAL/LIDO SWISH SWAL SCH (11:42)
== END 2019-07-28 11:55 | disposition home or self-care (01) | DRG 369 ==
LOC: ED 09:11 → MED 13:45
PROVIDERS: ADMIT Internal Medicine Hematology & Oncology; ATTEND Internal Medicine Hematology & Oncology
PROC: 0D548ZZ Destruction of Esophagogastric Junction, Via Natural or Artificial Opening Endoscopic (ICD-10-PCS; principal; 2019-07-20)
DX: K22.6 Gastro-esophageal laceration-hemorrhage syndrome (principal); E87.1 Hypo-osmolality and hyponatremia; C56.9 Malignant neoplasm of unspecified ovary; C78.6 Secondary malignant neoplasm of retroperitoneum and peritoneum; E46 Unspecified protein-calorie malnutrition; D62 Acute posthemorrhagic anemia; K22.11 Ulcer of esophagus with bleeding; E87.6 Hypokalemia; E83.42 Hypomagnesemia; R41.0 Disorientation, unspecified; D70.1 Agranulocytosis secondary to cancer chemotherapy; T45.1X5A Adverse effect of antineoplastic and immunosuppressive drugs, initial encounter; Y92.9 Unspecified place or not applicable; F31.9 Bipolar disorder, unspecified; G89.29 Other chronic pain; M54.9 Dorsalgia, unspecified; M19.90 Unspecified osteoarthritis, unspecified site; Z90.721 Acquired absence of ovaries, unilateral; Z72.89 Other problems related to lifestyle; Z88.5 Allergy status to narcotic agent; K21.0 Gastro-esophageal reflux disease with esophagitis; M81.0 Age-related osteoporosis without current pathological fracture; H26.9 Unspecified cataract; F41.9 Anxiety disorder, unspecified; F41.0 Panic disorder [episodic paroxysmal anxiety]; Z96.651 Presence of right artificial knee joint; Z87.891 Personal history of nicotine dependence; K59.00 Constipation, unspecified; Z68.20 Body mass index [BMI] 20.0-20.9, adult
CPT/HCPCS: 36415; 70450; 71045; 74177; 80048; 80053; 81003; 82140; 82271; 83605; 83735; 84484; 85014; 85018; 85025; 85060; 85610; 85730; 87040; 93005; 96361; 96374; 99156; 99157; 99222; 99232; 99233; 99239; 99284; A9270-GY; G8978-GP-CJ; G8979-GP-CI; G8987-GO-CK; G8988-GO-CI; J0780; J1170; J1650; J2250; J2405; J3010; J3475; J3480; Q0164; Q9967

== ENCOUNTER 2019-07-30 00:29 | Inpatient (IN) | payer MEDICARE ==
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
[2019-07-30 01:57] LABS: ABS Lymphocytes 1.1 10^3/ul (1.0-4.8); ABS Monocytes 0.8 10^3/ul (0-0.8); ABS Neutrophils 8.8 10^3/ul (1.5-7.7); Eosinophil % 0.3 %; Hematocrit 37 % (35-47); Hemoglobin 12.3 g/dL (12.0-16.0); Lymphocyte % 10.1 %; Mean Corpuscular HGB Conc 33 g/dL (31-36); Mean Corpuscular Hemoglobin 29 pg (27-31); Mean Corpuscular Volume 86 fL (80-97); Mean Platelet Volume 7.8 fL (7.4-10.4); Nucleated Red Blood Cells % 0.4; Platelet Count 194 10^3/uL (150-450); Red Cell Distribution Width 18 % (10-15); White Blood Count 10.7 10^3/uL (3.5-10.8)
[2019-07-30 02:15] LABS: Albumin 2.9 g/dL (3.2-5.2); Albumin/Globulin Ratio 0.9 (1-3); BUN/Creatinine Ratio 27.6 (8-20); Calcium 9.8 mg/dL (8.6-10.3); EGFR African American 124.4 (>60); EGFR Non-African American 102.8 (>60); Globulin 3.2 g/dL (2-4); Potassium 4.3 mmol/L (3.5-5.0); Total Bilirubin 0.3 mg/dL (0.2-1.0); Total Protein 6.1 g/dL (6.4-8.9)
[2019-07-30 02:16] LABS: Troponin I 0.03 ng/mL (<0.04)
[2019-07-30] MEDS ORDERED: Iohexol 350* (CONTRAST) 500 ML MDV IV ONE (02:19)
[2019-07-30] MEDS ORDERED: Enoxaparin(*) 60 MG/0.6 ML SYR SUBCUT ONE ×2 (03:57→19:00)
[2019-07-30] MEDS ORDERED: NS 0.9% 1000 ML** 1,000 ML IV ONE (04:02)
[2019-07-30] MEDS ORDERED: HYDROmorphone INJ* 0.5 MG/0.5 ML SYRINGE IV ONE (05:40)
[2019-07-30] MEDS ORDERED: NS 0.9% 1000 ML** 1,000 ML IV SCH (06:15)
[2019-07-30] MEDS ORDERED: HYDROmorphone TAB* 2 MG PO PRN (06:24)
[2019-07-30] MEDS ORDERED: Sucralfate SUSP 1 GM/10 ml 10 ML UDC PO SCH (09:00)
--- NOTE | 2019-07-30 09:19 | HP ---
CC: Dr. Chato Cline; Dr. Jyoti Ocasio * ADMISSION HISTORY AND PHYSICAL: DATE OF ADMISSION: 07/30/19 PRIMARY CARE PHYSICIAN: Dr. Jyoti Ocasio CHIEF COMPLAINT: Two falls and coughing spell and chest pain. HISTORY OF PRESENT ILLNESS: This is a 69-year-old female with past medical history of ovarian adenocarcinoma with peritoneal carcinomatosis, who was recently admitted on 07/19/19 and discharged on 07/28/19 to the [facility] after diagnosis of GI bleed secondary to erosive esophagitis and Marija-Jolly tear, also history of memory impairment with recent worsening of her memory and mental status with intermittent delirium. The patient has apparently sustained 2 falls yesterday 07/29/19 and was having some shortness of breath and cough and chest pain, so she was sent to the ER. While in the ER , the patient was very unreliable historian, stated that she was in [facility], but after that every question I asked, she simply replied [facility], even when I asked about the region and when asked about the month and year, she only stated June, but otherwise could not remember the year and could not answer the year. When asked about her chest pain, her breathing difficulty she denied it initially, but she kept saying esophagus hurts and kept repeating remove esophagus and then later kept repeating remove the stomach and remove fingers. The rest of the history was obtained by talking to her ex-, who is still legally , but has not lived in her house for 7 years, but is still listed as the primary healthcare proxy and her current boyfriend Avila Francisco is her secondary healthcare proxy. According to the ex- Nelson, who was present. Bill stated that the patient has sustained 2 falls yesterday. She has been having cough, which was worse when she was admitted last month, but since discharge her cough has actually improved and the chest pain that the care home documented was mostly her esophagus pain because she does have pain with swallowing and difficulty swallowing and some heartburn and the patient has had progressive decline in mental status for the last few months and according to him, she is currently at her baseline status, which is waxing and waning of her mental status. PAST MEDICAL HISTORY: As mentioned, ovarian cancer with peritoneal adenocarcinoma, on chemotherapy. Recently admitted for GI bleed, which was noted to be secondary to erosive esophagitis and Marija-Jolly tear with intractable nausea and vomiting. Protein-calorie mal deficiency. Mild memory impairment with worsening delirium over the last few months. Recent neutropenia secondary to chemotherapy. Hypomagnesemia and hypokalemia due to GI loss on the last admission, bipolar disease with some borderline personality disorder, chronic back pain, and osteoarthritis. PAST SURGICAL HISTORY: She has had a back surgery in 1985 and a laminectomy in January 2019, unilateral oophorectomy during an ectopic , and right knee arthroscopy with right knee replacement. HOME MEDICATIONS: The patient is currently on: 1. Carafate 1 g p.o. 4 times a day. 2. Senna 2 tablets p.o. b.i.d. 3. Protonix 40 mg p.o. b.i.d. 4. Hydromorphone 2 mg q.3 hours p.r.n. 5. Seroquel 100 mg at bedtime. 6. Propranolol 10 mg p.o. b.i.d. 7. Zofran 4 mg q.6 hours. 8. Magic Mouthwash 5 mL swish and swallow 4 times a day. ALLERGIES: The patient is documented to be allergic to morphine, which causes nausea. FAMILY HISTORY: At her age, it is reliable. SOCIAL HISTORY: She is currently residing at [facility], [place], and was moved there on 07/28/19. She has a previous history of smoking according to the many years ago and drinks occasionally. 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 REVIEW OF SYSTEMS: Unable to obtain due to her mental status and her unreliability. PHYSICAL EXAMINATION GENERAL: The patient is awake. She knew this was [facility], but otherwise could not answer any further orientation question, but does not appear to be in any respiratory distress. VITAL SIGNS: BP was noted to be 99/69, heart rate 91, respiration rate 20, saturating 97% on 4 L nasal cannula, temperature documented at 96.1. HEAD AND NECK: Atraumatic, normocephalic. Bilateral pupils are reactive. Neck supple. No jugular venous distention. HEART: S1, S2. Regular rate and rhythm. LUNGS: Clear to auscultation bilaterally. No wheezing, rhonchi, or rales. ABDOMEN: Soft, nontender, nondistended. EXTREMITIES: The patient had bilateral lower extremity edema more prominent on the right side, which she had a previous right knee replacement. DIAGNOSTIC STUDIES/LAB DATA: CBC was remarkable. Comprehensive metabolic panel shows hyponatremia with sodium of 130, which seems to be her baseline even last week. Potassium 4.6, chloride 95, BUN 16, creatinine 0.58. Alkaline phosphatase was elevated at 127. LFTs show mildly decreased albumin at 2.9. CT of the chest showed mild pulmonary emboli in the posterior left lower lobe and questionably in the peripheral branch of the posterior right lower lobe, mild bilateral pleural effusion with trace pericardial effusion and large peritoneal ascites, which is somewhat complex with household measurements of 16 and has increased since April 2019. Mild bibasilar fibroelastic change, greatest in the lower lobe with some left lower lobe consolidation. Infiltrate throughout the lower lung. Moderate hiatal hernia with prominent fluid distention of the esophagus, which may reflect reflux or poor peristaltic clearance, although obstruction at the level of diaphragmatic hiatus is not excluded, findings are increased since the April CAT scan. EKG showed sinus rhythm at 82 beats per minute when compared to her previous EKG from last week was otherwise not changed. IMPRESSION: This is a 69-year-old female with ovarian cancer with peritoneal adenocarcinoma, on chemotherapy, now with delirium and memory impairment, being admitted for acute pulmonary embolism. ASSESSMENT: 1. Acute pulmonary embolism. Given her risk factors and her history of cancer , we will start the patient on Lovenox and get an ultrasound of the lower extremities to rule out any concurrent DVT as the patient does have clear cut lower extremity edema, although the edema could be secondary to her peritoneal carcinoma. 2. Anasarca with pericardial effusion. We will get an echocardiogram to evaluate, however, the patient's and healthcare proxy is suggesting that they are considering making the patient do not resuscitate after discussing with the secondary healthcare proxy, the current boyfriend as well as talking to her son. 3. History of malignancy, follows Oncology. 4. History of bipolar disorder. Restart home medication. 5. History of memory loss and delirium. We will reorient the patient as necessary. 6. History of chronic back pain, restart home pain medications. 7. History of recent gastrointestinal bleed, restart her Protonix and Carafate. 8. Code status. Currently, the patient has full code status per MOLST from 10/15, however, the patient herself currently is not in adequate mental status to change that, however, if there could be a family discussion, we could consider changing it to DNR/DNI and possibly even comfort care as that is what her ex- seems to be thinking. [id number]/[facility] #: [id number] MTDD
[2019-07-30] MEDS: Propranolol TAB* 10 MG PO SCH ×2 (10:46→10:57)
[2019-07-30] MEDS: Pantoprazole TAB * 40 MG TAB PO SCH ×2 (10:46→10:57)
[2019-07-30] MEDS: Senna TAB 8.6 mg* TAB PO SCH ×2 (10:46→10:57)
[2019-07-30] MEDS: Magic Mouth Was-BEN/MAAL/LIDO SWISH SWAL SCH ×4 (10:46→21:43)
[2019-07-30] MEDS ORDERED: Pantoprazole* 80 mg IN NS 80 MG/250 ML BAG IV SCH (12:00)
--- NOTE | 2019-07-30 12:12 | PN ---
Progress Note - Progress Note Date of Service: 07/30/19 SOAP: Subjective: [Anette was admitted overnight from [facility]. She sustained a couple of falls over the prior 24h and was subsequently c/o SOB and CP and transferred to the ER for evaluation. She was found to be hypoxic and CTA completed showed 2 small , peripheral PEs with atelectasis and bilateral pleural effusions along with markedly distended esophagus. Patient reports she has noted vomited since leaving the hospital Wednesday, still have some pain with swallowing. Does not feel nauseated at this time.] Objective: [ Vital Signs: Temp Pulse Resp BP Pulse Ox 97.7 F 76 18 139/90 98 07/30/19 10:12 07/30/19 10:12 07/30/19 10:12 07/30/19 10:12 07/30/19 10:12 Sodium Chloride (Ns 0.9% 1000 Ml) 1,000 mls @ 75 mls/hr IV PER RATE [facility] Last Admin: 07/30/19 10:45 Dose: 75 mls/hr Pantoprazole Sodium (Protonix Iv Bag*) 80 mg in 250 mls @ 25 mls/hr IV Q10H [facility] Heparin Sodium/Dextrose (Heparin Drip 25,000 Units(*)) 25,000 units in 500 mls @ 0 mls/hr IV PER RATE [facility]; Protocol Multi-Ingredient Mouthwash/Gargle (Magic Mouth Was-Brandt/Maal/Lido*) 5 ml SWISH SWAL QID [facility] Last Admin: 07/30/19 10:46 Dose: 5 ml Laboratory Results - last 24 hr 07/30/19 07/30/19 07/30/19 01:45 EST 01:45 EST 01:45 EST WBC 10.7 RBC 4.30 Hgb 12.3 Hct 37 MCV 86 MCH 29 MCHC 33 RDW 18 H Plt Count 194 MPV 7.8 Neut % (Auto) 82.0 Lymph % (Auto) 10.1 [place] % (Auto) 7.3 Eos % (Auto) 0.3 Baso % (Auto) 0.3 Absolute Neuts (auto) 8.8 H Absolute Lymphs (auto) 1.1 Absolute Monos (auto) 0.8 Absolute Eos (auto) 0.0 Absolute Basos (auto) 0.0 Absolute Nucleated RBC 0.0 Nucleated RBC % 0.4 Sodium 130 L Potassium 4.3 Chloride 95 L Carbon Dioxide 27 Anion Gap 8 BUN 16 Creatinine 0.58 Est GFR ( Amer) 124.4 Est GFR (Non-Af Amer) 102.8 BUN/Creatinine Ratio 27.6 H Glucose 101 H Calcium 9.8 Total Bilirubin 0.30 AST 15 ALT 7 Alkaline Phosphatase 127 H Troponin I 0.03 B-Natriuretic Peptide 66 Total Protein 6.1 L Albumin 2.9 L Globulin 3.2 Albumin/Globulin Ratio 0.9 L Exam: Gen: Confused, but in NAD and pleasant HEENT: MMM CV: RRR, no m/r/g Resp: CTA, no w/c/r Abd: mildly distended, nonTTP Ext: trace to 1+ edema] Assessment: [This is a 69 yo female with ovarian CA s/p 2 cycles of carboplatin/taxol/ avastin recently admitted with intractable n/v found to have an upper GIB secondary to erosive esophagitis and an oozing Marija-Jolly tear. She was discharged to [facility] Wednesday for PADILLA and returned to the ER overnight with SOB found to have PEs and radiographic evidence of esophageal obstruction.] Plan: [1. PE - rather low clot burden - echo pending, she was mildly hypotensive in the ER but not a TPA candidate and hypotension has improved - she received 1 dose of Lovenox in the ER, but would like to manage her with a heparin drip at this time due to potential bleeding complications that may ensue due to esophageal obstruction 2. Esophageal obstruction - she is asx - there is a large amount of debris in the esophagus on CT with significant distention - reviewed with Dr Corral by phone who will see the patient later today - he was reported there was no stenosis in the distal esophagus on her EGD from last week - keep her NPO and all medications should be IV, it is very unlikely she would absorb any po medications 3. Ovarian CA - s/p C2 carbo/taxol/avastin 4. Esophagitis/Marija Jolly tear - cont PPI, protonix 40 mg IV bid 5. Delirium v dementia - she is moderately confused - oriented to self and general situation but unable to provide any details of the recent past - her mental status has waxed and waned over the last several months and her current state is consistent with what she has looked like during prior hospital stays 6. CODE STATUS - reviewed code status with her health care proxy, Nelson Lockhart, who has also discussed it with her secondary proxy and current boyfriend - both parties agree they on DNR/DNI status, the patient is unable to make her own decision at this time - MOLST form signed Dispo: requires inpatient stay
[2019-07-30] MEDS ORDERED: Glucagon* 1 MG VIAL IV ONE (13:03)
[2019-07-30] MEDS: Pantoprazole IV* 40 MG IV SCH ×2 (14:20→22:22)
[2019-07-30] MEDS ORDERED: Heparin DRIP 25,000 UNITS(*) 25,000 UNITS/500 ML BAG IV SCH (16:00)
[2019-07-30] MEDS ORDERED: HYDROmorphone INJ* 0.5 MG/0.5 ML SYRINGE IV PRN (16:25)
[2019-07-30] MEDS ORDERED: Enoxaparin(*) 60 MG/0.6 ML SYR SUBCUT SCH (18:00)
--- NOTE | 2019-07-30 19:07 | CONS ---
CC: Dr. Jyoti Ocasio; Dr. Cline; Dr. Goodwin * CONSULTATION REPORT: DATE OF CONSULT: 07/30/19 REQUESTING PROVIDER: RL Sen. REASON FOR CONSULT: Abnormal CT, need for anticoagulation. HISTORY OF PRESENT ILLNESS: This is a 69-year-old female with a past medical history of ovarian adenocarcinoma with peritoneal carcinomatosis, severe ulcerative esophagitis, known hiatal hernia, and presbyesophagus who presented to the emergency room on 07/30/19 with hypoxia. The patient was recently admitted and her stay was complicated by erosive esophagitis and a Marija- Jolly tear, diagnosed and treated by me at the previous hospitalization. She was placed on b.i.d. PPI therapy and did relatively well. The history of present illness is limited due to the patient's mental status, but she is able to answer direct questions pretty well. HPI is supplemented by the chart, nursing assistance, and conversation with primary team. She has been having pain with swallowing, occasional difficulty, and heartburn over the last few weeks. There has been no further nausea or emesis after the endoscopy from the prior hospitalization. Nursing has not noted a bowel movement. No black or blood in the stool. The remainder of the HPI is limited by the patient's mental status. PAST MEDICAL HISTORY: Ovarian carcinoma with peritoneal carcinomatosis, recent GI bleed secondary to Marija-Jolly tear with associated severe erosive esophagitis, presbyesophagus, hiatal hernia, protein-calorie malnutrition, memory impairment. PAST SURGICAL HISTORY: Back surgery in 1985, oophorectomy, right knee arthroscopy and replacement, recent EGD by me on 07/20/19 demonstrating erosive esophagitis and Marija-Jolly tear along with hiatal hernia and known presbyesophagus. She has had a distant additional EGD in the past along with a colonoscopy earlier this year with a polyp removed. HOME MEDICATIONS: Include: 1. Carafate. 2. Senna. 3. Protonix. 4. Hydromorphone. 5. Seroquel. 6. Propranolol. 7. Zofran. 8. Magic mouthwash. ALLERGIES: MORPHINE, which elicits nausea. FAMILY HISTORY: No known GI cancer or IBD. SOCIAL HISTORY: At [facility]. Prior history of smoking. Prior social alcohol use. REVIEW OF SYSTEMS: Unable to be obtained secondary to mental status. PHYSICAL EXAM: Vital Signs: Blood pressure 139/90, pulse 76, respiratory rate is 18, 98% on supplemental oxygen, temperature is 97.7. In general, she is alert and oriented to person only, chronically ill-appearing. HEENT: Atraumatic, normocephalic. Pupils equal, round, reactive to light. Extraocular movements are intact. Conjunctivae are pink. Sclerae are anicteric. Cardiovascular: Regular rate and rhythm. S1, S2. Respiratory: Slightly diminished at the base. Abdomen: Soft, nontender, nondistended. Bowel sounds positive. No guarding or rebound. No grimace. Extremities: 1+ edema bilaterally. DIAGNOSTIC STUDIES/LAB DATA: Laboratory Data: Hemoglobin 12.3, platelet count 194. Sodium 130, potassium 4.3, chloride 95, BUN is 16, creatinine 0.58. Alkaline phosphatase 127. Total protein 6.1, albumin 2.9. She had a CT of the chest and thorax. This was reviewed by myself in conjunction with a radiologist. There is pulmonary embolism present in the posterior left lobe and potentially one in the right lobe, bilateral pleural effusions, moderate hiatal hernia with prominent fluid distention in the esophagus. ASSESSMENT AND PLAN: This is a 69-year-old female who is admitted with pulmonary embolism, hypoxia, with a history of Marija-Jolly tear, presbyesophagus, hiatal hernia, and severe erosive esophagitis. 1. Pulmonary embolism. From a GI point of view, there are no signs of active bleeding. The benefits of anticoagulation far outweigh the risks even in the setting of ulcerative esophagitis and a previous Marija-Jolly tear. Her Marija- Jolly tear was treated with BICAP. Continue with antiemetics and continue with b.i.d. PPI therapy and this will mitigate the risk of bleeding; however, it is possible for gastrointestinal bleeding to occur. 2. Dilated esophagus on CT. She has known presbyesophagus with a hiatal hernia. There is no stenosis to this area on recent endoscopy on 07/20/19 by myself. Suspect this is all related to her severe esophagitis and hiatal hernia. We will give a dose of glucagon. She is high risk for endoscopy given the new onset of pulmonary embolism and relatively poor tolerance to moderate sedation at the last endoscopy with complications of hypoxia. She is able to tolerate secretions. There is no evidence of nausea or vomiting. I will keep her n.p.o. today and then slowly advance back to liquids starting on 07/31/19 if doing well clinically. I would keep the head of the bed elevated above 30 degrees at all times to help promote motility. If nausea and vomiting develop, could consider a dose or two of Reglan; however, the complications of this therapy may exacerbate her delirium. 3. Ovarian carcinoma with peritoneal carcinomatosis. Per primary team. [id number]/[facility] #: [id number] MTDD
[2019-07-30] MEDS ORDERED: QUEtiapine TAB* 100 MG PO SCH (21:00)
[2019-07-31 04:30] LABS: ABS Lymphocytes 1.1 10^3/ul (1.0-4.8); ABS Monocytes 0.7 10^3/ul (0-0.8); ABS Neutrophils 5.4 10^3/ul (1.5-7.7); Eosinophil % 0.6 %; Hematocrit 26 % (35-47); Hemoglobin 8.6 g/dL (12.0-16.0); Lymphocyte % 15.2 %; Mean Corpuscular HGB Conc 33 g/dL (31-36); Mean Corpuscular Hemoglobin 29 pg (27-31); Mean Corpuscular Volume 87 fL (80-97); Mean Platelet Volume 7.5 fL (7.4-10.4); Platelet Count 180 10^3/uL (150-450); Red Blood Count 3.03 10^6 /uL (3.70-4.87); Red Cell Distribution Width 17 % (10-15); White Blood Count 7.3 10^3/uL (3.5-10.8)
[2019-07-31 04:45] LABS: BUN/Creatinine Ratio 32.6 (8-20); Calcium 8.6 mg/dL (8.6-10.3); EGFR African American 162.5 (>60); EGFR Non-African American 134.3 (>60); Potassium 3.7 mmol/L (3.5-5.0)
[2019-07-31] MEDS ORDERED: D5NS 0.9% 1000 ML BAG* 1,000 ML IV SCH (09:00)
[2019-07-31] MEDS: Magic Mouth Was-BEN/MAAL/LIDO SWISH SWAL SCH ×4 (09:41→20:30)
[2019-07-31] MEDS: Pantoprazole IV* 40 MG IV SCH ×2 (09:42→20:30)
[2019-07-31] MEDS: Enoxaparin(*) 60 MG/0.6 ML SYR SUBCUT SCH ×2 (09:42→20:29)
--- NOTE | 2019-07-31 10:52 | PN ---
Progress Note - Progress Note Date of Service: 07/31/19 SOAP: Subjective: []Dellerium continues. No nausea. She has sever pain with swallowing. No eating at [facility] and frequent falls. Breathing is fine, comfortable on 2L NC. Enoxaparin Sodium (Lovenox(*)) 60 mg SUBCUT Q12H [facility] Last Admin: 07/31/19 09:42 Dose: 60 mg Hydromorphone HCl (Dilaudid Inj*) 0.5 mg IV Q3H PRN PRN Reason: .PAIN Sodium Chloride (Ns 0.9% 1000 Ml) 1,000 mls @ 75 mls/hr IV PER RATE [facility] Last Admin: 07/30/19 10:45 Dose: 75 mls/hr Dextrose/Sodium Chloride (D5ns 0.9% 1000 Ml Bag*) 1,000 mls @ 100 mls/hr IV Q10H [facility] Last Admin: 07/31/19 08:49 Dose: 100 mls/hr Multi-Ingredient Mouthwash/Gargle (Magic Mouth Was-Brandt/Maal/Lido*) 5 ml SWISH SWAL QID [facility] Last Admin: 07/31/19 09:41 Dose: 5 ml Pantoprazole Sodium (Protonix Iv*) 40 mg IV BID [facility] Last Admin: 07/31/19 09:42 Dose: 40 mg Objective: [] Vital Signs Temp Pulse Resp BP Pulse Ox 98.2 F 99 22 123/83 99 07/31/19 08:43 07/31/19 08:43 07/31/19 08:43 07/31/19 08:43 07/31/19 08:43 Exam: Gen: Confused, but in NAD and pleasant HEENT: MMM CV: RRR, no m/r/g Resp: CTA, no w/c/r Abd: mildly distended, nonTTP Ext: trace to 1+ edema] CT scan with small PE. There is dilation esophagus, fluid on abd imaging, no pulmonary infiltrate. Assessment: [This is a 69 yo female with ovarian CA s/p 2 cycles of carboplatin/taxol/ avastin recently admitted with intractable n/v found to have an upper GIB secondary to erosive esophagitis and an oozing Marija-Jolly tear. She was discharged to [facility] Wednesday for PADILLA and returned to the ER overnight with SOB found to have PEs and radiographic evidence of esophageal obstruction. She also has continued anorexia and dysphasia, continued delirium with suspected underlying dementia. Case discussed at [facility] with GI and then with family. She has sever esophogitis but no esophageal obstruction. Symptoms will be durable, can take several months to improve. There is little to no benefit to repeat EGD. We discussed that he cancer is likely to eventually respond to therapy. However, we have multiple challenges to her QOL. Her dementia is not likely to improve, anorexia will remain a challenge given esophogitis. Additional chemotherapy is not realistic, our goal needs to be her QOL. There may be some benefit from prior treatment. Prognosis if she can eat will be months, if she does not start to eat, weeks. If she improves can re-consider treatment, family and patient agrees to hospice. ] Plan: [1. PE. Will continue Lovenox. 2. Esophogitis. - Full liquid diet - no repeat EGD - Continue IV PPI in hospital, po on discharge - keep her NPO and all medications should be IV, it is very unlikely she would absorb any po medications 3. Ovarian CA. No additional therapy, goal is QOL, hospice. 4. Delirium v dementia. Supportive care, avoid benzos. 6. CODE STATUS. DNR DNI 7. Disp, question home with hospice.
--- NOTE | 2019-07-31 11:10 | ECHO ---
*[facility]* [place] [address] Fax #: [phone] Transthoracic Echocardiogram Patient: Anette Lockhart : 1950 Study Date: 07/31/2019 Age: 69 Gender: F HR: 91 bpm Height: 61 in /154.9 cm BSA: 1.54 m^2 Weight: 119.7 lb /54.4 kg BMI: 22.7 kg/m^2 *Die Barber: * Anette Vick [facility] *Referring Physician: * Humberto Recinos *Reading Physician: * Edson Guerin MD Indications: Edema. History: Metastatic ovarain cancer. Chemotherapy. Erosive esophagitis. Risk factors: Former tobacco use. Conclusions Summary: - Left ventricle: Systolic function is normal. The estimated ejection fraction is 55-60%. Wall motion is normal; there are no regional wall motion abnormalities. - Right ventricle: Systolic function is normal. - Ventricular septum: The outflow septum has a sigmoid appearance. - Mitral valve: There is trace regurgitation. - Aortic valve: There is no evidence of stenosis. - Tricuspid valve: There is trace regurgitation. - Pericardium, extracardiac: There is no significant pericardial effusion. There is a left pleural effusion. - Pulmonary arteries: Systolic pressure is within the normal range. - Compared to study of 06/23/19, there is little change. Study data: Transthoracic echocardiogram. Procedure: Transthoracic echocardiography was performed. Image quality was fair. The study was technically limited due to poor acoustic window availability. Complete 2D, spectral Doppler, and color flow Doppler. Location: Bedside. Patient status: Inpatient. Patient room number: 404. Rhythm: Normal sinus rhythm. Findings Left ventricle: The cavity size is moderately reduced. Wall thickness is mildly increased. Systolic function is normal. The estimated ejection fraction is 55-60%. Wall motion is normal; there are no regional wall motion abnormalities. There is no consistent Doppler evidence of clinically significant diastolic dysfunction. Right ventricle: The cavity size is mildly reduced. Systolic function is normal. Ventricular septum: The outflow septum has a sigmoid appearance. Measures 1.4 cm. Left atrium: The atrium is normal in size. Right atrium: The atrium is normal in size. Mitral valve: The leaflets are mildly thickened. There is no evidence of stenosis. There is trace regurgitation. Aortic valve: The leaflets are normal thickness. There is no evidence of stenosis. There is no significant regurgitation. Tricuspid valve: The leaflets are normal thickness. There is no evidence of stenosis. There is trace regurgitation. Pulmonic valve: Not well visualized. Aorta: The aortic root appears normal. The aortic arch appears normal. Pericardium: There is no significant pericardial effusion. There is a left pleural effusion. Pulmonary arteries: Not well visualized. Systolic pressure is within the normal range. Systemic veins: Inferior vena cava: The vessel is normal in size. There is (>= 50%) respiratory change in the IVC dimension. Abdomen: Ascites is noted. Measurements Left ventricle Value Ref Aortic valve continued Value Ref TYLER, LAX (L) 2.7 cm 3.8 - 5.2 Mean grad, S 3.4 mm Hg ----- ESD, LAX (L) 1.9 cm 2.2 - 3.5 Peak grad, S 5.8 mm Hg ----- FS, LAX 29 % 27 - 45 LVOT/AV, VTI ratio 1.07 ----- PW, ED, LAX (H) 1.1 cm 0.6 - 0.9 EF 57 % 54 - 74 Mitral valve Value Ref E', lat mynor, TDI (L) 9.9 cm/sec >=10.0 Peak E 0.59 m/sec - ---- E/e', lat mynor, 6 Peak A 0.91 m/sec ---- - TDI VTI leaflet coapt 20.1 cm ----- E', med mynor, TDI (L) 6.0 cm/sec >=7.0 Decel time 288 ms - ---- E/e', med mynor, 10 PHT 78 ms ---- - TDI Mean grad, D 2.2 mm Hg ----- E', avg, TDI 8.0 cm/sec Peak grad, D 4.0 mm Hg ---- - E/e', avg, TDI 7 <=14 Peak E/A ratio 0.64 - ---- MVA, PHT 2.8 cm^2 ----- LVOT Value Ref Peak roldan, S 1.15 m/sec Pulmonic valve Value Ref VTI, S 21.1 cm Peak v, S 0.66 m/sec ----- Peak grad, S 5 mm Hg Peak grad, S 1.8 mm Hg ----- Mean grad, S 3 mm Hg Tricuspid valve Value Ref Ventricular septum Value Ref TR peak v 2.5 m/sec <=2.8 IVS, ED (H) 1.1 cm 0.6 - 0.9 Peak RV-RA grad, S 25 mm Hg ----- Right ventricle Value Ref Aortic root Value Ref TYLER major ax, A4C (L) 2.9 cm 5.9 - 8.3 Root diam 1.8 cm <3.8 Pressure, S 28 mm Hg Ascending aorta Value Ref Left atrium Value Ref AAo AP diam, S 2.8 cm ----- AP dim, ES (L) 2.10 cm 2.70 - 3.80 Aortic arch Value Ref SI dim ES, LAX 2.1 cm Arch diam 2.5 cm ----- ML dim, A4C 3.6 cm Vol/bsa, ES, 2-p 34 ml/m^2 16 - 34 Decending aorta Value Ref Viktor peak roldan 0.71 m/sec ----- Right atrium Value Ref SI dim, ES 4.6 cm 3.4 - 5.3 Pulmonary artery Value Ref ML dim, ES, A4C 3.6 cm 2.6 - 4.4 Pressure, S 26.2 mm Hg ----- Estimated RAP 3 mm Hg Inferior vena cava Value Ref Aortic valve Value Ref Diam 1.3 cm ----- Mynor diam, ED 1.8 cm Peak v, S 1.2 m/sec VTI, S 19.7 cm Legend: (L) and (H) parris values outside specified reference range. Prepared and electronically signed by Edson Guerin MD 07/31/2019 11:10
--- NOTE | 2019-07-31 14:19 | CONSULT ---
Palliative / Hospice Consult Ordering Provider: Chato Cline - PCP-Jacinto Referal Reason: Goals of care/no bowel meds/hydromorphone - Subjective Code Status: DNR Advance Directives Location: In Chart MOLST Part A Completed: Yes - completed on chart MOLST Part E Completed:: Yes - completed on chart - History or Present Illness History or Present Illness: 69yo female recent resident of for rehab with ovarian adenocarcinoma and peritoneal carcinomatosis presents with s/p falls, cough and SOB. Pt was recently hospitalized with upper GI bleed secondary to Marija Jolly tear and erosive esophagitis and discharged to for rehab. PMH is significant for memory impairment, intermittent delirium, protein calorie deficiency, bipoplar and borderline disorder, osteoarthritis, chronic back pain and hiatal hernia. 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 Studies EKG nsr, CTA pulmonary embolism in LLL and RLL, mild bilateral effusion, hiatal hernia, LLL consolidation and large peritoneal ascites, ECHO EF 55%, H/H 8.6/26, BUN/Cr 15/.46. egfr 134, alb 2.9 and PTT 28.5. Pt is admitted with acute PE and anasarca. Pt was seen in ER 4 times in the last year and admitted 05/29-06/30/2019 for nausea and 07/19-07/28/2019 for GI bleed. All history is from Bill and medical record, pt was unable to contribute. Lab Values: Abnormal Lab Results 07/31/19 07/31/19 07/31/19 04:21 04:21 04:21 WBC 7.3 RBC 3.03 L Hgb 8.6 L Hct 26 L MCV 87 MCH 29 MCHC 33 RDW 17 H Plt Count 180 MPV 7.5 Neut % (Auto) 74.4 Lymph % (Auto) 15.2 [place] % (Auto) 9.5 Eos % (Auto) 0.6 Baso % (Auto) 0.3 Absolute Neuts (auto) 5.4 Absolute Lymphs (auto) 1.1 Absolute Monos (auto) 0.7 Absolute Eos (auto) 0.0 Absolute Basos (auto) 0.0 Absolute Nucleated RBC 0.0 Nucleated RBC % 0.0 APTT 28.5 Sodium 132 L Potassium 3.7 Chloride 101 Carbon Dioxide 23 Anion Gap 8 BUN 15 Creatinine 0.46 L Est GFR ( Amer) 162.5 Est GFR (Non-Af Amer) 134.3 BUN/Creatinine Ratio 32.6 H Glucose 64 L Calcium 8.6 Laboratory Last Values WBC 7.3 10^3/uL (3.5-10.8) 07/31/19 04:21 RBC 3.03 10^6 /uL (3.70-4.87) L 07/31/19 04:21 Hgb 8.6 g/dL (12.0-16.0) L 07/31/19 04:21 Hct 26 % (35-47) L 07/31/19 04:21 MCV 87 fL (80-97) 07/31/19 04:21 MCH 29 pg (27-31) 07/31/19 04:21 MCHC 33 g/dL (31-36) 07/31/19 04:21 RDW 17 % (10-15) H 07/31/19 04:21 Plt Count 180 10^3/uL (150-450) 07/31/19 04:21 MPV 7.5 fL (7.4-10.4) 07/31/19 04:21 Neut % (Auto) 74.4 % 07/31/19 04:21 Lymph % (Auto) 15.2 % 07/31/19 04:21 [place] % (Auto) 9.5 % 07/31/19 04:21 Eos % (Auto) 0.6 % 07/31/19 04:21 Baso % (Auto) 0.3 % 07/31/19 04:21 Absolute Neuts (auto) 5.4 10^3/ul (1.5-7.7) 07/31/19 04:21 Absolute Lymphs (auto) 1.1 10^3/ul (1.0-4.8) 07/31/19 04:21 Absolute Monos (auto) 0.7 10^3/ul (0-0.8) 07/31/19 04:21 Absolute Eos (auto) 0.0 10^3/ul (0-0.6) 07/31/19 04:21 Absolute Basos (auto) 0.0 10^3/ul (0-0.2) 07/31/19 04:21 Absolute Nucleated RBC 0.0 10^3/ul 07/31/19 04:21 Nucleated RBC % 0.0 07/31/19 04:21 APTT 28.5 seconds (26.0-38.0) 07/31/19 04:21 Sodium 132 mmol/L (135-145) L 07/31/19 04:21 Potassium 3.7 mmol/L (3.5-5.0) 07/31/19 04:21 Chloride 101 mmol/L (101-111) 07/31/19 04:21 Carbon Dioxide 23 mmol/L (22-32) 07/31/19 04:21 Anion Gap 8 mmol/L (2-11) 07/31/19 04:21 BUN 15 mg/dL (6-24) 07/31/19 04:21 Creatinine 0.46 mg/dL (0.51-0.95) L 07/31/19 04:21 Est GFR ( Amer) 162.5 (>60) 07/31/19 04:21 Est GFR (Non-Af Amer) 134.3 (>60) 07/31/19 04:21 BUN/Creatinine Ratio 32.6 (8-20) H 07/31/19 04:21 Glucose 64 mg/dL (70-100) L 07/31/19 04:21 Calcium 8.6 mg/dL (8.6-10.3) 07/31/19 04:21 Total Bilirubin 0.30 mg/dL (0.2-1.0) 07/30/19 01:45 EST AST 15 U/L (13-39) 07/30/19 01:45 EST ALT 7 U/L (7-52) 07/30/19 01:45 EST Alkaline Phosphatase 127 U/L (34-104) H 07/30/19 01:45 EST Troponin I 0.03 ng/mL (<0.04) 07/30/19 01:45 EST B-Natriuretic Peptide 66 pg/mL (<=100) 07/30/19 01:45 EST Total Protein 6.1 g/dL (6.4-8.9) L 07/30/19 01:45 EST Albumin 2.9 g/dL (3.2-5.2) L 07/30/19 01:45 EST Globulin 3.2 g/dL (2-4) 07/30/19 01:45 EST Albumin/Globulin Ratio 0.9 (1-3) L 07/30/19 01:45 EST - Objective Active Medications: Enoxaparin Sodium (Lovenox(*)) 60 mg SUBCUT Q12H [facility] Last Admin: 07/31/19 09:42 Dose: 60 mg Hydromorphone HCl (Dilaudid Inj*) 0.5 mg IV Q3H PRN PRN Reason: .PAIN Multi-Ingredient Mouthwash/Gargle (Magic Mouth Was-Brandt/Maal/Lido*) 5 ml SWISH SWAL QID [facility] Last Admin: 07/31/19 12:35 Dose: 5 ml Pantoprazole Sodium (Protonix Iv*) 40 mg IV BID [facility] Last Admin: 07/31/19 09:42 Dose: 40 mg Vital Signs: Vital Signs: Temp Pulse Resp BP Pulse Ox 98.2 F 99 22 123/83 99 07/31/19 08:43 07/31/19 08:43 07/31/19 08:43 07/31/19 08:43 07/31/19 08:43 Patient Weight: Weight 54.431 kg Intake and Output: Intake & Output 07/29/19 07/30/19 07/31/19 08/01/19 07:59 06:59 06:59 06:59 Intake Total 1619 120 Balance 1619 120 Weight 54.431 kg Intake: IV Fluids 1619 NS (0.9%) 1619 Oral 0 120 Other: Estimated Void Medium Date of Last Bowel unknown Movement # Bowel Movements 0 0 # Voids 0 4 ADLs: Meal Record Start: 07/30/19 10: 44 Freq: DAILY@0900,1400,1800 Status: Active Protocol: Created 07/30/19 10:44 System (Rec: 07/30/19 10:44 System [id number]) Document 07/30/19 14:00 [id number] (Rec: 07/30/19 17:33 [id number] MED-C13) Document 07/30/19 17:34 [id number] (Rec: 07/30/19 17:34 [id number] MED-C13) Document 07/31/19 08:45 [id number] (Rec: 07/31/19 08:45 [id number] MED-C13) Intake and Output Start: 07/30/19 00: 42 Freq: Status: Active Protocol: Created 07/30/19 00:42 System (Rec: 07/30/19 00:42 System [id number]) Intake and Output Start: 07/30/19 10: 44 Freq: DAILY@0600,1400,2200 Status: Active Protocol: Created 07/30/19 10:44 System (Rec: 07/30/19 10:44 System MED-M09) Document 07/30/19 14:00 [id number] (Rec: 07/30/19 17:33 [id number] MED-C13) Document 07/30/19 22:00 [id number] (Rec: 07/30/19 23:00 [id number] MED-C05) Document 07/31/19 05:43 [id number] (Rec: 07/31/19 05:44 [id number] MED-C05) Document 07/31/19 13:53 [id number] (Rec: 07/31/19 13:55 [id number] MED-C13) Ears/Nose/Mouth/Throat: NL Teeth, Lips, Gums, Clear Oropharnyx Neck: NL Appearance and Movements; NL JVP, Trachea Midline Cardiovascular: NL Sounds; No Murmurs; No JVD Respiratory: Symmetrical Chest Expansion and Respiratory Effort - Assessment Assessment: 69yo female with ovarian adenocarcinoma and peritoneal carcinomatosis, erosive esophagitis and acute pulmonary embolism eligible for hospice - Plan Consult Plan (MU): Hospice Plan: Spoke with Nelson Lockhart(HCP on chart) over the phone about goals of care and completion of MOLST form. Offered Nelson to meet face to face but he preferred to talk over the phone. MOLST was explained and he elected DNR/DNI, no feeding tube and limited intervention. He doesn't want her to suffer or have therapies that don't work. As of now he wants to see how she does over the next day or two if she is able to eat or improves. He doesn't want her to go back to [facility] and would like us to look into [place] on rehab benefit. He is also going to see if it's feasible to go home with an aide and have hospice sign on. Last option is [facility] but he is concerned with finances. manager organizational aware of situation. Pt is eligible for hospice with the diagnosis of ovarian adenocarcinoma and peritoneal carcinomatosis, erosive esphagitis and acute PE. KPS 40%, PPS 40% - Time On Unit Date of Evaluation: 07/31/19 Hospice Consult Time in: 13:00 Hospice Consult Time Out: 14:30 Hospice Consult Time Total: 90 > 50% of Time Spend In Counseling or Coordinating Care: Yes
[2019-08-01] MEDS: Pantoprazole IV* 40 MG IV SCH ×2 (07:46→20:40)
[2019-08-01] MEDS: Enoxaparin(*) 60 MG/0.6 ML SYR SUBCUT SCH ×2 (07:46→20:40)
[2019-08-01] MEDS: Magic Mouth Was-BEN/MAAL/LIDO SWISH SWAL SCH ×4 (07:47→20:39)
--- NOTE | 2019-08-01 11:27 | PN ---
Progress Note - Progress Note Date of Service: 08/01/19 SOAP: Subjective: []Decision per proxy to transition to comfort measures only as of yesterday afternoon. MOLST signed by proxy and palliative MD Rolon. Verbal and responsive this AM, complainted of pain and received IV dilaudid. No will open eyes to voice, but then closes them. No acute distress. Medications: Enoxaparin Sodium (Lovenox(*)) 60 mg SUBCUT Q12H [facility] Last Admin: 08/01/19 07:46 Dose: 60 mg Hydromorphone HCl (Dilaudid Inj*) 0.5 mg IV Q3H PRN PRN Reason: .PAIN Last Admin: 08/01/19 07:55 Dose: 0.5 mg Multi-Ingredient Mouthwash/Gargle (Magic Mouth Was-Brandt/Maal/Lido*) 5 ml SWISH SWAL QID [facility] Last Admin: 08/01/19 07:47 Dose: 5 ml Pantoprazole Sodium (Protonix Iv*) 40 mg IV BID [facility] Last Admin: 08/01/19 07:46 Dose: 40 mg Objective: [] Vital Signs Temp Pulse Resp BP Pulse Ox 98.1 F 92 20 134/74 96 08/01/19 08:00 08/01/19 08:00 08/01/19 11:02 08/01/19 08:00 08/01/19 08:00 Lethargic and sleepy following IV narcotics Opens eyes to voice and then falls back asleep Resp even and non-labored without wheeze or rhonchi No apnea noted +2 edema LEs, cool extremities without obvious mottling Assessment: []69 yo female with peritoneal cancer s/p cycle 2 carbo/taxol with course complicated by recurrent delirium and question of progressive dementia, most recently diagnosed with GI bleed 2/2 severe esophagitis and unfortunately now new PEs. Her performance status has declined dramatically and she is no longer a good candidate for chemotherapy. Family has decided, appropriately, to transition to comfort measures only. Should she improve with supportive care we could reconsider additional systemic therapy, however at this time I suspect she will continue to decline with very poor PO intake and concern for recurrent bleeding with need for anti-coagulation. Plan: []Comfort measures - d/c tele - VS PRN only - turn and position & mouth care q2hrs - trial morphine oral concentrate SUGEY Dispo: considering SNF for hospice or home but will need 24hr care, SW assisting with safe d/c DNR/DNI
[2019-08-01] MEDS: Morphine ORAL CONCENTRATE* 5 MG/0.25 ML ORAL.SYRIN SL PRN (16:13)
[2019-08-02 05:08] VITALS: BP 129/77
[2019-08-02] MEDS: Magic Mouth Was-BEN/MAAL/LIDO SWISH SWAL SCH ×4 (07:31→21:06)
[2019-08-02] MEDS: Morphine ORAL CONCENTRATE* 5 MG/0.25 ML ORAL.SYRIN SL PRN ×3 (07:33→23:20)
[2019-08-02] MEDS: Enoxaparin(*) 60 MG/0.6 ML SYR SUBCUT SCH ×2 (08:25→20:53)
[2019-08-02] MEDS: Pantoprazole IV* 40 MG IV SCH ×2 (08:39→20:53)
--- NOTE | 2019-08-02 10:38 | PN ---
Progress Note - Progress Note Date of Service: 08/02/19 SOAP: Subjective: []Denies pain, recieved PO morphine approx. 3 hours prior to assessment. Lethargic. Knows she has a bed offer @ [facility], but has told case management that she wants to home home. Family wants to follow through with her wishes to try to get her home, currently they do not have 24 hr. care set-up. Medications: Enoxaparin Sodium (Lovenox(*)) 60 mg SUBCUT Q12H [facility] Last Admin: 08/02/19 08:25 Dose: 60 mg Hydromorphone HCl (Dilaudid Inj*) 0.5 mg IV Q3H PRN PRN Reason: .PAIN Last Admin: 08/01/19 07:55 Dose: 0.5 mg Morphine Sulfate (Morphine Oral Concentrate*) 5 mg SL Q2H PRN PRN Reason: PAIN - MODERATE Last Admin: 08/02/19 07:33 Dose: 5 mg Multi-Ingredient Mouthwash/Gargle (Magic Mouth Was-Brandt/Maal/Lido*) 5 ml SWISH SWAL QID [facility] Last Admin: 08/02/19 07:31 Dose: Not Given Pantoprazole Sodium (Protonix Iv*) 40 mg IV BID [facility] Last Admin: 08/02/19 08:39 Dose: 40 mg Objective: [] Vital Signs Temp Pulse Resp BP Pulse Ox 98.4 F 90 20 129/77 98 08/02/19 00:17 08/02/19 00:17 08/02/19 09:16 08/02/19 00:17 08/02/19 00:17 Alert but none verbal this AM. Answers yes and no questions with shaking head or nodding HRR, S1S2 LS clear +BS, abd. soft and non-tender +PP=bilat. Laboratory Results - last 24 hr 07/31/19 04:09 CA 125 Antigen 167 H Assessment: []69 yo female with peritoneal cancer s/p cycle 2 carbo/taxol with course complicated by recurrent delirium and question of progressive dementia, most recently diagnosed with GI bleed 2/2 severe esophagitis and unfortunately now new PEs. Her performance status has declined dramatically and she is no longer a good candidate for chemotherapy. At this time she and family would like to get her home with hospice, however she currently requires more assistance than they have available and therefore we are attempting to get placement @ [facility] and once able to go home will consider hospice. Unfortunately I am concerned that with poor PO intake she is not going to be a good candidate for anything but SNF or home with 24 hour care and hospice Plan: []PT eval. CBC tomorrow Dispo: [facility] pending auth DNR/DNI
[2019-08-03] MEDS: Morphine ORAL CONCENTRATE* 5 MG/0.25 ML ORAL.SYRIN SL PRN ×2 (02:55→04:57)
[2019-08-03] MEDS: Magic Mouth Was-BEN/MAAL/LIDO SWISH SWAL SCH ×4 (08:14→22:06)
[2019-08-03] MEDS: Enoxaparin(*) 60 MG/0.6 ML SYR SUBCUT SCH ×2 (08:18→22:00)
[2019-08-03] MEDS: Pantoprazole IV* 40 MG IV SCH ×2 (08:25→22:00)
[2019-08-03 09:20] LABS: Hematocrit 26 % (35-47); Hemoglobin 8.7 g/dL (12.0-16.0); Mean Corpuscular HGB Conc 34 g/dL (31-36); Mean Corpuscular Hemoglobin 28 pg (27-31); Mean Corpuscular Volume 84 fL (80-97); Red Blood Count 3.06 10^6 /uL (3.70-4.87); Red Cell Distribution Width 18 % (10-15)
[2019-08-03 10:24] LABS: ABS Basophils 0.1 10^3/ul (0-0.2); ABS Eosinophils 0.1 10^3/ul (0-0.6); ABS Lymphocytes 2.3 10^3/ul (1.0-4.8); ABS Monocytes 0.9 10^3/ul (0-0.8); ABS Neutrophils 10.6 10^3/ul (1.5-7.7); Eosinophil % 0.6 %; Lymphocyte % 16.5 %; Platelet Count 234 10^3/uL (150-450)
--- NOTE | 2019-08-03 17:11 | PN ---
Progress Note - Progress Note Date of Service: 08/03/19 SOAP: Subjective: []Seen and examined this AM ~1000 am. Sleepy but more responsive this AM than yesterday (last morphine dose early this AM ~5am) Nodding or shaking ehad in response but when asked if I can do anything to make her more comfortable she says, "No ma'm." Denies pain. Nursing states concern she is choking more with liquids this AM. Pt. didn't want to do bedside swallow eval. Medications: Enoxaparin Sodium (Lovenox(*)) [address] [facility] Last Admin: 08/03/19 08:18 Dose: 60 mg Hydromorphone HCl (Dilaudid Inj*) 0.5 mg IV Q3H PRN PRN Reason: .PAIN Last Admin: 08/01/19 07:55 Dose: 0.5 mg Morphine Sulfate (Morphine Oral Concentrate*) 5 mg SL Q2H PRN PRN Reason: PAIN - MODERATE Last Admin: 08/03/19 04:57 Dose: 5 mg Multi-Ingredient Mouthwash/Gargle (Magic Mouth Was-Brandt/Maal/Lido*) [address] [facility] Last Admin: 08/03/19 14:05 Dose: Not Given Pantoprazole Sodium (Protonix Iv*) [address] [facility] Last Admin: 08/03/19 08:25 Dose: 40 mg Objective: [] Vital Signs Temp Pulse Resp BP Pulse Ox 98.4 F 90 18 129/77 98 08/02/19 00:17 08/02/19 00:17 08/03/19 08:00 08/02/19 00:17 08/02/19 00:17 Alert and responsive but minimally verbal Opens eyes spontaneously to voice and answers appropriately Resp. even and non-labored without wheeze or rhonchit No abd. tenderness Edema bilat. LEs Assessment: []69 yo female with peritoneal cancer s/p cycle 2 carbo/taxol with course complicated by recurrent delirium and question of progressive dementia, most recently diagnosed with GI bleed 2/2 severe esophagitis and unfortunately now new PEs. Her performance status has declined dramatically and she is no longer a good candidate for chemotherapy. At this time she and family have to decided to move forward with d/c home with hospice. Plan: []Cont. comfort measures Recommend trial of bedside swallow eval as may do better with pureed liquids D/c home with hospice sign on 11 AM DNR
[2019-08-04] MEDS: Enoxaparin(*) 60 MG/0.6 ML SYR SUBCUT SCH ×2 (08:54→22:48)
[2019-08-04] MEDS: Pantoprazole IV* 40 MG IV SCH ×2 (08:55→09:52)
[2019-08-04] MEDS: Magic Mouth Was-BEN/MAAL/LIDO SWISH SWAL SCH ×4 (08:55→22:48)
--- NOTE | 2019-08-04 12:42 | PN ---
Progress Note - Progress Note Date of Service: 08/04/19 SOAP: Subjective: [Reports she has no pain. Generally comfortable and happy that she will be returning home tomorrow.] Objective: [ Vital Signs: Temp Pulse Resp BP Pulse Ox 98.4 F 90 18 129/77 98 08/02/19 00:17 08/02/19 00:17 08/04/19 08:00 08/02/19 00:17 08/02/19 00:17 Enoxaparin Sodium (Lovenox(*)) 60 mg SUBCUT Q12H [facility] Last Admin: 08/04/19 08:54 Dose: 60 mg Morphine Sulfate (Morphine Oral Concentrate*) 5 mg SL Q2H PRN PRN Reason: PAIN - MODERATE Last Admin: 08/03/19 04:57 Dose: 5 mg Multi-Ingredient Mouthwash/Gargle (Magic Mouth Was-Brandt/Maal/Lido*) 5 ml SWISH SWAL QID [facility] Last Admin: 08/04/19 08:55 Dose: 5 ml Exam: Gen: Alert and responsive but minimally verbal Neuro: Opens eyes spontaneously to voice and answers appropriately Assessment: []69 yo female with peritoneal cancer s/p cycle 2 carbo/taxol with course complicated by recurrent delirium and question of progressive dementia, most recently diagnosed with GI bleed 2/2 severe esophagitis and unfortunately now new PEs. Her performance status has declined dramatically and she is no longer a good candidate for chemotherapy. At this time she and family have to decided to move forward with d/c home with hospice. Plan: []Cont. comfort measures Titanic thickened liquids and pureed foods recommended from bedside swallow D/c home with hospice sign on 11 AM DNR] []
--- NOTE | 2019-08-04 13:40 | DS ---
CC: Dr. Ocasio; Dr. Corral * DISCHARGE SUMMARY: DATE OF ADMISSION: 07/30/19 DATE OF DISCHARGE: 08/04/19 PRIMARY CARE PROVIDER: Dr. Ocasio. PRIMARY ONCOLOGIST AND ATTENDING PHYSICIAN: Dr. Chato Cline.* (DICTATED BY RL PHELPS) CONSULTING MOBILE [employer] PARK MANAGER: Dr. Corral. DISCHARGING PROVIDER: RL Phelps PRIMARY DISCHARGE DIAGNOSES: 1. Pulmonary embolus/deep venous thrombosis. 2. Recent gastrointestinal bleed secondary to Marija-Jolly tear and erosive esophagitis. 3. Delirium versus dementia. 4. Ovarian cancer. DISCHARGE MEDICATIONS: 1. Lorazepam 0.5 mg p.o. q.4 hours as needed for agitation or anxiety. 2. Magic mouthwash 5 mL swish and swallow 4 times a day. 3. Morphine oral concentrate 5 mg sublingual q.2 hours as needed for pain. HOSPITAL IMAGIN. CTA of the chest, 07/30/19, shows mild pulmonary embolism in the posterior left lower lobe and questionably a peripheral branch of the posterior right lower lobe, mild bilateral pleural effusions and trace pericardial effusion and large peritoneal ascites which is somewhat complex, as well as mild bibasilar fibroatelectatic change and a moderate hiatal hernia with prominent fluid distention of the esophagus, which may reflect reflux or poor peristaltic clearance, although obstruction at the level of the diaphragmatic hiatus is not excluded. 2. Venous Doppler study shows occlusive thrombus of the calf veins and chronic appearing nonocclusive thrombus of the femoral and profunda femoris veins. HOSPITAL COURSE: This is a 69-year-old female with ovarian cancer who received 2 cycles of carboplatin, Taxol and Avastin, who has unfortunately had multiple complications and subsequent hospitalizations. She had most recently been admitted for a GI bleed secondary to a Marija-Jolly tear of the distal esophagus and associated distal esophagitis. She was discharged to [facility] and unfortunately sustained a fall and returned to the emergency department for evaluation, at which point she was found to be hypoxic. CT angiogram of the chest which was completed, which showed 2 small pulmonary emboli and the patient's initial oxygen saturation at the time of presentation to the emergency department was in the mid 80s. Initial CT scan showed concern for possible esophageal obstruction, but the patient had no clinical signs of esophageal obstruction, denying any nausea or vomiting, although this had been a recurrent concern during the patient's prior hospitalization. She was seen for evaluation by Dr. Corral, who did not recommend repeat endoscopy as she had had one the week prior unless new symptoms developed. The patient was placed on IV Protonix given her recent GI bleed and known esophagitis and anticoagulated with full dose Lovenox for her DVT and PE. She had no clinical signs of bleeding at that time. Due to the patient's multiple complications, decision was made to pursue hospice measures and discontinue further chemotherapy. The patient desired to go home with hospice services. DISPOSITION AND FOLLOWUP PLAN: The patient is being discharged to home in stable condition with plan for same-day sign on to hospice. Prognosis at the time of discharge is days to weeks. RL PHELPS [id number]/[facility] #: [id number] LINDSAY
[2019-08-04] MEDS: Morphine ORAL CONCENTRATE* 5 MG/0.25 ML ORAL.SYRIN SL PRN (14:57)
[2019-08-05 01:17] LABS: Urine Appearance Cloudy; Urine Bacteria Absent (Absent); Urine Bilirubin Negative (Negative); Urine Blood 1+ (Negative); Urine Color Yellow; Urine Glucose Negative (Negative); Urine Ketones 2+ (Negative); Urine Nitrite Negative (Negative); Urine Protein Negative (Negative); Urine Red Blood Cell 3+(>10/hpf) (Absent); Urine Specific Gravity 1.018 (1.010-1.030); Urine Uric Acid Crystals Present (Absent); Urine Urobilinogen Negative (Negative); Urine White Blood Cell 1+(6-10/hpf) (Absent)
--- NOTE | 2019-08-28 15:40 | DS ---
Please note that the patient was discharged home with same day sign on to Hospice 08/05/19. She was stable at the time of discharge, but with a limited prognosis.
== END 2019-08-05 08:10 | disposition hospice, home (50) | DRG 176 ==
LOC: ED 00:29 → MED 06:01
PROVIDERS: ADMIT Internal Medicine; ATTEND Internal Medicine Hematology & Oncology
DX: I26.99 Other pulmonary embolism without acute cor pulmonale (principal); C56.9 Malignant neoplasm of unspecified ovary; C78.6 Secondary malignant neoplasm of retroperitoneum and peritoneum; E87.1 Hypo-osmolality and hyponatremia; J90 Pleural effusion, not elsewhere classified; I31.3 Pericardial effusion (noninflammatory); R18.8 Other ascites; F05 Delirium due to known physiological condition; I82.512 Chronic embolism and thrombosis of left femoral vein; I82.5Z2 Chronic embolism and thrombosis of unspecified deep veins of left distal lower extremity; K22.10 Ulcer of esophagus without bleeding; K21.9 Gastro-esophageal reflux disease without esophagitis; K44.9 Diaphragmatic hernia without obstruction or gangrene; M19.90 Unspecified osteoarthritis, unspecified site; M81.0 Age-related osteoporosis without current pathological fracture; F31.9 Bipolar disorder, unspecified; F41.0 Panic disorder [episodic paroxysmal anxiety]; H26.9 Unspecified cataract; Z96.651 Presence of right artificial knee joint; G89.29 Other chronic pain; M54.9 Dorsalgia, unspecified; F60.3 Borderline personality disorder; R09.02 Hypoxemia; W19.XXXA Unspecified fall, initial encounter; K22.2 Esophageal obstruction; R13.10 Dysphagia, unspecified; Z51.5 Encounter for palliative care; F03.90 Unspecified dementia, unspecified severity, without behavioral disturbance, psychotic disturbance, mood disturbance, and anxiety; Z66 Do not resuscitate; Z88.5 Allergy status to narcotic agent; Z72.89 Other problems related to lifestyle; Z87.891 Personal history of nicotine dependence; Z90.721 Acquired absence of ovaries, unilateral; Y92.129 Unspecified place in nursing home as the place of occurrence of the external cause; Z79.899 Other long term (current) drug therapy
CPT/HCPCS: 36415; 71275; 80048; 80053; 81003; 81015; 83880; 84484; 85025; 85730; 86304; 87086; 93005; 93306; 93970; 96372; 99232; 99233; 99239; 99284; A9270-GY; J1170; J1610; J1650; Q9967